=== PATIENT | female | born 1945 | race Caucasian/White ===

== ENCOUNTER → 2018-12-24 | Outpatient (CLI) | payer MEDICARE ==
--- NOTE | 2018-12-24 09:34 | Diagnostic Imaging Report ---
Indication: Abdominal pain and vomiting with bloating. Time of exam: 9:15 AM No free air is identified. The bowel gas pattern is nonobstructed. No pathologic calcifications are seen. Impression: No acute abnormality is detected. Dictated by: Dictated on workstation # [id number]
== END ==
LOC: RAD FS 09:09
PROVIDERS: ATTEND Family Medicine
DX: R10.13 Epigastric pain (principal); R11.10 Vomiting, unspecified; R14.0 Abdominal distension (gaseous)
CPT/HCPCS: 74019

== ENCOUNTER 2019-02-23 09:29 | Emergency (ER) | payer MEDICARE ==
[~2019-02-23] VITALS: Ht 149.8 cm; Wt 50.4 kg
[~2019-02-23 09:29] MED LIST changes: -AMLO10TA7; -HURRICAINE EXT TUBE (BENZOCAINE) XX PRN; -LACTATED RINGERS 1,000 ML IV ONE; -LACTATED RINGERS 1,000 ML IV STA; -MIDAZOLAM 2 MG/2 ML (VERSED) VIAL ONE; -PROPOFOL INJECTION 0 ML IV ONE; -meTOprolol 5 MG/5 ML (LOPRESSOR) VIAL ONE
[2019-02-23 10:04] LABS: BASOPHILS # (AUTO) 0.1 10^3/uL (0.0-0.1); BASOPHILS % (AUTO) 1 % (0-10); EOSINOPHILS # (AUTO) 0.3 10^3/uL (0.0-0.3); EOSINOPHILS % (AUTO) 3 % (0-10); HEMATOCRIT 34 % (35-52); HEMOGLOBIN 11.6 G/DL (11.5-16.0); LYMPHOCYTES # (AUTO) 1.1 X 10^3 (1.0-4.0); LYMPHOCYTES % (AUTO) 12 % (12-44); MEAN CORPUSCULAR HEMOGLOBIN 29 PG (25-34); MEAN CORPUSCULAR HGB CONC 34 G/DL (32-36); MEAN CORPUSCULAR VOLUME 84 FL (80-99); MEAN PLATELET VOLUME 10.7 FL (7.4-10.4); MONOCYTES # (AUTO) 0.7 X 10^3 (0.0-1.0); MONOCYTES % (AUTO) 7 % (0-12); NEUTROPHILS # (AUTO) 7.4 X 10^3 (1.8-7.8); NEUTROPHILS % (AUTO) 78 % (42-75); PLATELET COUNT 297 10^3/uL (130-400); RED CELL DISTRIBUTION WIDTH 13.3 % (10.0-14.5); WHITE BLOOD COUNT 9.6 10^3/uL (4.3-11.0)
[2019-02-23] MEDS ORDERED: LORazepam INJ 2 MG/ML (ATIVAN) VIAL IVP ONE (10:15)
[2019-02-23] MEDS ORDERED: fentaNYL INJECTION 100 MCG/2 ML AMP IVP ONE (10:15)
[2019-02-23 10:24] LABS: ALBUMIN 3.5 GM/DL (3.2-4.5); BILIRUBIN,TOTAL 0.6 MG/DL (0.1-1.0); CALCIUM 9.6 MG/DL (8.5-10.1); CREATININE SERUM 3.45 MG/DL (0.60-1.30); POTASSIUM 3.3 MMOL/L (3.6-5.0); TOTAL PROTEIN 6.9 GM/DL (6.4-8.2)
[2019-02-23] MEDS ORDERED: NS IV 1000 ML 1,000 ML IV ONE (10:37)
[2019-02-23 10:46] LABS: TSH (THYROID ANALYZER) 2.86 UIU/ML (0.35-4.94)
[2019-02-23 10:47] LABS: MAGNESIUM 1.7 MG/DL (1.6-2.4)
--- NOTE | 2019-02-23 10:49 | ED General ---
General Chief Complaint: Cardiac/General Problems Stated Complaint: HIGH BP Nursing Triage Note: PT TO RM 7 BY WHEELCHAIR FROM ENDO. PER ENDO, PTS BP WAS IN THE 200s/100s ON ARRIVAL. WAS GIVEN IV LOPRESSOR, PT BP CAME DOWN SOME. STATES DR CHRISTIANSEN WANTED PT EVALUATED IN THE ER. PER PT, SHE HAS NOT TAKEN HER METOPROLOL SINCE SATURDAY. STATES SHE WAS CONFUSED BY THE PREP INSTRUCTIONS. Nursing Sepsis Screen: No Definite Risk Source of Information: Patient Exam Limitations: No Limitations History of Present Illness Date Seen by Provider: Feb 23, 2019 Time Seen by Provider: 09:50 Initial Comments This 73-year-old woman is sent to the emergency room from the endoscopy suite because of hypertension. She is scheduled to have a colonoscopy with Dr. Christiansen today. Blood pressures were found to be greater than 200/100. Blood pressure on presentation was 230/129. Patient has not taken her metoprolol for the past 3 days in preparation for colonoscopy. She also notes she previously took lisinopril but that was stopped about 3 months ago due to cough. She is also anxious and experiencing chronic back pain. She has not treated either of these conditions this morning. She was given Lopressor 5 mg by anesthesia without significant improvement in her blood pressure. Colonoscopy today was being performed due to chronic problems with bowel disturbances including alternating constipation and diarrhea and vomiting. Allergies and Home Medications Allergies Coded Allergies: Penicillins (Verified Allergy, Severe, ANAPHYLAXIS, 02/16/19) levofloxacin (Verified Allergy, Severe, DIARRHIA, SWELLING, WEAKNESS, 02/16/19) sulfamethoxazole (Verified Allergy, Severe, WHEEZING/SWELLING, 02/16/19) trimethoprim (Verified Allergy, Severe, WHEEZING/SWELLING, 02/16/19) Tetracyclines (Verified Allergy, Mild, GI UPSET, 02/16/19) Sulfa (Sulfonamide Antibiotics) (Verified Allergy, Unknown, 02/16/19) pseudoephedrine (Verified Allergy, Unknown, 02/16/19) Home Medications Diphenhydramine HCl 25 Mg Capsule, 25 MG PO BID, (Reported) Metoprolol Tartrate 25 Mg Tablet, 25 MG PO BID, (Reported) Patient Home Medication List Home Medication List Reviewed: Yes Review of Systems Review of Systems Constitutional: no symptoms reported EENTM: no symptoms reported Respiratory: no symptoms reported Cardiovascular: see HPI Gastrointestinal: see HPI Genitourinary: no symptoms reported Musculoskeletal: no symptoms reported Skin: no symptoms reported Psychiatric/Neurological: No Symptoms Reported Hematologic/Lymphatic: No Symptoms Reported Immunological/Allergic: no symptoms reported Past Pnygsel-Aawjmz-Xzdnxa Hx Past Med/Social Hx: Reviewed and Corrections made Patient Social History Alcohol Use: Denies Use Recreational Drug Use: No Smoking Status: Current Everyday Smoker Type Used: Cigarettes 2nd Hand Smoke Exposure: Yes Recent Foreign Travel: No Contact w/Someone Who Travel: No Recent Infectious Disease Expo: No Recent Hopitalizations: No Physical Abuse: No Sexual Abuse: No Mistreated: No Fear: No Immunizations Up To Date Date of Pneumonia Vaccine: Mar 05, 2016 Date of Influenza Vaccine: Mar 03, 2018 Seasonal Allergies Seasonal Allergies: Yes Past Medical History Surgeries: Yes Tubal Ligation Respiratory: No Cardiac: Yes Hypertension Neurological: No Sexually Transmitted Disease: No HIV/AIDS: No Genitourinary: Yes (STAGE 3) Renal Failure Gastrointestinal: Yes (N/V, ABD PAIN) Chronic Constipation, Chronic Diarrhea Musculoskeletal: Yes Arthritis, Chronic Back Pain Endocrine: No HEENT: Yes (READING GLASSES, DENTURES) Cancer: No Psychosocial: Yes (SITUATIONAL-RELATED TO MOTHERS ) Depression Integumentary: No Blood Disorders: No Adverse Reaction/Blood Tranf: No (N/A) Physical Exam Vital Signs Vital Signs - First Documented 02/23/19 09:35 Temp 36.5 Pulse 88 Resp 14 B/P (MAP) 239/129 (165) Pulse Ox 95 O2 Delivery Room Air Capillary Refill : Less Than 3 Seconds Height, Weight, BMI Height: '" Weight: lbs. oz. kg; 22.00 BMI Method: General Appearance: No Apparent Distress, WD/WN HEENT: PERRL/EOMI, Normal ENT Inspection, Other (mucous membranes moist) Neck: Normal Inspection, Non Tender Respiratory: Lungs Clear, Normal Breath Sounds, No Accessory Muscle Use, No Respiratory Distress Cardiovascular: Regular Rate, Rhythm, No Edema, No Murmur Gastrointestinal: Normal Bowel Sounds, Non Tender, Soft Extremity: Normal Inspection, No Pedal Edema Neurologic/Psychiatric: Alert, Oriented x3, No Motor/Sensory Deficits, Normal Mood/Affect, forest ranger II-XII Norm as Tested Skin: Normal Color, Warm/Dry Progress/Results/Core Measures Suspected Sepsis Recent Fever Within 48 Hours: No Infection Criteria Present: None New/Unexplained Altered Menta: No Sepsis Screen: No Definite Risk SIRS Temperature: Pulse: 88 Respiratory Rate: 14 Laboratory Tests 02/23/19 09:53: White Blood Count 9.6 Blood Pressure 239 /129 Mean: 165 Laboratory Tests 02/23/19 09:53: Creatinine 3.45H, Platelet Count 297, Total Bilirubin 0.6 Results/Orders Lab Results Laboratory Tests Test 02/23/19 09:53 Range/Units White Blood Count 9.6 4.3-11.0 10^3/uL Red Blood Count 4.06 L 4.35-5.85 10^6/uL Hemoglobin 11.6 11.5-16.0 G/DL Hematocrit 34 L 35-52 % Mean Corpuscular Volume 84 80-99 FL Mean Corpuscular Hemoglobin 29 25-34 PG Mean Corpuscular Hemoglobin Concent 34 32-36 G/DL Red Cell Distribution Width 13.3 10.0-14.5 % Platelet Count 297 130-400 10^3/uL Mean Platelet Volume 10.7 H 7.4-10.4 FL Neutrophils (%) (Auto) 78 H 42-75 % Lymphocytes (%) (Auto) 12 12-44 % Monocytes (%) (Auto) 7 0-12 % Eosinophils (%) (Auto) 3 0-10 % Basophils (%) (Auto) 1 0-10 % Neutrophils # (Auto) 7.4 1.8-7.8 X 10^3 Lymphocytes # (Auto) 1.1 1.0-4.0 X 10^3 Monocytes # (Auto) 0.7 0.0-1.0 X 10^3 Eosinophils # (Auto) 0.3 0.0-0.3 10^3/uL Basophils # (Auto) 0.1 0.0-0.1 10^3/uL Sodium Level 129 L 135-145 MMOL/L Potassium Level 3.3 L 3.6-5.0 MMOL/L Chloride Level 94 L 98-107 MMOL/L Carbon Dioxide Level 25 21-32 MMOL/L Anion Gap 10 5-14 MMOL/L Blood Urea Nitrogen 23 H 7-18 MG/DL Creatinine 3.45 H 0.60-1.30 MG/DL Estimat Glomerular Filtration Rate 13 BUN/Creatinine Ratio 7 Glucose Level 111 H 70-105 MG/DL Calcium Level 9.6 8.5-10.1 MG/DL Corrected Calcium 10.0 8.5-10.1 MG/DL Magnesium Level 1.7 1.6-2.4 MG/DL Total Bilirubin 0.6 0.1-1.0 MG/DL Aspartate Amino Transf (AST/SGOT) 17 5-34 U/L Alanine Aminotransferase (ALT/SGPT) 11 0-55 U/L Alkaline Phosphatase 58 40-136 U/L Troponin I 0.063 H <0.028 NG/ML Total Protein 6.9 6.4-8.2 GM/DL Albumin 3.5 3.2-4.5 GM/DL TSH [place] Testing 2.86 0.35-4.94 UIU/ML My Orders Orders - EMELY GONZALEZ MD Cbc With Automated Diff (02/23/19 09:50) Comprehensive Metabolic Panel (02/23/19 09:50) Ed Iv/Invasive Line Start (02/23/19 09:50) Magnesium (02/23/19 10:05) Thyroid Analyzer (02/23/19 10:05) Fentanyl Injection (Sublimaze Injection (02/23/19 10:15) Lorazepam Injection (Ativan Injection) (02/23/19 10:15) Ns Iv 1000 Ml (Sodium Chloride 0.9%) (02/23/19 10:37) Hydralazine Injection (Apresoline Inject (02/23/19 11:30) Ekg Tracing (02/23/19 11:50) Ns (Ivpb) (Sodium C... W/Nicardipine Iv (02/23/19 12:00) Troponin I (02/23/19 12:51) Aspirin Chewable Tablet (Baby Aspirin Ch (02/23/19 13:45) Medications Given in ED Current Medications Medications Dose Ordered Sig/Adali Route Start Time Stop Time Status Last Admin Dose Admin Aspirin 324 mg ONCE ONCE PO 02/23/19 13:45 02/23/19 13:46 DC 02/23/19 13:43 324 MG Fentanyl Citrate 25 mcg ONCE ONCE IVP 02/23/19 10:15 02/23/19 10:16 DC 02/23/19 10:12 25 MCG Hydralazine HCl 10 mg ONCE ONCE IV 02/23/19 11:30 02/23/19 11:31 DC 02/23/19 11:39 10 MG Lorazepam 0.25 mg ONCE ONCE IVP 02/23/19 10:15 02/23/19 10:16 DC 02/23/19 10:12 0.25 MG Sodium Chloride 1,000 ml @ 0 mls/hr Q0M ONCE IV 02/23/19 10:37 02/23/19 10:38 DC 02/23/19 10:48 1,000 MLS/HR Vital Signs/I&O 02/23/19 09:35 Temp 36.5 Pulse 88 Resp 14 B/P (MAP) 239/129 (165) Pulse Ox 95 O2 Delivery Room Air Capillary Refill : Less Than 3 Seconds Blood Pressure Mean: 165 Progress Note #1: Time: 10:46 Progress Note Patient received fentanyl 25 g for her pain and Ativan 0.25 mg for her anxiety. Blood pressure is now 183/103. Creatinine returned at 3.45. Patient states her chronic creatinine is somewhere around 3. I will check her present creatinine against her last creatinine performed in the clinic. I have requested records. In the meantime, she is receiving a liter of IV normal saline. She was noted to be hyponatremic and hypokalemic. I'm hesitant to replace her potassium given the renal failure at this time. Dr. Christiansen notes her baseline blood pressure to be 140/83. He would like it to be as near to that as possible if he is to proceed with endoscopy. Progress Note #2: Time: 11:42 Progress Note Blood pressure briefly improved to about 180 systolic with fentanyl and Ativan. However, it fairly quickly rebounded. Systolic blood pressure is currently 218. I discussed the case with Dr. Maloney, her primary care provider. I also obtained a baseline creatinine from the office which was 2.[address] Maloney and I are rather concerned about her hypertension and worsening renal function. He notes that her worst blood pressure in the office was 160/106. He has not known her to have severe hypertension even off the lisinopril that was stopped [address] Christiansen has been updated. Colonoscopy will be canceled and we are pursuing transfer. I discussed the case with Dr. Velázquez, occasional caregiver at [facility]. He would like to patient started on a Cardene drip. Patient had been given hydralazine while the phone conversation was taking place. We will see how she responds to hydralazine before ordering the Cardene drip. A liter of IV normal saline is being administered for the renal failure. Progress Note #3: Time: 12:46 Progress Note We are still awaiting bed assignment from [facility]. Patient was accepted by Dr. Velázquez who's assistance is greatly appreciated. Systolic blood pressure on Cardizem drip at 5 mg per hour is in the 160s. I've asked nursing staff to decrease the rate to 2.5 mg per hour. Progress Note #4: Time: 13:51 Progress Note Blood pressure did not significant change with hydralazine. Cardene drip was initiated. She had labile blood pressures on Cardene and Cardene was stopped due to a significant drop in systolic blood pressure. She was not receiving the Cardene drip at the time of transfer. Systolic blood pressures were in the 160s and 170s. Dr. Velázquez was updated and recommended restarting Cardene drip only if systolic blood pressure exceeded 180. EMS was given instructions. For sake of completeness an EKG was obtained. There was some ST depression noted. Troponin was ordered as a follow-up study. It was minimally elevated but did not exceed the critical cut off per lab standards. Patient denied any chest pain. Update was provided to the receiving facility and patient was given aspirin prior to departure. ECG Initial ECG Impression Date: Feb 23, 2019 Initial ECG Impression Time: 12:27 Initial ECG Rate: 109 Initial ECG Rhythm: S.Tach Comment Sinus tachycardia with borderline ST depression. No ST elevation. LVH with secondary repolarization. Departure Impression Primary Impression: Severe hypertension Additional Impressions: Acute on chronic renal failure Qualified Codes: N17.9 - Acute kidney failure, unspecified; N18.9 - Chronic kidney disease, unspecified Hyponatremia ST segment depression Disposition: XFER [facility] Condition: Improved Transfer Time Spoke to Accepting Phy: 11:30 Transfer Progress Notes Transfer accepted by Dr. Joey Velázquez. Transfer Time: 13:45 [facility] of Transfer: EMS Departure-Patient Inst. Referrals: SONDRA MALONEY MD (PCP/Family) Primary Care Physician Copy Copies To 1: SONDRA MALONEY MD, JOSHUA T MD Feb 23, 2019 10:49
[2019-02-23] MEDS ORDERED: hydrALAZINE (APESOLINE) 20 MG/ML VIAL IV ONE (11:30)
[2019-02-23] MEDS ORDERED: niCARdipine IV 50 MG in NS (IVPB) 230 ML IV SCH (12:00)
[2019-02-23 13:45] VITALS: BP 156/98
[2019-02-23] MEDS ORDERED: ASPIRIN 81 MG CHEW (CHILDREN'S ASA) PO ONE (13:45)
--- NOTE | 2019-02-23 13:45 | NUR ---
CALLED TO UPDATE MADDY MILTON @ [facility] OF PTS ELEVATED TROPONIN AND ASA ADMNISTRATION.
== END 2019-02-23 13:45 | disposition short-term general hospital (02) ==
LOC: EDUNIT# 09:29 → ER 09:29
DX: I10 Essential (primary) hypertension (principal); I12.9 Hypertensive chronic kidney disease with stage 1 through stage 4 chronic kidney disease, or unspecified chronic kidney disease; N17.9 Acute kidney failure, unspecified; N18.3 Chronic kidney disease, stage 3 (moderate); E87.1 Hypo-osmolality and hyponatremia; R94.31 Abnormal electrocardiogram [ECG] [EKG]; F32.9 Major depressive disorder, single episode, unspecified; F17.210 Nicotine dependence, cigarettes, uncomplicated; Z98.51 Tubal ligation status; Z88.0 Allergy status to penicillin; Z88.1 Allergy status to other antibiotic agents; Z88.2 Allergy status to sulfonamides; Z88.8 Allergy status to other drugs, medicaments and biological substances
CPT/HCPCS: 36415; 80053; 83735; 84443; 84484; 85025; 93005; 96361; 96365; 96375

== ENCOUNTER → 2019-02-23 | Day surgery (SDC) | payer MEDICARE ==
[~2019-02-23] MED LIST: AMLO10TA7; DIPH25CA79 PO; HURRICAINE EXT TUBE (BENZOCAINE) XX PRN; LACTATED RINGERS 1,000 ML IV ONE; LACTATED RINGERS 1,000 ML IV STA; METO-333 PO; MIDAZOLAM 2 MG/2 ML (VERSED) VIAL ONE; PROPOFOL INJECTION 0 ML IV ONE; meTOprolol 5 MG/5 ML (LOPRESSOR) VIAL ONE
[2019-02-23 08:02] VITALS: BP 226/137
== END | disposition home or self-care (01) ==
LOC: ENDO 06:53
PROVIDERS: ATTEND Surgery
DX: R19.7 Diarrhea, unspecified (principal); R11.2 Nausea with vomiting, unspecified; R10.13 Epigastric pain; I10 Essential (primary) hypertension; N28.9 Disorder of kidney and ureter, unspecified; F32.9 Major depressive disorder, single episode, unspecified; F17.210 Nicotine dependence, cigarettes, uncomplicated; Z88.0 Allergy status to penicillin; Z88.2 Allergy status to sulfonamides; Z88.1 Allergy status to other antibiotic agents; Z79.899 Other long term (current) drug therapy; Z53.9 Procedure and treatment not carried out, unspecified reason

== ENCOUNTER 2019-02-27 16:22 | Emergency (ER) | payer MEDICARE ==
[~2019-02-27] VITALS: Ht 149 cm; Wt 60.5 kg
[2019-02-27] MEDS ORDERED: AMLO10TA7 (16:40)
--- NOTE | 2019-02-27 17:16 | ED Lower Extremity ---
General Chief Complaint: Lower Extremity Stated Complaint: SWOLLEN FT, PAIN IN FT Nursing Triage Note: pt come in today for bilateral feet pain and redness. States she has been seen for this before after she had her toenails trimmed and was told she had an infection. Has recently been in the hospital for hypertension and came home yesterday. This morning her feet started swelling and her toes are red. There is an ulcer on left toe. Nursing Sepsis Screen: No Definite Risk Source: patient (YOLANDE RAMIREZ DO) History of Present Illness Date Seen by Provider: Feb 27, 2019 Time Seen by Provider: 16:30 Initial Comments 73-year-old female comes in with bilateral foot pain, swelling and redness. Patient reports that this started this morning. patient reports that she was discharged from [facility] last night where she was there for 4 days for hypertension. That she came home last night. She does reports that she started amlodipine for the first time this morning. There is a small ulcer on the left toe. Patient denies any chest pain, nausea, vomiting, fevers or chills. Patient reports that she has seen her primary care doctor for something similar in the past and that she had a "foot infection. The erythema and swelling improve if she puts her feet up. Patient is given a mixed history of present illness as well as where this is new or a recurrent process. Based on her conversation with me and the nurse it appears to be more recurrent then an acute process (YOLANDE RAMIREZ DO) Allergies and Home Medications Allergies Coded Allergies: Penicillins (Verified Allergy, Severe, ANAPHYLAXIS, 02/16/19) levofloxacin (Verified Allergy, Severe, DIARRHIA, SWELLING, WEAKNESS, 02/16/19) sulfamethoxazole (Verified Allergy, Severe, WHEEZING/SWELLING, 02/16/19) trimethoprim (Verified Allergy, Severe, WHEEZING/SWELLING, 02/16/19) Tetracyclines (Verified Allergy, Mild, GI UPSET, 02/16/19) Sulfa (Sulfonamide Antibiotics) (Verified Allergy, Unknown, 02/16/19) pseudoephedrine (Verified Allergy, Unknown, 02/16/19) Home Medications Diphenhydramine HCl 25 Mg Capsule, 25 MG PO BID, (Reported) Metoprolol Tartrate 25 Mg Tablet, 25 MG PO BID, (Reported) Patient Home Medication List Home Medication List Reviewed: Yes (YOLANDE RAMIREZ DO) Home Medication List Reviewed: Yes (AMADO JOLLEY MD) Review of Systems Constitutional: No chills, No fever EENTM: no symptoms reported Respiratory: no symptoms reported Cardiovascular: no symptoms reported Skin: see HPI, change in color (YOLANDE RAMIREZ DO) Past Ipwblsd-Rmtdmt-Aawelc Hx Past Med/Social Hx: Reviewed Nursing Past Med/Soc Hx (YOLANDE RAMIREZ DO) Patient Social History Alcohol Use: Rarely Uses Recreational Drug Use: No Type Used: Cigarettes 2nd Hand Smoke Exposure: Yes Recent Foreign Travel: No Contact w/Someone Who Travel: No Recent Infectious Disease Expo: No Recent Hopitalizations: No Physical Abuse: No Sexual Abuse: No Mistreated: No Fear: No (YOLANDE RAMIREZ DO) Immunizations Up To Date Date of Pneumonia Vaccine: Mar 05, 2016 Date of Influenza Vaccine: Mar 03, 2018 (YOLANDE RAMIREZ DO) Seasonal Allergies Seasonal Allergies: Yes (YOLANDE RAMIREZ DO) Past Medical History Surgeries: Yes Tubal Ligation Respiratory: No Cardiac: Yes Hypertension Neurological: No Sexually Transmitted Disease: No HIV/AIDS: No Genitourinary: Yes (STAGE 3) Renal Failure Gastrointestinal: Yes (N/V, ABD PAIN) Chronic Constipation, Chronic Diarrhea Musculoskeletal: Yes Arthritis, Chronic Back Pain Endocrine: No HEENT: Yes (READING GLASSES, DENTURES) Cancer: No Psychosocial: Yes (SITUATIONAL-RELATED TO MOTHERS ) Depression Integumentary: No Blood Disorders: No Adverse Reaction/Blood Tranf: No (N/A) (YOLANDE RAMIREZ DO) Physical Exam Vital Signs Vital Signs - First Documented 02/27/19 16:30 Temp 37.2 Pulse 73 Resp 18 B/P (MAP) 136/106 (116) Pulse Ox 97 (AMADO JOLLEY MD) Vital Signs Capillary Refill : Less Than 3 Seconds (YOLANDE RAMIREZ DO) Height, Weight, BMI Height: '" Weight: lbs. oz. kg; 27.00 BMI Method: General Appearance: WD/WN, no apparent distress Cardiovascular: normal peripheral pulses, regular rate, rhythm, other (pulses are 1+ and palpable in her bilateral feet with brisk cap refill) Respiratory: lungs clear, normal breath sounds Feet: bilateral foot swelling, bilateral foot other (bilateral erythema at the distal aspect of both feet with a very small what appears to be old ulceration on the left great toe) Skin: rash (YOLANDE RAMIREZ DO) Progress/Results/Core Measures Results/Orders Lab Results Laboratory Tests Test 02/27/19 17:13 Range/Units White Blood Count 9.8 4.3-11.0 10^3/uL Red Blood Count 3.57 L 4.35-5.85 10^6/uL Hemoglobin 10.5 L 11.5-16.0 G/DL Hematocrit 31 L 35-52 % Mean Corpuscular Volume 87 80-99 FL Mean Corpuscular Hemoglobin 29 25-34 PG Mean Corpuscular Hemoglobin Concent 34 32-36 G/DL Red Cell Distribution Width 13.9 10.0-14.5 % Platelet Count 316 130-400 10^3/uL Mean Platelet Volume 10.9 H 7.4-10.4 FL Neutrophils (%) (Auto) 66 42-75 % Lymphocytes (%) (Auto) 16 12-44 % Monocytes (%) (Auto) 10 0-12 % Eosinophils (%) (Auto) 6 0-10 % Basophils (%) (Auto) 1 0-10 % Neutrophils # (Auto) 6.5 1.8-7.8 X 10^3 Lymphocytes # (Auto) 1.6 1.0-4.0 X 10^3 Monocytes # (Auto) 1.0 0.0-1.0 X 10^3 Eosinophils # (Auto) 0.6 H 0.0-0.3 10^3/uL Basophils # (Auto) 0.1 0.0-0.1 10^3/uL Erythrocyte Sedimentation Rate 27 0-30 MM/HR Prothrombin Time 14.1 12.2-14.7 SEC INR Comment 1.1 0.8-1.4 Activated Partial Thromboplast Time 31 24-35 SEC Sodium Level 126 L 135-145 MMOL/L Potassium Level 3.3 L 3.6-5.0 MMOL/L Chloride Level 90 L 98-107 MMOL/L Carbon Dioxide Level 25 21-32 MMOL/L Anion Gap 11 5-14 MMOL/L Blood Urea Nitrogen 17 7-18 MG/DL Creatinine 3.06 H 0.60-1.30 MG/DL Estimat Glomerular Filtration Rate 15 BUN/Creatinine Ratio 6 Glucose Level 125 H 70-105 MG/DL Calcium Level 9.8 8.5-10.1 MG/DL Corrected Calcium 10.0 8.5-10.1 MG/DL Total Bilirubin 0.6 0.1-1.0 MG/DL Aspartate Amino Transf (AST/SGOT) 17 5-34 U/L Alanine Aminotransferase (ALT/SGPT) 9 0-55 U/L Alkaline Phosphatase 60 40-136 U/L Total Protein 6.9 6.4-8.2 GM/DL Albumin 3.8 3.2-4.5 GM/DL (AMADO JOLLEY MD) Vital Signs/I&O 02/27/19 16:30 Temp 37.2 Pulse 73 Resp 18 B/P (MAP) 136/106 (116) Pulse Ox 97 (AMADO JOLLEY MD) Blood Pressure Mean: 116 Progress Progress Note #1: Progress Note I assumed care from Dr. Ramirez at 1800 and saw the patient with him. She stated that she had been discharged from [facility] yesterday so instead of waiting for a call back from [facility] I called [facility] and checked with them about her labs. The concern was that if her sodium has significantly dropped then she may need to be readmitted for pain and chain her hyponatremia. If it is otherwise stable then she could continue on her medicines and keep the follow-up appointment with Dr. Maloney at the beginning of next week. Continue to elevate her feet as this redness and swelling was more of a recurrent condition. The amlodipine cane cause some swelling to her legs as well also counseled patient on that. Her blood pressure is controlled better on the medication so will have her continue to take that. Progress Note #2: Time: 18:26 Progress Note I spoke with Kath MILTON at the transfer center for [facility] and was reaching out as a consult to the hospitalist to check on her disposition when she was discharged from [facility] yesterday. She was able to check with the nursing building cleaning supervisor and found that her Sodium at discharge was 130 so she has not had a significant change in her level. Will have her limit her water intake and check with Dr. Maloney Saturday as scheduled. Continue on the new medicine for blood pressure control. (AMADO JOLLEY MD) Departure Impression Primary Impression: Hyponatremia Additional Impressions: Bilateral swelling of feet Hypertension Qualified Codes: I10 - Essential (primary) hypertension Chronic renal failure, stage 4 (severe) Disposition: 01 HOME, SELF-CARE Condition: Stable Departure-Patient Inst. Decision time for Depature: 18:41 (AMADO JOLLEY MD) Referrals: SONDRA MALONEY MD (PCP/Family) Primary Care Physician Patient Instructions: Chronic Kidney Disease (DC), Hyponatremia (DC), Renovascular Hypertension (DC) Add. Discharge Instructions: Follow up with Dr. Maloney on Saturday as scheduled or call him Saturday if more concerns Try to elevate your legs to help with swelling. Try not to drink more than 2 liters of water in a day All discharge instructions reviewed with patient and/or family. Voiced understanding. YOLANDE RAMIREZ DO Feb 27, 2019 17:16 AMADO JOLLEY MD Feb 27, 2019 18:41
[2019-02-27 17:22] LABS: BASOPHILS # (AUTO) 0.1 10^3/uL (0.0-0.1); BASOPHILS % (AUTO) 1 % (0-10); EOSINOPHILS # (AUTO) 0.6 10^3/uL (0.0-0.3); EOSINOPHILS % (AUTO) 6 % (0-10); HEMATOCRIT 31 % (35-52); HEMOGLOBIN 10.5 G/DL (11.5-16.0); LYMPHOCYTES # (AUTO) 1.6 X 10^3 (1.0-4.0); LYMPHOCYTES % (AUTO) 16 % (12-44); MEAN CORPUSCULAR HEMOGLOBIN 29 PG (25-34); MEAN CORPUSCULAR HGB CONC 34 G/DL (32-36); MEAN CORPUSCULAR VOLUME 87 FL (80-99); MEAN PLATELET VOLUME 10.9 FL (7.4-10.4); MONOCYTES % (AUTO) 10 % (0-12); NEUTROPHILS # (AUTO) 6.5 X 10^3 (1.8-7.8); NEUTROPHILS % (AUTO) 66 % (42-75); PLATELET COUNT 316 10^3/uL (130-400); RED CELL DISTRIBUTION WIDTH 13.9 % (10.0-14.5); WHITE BLOOD COUNT 9.8 10^3/uL (4.3-11.0)
[2019-02-27 17:44] LABS: BILIRUBIN,TOTAL 0.6 MG/DL (0.1-1.0); CALCIUM 9.8 MG/DL (8.5-10.1); CREATININE SERUM 3.06 MG/DL (0.60-1.30); POTASSIUM 3.3 MMOL/L (3.6-5.0)
[2019-02-27 17:45] LABS: ALBUMIN 3.8 GM/DL (3.2-4.5); INR 1.1 (0.8-1.4); PROTHROMBIN TIME PATIENT 14.1 SEC (12.2-14.7); TOTAL PROTEIN 6.9 GM/DL (6.4-8.2)
--- NOTE | 2019-02-27 18:00 | NUR ---
bp 168/73, R 16, O2 sats 93, P 76
[2019-02-27 18:06] LABS: ERYTHROCYTE SEDIMENTATION RATE 27 MM/HR (0-30)
--- NOTE | 2019-02-27 18:18 | NUR ---
Patient resting comfortably with feet elevated.
[2019-02-27 18:57] VITALS: BP 134/64
== END 2019-02-27 19:00 | disposition home or self-care (01) ==
LOC: EDUNIT# 16:22 → ER FS 16:22
DX: E87.1 Hypo-osmolality and hyponatremia (principal); I12.9 Hypertensive chronic kidney disease with stage 1 through stage 4 chronic kidney disease, or unspecified chronic kidney disease; N18.4 Chronic kidney disease, stage 4 (severe); F32.9 Major depressive disorder, single episode, unspecified; Z88.0 Allergy status to penicillin; Z88.1 Allergy status to other antibiotic agents; Z88.2 Allergy status to sulfonamides; Z88.8 Allergy status to other drugs, medicaments and biological substances; Z77.22 Contact with and (suspected) exposure to environmental tobacco smoke (acute) (chronic); Z98.51 Tubal ligation status
CPT/HCPCS: 36415; 80053; 85025; 85610; 85652; 85730; 86141

== ENCOUNTER → 2019-04-01 | Outpatient (CLI) | payer MEDICARE ==
[~2019-04-01] MED LIST changes: +AMLO10TA7
--- NOTE | 2019-04-01 16:23 | Diagnostic Imaging Report ---
INDICATION: Discoloration in the toes of both lower extremities. TECHNIQUE: Bilateral lower extremity arterial Doppler study performed in the routine fashion with color flow Doppler and waveform analysis. FINDINGS: On the right side, scattered areas of plaquing were visualized. Flow is biphasic throughout with the exception of monophasic flow noted in the profunda femoris artery. There is moderate velocity elevation in the profunda femoris artery. There is no focal high-velocity jet or occluded segment. On the left side, flow was biphasic throughout except for monophasic in the profunda femoris artery as well as in the dorsalis pedis. There is no occluded segment. There is moderate velocity elevation in the left common femoral artery. IMPRESSION: Peripheral vascular disease, as described above. There is moderate velocity elevation of the left common femoral artery and right profunda femoris artery. There is monophasic flow in the profunda on both sides. There is monophasic flow in the dorsalis pedis on the left side, compatible with small vessel disease. Consider correlation with CT angiography, if clinically warranted. Dictated by: Dictated on workstation # [id number]
== END ==
LOC: RAD 10:30
PROVIDERS: ATTEND Surgery
DX: I74.3 Embolism and thrombosis of arteries of the lower extremities (principal); E11.621 Type 2 diabetes mellitus with foot ulcer; L97.522 Non-pressure chronic ulcer of other part of left foot with fat layer exposed; L97.512 Non-pressure chronic ulcer of other part of right foot with fat layer exposed; E11.22 Type 2 diabetes mellitus with diabetic chronic kidney disease; T65.222A Toxic effect of tobacco cigarettes, intentional self-harm, initial encounter; F17.218 Nicotine dependence, cigarettes, with other nicotine-induced disorders; I12.0 Hypertensive chronic kidney disease with stage 5 chronic kidney disease or end stage renal disease; N18.5 Chronic kidney disease, stage 5
CPT/HCPCS: 36415; 83036; 84134; 93925

== ENCOUNTER → 2019-04-01 | Outpatient (CLI) | payer MEDICARE ==
[~2019-04-01] MED LIST changes: -AMLO10TA7; +AMLO10TA7 PO; +ASPI-983 PO; +ATOR80TA76 PO; +CLOP75TA28 PO; +ISOS30TA3 PO; +METO-387 PO; +NITR1OIN TOP; +RIVA2.5T5 PO; +TRAM50TA2 PO
== END ==
LOC: WOUNDCARE 08:06
PROVIDERS: ATTEND Surgery
DX: E11.621 Type 2 diabetes mellitus with foot ulcer (principal); L97.522 Non-pressure chronic ulcer of other part of left foot with fat layer exposed; I70.245 Atherosclerosis of native arteries of left leg with ulceration of other part of foot; L97.512 Non-pressure chronic ulcer of other part of right foot with fat layer exposed; I70.235 Atherosclerosis of native arteries of right leg with ulceration of other part of foot; E11.52 Type 2 diabetes mellitus with diabetic peripheral angiopathy with gangrene; E11.22 Type 2 diabetes mellitus with diabetic chronic kidney disease; N18.5 Chronic kidney disease, stage 5; F17.219 Nicotine dependence, cigarettes, with unspecified nicotine-induced disorders; T65.222A Toxic effect of tobacco cigarettes, intentional self-harm, initial encounter; I10 Essential (primary) hypertension; I70.0 Atherosclerosis of aorta
CPT/HCPCS: 99214

== ENCOUNTER → 2019-04-02 | Outpatient (CLI) | payer MEDICARE ==
[~2019-04-02] MED LIST changes: +AMLO10TA7; -AMLO10TA7 PO; -ASPI-983 PO; -ATOR80TA76 PO; -CLOP75TA28 PO; -ISOS30TA3 PO; -METO-387 PO; -NITR1OIN TOP; -RIVA2.5T5 PO; -TRAM50TA2 PO
[2019-04-02 11:08] LABS: ALBUMIN 3.9 GM/DL (3.2-4.5); BILIRUBIN,TOTAL 0.6 MG/DL (0.1-1.0); CALCIUM 9.9 MG/DL (8.5-10.1); CREATININE SERUM 3.17 MG/DL (0.60-1.30); POTASSIUM 3.8 MMOL/L (3.6-5.0)
== END ==
LOC: CARD 10:25
PROVIDERS: ATTEND Internal Medicine Cardiovascular Disease
DX: I08.3 Combined rheumatic disorders of mitral, aortic and tricuspid valves (principal); I73.9 Peripheral vascular disease, unspecified; I12.9 Hypertensive chronic kidney disease with stage 1 through stage 4 chronic kidney disease, or unspecified chronic kidney disease; N18.5 Chronic kidney disease, stage 5; I74.3 Embolism and thrombosis of arteries of the lower extremities; L97.522 Non-pressure chronic ulcer of other part of left foot with fat layer exposed; L97.512 Non-pressure chronic ulcer of other part of right foot with fat layer exposed; E11.621 Type 2 diabetes mellitus with foot ulcer; T65.222A Toxic effect of tobacco cigarettes, intentional self-harm, initial encounter; E11.22 Type 2 diabetes mellitus with diabetic chronic kidney disease; F17.218 Nicotine dependence, cigarettes, with other nicotine-induced disorders; Z72.0 Tobacco use
CPT/HCPCS: 36415; 80053; 80061; 93306

== ENCOUNTER → 2019-04-08 | Outpatient (CLI) | payer MEDICARE ==
[~2019-04-08] MED LIST changes: -AMLO10TA7; +AMLO10TA7 PO; +ASPI-983 PO; +ATOR80TA76 PO; +CLOP75TA28 PO; +ISOS30TA3 PO; +METO-387 PO; +RIVA2.5T5 PO; +TRAM50TA2 PO
== END ==
LOC: WOUNDCARE 09:59
PROVIDERS: ATTEND Surgery
DX: L97.522 Non-pressure chronic ulcer of other part of left foot with fat layer exposed (principal); I70.245 Atherosclerosis of native arteries of left leg with ulceration of other part of foot; L97.512 Non-pressure chronic ulcer of other part of right foot with fat layer exposed; I70.235 Atherosclerosis of native arteries of right leg with ulceration of other part of foot; E11.621 Type 2 diabetes mellitus with foot ulcer; E11.52 Type 2 diabetes mellitus with diabetic peripheral angiopathy with gangrene; E11.22 Type 2 diabetes mellitus with diabetic chronic kidney disease; N18.5 Chronic kidney disease, stage 5; F17.219 Nicotine dependence, cigarettes, with unspecified nicotine-induced disorders; T65.222A Toxic effect of tobacco cigarettes, intentional self-harm, initial encounter; I10 Essential (primary) hypertension; I70.0 Atherosclerosis of aorta
CPT/HCPCS: 99213

== ENCOUNTER 2019-04-09 13:27 | Inpatient (IN) | payer MEDICARE ==
[~2019-04-09] VITALS: Ht 149.9 cm; Wt 48.9 kg
[~2019-04-09 13:27] MED LIST changes: -ASPI-983 PO; -ATOR80TA76 PO; -CLOP75TA28 PO; -ISOS30TA3 PO; -METO-387 PO; -RIVA2.5T5 PO; -TRAM50TA2 PO
[2019-04-09] MEDS ORDERED: REGADENOSON 0.4 MG/5 ML SYR (LEXISCAN) IV ONE (13:45)
--- NOTE | 2019-04-09 13:50 | NUR ---
RIC VILLEGAS admitted to room 423-1, with an admitting diagnosis of isechemic foot , on 04/09/19 from direct admission via w/c, accompanied by mikaela's staff. RIC VILLEGAS introduced to surroundings, call light, bed controls, phone, TV, temperature control, lights, meal times, smoking policy, visitor policy, side rail policy, bathrooms and showers. Patient Rights given to patient in the handbook. RIC VILLEGAS verbalizes understanding that [facility] is not responsible for the loss or damage to any personal effects or valuables that are kept in the patients posession during their hospitalization. RIC VILLEGAS verbalizes understanding of Interdisciplinary Patient Education. Patient and/or family were informed about the Rapid Response Team and its purpose.
[2019-04-09 13:56] VITALS: BP 142/73
[2019-04-09] MEDS ORDERED: ENOXAPARIN 40 MG/0.4 ML (LOVENOX) SYR SQ SCH (14:00)
[2019-04-09] MEDS ORDERED: CATHETER FLUSH 10 ML SYR IV PRN (14:15)
[2019-04-09 14:42] VITALS: BP 142/73
[2019-04-09] MEDS: NS IV 1000 ML 1,000 ML IV SCH ×2 (14:47→20:57)
--- NOTE | 2019-04-09 14:47 | Diagnostic Imaging Report ---
INDICATION: Shortness of breath. PA and lateral chest. FINDINGS: Heart size and pulmonary vascularity are normal. Lungs are clear. There are no effusions or pneumothoraces. IMPRESSION: Negative chest. Dictated by: Dictated on workstation # [id number]
[2019-04-09 15:06] LABS: MEAN PLATELET VOLUME 9.2 FL (7.4-10.4); RED CELL DISTRIBUTION WIDTH 14.9 % (10.0-14.5); WHITE BLOOD COUNT 9.3 10^3/uL (4.3-11.0)
[2019-04-09 15:26] LABS: INR 1.1 (0.8-1.4); PROTHROMBIN TIME PATIENT 14.9 SEC (12.2-14.7)
[2019-04-09 15:32] LABS: ALBUMIN 3.9 GM/DL (3.2-4.5); BILIRUBIN,TOTAL 0.9 MG/DL (0.1-1.0); CALCIUM 10.1 MG/DL (8.5-10.1); CREATININE SERUM 3.16 MG/DL (0.60-1.30); MAGNESIUM 1.8 MG/DL (1.6-2.4); POTASSIUM 3.6 MMOL/L (3.6-5.0); TOTAL PROTEIN 6.9 GM/DL (6.4-8.2)
[2019-04-09] MEDS ORDERED: TRAM50TA2 PO ×2 (16:27)
[2019-04-09] MEDS ORDERED: ISOS30TA3 PO ×2 (16:27)
[2019-04-09] MEDS ORDERED: ATOR80TA76 PO ×2 (16:27)
[2019-04-09 16:30] VITALS: BP 135/66
[2019-04-09] MEDS: inSUlin ASPART (NovoLOG) 1 UNIT/0.01 ML (CHARGE PER UNIT) SC SCH ×2 (16:33→21:00)
[2019-04-09] MEDS ORDERED: ASPI-983 PO ×2 (16:37)
[2019-04-09] MEDS ORDERED: METO-387 PO ×2 (16:37)
--- NOTE | 2019-04-09 16:38 | NUR ---
SPOKE WITH THE PATIENT ABOUT HER MEDICATIONS. WE WENT OVER THE EXT MED HX AND SHE VERIFIED HOW SHE TAKES THEM. SHE FILLED METOPROLOL ER 25MG 2 DAILY #60 03-03-19 - SHE WOULD BE PAST DUE FOR REFILL, SHE ALSO FILLED A 90 DAY SUPPLY OF THE METOPROLOL TARTRATE IN JAN. SHE KNOWS THIS HAS BEEN CHANGED TO THE SUCCINATE. I NOTED THE PAST DUE FILL DATE ON THE MED REC. HER TRAMADOL WAS PRESCRIBED 2 TID PRN HOWEVER SHE STATES SHE ONLY TAKES 2 BID PRN. SHE TAKES ASPIRIN 81MG DAILY OTC.
[2019-04-09 20:25] VITALS: BP 137/67
[2019-04-09] MEDS: oxyCODONE/APAP 5/325MG (PERCOCET 5) TABLET PO PRN (23:07)
[2019-04-10] VITALS (8 sets, daily range): BP systolic 111–159; BP diastolic 68–84
[2019-04-10] MEDS: NS IV 1000 ML 1,000 ML IV SCH ×4 (03:58→20:26)
[2019-04-10] MEDS: PANTOPRAZOLE 40 MG (PROTONIX) TAB PO SCH (04:47)
[2019-04-10 05:53] LABS: CALCIUM 9.4 MG/DL (8.5-10.1); CREATININE SERUM 2.66 MG/DL (0.60-1.30); MAGNESIUM 1.7 MG/DL (1.6-2.4); POTASSIUM 3.5 MMOL/L (3.6-5.0)
[2019-04-10] MEDS: inSUlin ASPART (NovoLOG) 1 UNIT/0.01 ML (CHARGE PER UNIT) SC SCH ×4 (06:27→21:43)
[2019-04-10] MEDS ORDERED: REGADENOSON 0.4 MG/5 ML SYR (LEXISCAN) IV ONE (08:00)
[2019-04-10] MEDS: ASPIRIN E.C. 81 MG (ECOTRIN) TAB PO SCH (10:53)
[2019-04-10] MEDS: CLOPIDOGREL 75 MG (PLAVIX) TABLET PO SCH (10:53)
--- NOTE | 2019-04-10 10:53 | Cardiology History & Physical ---
HPI-Cardiology Cardiology Consultation Date of Consultation 04/10/19 Date of Admission Time Seen by Provider: 10:51 Indication: CLI HPI Mrs. Beltran is a 73 years old lady with history of hypertension, was hospitalized last month for elevated blood pressure. Started for the past months to have erythema then gangrene on her toes. Denied any chest pain, no palpitation, she was seen by Dr. Andrews, discussed possibility of amputation. She was seen by Dr. Isidro and referred for further evaluation and had ultrasound to the lower extremities suggestive of small vessel disease mainly by the profunda. Had biphasic waves up to her knee, denied any chest pain, had underlying renal failure. Referred for evaluation for possible cardiac source of embolization. Still having chest discomfort, kidney functions are worse. patient was admitted and started to have IV fluid, proceed with stress test today, I will continue with aggressive hydration with anticoagulation, planning for angiogram to her legs if her renal function improved, continue with aggressive treatment at this time PMH-Cardiology Immunizations Up To Date Date of Pneumonia Vaccine: Mar 05, 2016 Date of Influenza Vaccine: Feb 12, 2018 Seasonal Allergies Seasonal Allergies: Yes Surgeries Yes Respiratory No Cardiovascular Yes Neurological No Reproductive System Sexually Transmitted Disease: No HIV/AIDS: No Female Reproductive Disorders: Denies Genitourinary Yes (STAGE 3) Renal Failure Gastrointestinal Yes (N/V, ABD PAIN) Chronic Constipation, Chronic Diarrhea, Irritable Bowel Musculoskeletal Yes Arthritis, Chronic Back Pain Endocrine No HEENT Yes (READING GLASSES, DENTURES, blurred vision) Loss of Vision: Bilateral Hearing Impairment: Denies Cancer No (egd, tubaligation) Did You Recieve Any Treatments: No Psychosocial Yes (SITUATIONAL-RELATED TO MOTHERS ) Depression Integumentary No Blood Transfusions No Adverse Rxn to Transfusion: No (N/A) Social History Patient Social History Marrital Status: Employed/Student: retired Alcohol Use: Occasionally Uses Recreational Drug Use: No Smoking: Current every day smoker Recent Foreign Travel: No Contact w/other who traveled: No Recent Infectious Disease Expo: No Family Hx Other family history of atherosclerosis ROS-Cardiology Review of Systems General: No Chills, No Night Sweats; Fatigue; No Malaise, No Appetite HEENT: No Head Aches, No Visual Changes, No Eye Pain, No Ear Pain, No Dysphasia, No Sinus Congestion, No Post Nasal Drip, No Sore Throat Pulmonary: Dyspnea; No Cough, No Pleuritic Chest Pain Cardiovascular: Chest Pain; No: Palpitations, Orthopnea, Paroxysmal Noc. Dyspnea, Edema, Lt Headedness Gastrointestinal: Nausea; No: Vomiting, Abdominal Pain, Diarrhea, Constipation, Melena, Hematochezia Genitourinary: No Dysuria, No Frequency, No Incontinence, No Hematuria, No Retention, No Other Musculoskeletal: shoulder pain, back pain; No: neck pain, arm pain, hand pain, leg pain, foot pain Neurological: Numbness; No: Weakness, Incoordination, Change in speech, Confusion, Seizures Home Medications & Allergies Allergies: Coded Allergies: Penicillins (Verified Allergy, Severe, ANAPHYLAXIS, 02/16/19) levofloxacin (Verified Allergy, Severe, DIARRHIA, SWELLING, WEAKNESS, 02/16/19) sulfamethoxazole (Verified Allergy, Severe, WHEEZING/SWELLING, 02/16/19) trimethoprim (Verified Allergy, Severe, WHEEZING/SWELLING, 02/16/19) Tetracyclines (Verified Allergy, Mild, GI UPSET, 02/16/19) Sulfa (Sulfonamide Antibiotics) (Verified Allergy, Unknown, 02/16/19) pseudoephedrine (Verified Allergy, Unknown, 02/16/19) Home Medication List Reviewed: Yes Exam-Cardiology Vital Signs Vital Signs Date Time Temp Pulse Resp B/P (MAP) Pulse Ox O2 Delivery O2 Flow Rate FiO2 04/10/19 08:16 94 Room Air 04/10/19 08:08 125 111/84 (93) 04/10/19 08:00 35.8 18 Exam General Appearance: Alert, Oriented X3, Cooperative, No Acute Distress HEENT: Atraumatic, PERRLA Respiratory: Clear to Auscultation, Normal Air Movement Cardiovascular: Regular Rate, Normal S1, Normal S2, Other (SM) Abdominal: Normal Bowel Sounds, Soft, No Tenderness, No Hepatosplenomegaly, No Masses Extremities: Other (Multiple gangrene on toes, diminishe pulse) Skin: No Rashes, No Breakdown, No Significant Lesion Neuro: Normal Gait, Normal Speech, Strength at 5/5 X4 Ext, Normal Tone, Sensati on Intact Psych/Mental Status: Mental Status NL, Mood NL Results Labs Labs Laboratory Tests 04/09/19 14:50: White Blood Count 9.3, Red Blood Count 3.08L, Hemoglobin 9.0L, Hematocrit 27L, Mean Corpuscular Volume 87, Mean Corpuscular Hemoglobin 29, Mean Corpuscular Hemoglobin Concent 34, Red Cell Distribution Width 14.9H, Platelet Count 368, Mean Platelet Volume 9.2, Prothrombin Time 14.9H, INR Comment 1.1, Activated Partial Thromboplast Time 47H, Sodium Level 127L, Potassium Level 3.6, Chloride Level 91L, Carbon Dioxide Level 23, Anion Gap 13, Blood Urea Nitrogen 17, Creatinine 3.16H, Estimat Glomerular Filtration Rate 14, BUN/Creatinine Ratio 5, Glucose Level 91, Calcium Level 10.1, Corrected Calcium 10.2H, Magnesium Level 1.8, Total Bilirubin 0.9, Aspartate Amino Transf (AST/SGOT) 31, Alanine Aminotransferase (ALT/SGPT) 14, Alkaline Phosphatase 66, Troponin I 0.083H, Total Protein 6.9, Albumin 3.9 04/09/19 16:30: Glucometer 109 04/09/19 20:59: Glucometer 87 04/10/19 05:04: Sodium Level 130L, Potassium Level 3.5L, Chloride Level 96L, Carbon Dioxide Level 20L, Anion Gap 14, Blood Urea Nitrogen 15, Creatinine 2.66#H, Estimat Glomerular Filtration Rate 18, BUN/Creatinine Ratio 6, Glucose Level 78, Calcium Level 9.4, Magnesium Level 1.7 A/P-Cardiology Admission Diagnosis Critical limb ischemia Peripheral arterial disease Acute renal failure Hypertension Admission Status: Inpatient Order (span 2 midnights) Reason for Inpatient Admission: Acute renal failure Critical limb ischemia Non-ST IA Assessment/Plan Subacute ischemic toes bilaterally, gangrene on multiple toes as described above, has seen by Dr. Andrews and discussed possibility of amputation. Has stopped smoking last week, still having significant renal failure, patient will need angiogram, I we will admit her to the hospital and proceed with aggressive hydration and then consider angiogram to her legs Coronary artery disease, non-ST elevation of cardiac infarction, mild elevation in troponin level, started on IV fluid, continue to monitor and planning for possible cardiac catheterization. Chronic kidney disease with GFR 15, high risk of progressing to renal failure if she gets exposed to contrast. I will admit her and proceed with aggressive hydration and consider angiogram with limited contrast use Hypertension, controlled on current medication, I am adding isosorbide Questionable hyperlipidemia, I will start high-dose statin at this time and evaluate lipid profile in addition to fish oil Tobaccoism, has been smoking until yesterday, encouraged to continue with smoking cessation Questionable underlying vasculitis with Buerger disease, has seen and followed with Dr. Andrews. Echocardiogram done in March 2019 showing normal LV size with ejection fraction 65-70 percent, grade 2 diastolic dysfunction, left atrial dilatation, calcified mitral annulus, aortic valve sclerosis, moderate tricuspid regurgit ation, PA pressure 45 mmHg I will consider CHOLO Clinical Quality Measures DVT/VTE Risk/Contraindication: Risk Factor Score Per Nursin RFS Level Per Nursing on Admit: 4+=Very High RAUL BONNER MD Apr 10, 2019 10:53 POS
[2019-04-10] MEDS: POTASSIUM CL 10MEQ/50ML IVPB 50 ML IV SCH ×2 (11:38→12:40)
[2019-04-10] MEDS: DILTIAZEM 30 MG (CARDIZEM) TAB PO SCH ×2 (11:45→17:29)
--- NOTE | 2019-04-10 13:29 | NUR ---
RD ASSESSMENT PMHx: HTN; hyponatremia; ischemic foot PT INTERACTION: Pt was awake and pleasant during consult for MST score. Pt states current appetite is poor and has been for the past several weeks. Note pt PO intake is 50% x1meal, per chart review. Pt states following a regular diet at home, with emphasis in fruits and low-fat choices. Pt states no issues chewing/swallowing food at this time, and pt currently wears dentures. Pt states recent episodes of nausea, and pt had an episode of emesis during consult. Pt states some recent issues with constipation, stating last BM was "days ago." Note no BM has been recorded, and pt not currently on bowel regimen, per chart review. Pt states recent 25# wt loss x2mon. Note 25# wt loss x6w, per chart review. This is significant wt loss at 19.2%. Upon visual exam, pt appears adequately nourished with no visible signs of muscle/fat wasting in the temporal/suborbital regions, with a BMI of 21.8. Given pt's poor PO intake and significant wt loss, pt meets criteria for chronic severe malnutrition per ASPEN guidelines. ABNORMAL NUTRITION-RELATED LAB VALUES: Na 130 (L); K 3.5 (L); Cl 96 (L); cr 3.66 (H) Est. kcal needs: 9735-7572 kcal (25-30 kcal/kg) Est. Pro needs: 59-68 g Pro (1.2-1.4 g Pro/kg) PES STATEMENT: Inadequate oral intake (NI-2.1) related to nausea | vomiting | loss of appetite as evidenced by 25# wt loss x6w | episode of vomiting | pt interview INTERVENTION: Continue with current diet order of Heart Healthy diet. Pt would likely benefit from nutrition supplementation. However, pt stated that supplement drinks like Ensure cause nausea and emesis. Do not recommend supplementation at this time. Will continue to follow and reassess as pt needs and status change. MONITOR/EVALUATE: PO Intake; Plan of Care; Hydration Status; Weight Status; Lab Values Juanita Jose, MS, RD, LD
[2019-04-10] MEDS: oxyCODONE/APAP 5/325MG (PERCOCET 5) TABLET PO PRN ×2 (14:29→20:25)
--- NOTE | 2019-04-10 14:34 | STRESS TEST ---
DATE OF SERVICE: 04/10/2019 LEXISCAN MYOVIEW STRESS TEST REPORT REFERRING PHYSICIAN: Narinder Wasserman MD Baseline heart rate is 98. Baseline blood pressure 131/93. Baseline EKG sinus rhythm with no ischemic changes. In summary, the patient was injected with 10.39 mCi of technetium-99 Myoview and the resting images were obtained. Then, the patient received 0.4 mg of Lexiscan followed by 31.4 mCi of technetium-99 Myoview. During the test, the patient had more pronounced [address] depression in II, III, aVF, V4, V5 and V6 persisted in recovery associated with nausea and vomiting. Her resting and stress images were reviewed and compared in the short axis, horizontal long axis, and vertical long axis views. Review of the images showed breast attenuation with typical female pattern. Mild decreased uptake at the mid anterior wall and anterolateral wall. SSS is 4, SDS 3, TID value 0.98. On the gated images, the left ventricle appeared to be normal size with normal contractility. Calculated ejection fraction 60%. CONCLUSION: 1. The patient tolerated Lexiscan well. 2. Baseline EKG abnormality with nondiagnostic EKG changes with Lexiscan injection associated with nausea and vomiting. 3. Breast attenuation with mild decreased uptake at the mid anterior wall and anterolateral wall with mild reversibility. 4. Normal left ventricular size with normal contractility. Calculated ejection fraction 60%. Job ID: [id number] DocumentID: [id number] Dictated Date: 04/10/2019 14:21:33 Coal Bagger Date: 04/10/2019 14:33:28 Dictated By: RAUL BONNER MD
[2019-04-10] MEDS: ENOXAPARIN 30 MG/0.3 ML (LOVENOX) SYR SC SCH (15:19)
[2019-04-10] MEDS: aCETylcysteine 20% (MUCOMYST) 30ML SOLN VIAL PO SCH ×2 (21:00→21:40)
[2019-04-11 00:13] VITALS: BP 146/72
[2019-04-11] MEDS: DILTIAZEM 30 MG (CARDIZEM) TAB PO SCH ×4 (00:24→17:52)
[2019-04-11] MEDS: oxyCODONE/APAP 5/325MG (PERCOCET 5) TABLET PO PRN ×2 (00:29→19:46)
[2019-04-11 04:32] VITALS: BP 150/73
[2019-04-11] MEDS: inSUlin ASPART (NovoLOG) 1 UNIT/0.01 ML (CHARGE PER UNIT) SC SCH ×4 (05:21→21:29)
[2019-04-11] MEDS: NS IV 1000 ML 1,000 ML IV SCH ×3 (05:22→16:37)
--- NOTE | 2019-04-11 05:22 | Cardiology Progress Note ---
Subjective Date Seen by Provider: Apr 11, 2019 Time Seen by Provider: 05:21 Subjective/Events-last exam Patient is laying down in bed, comfortable, denied any chest pain. No palp itation. Review of Systems General: No Chills, No Night Sweats, No Fatigue, No Malaise, No Appetite, No Other HEENT: No Head Aches, No Visual Changes, No Eye Pain, No Ear Pain, No Dysphasia, No Sinus Congestion, No Post Nasal Drip, No Sore Throat, No Other Pulmonary: No Dyspnea, No Cough, No Pleuritic Chest Pain, No Other Cardiovascular: No: Chest Pain, Palpitations, Orthopnea, Paroxysmal Noc. Dyspnea, Edema, Lt Headedness, Other Objective-Cardiology Exam Last Set of Vital Signs Vital Signs 04/11/19 04:32 Temp 37.4 Pulse 150 Resp 20 B/P (MAP) 150/73 (98) Pulse Ox 92 O2 Delivery Nasal Cannula O2 Flow Rate 2.00 Capillary Refill : Less Than 3 Seconds I&O Intake and Output 04/11/19 00:00 Intake Total 1600 ml Output Total 700 ml Balance 900 ml Intake Oral 600 ml IV Total 1000 ml Output Urine Total 700 ml # Voids 3 General: Alert, Oriented X3, Cooperative, No Acute Distress HEENT: Atraumatic, PERRLA Lungs: Clear to Auscultation, Normal Air Movement Heart: Regular Rate, Normal S1, Normal S2, Other (SM) Abdomen: Normal Bowel Sounds, Soft, No Tenderness, No Hepatosplenomegaly, No Masses Extremities: Other (Multiple gangrene on toes, diminishe pulse) Skin: No Rashes, No Breakdown, No Significant Lesion Neuro: Normal Gait, Normal Speech, Strength at 5/5 X4 Ext, Normal Tone, Sensation Intact Psych/Mental Status: Mental Status NL, Mood NL Results Lab Laboratory Tests Test 04/10/19 11:26 04/10/19 15:55 04/10/19 21:00 Range/Units Glucometer 88 111 H 92 70-110 MG/DL A/P-Cardiology Admission Diagnosis Critical limb ischemia Peripheral arterial disease Acute renal failure Hypertension Assessment/Plan Subacute ischemic toes bilaterally, gangrene on multiple toes as described above, has seen by Dr. Andrews and discussed possibility of amputation. Has stopped smoking last week, still having significant renal failure, patient will need angiogram, I we will admit her to the hospital and proceed with aggressive hydration and then consider angiogram to her legs Coronary artery disease, non-ST elevation of cardiac infarction, mild elevation in troponin level, stress test is abnormal with mild ischemia at the anterior wall, planning to proceed with cardiac catheterization, continue with aggressive hydration and monitor renal function Acute on chronic renal failure, chronic kidney disease stage IV, improving slowly, continue with aggressive hydration and monitor Hypertension, controlled on current medication, continue to monitor Continue to monitor lipids, started on statin and continue on fish oil Tobaccoism, has been smoking until yesterday, encouraged to continue with smoking cessation Questionable underlying vasculitis with Buerger disease, has seen and followed with Dr. Andrews. Echocardiogram done in March 2019 showing normal LV size with ejection fraction 65-70 percent, grade 2 diastolic dysfunction, left atrial dilatation, calcified mitral annulus, aortic valve sclerosis, moderate tricuspid regurgitation, PA pressure 45 mmHg I will consider CHOLO Clinical Quality Measures DVT/VTE Risk/Contraindication: Risk Factor Score Per Nursin RFS Level Per Nursing on Admit: 4+=Very High RAUL BONNER MD Apr 11, 2019 05:22 POS
[2019-04-11 06:32] LABS: CREATININE SERUM 2.29 MG/DL (0.60-1.30); MAGNESIUM 1.7 MG/DL (1.6-2.4); POTASSIUM 3.8 MMOL/L (3.6-5.0)
[2019-04-11 08:00] VITALS: BP 138/69
[2019-04-11] MEDS: ASPIRIN E.C. 81 MG (ECOTRIN) TAB PO SCH (08:06)
[2019-04-11] MEDS: CLOPIDOGREL 75 MG (PLAVIX) TABLET PO SCH (08:06)
[2019-04-11] MEDS: PANTOPRAZOLE 40 MG (PROTONIX) TAB PO SCH (08:06)
--- NOTE | 2019-04-11 11:39 | NUR ---
PRIOR TO CARDIZEM B/P WAS 162/80 PULSE WAS 105.
[2019-04-11 12:00] VITALS: BP 162/80
[2019-04-11 16:00] VITALS: BP 129/82
[2019-04-11] MEDS: ENOXAPARIN 30 MG/0.3 ML (LOVENOX) SYR SC SCH (16:26)
[2019-04-11 20:30] VITALS: BP 143/70
[2019-04-11] MEDS: aCETylcysteine 20% (MUCOMYST) 30ML SOLN VIAL PO SCH (21:00)
[2019-04-11] MEDS ORDERED: ALPRAZolam 0.25 MG (XANAX) TAB PO ONE (21:30)
[2019-04-12] VITALS (10 sets, daily range): BP systolic 131–167; BP diastolic 60–88
[2019-04-12] MEDS: DILTIAZEM 30 MG (CARDIZEM) TAB PO SCH ×2 (00:40→05:52)
[2019-04-12 05:26] LABS: HEMOGLOBIN 8.3 G/DL (11.5-16.0); MEAN PLATELET VOLUME 9.4 FL (7.4-10.4); RED CELL DISTRIBUTION WIDTH 15.2 % (10.0-14.5); WHITE BLOOD COUNT 11.4 10^3/uL (4.3-11.0)
[2019-04-12 05:50] LABS: CALCIUM 9.1 MG/DL (8.5-10.1); CREATININE SERUM 2.19 MG/DL (0.60-1.30); POTASSIUM 3.6 MMOL/L (3.6-5.0)
[2019-04-12] MEDS: NS IV 1000 ML 1,000 ML IV SCH ×2 (05:52→13:57)
[2019-04-12] MEDS: inSUlin ASPART (NovoLOG) 1 UNIT/0.01 ML (CHARGE PER UNIT) SC SCH ×4 (05:53→21:00)
--- NOTE | 2019-04-12 07:31 | Cardiology Progress Note ---
Subjective Date Seen by Provider: Apr 12, 2019 Time Seen by Provider: 07:29 Subjective/Events-last exam Patient is laying down in bed, getting anxious. Having more shortness of breath. Review of Systems General: No Chills, No Night Sweats; Fatigue; No Malaise, No Appetite, No Other HEENT: No Head Aches, No Visual Changes, No Eye Pain, No Ear Pain, No Dysphasia, No Sinus Congestion, No Post Nasal Drip, No Sore Throat, No Other Pulmonary: Dyspnea; No Cough, No Pleuritic Chest Pain, No Other Cardiovascular: Edema; No: Chest Pain, Palpitations, Orthopnea, Paroxysmal Noc. Dyspnea, Lt Headedness, Other Objective-Cardiology Exam Last Set of Vital Signs Vital Signs 04/12/19 04:01 Temp 37.0 Pulse 131 Resp 25 B/P (MAP) 139/86 (103) Pulse Ox 95 O2 Delivery Nasal Cannula O2 Flow Rate 3.00 Capillary Refill : Less Than 3 Seconds I&O Intake and Output 04/12/19 00:00 Intake Total 840 ml Output Total 1200 ml Balance -360 ml Intake Oral 740 ml IV Total 100 ml Output Urine Total 1200 ml General: Alert, Oriented X3, Cooperative, No Acute Distress HEENT: Atraumatic, PERRLA Neck: Supple Lungs: Normal Air Movement, Other (Bilateral rhonchi) Heart: Regular Rate, Normal S1, Normal S2, Other (SM) Abdomen: Normal Bowel Sounds, Soft, No Tenderness, No Hepatosplenomegaly, No Masses Extremities: Other (Multiple gangrene on toes, diminishe pulse) Skin: No Rashes, No Breakdown, No Significant Lesion Neuro: Normal Gait, Normal Speech, Strength at 5/5 X4 Ext, Normal Tone, Sensation Intact Psych/Mental Status: Mental Status NL, Mood NL Results Lab Laboratory Tests 04/12/19 05:10 A/P-Cardiology Admission Diagnosis Critical limb ischemia Peripheral arterial disease Acute renal failure Hypertension Assessment/Plan Subacute ischemic toes bilaterally, gangrene on multiple toes as described above, has seen by Dr. Andrews and discussed possibility of amputation. Has stopped smoking last week, renal function are better. Planning to proceed with cardiac catheterization Fluid overload, secondary to aggressive hydration, I am planning to start Lasix after the cardiac catheterization with limited the amount of contrast used Coronary artery disease, non-ST elevation of cardiac infarction, mild elevation in troponin level, stress test is abnormal with mild ischemia at the anterior wall, planning to proceed with cardiac catheterization, continue with aggressive hydration and monitor renal function Acute on chronic renal failure, chronic kidney disease stage IV, improving slowly, currently fluid overloaded with aggressive hydration, planning to start Lasix after the angiogram Hypertension, controlled on current medication, continue to monitor Continue to monitor lipids, started on statin and continue on fish oil Tobaccoism, has been smoking until yesterday, encouraged to continue with smoking cessation Questionable underlying vasculitis with Buerger disease, has seen and followed with Dr. Andrews. Echocardiogram done in March 2019 showing normal LV size with ejection fraction 65-70 percent, grade 2 diastolic dysfunction, left atrial dilatation, calcified mitral annulus, aortic valve sclerosis, moderate tricuspid regurgitation, PA pressure 45 mmHg Clinical Quality Measures DVT/VTE Risk/Contraindication: Risk Factor Score Per Nursin RFS Level Per Nursing on Admit: 4+=Very High RAUL BONNER MD Apr 12, 2019 07:31 POS
--- NOTE | 2019-04-12 07:32 | Cardiac Procedure Note-CS/ASA ---
Pre-Procedure Note Pre-Op Procedure Note H&P Reviewed The H&P was reviewed, patient examined and no changes noted. Date H&P Reviewed: Apr 12, 2019 Time H&P Reviewed: 07:31 Conscious Sedation Pre-Proced Time 07:31 ASA Score 3 For ASA 3 and 4: Consider anesthesia and medical clearance. Also, for patients with a history of failed moderate sedation consider anesthesia. Airway Lungs Heart ASA score ASA 1: a normal healthy patient ASA 2: a patient with a mild systemic disease (mid diabetes, controlled hypertension, obesity x ASA 3: a patient with a severe systemic disease that limits activity (angina, COPD, prior Myocardial infarction) ASA 4: a patient with an incapacitating disease that is a constant threat to life (CHF, renal failure) ASA 5: a moribund patient not expected to survive 24 hrs. (ruptured aneurysm) ASA 6: a declared brain- patient whose organs are being harvested. For emergent operations, add the letter E after the classification Mallampati Classification Grade 3 Sedation Plan Analgesia, Amnesia, Plan communicated to team members, Discussed options with patient/fam, Discussed risks with patient/fam The patient is an appropriate candidate to undergo the planned procedure, sedation, and anesthesia. The patient immediately re-assessed prior to indication. RAUL BONNER MD Apr 12, 2019 07:32 POS
[2019-04-12] MEDS ORDERED: LIDOCAINE 1% INJ 20 ML 20 ML VIAL ONE (07:39)
[2019-04-12] MEDS ORDERED: HEParin (CATH LAB) 2,000 ML IV ONE (07:39)
[2019-04-12] MEDS ORDERED: fentaNYL INJECTION 100 MCG/2 ML AMP ONE (07:45)
[2019-04-12] MEDS ORDERED: MIDAZOLAM 5 MG/5 ML (VERSED) VIAL ONE (07:45)
[2019-04-12] MEDS ORDERED: methylPREDNISolone 125 MG (Solu-MEDROL) VIAL ONE (08:03)
[2019-04-12] MEDS ORDERED: diphenhydrAMINE 50 MG/ML INJ (BENADRYL) ONE (08:04)
[2019-04-12] MEDS ORDERED: NS IV 1000 ML 1,000 ML IV SCH (08:43)
[2019-04-12] MEDS ORDERED: PATIENT MAY USE OWN MEDS, ALL PO SCH (08:45)
[2019-04-12] MEDS ORDERED: FUROSEMIDE 40 MG/4 ML INJ (LASIX) IVP ONE ×2 (08:45→14:00)
--- NOTE | 2019-04-12 08:51 | Cardiac Cath Report ---
Cardiac Cath Report Physician (s)/Media Marketing Director (s) Physician RAUL BONNER MD Pre-Procedure Diagnosis Pre-Procedure Diagnosis: Coronary artery disease, peripheral arterial disease Post-Procedure Note Procedure Start Date: Apr 12, 2019 Name of Procedure: Left heart catheterization Bilateral runoff Second order Findings/Procedure Note PROCEDURE NOTE: 73-year-old lady with multiple gangrene on her toes, has been having renal failure, admitted and noted to have elevated troponin level, stress test is abnormal with anterior wall ischemia, was aggressively hydrated then decided to proceed with coronary angiogram and runoff to the lower extremities. After explaining the procedure to the patient, all pros and cons were explained, all questions were answered. The patient signed the consent and then she was placed on the cardiac catheterization laboratory. Groin was prepped SL fashion local anesthesia was used. Sheath placed in the right femoral artery. Laz right and left catheter were used to access the coronary system. Pigtail was used to access the left ventricular cavity. Left ventriculogram was not done, pressure was measured. I was very cautious about the amount of contrast used during the coronary angiogram, decided to do runoff to the legs using 5 mL of contrast of the right leg and angiogram showed good arteries slow flow distally. I tried to cross over to the left side without success subsequently I did 3 mL contrast to the abdominal aorta and ev aluated the aorta then I was able to cross over and did runoff using 5 mL of contrast with runoff to the left leg with the catheter at the left common femoral artery. At the end of the procedure the sheath was removed. Closure device was used FINDINGS: Hemodynamics LV 119/20 end-diastolic pressure of 20 Aorta 122/65 mean of 84 ANATOMY: Left Main and is free of obstructive disease Left Anterior Descending is tortuous artery with 40-50 percent stenosis at the midportion, diagonal artery has aneurysmal dilatation and tortuous with no obstructive disease Left Circumflex has multi-moderate disease nonobstructive disease Right Coronory Artery is dominant artery with [id number] disease nonobstructive disease LV Gram not done, pressure was measured Aorta evaluation done with 3 mL of contrast evaluated the bifurcation it appear that she has infrarenal abdominal aortic aneurysm that require further investigation Right leg runoff showed good runoff down to the trifurcation below the trifurcation there are 2 vessel visualized down to the foot Left leg runoff done with the catheter at the left common femoral artery showing good runoff down to the trifurcation and two-vessel visualized down to the foot CONCLUSION: 1. [id number] coronary artery disease nonobstructive disease 2. Elevated left ventricular end-diastolic pressure 3. Mild peripheral arterial disease, no significant obstructive disease was noted 4. Visualization of aneurysmal dilatation of the abdominal aorta was noted, the whole abdominal aorta was not studied to limit the amount of contrast exposure DISCUSSION AND RECOMMENDATION: Patient will receive a dose of Lasix and continue with aggressive fluid hydration and monitor renal function, I will evaluate abdominal aortic ultra sound and we will discuss with the vascular surgeon Anesthesia Type: Conscious Sedation Estimated blood loss (mL): 15 ml Contrast Amount: 35 ml Total Radiation Dose: 222 mGy Post-Procedure Diagnosis Post-operative diagnosis: Coronary artery disease Peripheral arterial disease Hyperlipidemia Abdominal aortic aneurysm RAUL BONNER MD Apr 12, 2019 08:51 POS
[2019-04-12] MEDS: CLOPIDOGREL 75 MG (PLAVIX) TABLET PO SCH (13:57)
[2019-04-12] MEDS: ENOXAPARIN 30 MG/0.3 ML (LOVENOX) SYR SC SCH (13:57)
[2019-04-12] MEDS: ASPIRIN E.C. 81 MG (ECOTRIN) TAB PO SCH (13:58)
--- NOTE | 2019-04-12 14:00 | NUR ---
PATIENT BACK TO FLOOR AT THIS TIME, VIA BED ACCOMPANIED BY ICU STAFF. RIGHT GROIN DRESSING C/D/I/. THIS RN WILL CONT TO MONITOR THIS PATIENT THROUGHOUT THE REMAINDER OF THIS SHIFT.
[2019-04-12] MEDS: DILTIAZEM 120 MG (CARDIZEM CD) CAP PO SCH (14:02)
[2019-04-12] MEDS: PANTOPRAZOLE 40 MG (PROTONIX) TAB PO SCH (14:02)
--- NOTE | 2019-04-12 14:09 | NUR ---
PRIOR TO CARDIZEM PULSE WAS 113, B/P WAS 139/72.
[2019-04-12] MEDS: oxyCODONE/APAP 5/325MG (PERCOCET 5) TABLET PO PRN (19:59)
[2019-04-12] MEDS: aCETylcysteine 20% (MUCOMYST) 30ML SOLN VIAL PO SCH (21:00)
[2019-04-13 00:20] VITALS: BP 152/71
[2019-04-13 04:00] VITALS: BP 158/76
[2019-04-13] MEDS: PANTOPRAZOLE 40 MG (PROTONIX) TAB PO SCH (05:09)
[2019-04-13] MEDS: inSUlin ASPART (NovoLOG) 1 UNIT/0.01 ML (CHARGE PER UNIT) SC SCH (06:00)
[2019-04-13 08:00] VITALS: BP 150/70
[2019-04-13 08:12] LABS: HEMOGLOBIN 7.9 G/DL (11.5-16.0); MEAN PLATELET VOLUME 10.1 FL (7.4-10.4); RED CELL DISTRIBUTION WIDTH 15.6 % (10.0-14.5); WHITE BLOOD COUNT 10.8 10^3/uL (4.3-11.0)
[2019-04-13] MEDS: ASPIRIN E.C. 81 MG (ECOTRIN) TAB PO SCH (08:28)
[2019-04-13] MEDS: CLOPIDOGREL 75 MG (PLAVIX) TABLET PO SCH (08:28)
[2019-04-13] MEDS: DILTIAZEM 120 MG (CARDIZEM CD) CAP PO SCH (08:28)
[2019-04-13 08:29] LABS: CALCIUM 9.4 MG/DL (8.5-10.1); CREATININE SERUM 2.2 MG/DL (0.60-1.30); POTASSIUM 3.5 MMOL/L (3.6-5.0)
--- NOTE | 2019-04-13 08:31 | Diagnostic Imaging Report ---
INDICATION: Abdominal aortic aneurysm. There is a fusiform infrarenal abdominal aortic aneurysm involving its mid segment measuring about 9.6 cm in length with axial dimensions of 4.2 x 3.9 cm with small amounts of predominantly calcified plaque along its baumann. The iliac origins are obscured by bowel gas. Prior to its bifurcation the distal 3rd of the infrarenal aorta was 1.5 x 1.4 cm, normal in caliber. IMPRESSION: Fusiform infrarenal abdominal aortic aneurysm 4.2 x 3.9 cm in axial plane. Small amounts of calcified plaque associated with the aneurysmal dilatation. Obscuration of the iliac origins owing to pelvic bowel gas. Dictated by: Dictated on workstation # [id number]
--- NOTE | 2019-04-13 09:03 | Cardiology Progress Note ---
Subjective Date Seen by Provider: Apr 13, 2019 Time Seen by Provider: 08:59 Subjective/Events-last exam Patient is sitting up in bed, asking to go home. Denies any chest pain or dyspnea. Objective-Cardiology Exam Last Set of Vital Signs Vital Signs 04/13/19 08:00 Temp 36.4 Pulse 99 Resp 20 B/P (MAP) 150/70 (96) Pulse Ox 97 O2 Delivery Nasal Cannula O2 Flow Rate 2.00 Capillary Refill : Less Than 3 SecondsGreater Than 3 Seconds I&O Intake and Output 04/13/19 00:00 Intake Total 2770 ml Output Total 2900 ml Balance -130 ml Intake Oral 770 ml IV Total 2000 ml Output Urine Total 2900 ml # Voids 3 General: Alert, Oriented X3, Cooperative, No Acute Distress HEENT: Atraumatic, PERRLA Neck: Supple Lungs: Clear to Auscultation, Normal Air Movement Heart: Regular Rate, Normal S1, Normal S2, Other (SM) Abdomen: Normal Bowel Sounds, Soft, No Tenderness, No Hepatosplenomegaly, No Masses Extremities: Other (Multiple gangrene on toes, diminishe pulse) Skin: No Rashes, No Breakdown, No Significant Lesion Neuro: Normal Gait, Normal Speech, Strength at 5/5 X4 Ext, Normal Tone, Sensation Intact Psych/Mental Status: Mental Status NL, Mood NL Results Lab Laboratory Tests 04/13/19 07:52 A/P-Cardiology Admission Diagnosis Critical limb ischemia Peripheral arterial disease Acute renal failure Hypertension Assessment/Plan Subacute ischemic toes bilaterally, gangrene on multiple toes, has seen by Dr. Andrews and discussed possibility of amputation. Has stopped smoking last week, renal function are better. angiogram done yesterday revealed mild PAD with no significant obstruction. Fluid overload, secondary to aggressive hydration, responded well to Lasix. Continue to monitor. Coronary artery disease, non-ST elevation myocardial infarction, mild elevation in troponin level, stress test was abnormal with mild ischemia at the anterior wall, cardiac catheterization carried out yesterday revealed mild to moderate nonobstructive disease. AAA noted during cardiac catheterization. Abdominal aortic US done this morning revealed 4.2 x3.9 infrarenal AAA. Acute on chronic renal failure, chronic kidney disease stage IV, kidney function slowly improving. Continue to monitor. Hypertension, controlled on current medication, continue to monitor Continue to monitor lipids, started on statin and continue on fish oil Tobaccoism, has been smoking until yesterday, encouraged to continue with smoking cessation Questionable underlying vasculitis with Buerger disease, has seen and followed with Dr. Andrews. Echocardiogram done in March 2019 showing normal LV size with ejection fraction 65-70 percent, grade 2 diastolic dysfunction, left atrial dilatation, calcified mitral annulus, aortic valve sclerosis, moderate tricuspid regurgita tion, PA pressure 45 mmHg Clinical Quality Measures DVT/VTE Risk/Contraindication: Risk Factor Score Per Nursin RFS Level Per Nursing on Admit: 4+=Very High YOLANDA LEVINE Apr 13, 2019 09:03 POS
[2019-04-13] MEDS ORDERED: FUROSEMIDE 40 MG/4 ML INJ (LASIX) IVP NR (09:30)
[2019-04-13] MEDS ORDERED: CLOP75TA28 PO ×2 (09:39)
--- NOTE | 2019-04-13 09:40 | Discharge Inst-Post CATH ---
Discharge Inst-CATH/EP Problems Reviewed?: Yes Post Cardiac Cath/EP D/C Inst Follow Up/Plan Appointment with Dr Stratton's office in 1-[address] Andrews office <b>CARDIAC CATH/EP PROCEDURE DISCHARGE INSTRUCTIONS</b> ACTIVITY * Go Home directly and rest. * Limit activity of the leg (or wrist if it was used) for 7 days including aerobics, swimming, jogging, bicycling, etc. * Restrict stair-climbing for 7 days if possible, if not, climb up with your non-cath leg, then bring together on the same step. * Avoid lifting, pushing, pulling or excessive movement of the affected extremity for 7 days. * Customary sexual activity may be resumed after 2 days-use caution not to use a position that strains or causes pain to the affected extremity. * No driving for 24 hours. * NO SMOKING. * Avoid straining for bowel movements for 7 days. * Gentle walking on level ground is allowed. * Returning to work will depend on the type of procedure and the results. Your doctor will discuss this with you. CALL YOUR DOCTOR FOR ANY OF THE FOLLOWING: *If bleeding from the puncture site occurs- Apply gentle pressure to site with clean cloth and call your doctor or EMS. * If a knot or lump forms under the skin, increases in size, or causes pain. * If bruising appears to be worsening or moving further down your leg instead of disappearing. * Temperature above 101 F. CARE OF YOUR GROIN INCISION; * Bruising or purple discoloration of the skin near the puncture site is common. * You may shower only, no bathtub bathing for 5 days. Be careful to avoid slipping as your leg may feel stiff. * If a closure device was used on your femoral artery, please see the attached guide regarding care of the device and your leg. * Leave dressing on FOR 24 hours. CARE OF YOUR WRIST INCISION; * Bruising or purple discoloration of the skin near the puncture site is common. * You may shower. * DO NOT submerge wrist. * Leave dressing on FOR 24 hours. RAUL STRATTON MD Apr 13, 2019 09:40 POS
[2019-04-13] MEDS ORDERED: KCL 20 MEQ TAB (K-DUR) PO NR (09:45)
--- NOTE | 2019-04-13 09:45 | Cardiology Discharge Summary ---
Discharge Summary Hospital Course Problems Reviewed?: Yes Hospital Course Date of Admission: Apr 11, 2019 at 10:26 Admission Diagnosis : Family Physician/Provider: Narinder Wasserman MD Date of Discharge: 04/13/19 Discharge Diagnosis: [ ] Hospital Course: [ Subacute ischemic toes bilaterally, gangrene on multiple toes, has seen by Dr. Andrews and discussed possibility of amputation. Has stopped smoking last week, renal function are better. angiogram done yesterday revealed mild PAD with no si gnificant obstruction, her ischemic toes are probably due to embolization from the abdominal aortic aneurysm, I would refer her back to the vascular surgeon for evaluation of the aneurysm, meanwhile I will discharge her on aspirin and Xarelto 2.5 mg twice a day and monitor tolerance and response Fluid overload, secondary to aggressive hydration, responded well to Lasix, planning to discharge home today Coronary artery disease, non-ST elevation myocardial infarction, mild elevation in troponin level, stress test was abnormal with mild ischemia at the anterior wall, cardiac catheterization carried out yesterday revealed mild to moderate nonobstructive disease. AAA noted during cardiac catheterization. Abdominal aortic US done this morning revealed 4.2 x3.9 infrarenal AAA. Acute on chronic renal failure, chronic kidney disease stage IV, kidney function slowly improving. Continue to monitor. Hypertension, controlled on current medication, continue to monitor Continue to monitor lipids, started on statin and continue on fish oil Tobaccoism, has been smoking until yesterday, encouraged to continue with sm oking cessation Questionable underlying vasculitis with Buerger disease, has seen and followed with Dr. Andrews. Echocardiogram done in March 2019 showing normal LV size with ejection fraction 65-70 percent, grade 2 diastolic dysfunction, left atrial dilatation, calcified mitral annulus, aortic valve sclerosis, moderate tricuspid regurgitation, PA pressure 45 mmHg] Labs and Pending Lab Test: Laboratory Tests 04/12/19 11:05: Glucometer 82 04/12/19 16:33: Glucometer 183H 04/12/19 20:29: Glucometer 178H 04/13/19 07:52: White Blood Count 10.8, Red Blood Count 2.70L, Hemoglobin 7.9L, Hematocrit 24L, Mean Corpuscular Volume 87, Mean Corpuscular Hemoglobin 29, Mean Corpuscular Hemoglobin Concent 34, Red Cell Distribution Width 15.6H, Platelet Count 323, Mean Platelet Volume 10.1, Sodium Level 131L, Potassium Level 3.5L, Chloride Level 102, Carbon Dioxide Level 18L, Anion Gap 11, Blood Urea Nitrogen 21H, Creatinine 2.20H, Estimat Glomerular Filtration Rate 22, BUN/Creatinine Ratio 10, Glucose Level 169H, Calcium Level 9.4 Microbiology 04/09/19 Blood Culture - Preliminary, Resulted No growth Home Meds Active Reported Metoprolol Succinate 25 Mg Tab.er.24h 50 Mg PO DAILY LAST FILLED #60 03-03-19 TAKES 2 (25MG) TABLETS Aspirin EC (Aspirin) 81 Mg Tablet.dr 81 Mg PO DAILY Tramadol HCl 50 Mg Tablet 100 Mg PO BID PRN TAKES 2 (50MG) TABLETS Atorvastatin Calcium 80 Mg Tablet 80 Mg PO HS Isosorbide Mononitrate ER (Isosorbide Mononitrate) 30 Mg Tab.er.24h 30 Mg PO DAILY Amlodipine Besylate 10 Mg Tablet 10 Mg PO DAILY Assessment/Pt DC Instructions Appointment with Dr. Stratton's office in the next one to [address] Wesley Andrews's office Discharge Physical Examination Allergies: Coded Allergies: Penicillins (Verified Allergy, Severe, ANAPHYLAXIS, 02/16/19) levofloxacin (Verified Allergy, Severe, DIARRHIA, SWELLING, WEAKNESS, 02/16/19) sulfamethoxazole (Verified Allergy, Severe, WHEEZING/SWELLING, 02/16/19) trimethoprim (Verified Allergy, Severe, WHEEZING/SWELLING, 02/16/19) Tetracyclines (Verified Allergy, Mild, GI UPSET, 02/16/19) Sulfa (Sulfonamide Antibiotics) (Verified Allergy, Unknown, 02/16/19) pseudoephedrine (Verified Allergy, Unknown, 02/16/19) General Appearance: No Apparent Distress, WD/WN HEENT: PERRL/EOMI, Normal ENT Inspection, Pharynx Normal Respiratory: Chest Non Tender, Lungs Clear, Normal Breath Sounds, No Accessory Muscle Use Cardiovascular: Regular Rate, Rhythm, No Edema, No Gallop, No JVD Gastrointestinal: Normal Bowel Sounds Extremity: No Pedal Edema, Other (ischemic toes) Skin: Normal Color, Cool Neurologic/Psychiatric: Alert, Oriented x3, No Motor/Sensory Deficits, Normal Mood/Affect Clinical Quality Measures Admission Status Admission Status: Inpatient Order (span 2 midnights) Reason for Inpatient Admission: Type II myocardial infarction Critical limb ischemia Acute renal failure, chronic kidney disease stage IV DVT/VTE Risk/Contraindication: Risk Factor Score Per Nursin RFS Level Per Nursing on Admit: 4+=Very High RAUL STRATTON MD Apr 13, 2019 09:45 POS
[2019-04-13] MEDS ORDERED: RIVA2.5T5 PO ×2 (09:51)
[2019-04-13 10:30] VITALS: BP 150/70
== END 2019-04-13 10:30 | disposition home or self-care (01) | DRG 281 ==
LOC: 4TH 13:38 → UNDOADMOB 13:38 → 4TH 13:50 → OBSVTOIN 04-11 10:26 → INTOOBSV 04-11 10:26 → OBSVTOIN 04-11 11:35 → UNDODISIN 04-13 10:30
PROVIDERS: ADMIT Internal Medicine Cardiovascular Disease; ATTEND Internal Medicine Cardiovascular Disease
PROC: 4A023N7 Measurement of Cardiac Sampling and Pressure, Left Heart, Percutaneous Approach (ICD-10-PCS; principal; 2019-04-12)
PROC: B2111ZZ Fluoroscopy of Multiple Coronary Arteries using Low Osmolar Contrast (ICD-10-PCS; 2019-04-12)
PROC: B41D1ZZ Fluoroscopy of Aorta and Bilateral Lower Extremity Arteries using Low Osmolar Contrast (ICD-10-PCS; 2019-04-12)
DX: I70.263 Atherosclerosis of native arteries of extremities with gangrene, bilateral legs (principal); I12.9 Hypertensive chronic kidney disease with stage 1 through stage 4 chronic kidney disease, or unspecified chronic kidney disease; N18.4 Chronic kidney disease, stage 4 (severe); N17.9 Acute kidney failure, unspecified; I21.4 Non-ST elevation (NSTEMI) myocardial infarction; I71.4 Abdominal aortic aneurysm, without rupture; I73.1 Thromboangiitis obliterans [Buerger's disease]; I25.10 Atherosclerotic heart disease of native coronary artery without angina pectoris; E87.70 Fluid overload, unspecified; I08.3 Combined rheumatic disorders of mitral, aortic and tricuspid valves; E78.5 Hyperlipidemia, unspecified; K59.09 Other constipation; F43.21 Adjustment disorder with depressed mood; F17.200 Nicotine dependence, unspecified, uncomplicated
CPT/HCPCS: 36246; 36415; 71046; 75716; 76775; 78452; 80048; 80053; 80061; 82962; 83735; 84484; 85027; 85610; 85730; 87040; 93005; 93017; 93458; G0378

== ENCOUNTER → 2019-04-15 | Outpatient (CLI) | payer MEDICARE ==
[~2019-04-15] MED LIST changes: +ASPI-983 PO; +ATOR80TA76 PO; +CLOP75TA28 PO; +ISOS30TA3 PO; +METO-387 PO; +RIVA2.5T5 PO; +TRAM50TA2 PO
== END ==
LOC: WOUNDCARE 12:11
PROVIDERS: ATTEND Surgery
DX: E11.621 Type 2 diabetes mellitus with foot ulcer (principal); E11.52 Type 2 diabetes mellitus with diabetic peripheral angiopathy with gangrene; E11.22 Type 2 diabetes mellitus with diabetic chronic kidney disease; I12.0 Hypertensive chronic kidney disease with stage 5 chronic kidney disease or end stage renal disease; I70.263 Atherosclerosis of native arteries of extremities with gangrene, bilateral legs; L97.522 Non-pressure chronic ulcer of other part of left foot with fat layer exposed; L97.512 Non-pressure chronic ulcer of other part of right foot with fat layer exposed; T65.222A Toxic effect of tobacco cigarettes, intentional self-harm, initial encounter; I71.4 Abdominal aortic aneurysm, without rupture; N18.5 Chronic kidney disease, stage 5; F17.218 Nicotine dependence, cigarettes, with other nicotine-induced disorders
CPT/HCPCS: 99213

== ENCOUNTER 2019-04-22 10:31 | Inpatient (IN) | payer MEDICARE ==
[~2019-04-22] VITALS: Ht 152.4 cm; Wt 54.9 kg
[2019-04-22] VITALS (16 sets, daily range): BP systolic 134–151; BP diastolic 60–89
[~2019-04-22 10:31] MED LIST changes: -CLON1PAT33 TD; -NITR1OIN TOP; -PANT40TA3 PO
[2019-04-22] MEDS ORDERED: LACTATED RINGERS 1,000 ML IV ONE ×3 (10:32→10:40)
[2019-04-22 10:49] LABS: BASOPHILS # (AUTO) 0.1 10^3/uL (0.0-0.1); BASOPHILS % (AUTO) 1 % (0-10); EOSINOPHILS # (AUTO) 0.5 10^3/uL (0.0-0.3); EOSINOPHILS % (AUTO) 5 % (0-10); HEMATOCRIT 21 % (35-52); LYMPHOCYTES # (AUTO) 1.9 X 10^3 (1.0-4.0); LYMPHOCYTES % (AUTO) 20 % (12-44); MEAN CORPUSCULAR HEMOGLOBIN 29 PG (25-34); MEAN CORPUSCULAR HGB CONC 33 G/DL (32-36); MEAN CORPUSCULAR VOLUME 89 FL (80-99); MONOCYTES # (AUTO) 0.9 X 10^3 (0.0-1.0); MONOCYTES % (AUTO) 10 % (0-12); NEUTROPHILS % (AUTO) 64 % (42-75); PLATELET COUNT 440 10^3/uL (130-400); WHITE BLOOD COUNT 9.4 10^3/uL (4.3-11.0)
[2019-04-22] MEDS ORDERED: ONDANSETRON 4 MG/2 ML (SDV) Z0FRAN ONE (10:51)
[2019-04-22 10:52] LABS: HEMOGLOBIN 6.9 G/DL (11.5-16.0)
[2019-04-22] MEDS ORDERED: ONDANSETRON 4 MG/2 ML (SDV) Z0FRAN IVP ONE (11:00)
[2019-04-22 11:04] LABS: INR 1.4 (0.8-1.4)
[2019-04-22 11:12] LABS: ALBUMIN 3.2 GM/DL (3.2-4.5); BILIRUBIN,TOTAL 0.6 MG/DL (0.1-1.0); CALCIUM 8.9 MG/DL (8.5-10.1); CREATININE SERUM 2.55 MG/DL (0.60-1.30); POTASSIUM 3.8 MMOL/L (3.6-5.0); TOTAL PROTEIN 5.8 GM/DL (6.4-8.2)
--- NOTE | 2019-04-22 12:08 | Diagnostic Imaging Report ---
INDICATION: Tachycardia. COMPARISON: 04/09/2019. FINDINGS: Single frontal radiographic view of the chest was obtained and demonstrates interval development of borderline cardiomegaly and mild prominence of the pulmonary vascularity. There is also mild diffuse prominence of the pulmonary interstitium. There is blunting of the left lateral costophrenic angle. No large effusion is seen on the right. No pneumothorax is identified on either side. Osseous structures show no gross acute abnormalities. IMPRESSION: 1. Interval development of mild cardiomegaly and sequela of underlying CHF including likely interstitial pulmonary edema. 2. Possible small left basilar effusion. Dictated by: Dictated on workstation # [id number]
[2019-04-22 12:20] LABS: BILIRUBIN,URINE NEGATIVE (NEGATIVE); CLARITY,URINE SL CLOUDY; COLOR,URINE YELLOW; GLUCOSE, URINE (UA) NEGATIVE (NEGATIVE); KETONES,URINE NEGATIVE (NEGATIVE); LEUKOCYTE ESTERASE ,URINE 2+ (NEGATIVE); NITRITE,URINE NEGATIVE (NEGATIVE); PH,URINE 6.5 (5-9); PROTEIN,URINE 1+ (NEGATIVE)
--- NOTE | 2019-04-22 12:23 | ED General ---
General Chief Complaint: Chest Pain Stated Complaint: HIGH HR Nursing Triage Note: Pt to ED from wound care for high heart rate. Pt appears to be confused. senior windows engineer reports pt felt fine upon arrival to hospital. Nursing Sepsis Screen: No Definite Risk Source of Information: Patient Exam Limitations: Physical Impairments History of Present Illness Date Seen by Provider: Apr 22, 2019 Time Seen by Provider: 10:28 Initial Comments Here from the wound care clinic with report of the emily howard with high heart rate and thready pulse. 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 Blackburn. Arrives tachycardic and the rate of 140s a nd confused with pressure 70 systolic. She is complaining of back and chest pain and weakness. No reported vomiting or diarrhea. She is unsure about fevers. She is having difficult time with answering questions due to not feeling well. Timing/Duration: 1-3 Hours Severity: Moderate, Severe Modifying Factors: improves with Rest Associated Systoms: Chest Pain; No Cough, No Fever/Chills, No Nausea/Vomiting; Shortness of Air, Weakness Allergies and Home Medications Allergies Coded Allergies: Penicillins (Verified Allergy, Severe, ANAPHYLAXIS, 02/16/19) levofloxacin (Verified Allergy, Severe, DIARRHIA, SWELLING, WEAKNESS, 02/16/19) sulfamethoxazole (Verified Allergy, Severe, WHEEZING/SWELLING, 02/16/19) trimethoprim (Verified Allergy, Severe, WHEEZING/SWELLING, 02/16/19) Tetracyclines (Verified Allergy, Mild, GI UPSET, 02/16/19) Sulfa (Sulfonamide Antibiotics) (Verified Allergy, Unknown, 02/16/19) pseudoephedrine (Verified Allergy, Unknown, 02/16/19) Home Medications Amlodipine Besylate 10 Mg Tablet, 10 MG PO DAILY, (Reported) Aspirin 81 Mg Tablet.dr, 81 MG PO DAILY, (Reported) Atorvastatin Calcium 80 Mg Tablet, 80 MG PO HS, (Reported) Isosorbide Mononitrate 30 Mg Tab.er.24h, 30 MG PO DAILY, (Reported) Metoprolol Succinate 25 Mg Tab.er.24h, 50 MG PO DAILY, (Reported) LAST FILLED #60 03-03-19 TAKES 2 (25MG) TABLETS Rivaroxaban 2.5 Mg Tablet, 2.5 MG PO BID Prescribed by: RAUL BONNER on 04/13/19 0910 Tramadol HCl 50 Mg Tablet, 100 MG PO BID PRN for PAIN-MODERATE (5-7), (Reported) TAKES 2 (50MG) TABLETS Patient Home Medication List Home Medication List Reviewed: Yes Review of Systems Review of Systems Constitutional: see HPI; No chills, No fever EENTM: no symptoms reported Respiratory: see HPI Cardiovascular: chest pain, edema Gastrointestinal: No abdominal pain, No nausea, No vomiting Genitourinary: no symptoms reported Musculoskeletal: No muscle pain; muscle weakness Skin: no symptoms reported Psychiatric/Neurological: No Symptoms Reported All Other Systems Reviewed Negative Unless Noted: Yes Past Pmvvhbq-Leznsr-Bdnhph Hx Past Med/Social Hx: Reviewed Nursing Past Med/Soc Hx Patient Social History Alcohol Use: Denies Use Number of Drinks Today: AA Alcohol Beverage of Choice: Beer Recreational Drug Use: No Smoking Status: Former Smoker Type Used: Cigarettes 2nd Hand Smoke Exposure: Yes Recent Foreign Travel: No Contact w/Someone Who Travel: No Recent Infectious Disease Expo: No Recent Hopitalizations: No Immunizations Up To Date PED Vaccines UTD: No Date of Pneumonia Vaccine: Mar 05, 2016 Date of Influenza Vaccine: Feb 12, 2018 Seasonal Allergies Seasonal Allergies: Yes Past Medical History Surgeries: Yes Tubal Ligation Respiratory: No Currently Using CPAP: No Currently Using BIPAP: No Cardiac: Yes Hypertension Neurological: No Female Reproductive Disorders: Denies Sexually Transmitted Disease: No HIV/AIDS: No Genitourinary: Yes (STAGE 3) Renal Failure Gastrointestinal: Yes (N/V, ABD PAIN) Chronic Constipation, Chronic Diarrhea, Irritable Bowel Musculoskeletal: Yes Arthritis, Chronic Back Pain Endocrine: No HEENT: Yes (READING GLASSES, DENTURES, blurred vision) Loss of Vision: Bilateral Hearing Impairment: Denies Cancer: No (egd, tubaligation) Did You Recieve Any Treatments: No Psychosocial: Yes (SITUATIONAL-RELATED TO MOTHERS ) Depression Integumentary: Yes (foot wounds) Blood Disorders: No Adverse Reaction/Blood Tranf: No (N/A) Family Medical History Reviewed Nursing Family Hx No Pertinent Family Hx Physical Exam-Suspected Sepsis Physical Exam Vital Signs Vital Signs - First Documented Capillary Refill : Less Than 3 Seconds Blood Pressure Mean: 57 POS Height, Weight, BMI Height: '" Weight: lbs. oz. kg; 19.00 BMI Method: General Appearance: Moderate Distress, Thin HEENT: PERRL/EOMI, Pharynx Normal Neck: Non Tender, Supple Respiratory: Lungs Clear, Normal Breath Sounds Cardiovascular: No Murmur, Tachycardia Gastrointestinal: Non Tender, Soft Back: Normal Inspection, No CVA Tenderness, No Vertebral Tenderness Extremity: Normal Range of Motion, Non Tender Neurologic/Psychiatric: Alert, Oriented x3 Skin: warm/dry, pallor; No rash; other (has lesions to the tips of the great toes and second toes bilateral. These are long-standing and patient reports unchanged. There is not significant surrounding erythema or indication of significant current infection. As reported by patient after mentating better.) Focused Exam Lactate Level 04/22/19 10:35: Lactic Acid Level 4.22*H 04/22/19 12:30: Lactic Acid Level 2.62*H Lactic Acid Level Laboratory Tests Test 04/22/19 10:35 04/22/19 12:30 Lactic Acid Level 4.22 MMOL/L (0.50-2.00) *H 2.62 MMOL/L (0.50-2.00) *H Progress/Results/Core Measures Suspected Sepsis Recent Fever Within 48 Hours: No Infection Criteria Present: None New/Unexplained Altered Menta: No Sepsis Screen: No Definite Risk SIRS Temperature: Pulse: 144 Respiratory Rate: 32 Laboratory Tests 04/22/19 10:35: White Blood Count 9.4 Blood Pressure 77 /47 Mean: 57 04/22/19 10:35: Lactic Acid Level 4.22*H 04/22/19 12:30: Lactic Acid Level 2.62*H Laboratory Tests 04/22/19 10:35: Creatinine 2.55H, INR Comment 1.4, Platelet Count 440H, Total Bilirubin 0.6 Results/Orders Lab Results Laboratory Tests Test 04/22/19 10:35 04/22/19 12:10 04/22/19 12:30 Range/Units White Blood Count 9.4 4.3-11.0 10^3/uL Red Blood Count 2.35 L 4.35-5.85 10^6/uL Hemoglobin 6.9 *L 11.5-16.0 G/DL Hematocrit 21 L 35-52 % Mean Corpuscular Volume 89 80-99 FL Mean Corpuscular Hemoglobin 29 25-34 PG Mean Corpuscular Hemoglobin Concent 33 32-36 G/DL Red Cell Distribution Width 16.0 H 10.0-14.5 % Platelet Count 440 H 130-400 10^3/uL Mean Platelet Volume 10.0 7.4-10.4 FL Neutrophils (%) (Auto) 64 42-75 % Lymphocytes (%) (Auto) 20 12-44 % Monocytes (%) (Auto) 10 0-12 % Eosinophils (%) (Auto) 5 0-10 % Basophils (%) (Auto) 1 0-10 % Neutrophils # (Auto) 6.0 1.8-7.8 X 10^3 Lymphocytes # (Auto) 1.9 1.0-4.0 X 10^3 Monocytes # (Auto) 0.9 0.0-1.0 X 10^3 Eosinophils # (Auto) 0.5 H 0.0-0.3 10^3/uL Basophils # (Auto) 0.1 0.0-0.1 10^3/uL Prothrombin Time 18.0 H 12.2-14.7 SEC INR Comment 1.4 0.8-1.4 Activated Partial Thromboplast Time 31 24-35 SEC Sodium Level 133 L 135-145 MMOL/L Potassium Level 3.8 3.6-5.0 MMOL/L Chloride Level 100 98-107 MMOL/L Carbon Dioxide Level 18 L 21-32 MMOL/L Anion Gap 15 H 5-14 MMOL/L Blood Urea Nitrogen 21 H 7-18 MG/DL Creatinine 2.55 H 0.60-1.30 MG/DL Estimat Glomerular Filtration Rate 19 BUN/Creatinine Ratio 8 Glucose Level 165 H 70-105 MG/DL Lactic Acid Level 4.22 *H 2.62 *H 0.50-2.00 MMOL/L Calcium Level 8.9 8.5-10.1 MG/DL Corrected Calcium 9.5 8.5-10.1 MG/DL Total Bilirubin 0.6 0.1-1.0 MG/DL Aspartate Amino Transf (AST/SGOT) 24 5-34 U/L Alanine Aminotransferase (ALT/SGPT) 14 0-55 U/L Alkaline Phosphatase 63 40-136 U/L Troponin I 0.048 H <0.028 NG/ML Total Protein 5.8 L 6.4-8.2 GM/DL Albumin 3.2 3.2-4.5 GM/DL Urine Color YELLOW Urine Clarity SL CLOUDY Urine pH 6.5 5-9 Urine Specific [place] 1.015 L 1.016-1.022 Urine Protein 1+ H NEGATIVE Urine Glucose (UA) NEGATIVE NEGATIVE Urine Ketones NEGATIVE NEGATIVE Urine Nitrite NEGATIVE NEGATIVE Urine Bilirubin NEGATIVE NEGATIVE Urine Urobilinogen 0.2 < = 1.0 MG/DL Urine Leukocyte Esterase 2+ H NEGATIVE Urine RBC (Auto) TRACE-I NEGATIVE Urine RBC 2-5 H /HPF Urine WBC 50-100 H /HPF Urine Squamous Epithelial Cells 0-2 /HPF Urine Crystals NONE /LPF Urine Bacteria MODERATE H /HPF Urine Casts NONE /LPF Urine Mucus NEGATIVE /LPF Urine Culture Indicated CULTURE PENDING My Orders Orders - BRAD SANZ MD Cbc With Automated Diff (04/22/19 10:35) Comprehensive Metabolic Panel (04/22/19 10:35) Blood Culture (04/22/19 10:35) Sputum Culture (04/22/19 10:35) Urinalysis (04/22/19 10:35) Urine Culture (04/22/19 10:35) Protime With Inr (04/22/19 10:35) Partial Thromboplastin Time (04/22/19 10:35) Chest 1 View, Ap/Pa Only (04/22/19 10:35) Ed Iv/Invasive Line Start (04/22/19 10:35) Ed Iv/Invasive Line Start (04/22/19 10:35) Ekg Tracing (04/22/19 10:35) Troponin I (04/22/19 10:35) Vital Signs Adult Sepsis Patie Q15M (04/22/19 10:35) O2 (04/22/19 10:35) Remove Rings In Anticipation O (04/22/19 10:35) Lactic Acid Analyzer (04/22/19 10:35) Lactated Ringers (Lr 1000 Ml Iv Solution (04/22/19 10:35) Ed Iv/Invasive Line Start (04/22/19 10:40) Lactated Ringers (Lr 1000 Ml Iv Solution (04/22/19 10:40) Ondansetron Injection (Zofran Injectio (04/22/19 11:00) Ondansetron Injection (Zofran Injectio (04/22/19 10:51) Catheter(Urinary) Insert & Ass 03,15 (04/22/19 11:37) Red Cells Leukocytes Reduced (04/22/19 11:37) Type And Screen (04/22/19 11:37) Cefepime Injection (Maxipime Injection) (04/22/19 13:02) Medications Given in ED Current Medications Medications Dose Ordered Sig/Adali Route Start Time Stop Time Status Last Admin Dose Admin Lactated Ringer's 1,000 ml @ 0 mls/hr Q0M ONCE IV 04/22/19 10:35 04/22/19 10:38 DC 04/22/19 10:35 1,000 MLS/HR Lactated Ringer's 1,000 ml @ 0 mls/hr Q0M ONCE IV 04/22/19 10:40 04/22/19 10:41 DC 04/22/19 10:42 1,000 MLS/HR Ondansetron HCl 4 mg ONCE ONCE IVP 04/22/19 11:00 04/22/19 11:01 DC 04/22/19 10:53 4 MG Vital Signs/I&O 04/22/19 04/22/19 10:31 10:31 Temp 36.4 Pulse 144 Resp 32 B/P (MAP) 77/47 (57) Pulse Ox 100 O2 Delivery Nasal Cannula Nasal Cannula O2 Flow Rate 2.00 2.0 Capillary Refill : Less Than 3 Seconds Blood Pressure Mean: 57 POS Progress Note : Progress Note Seen and evaluated. IV 2, labs, EKG and chest x-ray ordered. Blood cultures and lactic acid ordered. LR 1 L bolus. We did order an additional liter of LR 1 L bolus due to hypotension. Monitor patient. 1145: Patient's heart rate now in the 90s and regular. O2 sat 100% on 2 L. Pending UA studies. Patient does have elevated lactic acid. I do not have a source of infection currently. She does have findings of fairly profound anemia with hemoglobin of 6.9. Type and cross for 2 units to give have been ordered. Tello catheter has been ordered. I did talk with Dr. Harrell and he agrees with giving blood. Patient will be admitted to the ICU due to profound hypotension although it is improved currently. 1220: Tello catheter in place and UA has been sent. Monitor patient. 1255: Patient overall doing better and repeat lactic acid has been drawn and is pending. Patient has blood pressure in the 130s systolic with heart rate 80s and 90s. She is satting 97 - 100% on 2 L. I have discussed the case with Dr. Diaz and she accepts patient for admission, inpatient status for the urinary tract infection and is requesting cefepime and vancomycin. Cefepime has been ordered. Patient has multiple allergies which complicates antibiotic selection although I think this will be fine. Patient is mentating better now and has admitted that she has had black stools. She was supposed to get colonoscopy with Dr. Whitehead previously and this has not happened due to blood pressure problems. She apparently did not take her blood pressure medicine the day of evaluation and her blood pressure was too high for the procedure. I have consulted Dr. Whitehead 1257 he will see the patient. We will Hemoccult stools. I did discuss the case with Dr. Perrin at 1305 and he accepts patient in consult. Likely elevated troponin is demand ischemia secondary to hypotension and tachycardia. Both these have resolved. I attest a focused exam at this time. Lactic acid has declined. Findings concerns were discussed with the patient and family who agree with the plan. ECG Initial ECG Impression Date: Apr 22, 2019 Initial ECG Impression Time: 10:30 Initial ECG Rate: 144 Comment Junctional tachycardia with normal axis. No evidence of ST elevation FL. Change from previous of . Interpreted by me. Diagnostic Imaging Diagonstic Imaging: Xray Plain Films/CT/US/NM/MRI: chest Comments NAME: RIC VILLEGAS [facility] REC#: [id number] PT STATUS: REG ER : 1945 PHYSICIAN: BRAD SANZ MD ADMIT DATE: 04/22/19/ER Draft POSDate of Exam:04/22/19 CHEST 1 VIEW, AP/PA ONLY INDICATION: Tachycardia. COMPARISON: 04/09/2019. FINDINGS: Single frontal radiographic view of the chest was obtained and demonstrates interval development of borderline cardiomegaly and mild prominence of the pulmonary vascularity. There is also mild diffuse prominence of the pulmonary interstitium. There is blunting of the left lateral costophrenic angle. No large effusion is seen on the right. No pneumothorax is identified on either side. Osseous structures show no gross acute abnormalities. IMPRESSION: 1. Interval development of mild cardiomegaly and sequela of underlying CHF including likely interstitial pulmonary edema. 2. Possible small left basilar effusion. Dictated on workstation # [id number] Dict: 04/22/19 1202 Trans: 04/22/19 1207 [id number] Interpreted by: CAROL MONAE MD Electronically signed by: Reviewed: Reviewed by Me Departure Communication (Admissions) Time/Spoke to Admitting Phy: 12:55 Time/Spoke to Consulting Phy: 11:40 Impression Primary Impression: Severe sepsis Additional Impressions: UTI (urinary tract infection) Qualified Codes: N30.00 - Acute cystitis without hematuria Elevated troponin Chronic renal failure Qualified Codes: N18.9 - Chronic kidney disease, unspecified Acute anemia Disposition: 09 ADMITTED INPATIENT Condition: Stable Admissions Decision to Admit Reason: Admit from ER (General) Decision to Admit/Date: Apr 22, 2019 Time/Decision to Admit Time: 11:40 Departure-Patient Inst. Referrals: SONDRA MALONEY MD (PCP/Family) Primary Care Physician BRAD SANZ MD Apr 22, 2019 12:23 POS
[2019-04-22 12:27] LABS: BACTERIA,URINE MODERATE /HPF; SQUAMOUS EPITHELIAL CELL,UR 0-2 /HPF; WBC,URINE 50-100 /HPF
[2019-04-22] MEDS ORDERED: CEFEPIME INJECTION 2,000 MG in WATER (STERILE) FOR INJECTION 20 ML IV STA (13:02)
--- NOTE | 2019-04-22 14:00 | NUR ---
RIC VILLEGAS admitted to room CU6-1, with an admitting diagnosis of anemia, on 04/22/19 from [place] via cart, accompanied by staff.RIC VILLEGAS introduced to surroundings, call light, bed controls, phone, TV, temperature control, lights, meal times, smoking policy, visitor policy, side rail policy, bathrooms and showers. Patient Rights given to patient in the handbook. RIC VILLEGAS verbalizes understanding that [facility] is not responsible for the loss or damage to any personal effects or valuables that are kept in the patients posession during their hospitalization. The following Patient Care Plans were discussed with the pt: Discharge Planning. RIC VILLEGAS verbalizes understanding of Interdisciplinary Patient Education. Patient and/or family were informed about the Rapid Response Team and its purpose.
--- NOTE | 2019-04-22 14:03 | Consultation - Surgery ---
History of Present Illness History of Present Illness Patient Consulted On(sandra/time) 04/22/19 13:58 Time Seen by Provider: 13:34 History of Present Illness Surgery asked to consult regarding anemia, melena. HPI per ED: Here from the wound care clinic with report of the emily howard with high heart rate and thready pulse. 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 Blackburn. Arrives tachycardic and the rate of 140s and confused with pressure 70 systolic. She is complaining of back and chest pain and weakness. No reported vomiting or diarrhea. She is unsure about fevers. She is having difficult time with answering questions due to not feeling well. Timing/Duration: 1-3 Hours Severity: Moderate, Severe Modifying Factors: improves with Rest Associated Systoms: Chest Pain; No Cough, No Fever/Chills, No Nausea/Vomiting; Shortness of Air, Weakness Pt is actually known to me, was previously scheduled for colonoscopy but her BP got too high and she cancelled procedure. Today pt states she was going to wound care and started getting SOB, once she got there she could barely breathe and was sent to ER. Pt states she has seen "black" BM's since about January. When I saw her at that time she had already lost about 20lbs over 3 months; she has never had a colonoscopy before. Allergies and Home Medications Allergies Coded Allergies: Penicillins (Verified Allergy, Severe, ANAPHYLAXIS, 02/16/19) levofloxacin (Verified Allergy, Severe, DIARRHIA, SWELLING, WEAKNESS, 02/16/19) sulfamethoxazole (Verified Allergy, Severe, WHEEZING/SWELLING, 02/16/19) trimethoprim (Verified Allergy, Severe, WHEEZING/SWELLING, 02/16/19) Tetracyclines (Verified Allergy, Mild, GI UPSET, 02/16/19) Sulfa (Sulfonamide Antibiotics) (Verified Allergy, Unknown, 02/16/19) pseudoephedrine (Verified Allergy, Unknown, 02/16/19) Home Medications Amlodipine Besylate 10 Mg Tablet, 10 MG PO DAILY, (Reported) Aspirin 81 Mg Tablet.dr, 81 MG PO DAILY, (Reported) Atorvastatin Calcium 80 Mg Tablet, 80 MG PO HS, (Reported) Isosorbide Mononitrate 30 Mg Tab.er.24h, 30 MG PO DAILY, (Reported) Metoprolol Succinate 25 Mg Tab.er.24h, 50 MG PO DAILY, (Reported) LAST FILLED #60 03-03-19 TAKES 2 (25MG) TABLETS Rivaroxaban 2.5 Mg Tablet, 2.5 MG PO BID Prescribed by: RAUL BONNER on 04/13/19 0951 Tramadol HCl 50 Mg Tablet, 100 MG PO BID PRN for PAIN-MODERATE (5-7), (Reported) TAKES 2 (50MG) TABLETS Patient Home Medication List Home Medication List Reviewed: Yes Past Canjklu-Wxiffu-Diwtcx Hx Patient Social History Alcohol Use: Denies Use Number of Drinks Today: AA Recreational Drug Use: No Smoking Status: Former Smoker Type Used: Cigarettes 2nd Hand Smoke Exposure: Yes Recent Foreign Travel: No Contact w/Someone Who Travel: No Recent Infectious Disease Expo: No Recent Hopitalizations: No Immunizations Up To Date PED Vaccines UTD: No Date of Pneumonia Vaccine: Mar 05, 2016 Date of Influenza Vaccine: Feb 12, 2018 Seasonal Allergies Seasonal Allergies: Yes Surgeries History of Surgeries: Yes Surgeries: Tubal Ligation Respiratory History of Respiratory Disorde: No Cardiovascular History of Cardiac Disorders: Yes Cardiac Disorders: Hypertension Neurological History of Neurological Disord: No Reproductive System Sexually Transmitted Disease: No HIV/AIDS: No Female Reproductive Disorders: Denies Genitourinary History of Genitourinary Disor: Yes (STAGE 3) Genitourinary Disorders: Renal Failure Gastrointestinal History of Gastrointestinal Di: Yes (N/V, ABD PAIN) Gastrointestinal Disorders: Chronic Constipation, Chronic Diarrhea, Irritable Bowel Musculoskeletal History of Musculoskeletal Dis: Yes Musculoskeletal Disorders: Arthritis, Chronic Back Pain Endocrine History of Endocrine Disorders: No HEENT History of HEENT Disorders: Yes (READING GLASSES, DENTURES, blurred vision) Loss of Vision: Bilateral Hearing Impairment: Denies Cancer History of Cancer: No (egd, tubaligation) Psychosocial History of Psychiatric Problem: Yes (SITUATIONAL-RELATED TO MOTHERS ) Behavioral Health Disorders: Depression Integumentary History of Skin or Integumenta: Yes (foot wounds) Blood Transfusions History of Blood Disorders: No Adverse Reaction to a Blood Tr: No (N/A) Family Medical History Significant Family History: CAD Over 55 Years Old (father), Diabetes (mother), Hypertension (mother) Review of Systems-General Constitutional: dizziness, malaise, weakness EENTM: blurred vision; No double vision, No mouth pain, No mouth swelling, No epistaxis, No throat swelling Respiratory: dyspnea on exertion; No hemoptysis; short of breath Cardiovascular: No chest pain, No edema, No palpitations Gastrointestinal: No abdominal pain, No jaundice; melena; No nausea, No vomiting Genitourinary: No dysuria, No frequency, No hematuria Musculoskeletal: joint pain, joint swelling, muscle stiffness Skin: No change in color, No change in hair/nails Psychiatric/Neurological: Denies Anxiety; Depressed; Denies Seizure, Denies Tremors Other pt denies any hx of abnormal bleeding or bruising Physical Exam-General Problems Physical Exam Vital Signs Vital Signs - First Documented Capillary Refill : Less Than 3 Seconds General Appearance: WD/WN, mild distress Eyes: Bilateral Eye PERRL, Bilateral Eye EOMI HEENT: pharynx normal; No scleral icterus (R), No scleral icterus (L); pale conjunctivae (R), pale conjunctivae (L) Neck: non-tender, full range of motion Respiratory: chest non-tender, no respiratory distress, accessory muscle use, crackles, other (distant BS) Cardiovascular: no murmur, tachycardia Gastrointestinal: normal bowel sounds, non tender, soft, no organomegaly, no pulsatile mass Back: no CVA tenderness, no vertebral tenderness Extremities: no pedal edema, no calf tenderness, normal capillary refill Neurologic/Psychiatric: 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-XII nml as tested, alert, normal mood/affect, oriented x 3 Skin: normal color, warm/dry Lymphatic: no adenopathy (neck, axilla or groin) Data Review Labs Laboratory Tests 04/22/19 10:35: White Blood Count 9.4, Red Blood Count 2.35L, Hemoglobin 6.9*L, Hematocrit 21L, Mean Corpuscular Volume 89, Mean Corpuscular Hemoglobin 29, Mean Corpuscular Hem oglobin Concent 33, Red Cell Distribution Width 16.0H, Platelet Count 440H, Mean Platelet Volume 10.0, Neutrophils (%) (Auto) 64, Lymphocytes (%) (Auto) 20, Monocytes (%) (Auto) 10, Eosinophils (%) (Auto) 5, Basophils (%) (Auto) 1, Neutrophils # (Auto) 6.0, Lymphocytes # (Auto) 1.9, Monocytes # (Auto) 0.9, Eosinophils # (Auto) 0.5H, Basophils # (Auto) 0.1, Prothrombin Time 18.0H, INR Comment 1.4, Activated Partial Thromboplast Time 31, Sodium Level 133L, Potassium Level 3.8, Chloride Level 100, Carbon Dioxide Level 18L, Anion Gap 15H , Blood Urea Nitrogen 21H, Creatinine 2.55H, Estimat Glomerular Filtration Rate 19, BUN/Creatinine Ratio 8, Glucose Level 165H, Lactic Acid Level 4.22*H, Calcium Level 8.9, Corrected Calcium 9.5, Total Bilirubin 0.6, Aspartate Amino Transf (AST/SGOT) 24, Alanine Aminotransferase (ALT/SGPT) 14, Alkaline Phosphatase 63, Troponin I 0.048H, Total Protein 5.8L, Albumin 3.2 04/22/19 12:10: Urine Color YELLOW, Urine Clarity SL CLOUDY, Urine pH 6.5, Urine Specific [place] 1.015L, Urine Protein 1+H, Urine Glucose (UA) NEGATIVE, Urine Ketones NEGATIVE, Urine Nitrite NEGATIVE, Urine Bilirubin NEGATIVE, Urine Urobilinogen 0.2, Urine Leukocyte Esterase 2+H, Urine RBC (Auto) TRACE-I, Urine RBC 2-5H, Urine WBC 50-100H, Urine Squamous Epithelial Cells 0-2, Urine Crystals NONE, Urine Bacteria MODERATEH, Urine Casts NONE, Urine Mucus NEGATIVE, Urine Culture Indicated CULTURE PENDING 04/22/19 12:30: Lactic Acid Level 2.62*H Assessment/Plan Assessment/Plan Assessment/Plan Anemia Melena Hyponatremia Epigastric Pain with hx of N/V Pt is being admitted with suspected sepsis; which I believe is more of anemia related problems. She is getting transfused with PRBC's. She will need an EGD and colonoscopy (both of which were planned); timing is up to pt and current medical care. She may have a small component of heart failure as well which could delay procedure. I think this could easily be done as an outpt and should not be a reason to keep pt in the hospital once all her other medical problems are taken care of. I explained this plan to the pt and she understood; she stated "whatever needs to be done, I was just scared about the procedure before with my high blood pressure". I will be off until Saturday, but would be happy to set this up as outpt. Otherwise, surgeon inclusion specialist could do procedures. DYLAN CHRISTIANSEN DO Apr 22, 2019 14:03 POS
[2019-04-22] MEDS ORDERED: NS (IVPB) 250 ML ONE (14:11)
--- NOTE | 2019-04-22 14:18 | NUR ---
CR 2.55; CR CL ~16; WT 45.4 KG; VANCO 1 GM IV BOLUS THEN 750 MG IV Q24H X 3 DAYS
--- NOTE | 2019-04-22 14:21 | History & Physical-Hospitalist ---
History of Present Illness HPI/Chief Complaint Chief complaint: Tachycardia History present illness: This is a 73-year-old white female clinic patient of Dr. Wasserman, Dr. Stratton, Dr. Isidro who is recently diagnosed with Buerger's disease about one month ago when she began having ulcerations and necrotic tissue of bilateral toes. She then stops smoking. She presented to Dr. Isidro for wound care of which she sees once a week was found to have tachycardia of 160 sent to the ER blood pressure of systolic of 60 diagnosed with shock given aggressive IV fluids which resulted in resolution of the tachycardia heart rate now 88 and blood pressure 132. She has been assessed to have severe sepsis elevated lactic acid of 4.2 so she was placed on empiric treatment of cefepime and vancomycin will be placed in the ICU with consultations with Dr. Harrell economic development director and Dr. Perrin on-call for Dr. Stratton in addition Dr. Whitehead for severe anemia of 6.9 prior to fluid resuscitation with history of black stools that started in January and could not complete the bowel prep when she was seen by him 2 months ago. We will stabilize her and monitor closely in the meantime. Source: patient, RN/MD, old records Exam Limitations: no limitations Date Seen 04/22/19 Time Seen by a Provider: 14:30 Attending Physician Jo Kennedy Pankaj K MD Referring Physician Date of Admission Apr 22, 2019 at 13:26 Home Medications & Allergies Home Medications Reviewed patient Home Medication Reconciliation performed by pharmacy medication reconciliations management technician and/or nursing. Patients Allergies have been reviewed. Allergies Allergies Coded Allergies Penicillins (Verified Allergy, Severe, ANAPHYLAXIS, 02/16/19) levofloxacin (Verified Allergy, Severe, DIARRHIA, SWELLING, WEAKNESS, 02/16/19) sulfamethoxazole (Verified Allergy, Severe, WHEEZING/SWELLING, 02/16/19) trimethoprim (Verified Allergy, Severe, WHEEZING/SWELLING, 02/16/19) Tetracyclines (Verified Allergy, Mild, GI UPSET, 02/16/19) Sulfa (Sulfonamide Antibiotics) (Verified Allergy, Unknown, 02/16/19) pseudoephedrine (Verified Allergy, Unknown, 02/16/19) Past Dpthzte-Wnupcp-Alwvpe Hx Past Med/Social Hx: Reviewed Nursing Past Med/Soc Hx, Reviewed and Corrections made Patient Social History Marrital Status: 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) Alcohol Use: Denies Use Number of Drinks Today: AA Alcohol Beverage of Choice: Beer Recreational Drug Use: No Smoking Status: Former Smoker (quit 1 month ago) Type Used: Cigarettes 2nd Hand Smoke Exposure: Yes Recent Foreign Travel: No Contact w/other who traveled: No Recent Hopitalizations: No Recent Infectious Disease Expo: No Immunizations Up To Date Pediatric: No Date of Pneumonia Vaccine: Mar 05, 2016 Date of Influenza Vaccine: Feb 12, 2018 Seasonal Allergies Seasonal Allergies: Yes Past Medical History Surgeries: Tubal Ligation Currently Using CPAP: No Currently Using BIPAP: No Cardiac: Hypertension Buerger's disease Sexually Transmitted Disease: No HIV/AIDS: No Female Reproductive Disorders: Denies Genitourinary: Renal Failure Gastrointestinal: Chronic Constipation, Chronic Diarrhea, Irritable Bowel Musculoskeletal: Arthritis, Chronic Back Pain Loss of Vision: Bilateral Hearing Impairment: Denies Did You Recieve Any Treatments: No Psychosocial: Depression History of Blood Disorders: No Adverse Reaction to Blood Uw: No (N/A) Family History Reviewed Nursing Family Hx No Pertinent Family Hx Review of Systems Constitutional: see HPI, malaise, weakness Gastrointestinal: loss of appetite, nausea Musculoskeletal: back pain, joint pain Skin: see HPI Psychiatric/Neurological: Depressed Physical Exam Physical Exam Vital Signs Vital Signs - First Documented Capillary Refill : Less Than 3 Seconds Height, Weight, BMI Height: '" Weight: lbs. oz. kg; 19.00 BMI Method: General Appearance: WD/WN, Anxious, Chronically ill, Mild Distress, Thin Eyes: Right Eye Normal Inspection, Right Eye PERRL HEENT: PERRL/EOMI, Normal ENT Inspection, Pharynx Normal, Moist Mucous Membranes, Scleral Icterus (L), Scleral Icterus (R) Neck: Full Range of Motion, Normal Inspection, Non Tender Respiratory: Chest Non Tender, Lungs Clear, No Accessory Muscle Use, No Respiratory Distress, Decreased Breath Sounds Cardiovascular: No Edema, No Gallop, No JVD, No Murmur, Normal Peripheral Pul ses, Tachycardia Gastrointestinal: Normal Bowel Sounds, No Organomegaly, No Pulsatile Mass, Non Tender, Soft Back: Normal Inspection, No CVA Tenderness, No Vertebral Tenderness Extremity: Normal Capillary Refill, Normal Inspection, Normal Range of Motion, Non Tender, No Calf Tenderness, No Pedal Edema Neurologic/Psychiatric: Alert, Oriented x3, No Motor/Sensory Deficits, Normal Mood/Affect, automobile body customizer II-XII Norm as Tested Skin: Normal Color, Warm/Dry, Other (bilateral toe necrosis with ulcerations with mild edema) Lymphatic: No Adenopathy Results Results/Procedures Labs Laboratory Tests 04/22/19 10:35 Patient resulted labs reviewed. Assessment/Plan Admission Diagnosis Assessment: Severe sepsis Bilateral toe necrosis Buerger's disease Former smoker quit 1 month ago Hypertension Valvular heart disease Elevated lactic acid Severe anemia prior to fluid resuscitation 6.9 Black tarry stools consulting general surgery Plan: ICU Severe sepsis protocol Aggressive IV fluids IV antibiotics of cefepime and vancomycin per allergy profile Review home meds Pain control Admission Status: Inpatient Order (span 2 midnights) Reason for Inpatient Admission: Septic shock Diagnosis/Problems Diagnosis/Problems (1) Severe sepsis (2) Melena (3) Elevated lactic acid level (4) Acute anemia Status: Acute (5) Elevated troponin Status: Acute (6) Chronic renal failure Status: Acute Qualifiers: Chronic kidney disease stage: unspecified stage Qualified Codes: N18.9 - Chronic kidney disease, unspecified (7) Bilateral swelling of feet Status: Acute (8) Chronic renal failure, stage 4 (severe) Status: Acute (9) UTI (urinary tract infection) Status: Acute Qualifiers: Urinary tract infection type: acute cystitis Hematuria presence: without hematuria Qualified Codes: N30.00 - Acute cystitis without hematuria (10) Hyponatremia Status: Acute JO KENNEDY DO Apr 22, 2019 14:21 POS
[2019-04-22] MEDS ORDERED: VANCOMYCIN 1 GM/NS 250 ML IVPB IV NR ×2 (14:30)
[2019-04-22] MEDS ORDERED: EPINEPHRINE IV SCH (15:00)
[2019-04-22] MEDS ORDERED: NS IV SCH (15:00)
[2019-04-22] MEDS: NOREPINEPHRINE 4 MG in NS (IVPB) 250 ML IV SCH (15:00)
[2019-04-22] MEDS: VASOPRESSIN INJECTION 20 UNIT in NS (IVPB) 100 ML IV SCH ×2 (15:00→23:34)
[2019-04-22] MEDS: metroNIDAZOLE 500MG/100ML IVPB 100 ML IV SCH (15:11)
[2019-04-22] MEDS: LACTATED RINGERS 1,000 ML IV SCH (15:12)
[2019-04-22] MEDS ORDERED: CATHETER FLUSH 10 ML SYR IV PRN (15:15)
--- NOTE | 2019-04-22 16:06 | Consultation-Cardiology ---
HPI-Cardiology Cardiology Consultation: Date of Consultation 04/22/19 Time Seen by a Provider: 15:50 Date of Admission 04-22-19 Attending Physician Jo Diaz DO Admitting Physician Narinder Wasserman MD Consulting Physician Oh Perrin MD Primary Powder Blender And Pourer: Dr. Stratton HPI: Chief Complaint: Dyspnea Anemia Ms. Villegas is a 73 year old female admitted to ICU 6 from the ED with GI bleed. She reports she has wounds to her toes for which she has been following with Dr. Isidro, Dr. Stratton and Dr. Andrews of CV services at [facility] in [place], [place]. She reports over the last few days she has had increasing dyspnea, abdominal discomfort, chills, nausea, and frequent black stools. She denies any c/o CP. She reports feeling generally unwell. She reports chronic bilat LE swelling. She reports chronic cramping in her feet/toes. No c/o syncope or near syncope. Review of Systems-Cardiology Review of Systems Constitutional: chills, malaise Eyes: No vision change Ears/Nose/Throat: No epistaxis, No recent hearing loss Respiratory: As described under HPI Cardiovascular: As described under HPI Gastrointestinal: diarrhea, nausea, stool coloration changes (black, tarry) Genitourinary: No dysuria, No hematuria Musculoskeletal: As describe under HPI, other Skin: As described under HPI Psychiatric/Neurological: anxiety, depression; No seizure, No focal weakness, No syncope Hematologic: No bleeding abnormalities All Other Systems Reviewed Negative Unless Noted: Yes RRD-Nramhq-Iyxfel Hx Patient Social History Marrital Status: 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 Family Medical History Family Medical History: She reports her mother had valve replacement surgery in her late 70's. She reports she had a brother with CAD who passed in late 40's. Allergies and Home Medications Allergies Coded Allergies: Penicillins (Verified Allergy, Severe, ANAPHYLAXIS, 02/16/19) levofloxacin (Verified Allergy, Severe, DIARRHIA, SWELLING, WEAKNESS, 02/16/19) sulfamethoxazole (Verified Allergy, Severe, WHEEZING/SWELLING, 02/16/19) trimethoprim (Verified Allergy, Severe, WHEEZING/SWELLING, 02/16/19) Tetracyclines (Verified Allergy, Mild, GI UPSET, 02/16/19) Sulfa (Sulfonamide Antibiotics) (Verified Allergy, Unknown, 02/16/19) pseudoephedrine (Verified Allergy, Unknown, 02/16/19) Home Medications Amlodipine Besylate 10 Mg Tablet, 10 MG PO DAILY, (Reported) Aspirin 81 Mg Tablet.dr, 81 MG PO DAILY, (Reported) Atorvastatin Calcium 80 Mg Tablet, 80 MG PO HS, (Reported) Isosorbide Mononitrate 30 Mg Tab.er.24h, 30 MG PO DAILY, (Reported) Metoprolol Succinate 25 Mg Tab.er.24h, 50 MG PO DAILY, (Reported) LAST FILLED #60 03-03-19 TAKES 2 (25MG) TABLETS Rivaroxaban 2.5 Mg Tablet, 2.5 MG PO BID, (Reported) Tramadol HCl 50 Mg Tablet, 100 MG PO BID PRN for PAIN-MODERATE (5-7), (Reported) TAKES 2 (50MG) TABLETS Physical Exam-Cardiology Physical Exam Vital Signs/I&O 04/27/19 04/28/19 04/28/19 23:34 03:59 07:25 Temp 37.4 37.4 36.8 Pulse 65 69 71 Resp 16 18 18 B/P (MAP) 145/65 (91) 179/83 (115) 181/86 (117) Pulse Ox 96 97 99 O2 Delivery Room Air Room Air Room Air 04/28/19 00:00 Intake Total 500 ml Balance 500 ml Capillary Refill : Less Than 3 Seconds Constitutional: AAO x 3, well-developed, well-nourished HEENT: PERRL, oral hygience is good Neck: No carotid bruit; carotid pulses are 2 + bilaterally Respiratory: No accessory muscle use, No respiratory distress; chest expansion is symmetric, chest is bilaterally symmetric, other (diminished lower lobes) Cardiovascular: regular rate-rhythm; No JVD; S1 and S2 Gastrointestinal: tender, soft, audible bowel sounds Rectal: deferred Extremities: other (mod pedal edema) Neurologic/Psychiatric: grossly intact Skin: warm/dry; No rash; other (right and left great toes with dark, dry tissue to the tip of the toes and second toe of the right foot with dark discoloration; fourth toe of the left foot with non-draining wound; foul odor noted) Data Review Labs Microbiology 04/22/19 Blood Culture - Preliminary, Resulted No growth 04/22/19 Urine Culture - Final, Complete Escherichia coli Radiology NAME: RIC VILLEGAS [facility] REC#: [id number] PT STATUS: REG ER : 1945 PHYSICIAN: BRAD SANZ MD ADMIT DATE: 04/22/19/ER Draft Date of Exam:04/22/19 CHEST 1 VIEW, AP/PA ONLY INDICATION: Tachycardia. COMPARISON: 04/09/2019. FINDINGS: Single frontal radiographic view of the chest was obtained and demonstrates interval development of borderline cardiomegaly and mild prominence of the pulmonary vascularity. There is also mild diffuse prominence of the pulmonary interstitium. There is blunting of the left lateral costophrenic angle. No large effusion is seen on the right. No pneumothorax is identified on either side. Osseous structures show no gross acute abnormalities. IMPRESSION: 1. Interval development of mild cardiomegaly and sequela of underlying CHF including likely interstitial pulmonary edema. 2. Possible small left basilar effusion. Dictated on workstation # [id number] Dict: 04/22/19 1202 Trans: 04/22/19 1207 [id number] Interpreted by: CAROL MONAE MD Electronically signed by: A/P-Cardiology Assessment/Admission Diagnosis GI bleed requiring transfusion - management per medical/surgical services (Dr. 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 Andrews and discussed possibility of amputation. Peripheral angiogram done Apr 12, [address] Stratton showed mild PAD with no significant obstruction Ischemic toes felt to be due to embolization from the abdominal aortic aneurysm seen at time of peripheral angio of 04-12-19. Has been referred back to the vascular surgeon for evaluation of the aneurysm. Maintained on Xarelto 2.5 and ASA. Coronary artery disease - cardiac catheterization carried out Apr 12, 2019 showed mild to moderate nonobstructive disease. AAA noted during cardiac catheterization of Apr 12, 2019. Abdominal aortic US done this morning revealed 4.2 x3.9 infrarenal AAA. 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 Andrews. Echocardiogram done in March 2019 showing normal LV size with ejection fraction 65-70%, grade 2 diastolic dysfunction, left atrial dilatation, calcified mitral annulus, aortic valve sclerosis, moderate tricuspid regurgitation, PA pressure 45 mmHg] Discussion and Recomendations Complex management issue Management of GI bleed as per medical/surgical services - transfusion in progress Hold Xarelto d/t GI bleed Continue IVF Management of toe ulcerations per medical/surgical services Monitor lab closely Further recs will be based on her hospital course We would like to thank medical services for this consult Clinical Quality Measures DVT/VTE Risk/Contraindication: Risk Factor Score Per Nursin RFS Level Per Nursing on Admit: 4+=Very High ANALIA AGUDELO Apr 22, 2019 16:06 POS
[2019-04-22] MEDS ORDERED: NITR1OIN TOP (16:17)
[2019-04-22] MEDS ORDERED: CLOP75TA28 PO (16:17)
[2019-04-22] MEDS ORDERED: RIVA2.5T5 PO (16:17)
--- NOTE | 2019-04-22 16:30 | NUR ---
SPOKE WITH THE PATIENT ABOUT HER MEDICATIONS. SHE LISTED WHAT SHE IS TAKING. SHE STATES SHE HAS BEEN TAKING THE ELIQUIS BID. ANA ALSO FILLED PLAVIX 75MG DAILY #30 04-13-19 - THIS IS NOT ON THE DISCHARGE ORDERS FROM HER DISMISSAL FROM THE HOSPITAL AND SHE DOES NOT THINK SHE IS TAKING IT HOWEVER ANA STATES HE WAS E-SCRIBED AND PICKED UP THAT DAY. I CALLED DR. BONNER'S OFFICE AND THERE IS NO NURSE AND AVAILABLE BUT THE PERSON WHO ANSWERED THE PHONE LOOKED IN THE CHART AND STATES PLAVIX IS NO ON HER MED LIST. I DID NOT INCLUDE IT ON THE MED REC AT THIS TIME SINCE IT WAS NOT ON THE DISCHARGE, IT WAS NOT ON THE LIST AT DR. BONNER'S OFFICE, AND THE PATIENT THINKS TOLD HER SHE DID NOT NEED TO TAKE IT. I EXPLAINED SHE PROBABLY DOES HAVE THE BOTTLE AND HOME AND NEEDS TO FIND IT SO SHE DOESN'T TAKE IT BY [place] IF SHE IS NOT SUPPOSED TO BE TAKING IT. I PASSED THIS INFORMATION ON THE ANALIA AGUDELO WHO IS IN THE UNIT AT THIS TIME. ANA ALSO FILLED NITROBID TOPICAL 04-09-19 - SHE STATES SHE WAS SUPPOSED TO PUT THIS ON HER FEET EVERY 6 HOURS EXCEPT AFTER SEVERAL APPLICATIONS HER FEET BURNED ALL THE WAY UP TO HER KNEES SO SHE DISCONTINUED THIS TREATMENT.
--- NOTE | 2019-04-22 20:56 | Consultation-Cardiology ---
HPI-Cardiology Cardiology Consultation: Date of Consultation 04/22/19 Time Seen by a Provider: 20:30 Date of Admission Attending Physician Jo Diaz DO Admitting Physician Narinder Wasserman MD Consulting Physician CHARISSA BUTTS MD, FACP, FACC HPI: Chief Complaint: Reason for consultation: Shortness of breath and Anemia HPI Ms. Beltran is a 73 year old female admitted to ICU 6 from the ED with GI bleed. She reports she has wounds to her toes for which she has been following with Dr. Isidro, Dr. Stratton and Dr. Andrews of CV services at [facility] in [place], [place]. She reports over the last few days she has had increasing dyspnea, abdominal discomfort, chills, nausea, and frequent black stools. She denies any c/o CP. She reports feeling generally unwell. She reports chronic bilat LE swelling. She reports chronic cramping in her feet/toes. No c/o syncope or near syncope. Review of Systems-Cardiology Review of Systems Constitutional: chills, malaise Eyes: No vision change Ears/Nose/Throat: No epistaxis, No recent hearing loss Respiratory: As described under HPI Cardiovascular: As described under HPI Gastrointestinal: diarrhea, nausea, stool coloration changes (black, tarry) Genitourinary: No dysuria, No hematuria Musculoskeletal: As describe under HPI, other Skin: As described under HPI Psychiatric/Neurological: anxiety, depression; No seizure, No focal weakness, No syncope Hematologic: No bleeding abnormalities All Other Systems Reviewed Negative Unless Noted: Yes RWH-Tvbsnv-Ldcena Hx Patient Social History Marrital Status: 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 Family Medical History Family Medical History: She reports her mother had valve replacement surgery in her late 70's. She reports she had a brother with CAD who passed in late 40's. Allergies and Home Medications Allergies Coded Allergies: Penicillins (Verified Allergy, Severe, ANAPHYLAXIS, 02/16/19) levofloxacin (Verified Allergy, Severe, DIARRHIA, SWELLING, WEAKNESS, 02/16/19) sulfamethoxazole (Verified Allergy, Severe, WHEEZING/SWELLING, 02/16/19) trimethoprim (Verified Allergy, Severe, WHEEZING/SWELLING, 02/16/19) Tetracyclines (Verified Allergy, Mild, GI UPSET, 02/16/19) Sulfa (Sulfonamide Antibiotics) (Verified Allergy, Unknown, 02/16/19) pseudoephedrine (Verified Allergy, Unknown, 02/16/19) Home Medications Amlodipine Besylate 10 Mg Tablet, 10 MG PO DAILY, (Reported) Aspirin 81 Mg Tablet.dr, 81 MG PO DAILY, (Reported) Atorvastatin Calcium 80 Mg Tablet, 80 MG PO HS, (Reported) Isosorbide Mononitrate 30 Mg Tab.er.24h, 30 MG PO DAILY, (Reported) Metoprolol Succinate 25 Mg Tab.er.24h, 50 MG PO DAILY, (Reported) LAST FILLED #60 03-03-19 TAKES 2 (25MG) TABLETS Rivaroxaban 2.5 Mg Tablet, 2.5 MG PO BID, (Reported) Tramadol HCl 50 Mg Tablet, 100 MG PO BID PRN for PAIN-MODERATE (5-7), (Reported) TAKES 2 (50MG) TABLETS Patient Home Medication List Home Medication List Reviewed: Yes Physical Exam-Cardiology Physical Exam Vital Signs/I&O 04/22/19 04/22/19 04/22/19 04/22/19 10:31 10:31 13:00 13:54 Temp 36.4 36.4 Pulse 144 88 87 Resp 32 17 B/P (MAP) 77/47 (57) 136/65 (57) Pulse Ox 100 100 O2 Delivery Nasal Cannula Nasal Cannula Nasal Cannula O2 Flow Rate 2.00 2.0 2.00 04/22/19 04/22/19 04/22/19 04/22/19 14:15 14:27 14:45 15:00 Temp 36.8 36.8 Pulse 88 86 84 87 Resp 36 16 18 10 B/P (MAP) 145/69 (94) 142/72 148/60 135/72 (93) Pulse Ox 96 97 98 100 O2 Delivery Nasal Cannula Nasal Cannula Nasal Cannula Nasal Cannula O2 Flow Rate 2.00 2.00 2.00 2.00 04/22/19 04/22/19 04/22/19 04/22/19 16:00 16:00 16:45 17:00 Temp 36.6 36.9 Pulse 85 87 87 Resp 10 20 9 B/P (MAP) 139/64 (89) 135/74 145/71 (95) Pulse Ox 100 97 99 O2 Delivery Nasal Cannula Nasal Cannula Nasal Cannula O2 Flow Rate 2.00 2.00 2.00 04/22/19 04/22/19 04/22/19 04/22/19 17:12 17:30 18:00 19:00 Temp 36.7 36.9 Pulse 84 74 87 85 Resp 18 18 20 B/P (MAP) 145/71 134/72 144/70 (94) Pulse Ox 99 97 100 O2 Delivery Nasal Cannula Nasal Cannula Nasal Cannula O2 Flow Rate 2.00 2.00 2.00 04/22/19 19:59 Temp 37.5 Capillary Refill : Less Than 3 Seconds Constitutional: AAO x 3, well-developed, well-nourished HEENT: PERRL, oral hygience is good Neck: No carotid bruit; carotid pulses are 2 + bilaterally Respiratory: No accessory muscle use, No respiratory distress; chest expansion is symmetric, chest is bilaterally symmetric, other (diminished lower lobes) Cardiovascular: regular rate-rhythm; No JVD; S1 and S2 Gastrointestinal: tender, soft, audible bowel sounds Rectal: deferred Extremities: other (mod pedal edema, bluish discoloration and superficial dry gangrenous changes of several toes) Neurologic/Psychiatric: grossly intact Skin: warm/dry; No rash; other (right and left great toes with dark, dry tissue to the tip of the toes and second toe of the right foot with dark discoloration; fourth toe of the left foot with non-draining wound; foul odor noted) Data Review Labs Laboratory Tests 04/22/19 10:35: White Blood Count 9.4, Red Blood Count 2.35L, Hemoglobin 6.9*L, Hematocrit 21L, Mean Corpuscular Volume 89, Mean Corpuscular Hemoglobin 29, Mean Corpuscular Hemoglobin Concent 33, Red Cell Distribution Width 16.0H, Platelet Count 440H, Mean Platelet Volume 10.0, Neutrophils (%) (Auto) 64, Lymphocytes (%) (Auto) 20, Monocytes (%) (Auto) 10, Eosinophils (%) (Auto) 5, Basophils (%) (Auto) 1, Neutrophils # (Auto) 6.0, Lymphocytes # (Auto) 1.9, Monocytes # (Auto) 0.9, E osinophils # (Auto) 0.5H, Basophils # (Auto) 0.1, Prothrombin Time 18.0H, INR Comment 1.4, Activated Partial Thromboplast Time 31, Sodium Level 133L, Potassium Level 3.8, Chloride Level 100, Carbon Dioxide Level 18L, Anion Gap 15H , Blood Urea Nitrogen 21H, Creatinine 2.55H, Estimat Glomerular Filtration Rate 19, BUN/Creatinine Ratio 8, Glucose Level 165H, Lactic Acid Level 4.22*H, Calcium Level 8.9, Corrected Calcium 9.5, Total Bilirubin 0.6, Aspartate Amino Transf (AST/SGOT) 24, Alanine Aminotransferase (ALT/SGPT) 14, Alkaline Phosphatase 63, Troponin I 0.048H, Total Protein 5.8L, Albumin 3.2 04/22/19 12:10: Urine Color YELLOW, Urine Clarity SL CLOUDY, Urine pH 6.5, Urine Specific [place] 1.015L, Urine Protein 1+H, Urine Glucose (UA) NEGATIVE, Urine Ketones NEGATIVE, Urine Nitrite NEGATIVE, Urine Bilirubin NEGATIVE, Urine Urobilinogen 0.2, Urine Leukocyte Esterase 2+H, Urine RBC (Auto) TRACE-I, Urine RBC 2-5H, Urine WBC 50-100H, Urine Squamous Epithelial Cells 0-2, Urine Crystals NONE, Urine Bacteria MODERATEH, Urine Casts NONE, Urine Mucus NEGATIVE, Urine Culture Indicated CULTURE PENDING 04/22/19 12:30: Lactic Acid Level 2.62*H 04/22/19 15:00: Troponin I 0.072H A/P-Cardiology Assessment/Admission Diagnosis GI bleed requiring transfusion - management per medical/surgical services (Dr. Whitehead) Mildly elevated troponin, likely Type 2 [place] secondary to acute on chronic renal insufficiency and anemia Subacute ischemic toes bilaterally, gangrene on multiple toes, has seen by Dr. Andrews and discussed possibility of amputation. Peripheral angiogram done Apr 12, [address] Stratton showed mild PAD with no significant obstruction Ischemic toes felt to be due to embolization from the abdominal aortic aneurysm seen at time of peripheral angio of 04-12-19. Has been referred back to the vascular surgeon for evaluation of the aneurysm. Maintained on Xarelto 2.5 and ASA. Coronary artery disease - cardiac catheterization carried out Apr 12, 2019 showed mild to moderate nonobstructive disease. AAA noted during cardiac catheterization of Apr 12, 2019. Abdominal aortic US done this morning revealed 4.2 x3.9 infrarenal AAA. 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 Andrews. Echocardiogram done in March 2019 showing normal LV size with ejection fraction 65-70%, grade 2 diastolic dysfunction, left atrial dilatation, calcified mitral annulus, aortic valve sclerosis, moderate tricuspid regurgitation, PA pressure 45 mmHg] Discussion and Recomendations Complex management issue Management of GI bleed as per medical/surgical services - transfusion as needed Hold Xarelto d/t GI bleed Continue IVF Management of toe ulcerations/gangrenous changes per medical/surgical services Monitor lab closely Further recs will be based on her hospital course We would like to thank medical services for this consult Clinical Quality Measures DVT/VTE Risk/Contraindication: Risk Factor Score Per Nursin RFS Level Per Nursing on Admit: 4+=Very High CHARISSA BUTTS MD FACP FACC CCDS Apr 22, 2019 20:56 POS
[2019-04-22] MEDS: ONDANSETRON 4 MG/2 ML (SDV) Z0FRAN IVP PRN (21:03)
[2019-04-22] MEDS ORDERED: fentaNYL INJECTION 100 MCG/2 ML AMP IV ONE (21:30)
[2019-04-23] VITALS (17 sets, daily range): BP systolic 118–163; BP diastolic 50–91
[2019-04-23] MEDS: fentaNYL INJECTION 100 MCG/2 ML AMP ONE (02:33)
--- NOTE | 2019-04-23 03:24 | Pulmonary Consultation ---
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 Allergies and Home Medications Allergies Coded Allergies: Penicillins (Verified Allergy, Severe, ANAPHYLAXIS, 02/16/19) levofloxacin (Verified Allergy, Severe, DIARRHIA, SWELLING, WEAKNESS, 02/16/19) sulfamethoxazole (Verified Allergy, Severe, WHEEZING/SWELLING, 02/16/19) trimethoprim (Verified Allergy, Severe, WHEEZING/SWELLING, 02/16/19) Tetracyclines (Verified Allergy, Mild, GI UPSET, 02/16/19) Sulfa (Sulfonamide Antibiotics) (Verified Allergy, Unknown, 02/16/19) pseudoephedrine (Verified Allergy, Unknown, 02/16/19) Home Medications Amlodipine Besylate 10 Mg Tablet, 10 MG PO DAILY, (Reported) Aspirin 81 Mg Tablet.dr, 81 MG PO DAILY, (Reported) Atorvastatin Calcium 80 Mg Tablet, 80 MG PO HS, (Reported) Isosorbide Mononitrate 30 Mg Tab.er.24h, 30 MG PO DAILY, (Reported) Metoprolol Succinate 25 Mg Tab.er.24h, 50 MG PO DAILY, (Reported) LAST FILLED #60 03-03-19 TAKES 2 (25MG) TABLETS Rivaroxaban 2.5 Mg Tablet, 2.5 MG PO BID, (Reported) Tramadol HCl 50 Mg Tablet, 100 MG PO BID PRN for PAIN-MODERATE (5-7), (Reported) TAKES 2 (50MG) TABLETS Past Ubejhyr-Awkkvf-Fvqhsc Hx Past Med/Social Hx: Reviewed Nursing Past Med/Soc Hx, Reviewed and Corrections made Patient Social History Alcohol Use: Denies Use Number of Drinks Today: AA Alcohol Beverage of Choice: Beer Recreational Drug Use: No Smoking Status: Former Smoker (quit 1 month ago) Type Used: Cigarettes 2nd Hand Smoke Exposure: Yes Recent Foreign Travel: No Contact w/Someone Who Travel: No Recent Infectious Disease Expo: No Recent Hopitalizations: No Immunizations Up To Date PED Vaccines UTD: No Date of Pneumonia Vaccine: Mar 05, 2016 Date of Influenza Vaccine: Mar 14, 2019 Seasonal Allergies Seasonal Allergies: Yes Past Medical History Surgeries: Yes Tubal Ligation Respiratory: No Currently Using CPAP: No Currently Using BIPAP: No Cardiac: Yes Hypertension Neurological: No Female Reproductive Disorders: Denies Sexually Transmitted Disease: No HIV/AIDS: No Genitourinary: Yes (STAGE 3) Renal Failure Gastrointestinal: Yes (N/V, ABD PAIN) Chronic Constipation, Chronic Diarrhea, Irritable Bowel Musculoskeletal: Yes Arthritis, Chronic Back Pain Endocrine: No HEENT: Yes (READING GLASSES, DENTURES, blurred vision) Loss of Vision: Bilateral Hearing Impairment: Denies Cancer: No (egd, tubaligation) Did You Recieve Any Treatments: No Psychosocial: Yes (SITUATIONAL-RELATED TO MOTHERS ) Depression Integumentary: Yes (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 oz. kg; 19.00 BMI Method: Exam Exam Vital Signs Date Time Temp Pulse Resp B/P (MAP) Pulse Ox O2 Delivery O2 Flow Rate FiO2 04/23/19 01:00 89 04/23/19 00:00 97 Nasal Cannula 2.00 04/22/19 23:00 83 12 151/89 (109) 98 Nasal Cannula 2.00 04/22/19 22:00 84 15 143/74 (97) 94 Nasal Cannula 2.00 04/22/19 21:00 85 19 140/75 (96) 99 Nasal Cannula 2.00 04/22/19 20:00 87 16 147/69 (95) 99 Nasal Cannula 2.00 04/22/19 20:00 98 Nasal Cannula 2.00 04/22/19 19:59 37.5 04/22/19 19:30 37.2 87 19 134/78 98 Room Air 2.00 04/22/19 19:00 82 16 151/64 (93) 99 Nasal Cannula 2.00 04/22/19 19:00 85 04/22/19 18:00 87 20 144/70 (94) 100 Nasal Cannula 2.00 04/22/19 17:30 36.9 74 18 134/72 97 Nasal Cannula 2.00 04/22/19 17:12 36.7 84 18 145/71 99 Nasal Cannula 2.00 04/22/19 17:00 87 9 145/71 (95) 99 Nasal Cannula 2.00 04/22/19 16:45 36.9 87 20 135/74 97 Nasal Cannula 2.00 04/22/19 16:00 36.6 04/22/19 16:00 85 10 139/64 (89) 100 Nasal Cannula 2.00 04/22/19 15:00 87 10 135/72 (93) 100 Nasal Cannula 2.00 04/22/19 14:45 36.8 84 18 148/60 98 Nasal Cannula 2.00 04/22/19 14:27 36.8 86 16 142/72 97 Nasal Cannula 2.00 04/22/19 14:15 88 36 145/69 (94) 96 Nasal Cannula 2.00 04/22/19 13:54 36.4 87 17 136/65 (57) 100 Nasal Cannula 2.00 04/22/19 13:00 88 04/22/19 10:31 Nasal Cannula 2.0 04/22/19 10:31 36.4 144 32 77/47 (57) 100 Nasal Cannula 2.00 I & O 04/23/19 07:00 Intake Total 2295 ml Output Total 525 ml Balance 1770 ml Height & Weight Height: '" Weight: lbs. oz. kg; 19.00 BMI Method: General Appearance: WD/WN, Anxious, Chronically ill, Mild Distress, Thin HEENT: PERRL/EOMI, Normal ENT Inspection, Pharynx Normal, Moist Mucous Membranes, Scleral Icterus (L), Scleral Icterus (R) Neck: Full Range of Motion, Normal Inspection, Non Tender Respiratory: Chest Non Tender, Lungs Clear, No Accessory Muscle Use, No Respiratory Distress, Decreased Breath Sounds Cardiovascular: No Edema, No Gallop, No JVD, No Murmur, Normal Peripheral Puls es, Tachycardia Capillary Refill: Less Than 3 Seconds Gastrointestinal: normal bowel sounds, non tender, soft, no organomegaly, no pulsatile mass Extremity: Normal Capillary Refill, Normal Inspection, Normal Range of Motion, Non Tender, No Calf Tenderness, No Pedal Edema Neurologic/Psychiatric: Alert, Oriented x3, No Motor/Sensory Deficits, Normal Mood/Affect, 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
[2019-04-23] MEDS ORDERED: ACETAMINOPHEN 325 MG TABLET PO PRN (03:30)
[2019-04-23 03:49] LABS: MEAN PLATELET VOLUME 9.6 FL (7.4-10.4); RED CELL DISTRIBUTION WIDTH 16.3 % (10.0-14.5); WHITE BLOOD COUNT 13.6 10^3/uL (4.3-11.0)
[2019-04-23] MEDS: metroNIDAZOLE 500MG/100ML IVPB 100 ML IV SCH ×2 (04:07→14:17)
[2019-04-23 04:09] LABS: ALBUMIN 3.1 GM/DL (3.2-4.5); CALCIUM 8.5 MG/DL (8.5-10.1); CREATININE SERUM 2.32 MG/DL (0.60-1.30); TOTAL PROTEIN 5.1 GM/DL (6.4-8.2)
[2019-04-23] MEDS: ONDANSETRON 4 MG/2 ML (SDV) Z0FRAN IVP PRN (04:21)
[2019-04-23] MEDS: LACTATED RINGERS 1,000 ML IV SCH ×2 (04:25→18:31)
[2019-04-23 04:51] LABS: MAGNESIUM 1.6 MG/DL (1.6-2.4); PHOSPHORUS 3.2 MG/DL (2.3-4.7)
[2019-04-23] MEDS: NOREPINEPHRINE 4 MG in NS (IVPB) 250 ML IV SCH (05:30)
[2019-04-23] MEDS ORDERED: MAGNESIUM 1 GM/100 ML IVPB 200 ML IV ONE (05:31)
[2019-04-23] MEDS: MAGNESIUM 1 GM/100 ML IVPB 100 ML IV SCH ×2 (05:36→06:43)
[2019-04-23] MEDS ORDERED: MAGNESIUM 1 GM/100 ML IVPB 100 ML IV SCH (06:00)
[2019-04-23] MEDS ORDERED: KCL 20 MEQ TAB (K-DUR) PO SCH (06:00)
[2019-04-23] MEDS ORDERED: POTASSIUM CL 10MEQ/50ML IVPB 50 ML IV SCH (06:00)
[2019-04-23] MEDS: VASOPRESSIN INJECTION 20 UNIT in NS (IVPB) 100 ML IV SCH (07:51)
[2019-04-23] MEDS ORDERED: PANTOPRAZOLE 40 MG (PROTONIX) VIAL IV SCH (09:00)
--- NOTE | 2019-04-23 10:38 | Progress Note - Hospitalist ---
Subjective HPI/CC On Admission Date Seen by Provider: Apr 23, 2019 Time Seen by Provider: 10:00 Chief complaint: Tachycardia History present illness: This is a 73-year-old white female clinic patient of Dr. Wasserman, Dr. Stratton, Dr. Isidro who is recently diagnosed with Buerger's disease about one month ago when she began having ulcerations and necrotic tissue of bilateral toes. She then stops smoking. She presented to Dr. Isidro for wound care of which she sees once a week was found to have tachycardia of 160 sent to the ER blood pressure of systolic of 60 diagnosed with shock given aggressive IV fluids which resulted in resolution of the tachycardia heart rate now 88 and blood pressure 132. She has been assessed to have severe sepsis elevated lactic acid of 4.2 so she was placed on empiric treatment of cefepime and vancomycin will be placed in the ICU with consultations with Dr. Harrell cable lacer and Dr. Perrin on-call for Dr. Stratton in addition Dr. Whitehead for severe anemia of 6.9 prior to fluid resuscitation with history of black stools that started in January and could not complete the bowel prep when she was seen by him 2 months ago. We will stabilize her and monitor closely in the meantime. Subjective/Events-last exam Patient doing very well Received 2 units of blood through the ICU hospital course Hemoglobin 9.0 Patient denies any pain PT/OT will be ordered Inpatient rehab will be consulted but Medicare advantage plan likely would not cover Transferring to fourth floor at the bedside Review of Systems General: Fatigue Musculoskeletal: leg pain Focused Exam Lactate Level 04/22/19 10:35: Lactic Acid Level 4.22*H 04/22/19 12:30: Lactic Acid Level 2.62*H Objective Exam Vital Signs Vital Signs Date Time Temp Pulse Resp B/P (MAP) Pulse Ox O2 Delivery O2 Flow Rate FiO2 04/23/19 19:00 71 04/23/19 16:15 36.6 20 118/63 (81) 92 Room Air 92.00 Capillary Refill : Less Than 3 Seconds General Appearance: No Apparent Distress, WD/WN Respiratory: Chest Non Tender, Lungs Clear, No Accessory Muscle Use, No Respiratory Distress, Decreased Breath Sounds Cardiovascular: Regular Rate, Rhythm Neurologic/Psychiatric: Alert, Oriented x3, No Motor/Sensory Deficits, Normal Mood/Affect Skin: Other (improved erythema of toes with ulcerations) Results/Procedures Lab Laboratory Tests 04/22/19 22:55 04/23/19 03:40 Patient resulted labs reviewed. Assessment/Plan Assessment and Plan Assess & Plan/Chief Complaint Assessment: Severe sepsis Bilateral toe necrosis Buerger's disease Former smoker quit 1 month ago Hypertension Valvular heart disease Elevated lactic acid Severe anemia prior to fluid resuscitation 6.9 s/p 2 units of blood now hgb 9.0 Black tarry stools consulting general surgery needs scope as outpatient Plan: ICU transferring to 4th floor s/p Severe sepsis protocol Aggressive IV fluids IV antibiotics of cefepime and vancomycin per allergy profile Review home meds Pain control Diagnosis/Problems Diagnosis/Problems (1) Severe sepsis (2) Melena (3) Elevated lactic acid level (4) Acute anemia Status: Acute (5) Elevated troponin Status: Acute (6) Chronic renal failure Status: Acute Qualifiers: Chronic kidney disease stage: unspecified stage Qualified Codes: N18.9 - Chronic kidney disease, unspecified (7) Bilateral swelling of feet Status: Acute (8) Chronic renal failure, stage 4 (severe) Status: Acute (9) UTI (urinary tract infection) Status: Acute Qualifiers: Urinary tract infection type: acute cystitis Hematuria presence: without hematuria Qualified Codes: N30.00 - Acute cystitis without hematuria (10) Hyponatremia Status: Acute (11) Transfusion of blood during current hospitalisation (12) Buergers disease (13) Former smoker Clinical Quality Measures DVT/VTE Risk/Contraindication: Risk Factor Score Per Nursin RFS Level Per Nursing on Admit: 4+=Very High YASEMIN KENNEDY DO Apr 23, 2019 10:38 POS
[2019-04-23] MEDS: ISOSORBIDE MONONITRATE 30 MG (IMDUR) TAB PO SCH (10:45)
--- NOTE | 2019-04-23 11:15 | Physical Therapy Evaluation ---
PT Evaluation-General Medical Diagnosis Admission Date Apr 22, 2019 at 13:26 Medical Diagnosis: severe sepsis/anemia/UTI Onset Date: Apr 22, 2019 Therapy Diagnosis Therapy Diagnosis: generalized weakness/debility Precautions Precautions/Isolations: Standard Precautions Referral Physician: Emily Reason for Referral: Evaluation/Treatment Medical History Pertinent Medical History: HTN, Renal Insufficiency Additional Medical History Buerger's disease Current History Ed from wound care secondary to tachycardia Reviewed History: Yes Social History Home: Single Level Current Living Status: Spouse Entry Into Home: Stairs With Railing PT Steps Into Home: 1 Prior Prior Level of Function SCALE: Activities may be completed with or without assistive devices. 7-Bqhnovdtrz-hmtmscz completes the activity by him/herself with no assistance from a helper. 5-Set-up or Clean-up Assistance-helper sets up or cleans up; patient completes activity. [place] assists only prior to or following the activity. 4-Supervision or Touching Assistance-helper provides verbal cues and/or touchin g/steadying and/or contact guard assistance as patient completes activity. Assistance may be provided throughout the activity or intermittently. 3-Partial/Moderate Assistance-helper does LESS THAN HALF the effort. [place] lifts, holds or supports trunk or limbs, but provides less than half the effort. 2-Substantial/Maximal Assistance-helper does MORE THAN HALF the effort. [place] lifts or holds trunk or limbs and provides more than half the effort. 6-Tcdskacun-uflvwt does ALL the effort. Patient does none of the effort to complete the activity. Or, the assistance of 2 or more helpers is required for the patient to complete the activity. If activity was not attempted, code reason: 7-Patient Refused. 9-Not Applicable-not attempted and the patient did not perform the activity before the current illness, exacerbation or injury. 10-Not Attempted due to Environmental Limitations-(lack of equipment, weather restraints, etc.). 88-Not Attempted due to Medical Conditions or Safety Concerns. Bed Mobility: 6 Transfers (B,C,W/C): 6 Gait: 6 Stairs: 6 Indoor Mobility (Ambulation): Independent Stairs: Independent Prior Devices Use: Other-see list below [facility] PT Evaluation-Current Subjective Patient is very agreeable to participate with PT. She reports she has not been OOB. Pain Numeric Pain Scale: 5-Moderate Pain Location: Right, Left Location Body Site: Toe Pain Description: Chronic Objective Patient Orientation: Normal For Age Attachments: Oxygen, Tello Catheter, IV ROM/Strength ROM Lower Extremities bilateral LE WFL Strength Lower Extremities 4-/5 grossly bilateral LE Integumentary/Posture Integumentary refer to nursing notes Bowel Incontinence: No Bladder Incontinence: Tello Cath Posture WFL Neuromuscular (Tone, Coordination, Reflexes) grossly intact Sensory Vision: Functional Hearing: Functional Sensation Right Lower Extremit: Intact Sensation Left Lower Extremity: Intact Transfers Roll Left to Right (QC): 4 Sit to Lying (QC): 4 Lying to Sitting/Side of Bed(Q: 4 Sit to Stand (QC): 4 Chair/Hff-mv-Hknkh Xfer(QC): 4 Car Transfer (QC): 10 Gait Does the Patient Walk?: Yes Mode of Locomotion: Walk Anticipated Mode of Locomotion: Walk Walk 10 feet (QC): 4 Walk 50 ft with 2 Turns(QC): 88 Walk 150 ft (QC): 88 Walking 10ft/uneven surface-QC: 10 Distance: 10' Gait Assistive Device: FWW Comments/Gait Description functional gait sequence Wheelchair Training Does the Pt Use a Wheelchair?: No Wheel 50 ft with 2 turns (QC): 9 Wheel 150 ft (QC): 9 Type of Wheelchair: Manual Stairs 1 Step (curb) (QC): 88 4 Steps (QC): 88 12 Steps (QC): 9 Balance Sitting Static: Normal Sitting Dynamic: Normal Standing Static: Fair Standing Dynamic: Fair Picking up an Object (QC): 5 Assessment/Needs 73 y.o. female, will benefit from short term skilled PT to address functional strength and mobility to improve current LOF to safely return to home at maximum LOF. Rehab Potential: Fair PT Snf Goals Rehabilitation Liaison Goals PT Rehabilitation Liaison Goals Time Frame: May 02, 2019 Roll Left & Right (QC): 6 Sit to Lying (QC): 6 Lying-Sitting on Side/Bed(QC): 6 Sit to Stand (QC): 6 Chair/Kri-nq-Onuzm Xfer(QC): 6 Toilet Transfer (QC): 6 Car Transfer (QC): 6 Does the Patient Walk: Yes Walk 10 feet (QC): 6 Walk 50ft with 2 Turns (QC): 6 Walk 150 ft (QC): 6 Walking 10ft on Uneven Surface: 6 1 Step (curb) (QC): 6 4 Steps (QC): 9 12 Steps (QC): 9 Picking up an Object (QC): 6 Does the Pt use WC or Scooter?: No Type: N/A Type: N/A PT Plan Problem List Problem List: Activity Tolerance Treatment/Plan Treatment Plan: Continue Plan of Care Treatment Plan: Bed Mobility, Education, Functional Activity Alison, Functional Strength, Gait, Safety, Therapeutic Exercise, Transfers Treatment Duration: May 02, 2019 Frequency: 6 times per week Estimated Hrs Per Day: .25 hour per day Patient and/or Family Agrees t: Yes Time/GCodes Time In: 1047 Time Out: 101 Total Billed Treatment Time: 14 Total Billed Treatment 1 visit EVLowC 14 min MICHELLE PERSAUD PT Apr 23, 2019 11:15 POS
--- NOTE | 2019-04-23 11:30 | Occupational Therapy Eval ---
OT Evaluation-General/PLF Medical Diagnosis Admission Date Apr 22, 2019 at 13:26 Medical Diagnosis: severe sepsis/anemia/UTI Onset Date: Apr 22, 2019 Therapy Diagnosis Therapy Diagnosis: decr self care, decr funct mobility, weakness Precautions Precautions/Isolations: Standard Precautions Safety Interventions: None Referral Physician: Emily Referral Reason: Evaluation/Treatment Medical History Pertinent Medical History: Arthritis, HTN, Renal Insufficiency, Smoking Additional Medical History Chronic constipation, chronic diarrhea, irritable bowel. Chronic back pain. Depression. Bilat toe necrosis. Current History Admitted from wound care with chest pain, increased heart rate, confusion Reviewed History: Yes Social History Home: Single Level Current Living Status: Spouse Entry Into Home: Stairs With Railing Steps Into Home: 1 ADL-Prior Level of Function SCALE: Activities may be completed with or without assistive devices. 1-Xfnjsxtegy-nqzaszr completes the activity by him/herself with no assistance from a helper. 5-Set-up or Clean-up Assistance-helper sets up or cleans up; patient completes activity. [place] assists only prior to or following the activity. 4-Supervision or Touching Assistance-helper provides verbal cues and/or touching/steadying and/or contact guard assistance as patient completes ac tivity. Assistance may be provided throughout the activity or intermittently. 3-Partial/Moderate Assistance-helper does LESS THAN HALF the effort. [place] lifts, holds or supports trunk or limbs, but provides less than half the effort. 2-Substantial/Maximal Assistance-helper does MORE THAN HALF the effort. [place] lifts or holds trunk or limbs and provides more than half the effort. 7-[place]olkihawl-uqekcp does ALL the effort. Patient does none of the effort to complete the activity. Or, the assistance of 2 or more helpers is required for the patient to complete the activity. If activity was not attempted, code reason: 7-Patient Refused. 9-Not Applicable-not attempted and the patient did not perform the activity before the current illness, exacerbation or injury. 10-Not Attempted due to Environmental Limitations-(lack of equipment, weather restraints, etc.). 88-Not Attempted due to Medical Conditions or Safety Concerns. ADL PLOF Comments Pt reported that she has been able to manage her basic self care needs. 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 Self Care: Independent Functional Cognition: Unknown OT Current Status Subjective Pt seen in room, up in recliner, agreeable to OT. No pain reported except some discomfort from weight bearing on her feet. Appearance Alert, cooperative Mental Status/Objective Patient Orientation: Person, Place, Time, Situation Attachments: Central Line, IV, Telemetry Current Glasses/Contacts: Yes Dentures/Partials: Yes Upper Extremity ROM Grossly WFL bilat Upper Extremity Strength Grossly 4/5 bilat ADL-Treatment ADL-Current Pt needed to toilet. Pt educ hand placement for transfer. CGA, FWW, SPT to BS. Help with managing clothing and tubing. Pt left on BSC, call light present, all needs met. Eating (QC): 7 Oral Hygiene (QC): 7 Shower/Bathe Self (QC): 7 Upper Body Dressing (QC): 7 Lower Body Dressing (QC): 7 On/Off Footwear (QC): 7 Toileting Hygiene (QC): 7 Toilet Transfer (QC): 4 (CGA, BSC) Education OT Patient Education: Purpose of tx/functional activities, Rehab process, Transfer techniques Teaching Recipient: Patient Teaching Methods: Demonstration, Discussion Response to Teaching: Verbalize Understanding, Return Demonstration, Reinforcement Needed OT Fci Goals Fci Goals Time Frame: May 02, 2019 Eating (QC): 6 Oral Hygiene (QC): 5 Toileting Hygiene (QC): 5 Shower/Bathe Self (QC): 5 Upper Body Dressing (QC): 5 Lower Body Dressing (QC): 5 On/Off Footwear (QC): 5 Additional Goals: 1-Demonstrate ADL Tasks, 2-Verbalize Understanding, 3- ImproveStrength/Alison 1=Demonstrate adherence to instructed precautions during ADL tasks. 2=Patient will verbalize/demonstrate understanding of assistive devices/modifications for ADL. 3=Patient will improve strength/tolerance for activity to enable patient to perform ADL's. OT Education/Plan Problem List/Assessment Assessment: Decreased Activ Tolerance, Dependent Transfers, Impaired Self-Care Skills Pt would benefit from skilled OT to increase her independence in basic self care and increase her activity tolerance, to allow her to safely return home Discharge Recommendations Plan/Recommendations: Continue POC Treatment Plan/Plan of Care Treatment,Training & Education: Yes Patient would benefit from OT for education, treatment and training to promote independence in ADL's, mobility, safety and/or upper extremity function for ADL's. Plan of Care: ADL Retraining, Functional Mobility, UE Funct Exercise/Act Treatment Duration: May 02, 2019 Frequency: 5 times per week Estimated Hrs Per Day: .25 hour per day Agreement: Yes Rehab Potential: Fair Time/GCodes Start Time: 11:10 Stop Time: 11:20 Total Time Billed (hr/min): 10 Billed Treatment Time visit, 10 minutes evaluation low intensity SUJATHA KEARNS OT Apr 23, 2019 11:30 POS
[2019-04-23] MEDS ORDERED: CEFEPIME 2,000 MG/SWFI 20 ML IV PUSH IV SCH ×2 (13:00)
--- NOTE | 2019-04-23 14:14 | Progress Note - Cardiology ---
Cardiology SOAP Progress Note Subjective: She feels weak, tired, and down No cp or palp or syncope or shortness of breath at rest Objective: I&O/Vital Signs 04/23/19 04/23/19 04/23/19 04/23/19 03:00 04:00 04:00 05:00 Pulse 79 80 80 Resp 12 25 26 B/P (MAP) 150/81 (104) 119/50 (73) 123/56 (78) Pulse Ox 98 94 97 94 O2 Delivery Nasal Cannula Nasal Cannula Nasal Cannula Nasal Cannula O2 Flow Rate 2.00 2.00 2.00 2.00 04/23/19 04/23/19 04/23/19 04/23/19 06:00 06:50 07:00 07:00 Temp 38.6 Pulse 84 82 83 Resp 14 16 B/P (MAP) 143/75 (97) 157/79 (105) Pulse Ox 99 99 O2 Delivery Nasal Cannula Nasal Cannula O2 Flow Rate 2.00 2.00 04/23/19 04/23/19 04/23/19 04/23/19 08:00 08:00 09:00 10:00 Pulse 77 80 64 Resp 52 21 26 B/P (MAP) 143/73 (96) 163/87 (112) 137/81 (99) Pulse Ox 97 97 97 98 O2 Delivery Nasal Cannula Nasal Cannula Nasal Cannula Nasal Cannula O2 Flow Rate 2.00 2.00 2.00 2.00 04/23/19 04/23/19 04/23/19 04/23/19 11:00 12:00 12:00 12:47 Pulse 77 78 80 Resp 17 39 B/P (MAP) 146/71 (96) 153/76 (101) Pulse Ox 99 94 95 O2 Delivery Nasal Cannula Nasal Cannula Room Air O2 Flow Rate 2.00 2.00 04/23/19 13:00 Temp 37.6 Pulse 80 Resp 24 B/P (MAP) 158/81 (106) Pulse Ox 94 O2 Delivery Room Air 04/23/19 00:00 Intake Total 295 ml Output Total 525 ml Balance -230 ml Constitutional: AAO x 3, well-developed, well-nourished Respiratory: No accessory muscle use, No respiratory distress; chest expansion is symmetric, chest is bilaterally symmetric, other (diminished lower lobes) Cardiovascular: regular rate-rhythm; No JVD; S1 and S2 Gastrointestional: tender, soft, audible bowel sounds Extremities: other (mod pedal edema, bluish discoloration and superficial dry gangrenous changes of several toes) Neurologic/Psychiatric: grossly intact Skin: warm/dry; No rash; other (right and left great toes with dark, dry tissue to the tip of the toes and second toe of the right foot with dark discoloration; fourth toe of the left foot with non-draining wound; foul odor noted) Results/Procedures: Labs Laboratory Tests 04/22/19 15:00: Troponin I 0.072H 04/22/19 22:55: Hemoglobin 10.0#L, Hematocrit 30L 04/23/19 01:27: Stool Occult Blood Immunoassay POSITIVEH 04/23/19 03:40: Hemoglobin 9.0L, Hematocrit 27L, White Blood Count 13.6H, Red Blood Count 3.12L, Mean Corpuscular Volume 87, Mean Corpuscular Hemoglobin 29, Mean Corpuscular Hemoglobin Concent 33, Red Cell Distribution Width 16.3H, Platelet Count 348, Mean Platelet Volume 9.6, Sodium Level 135, Potassium Level 4.0, Chloride Level 104, Carbon Dioxide Level 22, Anion Gap 9, Blood Urea Nitrogen 20H, Creatinine 2.32H, Estimat Glomerular Filtration Rate 21, BUN/Creatinine Ratio 9, Glucose Level 100, Calcium Level 8.5, Corrected Calcium 9.2, Phosphorus Level 3.2, Magnesium Level 1.6, Total Bilirubin 1.0, Aspartate Amino Transf (AST/SGOT) 35H, Alanine Aminotransferase (ALT/SGPT) 25, Alkaline Phosphatase 67, Total Protein 5.1L, Albumin 3.1L Microbiology 04/22/19 Urine Culture - Preliminary, Resulted Gram Negative Bacillus 1 Laboratory Tests 04/22/19 10:35 04/22/19 22:55 04/23/19 03:40 A/P: Assessment: GI bleed requiring transfusion - management per Medical and Surgical services Mildly elevated troponin, likely Type 2 [place] secondary to acute on chronic renal insufficiency and anemia Subacute ischemic toes bilaterally, gangrene on multiple toes, has seen by Dr. Andrews and discussed possibility of amputation. Peripheral angiogram done Apr 12, [address] Stratton showed mild PAD with no significant obstruction. Ischemic toes felt to be due to embolization from the abdominal aortic aneurysm seen at time of that peripheral angio. Has been on low-dose Xarelto, currently held for GI bleed Coronary artery disease - cardiac catheterization carried out Apr 12, 2019 showed mild to moderate nonobstructive disease. AAA noted during cardiac catheterization of Apr 12, 2019. Subsequent abd ao u/s showed 4.2 x3.9 infrarenal AAA. Acute on chronic renal failure, chronic kidney disease stage IV Hypertension HLD Tobaccoism - quit in Mar 2019 Echocardiogram done in March 2019 showing normal LV size with ejection fraction 65-70%, grade 2 diastolic dysfunction, left atrial dilatation, calcified mitral annulus, aortic valve sclerosis, moderate tricuspid regurgitation, PA pressure 45 mmHg] Plan: * Management is complex due to multiple comorbidities * She had been on low dose Xarelto for PAD. This is being held because of GI bleed * Continue current regimen * Transfusions as needed * Treatment of ischemic/gangrenous toes is with the Med and Surg services * Monitor labs closely * I discussed her CV issues with her today and answered questions CHARISSA BUTTS MD FACP FAC CCDS Apr 23, 2019 14:14 POS
[2019-04-23] MEDS: VANCOMYCIN 750 MG/NS 250 ML IVPB IV SCH ×2 (14:16)
--- NOTE | 2019-04-23 15:00 | NUR ---
pt to room 406 placed in the bed and introduced to room and call system. bedside report given to Sheng MILTON
--- NOTE | 2019-04-23 15:00 | NUR ---
Pt transferred to room 406. Received report from YOAN Martinez.
[2019-04-23] MEDS: PANTOPRAZOLE 40 MG (PROTONIX) TAB PO SCH (19:30)
[2019-04-24 00:30] VITALS: BP 131/70
[2019-04-24] MEDS: metroNIDAZOLE 500MG/100ML IVPB 100 ML IV SCH ×2 (02:31→15:10)
[2019-04-24] MEDS: LACTATED RINGERS 1,000 ML IV SCH (02:31)
[2019-04-24 04:00] VITALS: BP 126/84
[2019-04-24 05:30] LABS: BASOPHILS # (AUTO) 0.1 10^3/uL (0.0-0.1); BASOPHILS % (AUTO) 1 % (0-10); EOSINOPHILS # (AUTO) 0.7 10^3/uL (0.0-0.3); EOSINOPHILS % (AUTO) 6 % (0-10); HEMATOCRIT 28 % (35-52); LYMPHOCYTES # (AUTO) 1.3 X 10^3 (1.0-4.0); LYMPHOCYTES % (AUTO) 12 % (12-44); MEAN CORPUSCULAR HEMOGLOBIN 29 PG (25-34); MEAN CORPUSCULAR HGB CONC 33 G/DL (32-36); MEAN CORPUSCULAR VOLUME 90 FL (80-99); MEAN PLATELET VOLUME 10.7 FL (7.4-10.4); MONOCYTES % (AUTO) 9 % (0-12); NEUTROPHILS # (AUTO) 8.3 X 10^3 (1.8-7.8); NEUTROPHILS % (AUTO) 73 % (42-75); PLATELET COUNT 335 10^3/uL (130-400); RED CELL DISTRIBUTION WIDTH 16.3 % (10.0-14.5); WHITE BLOOD COUNT 11.4 10^3/uL (4.3-11.0)
[2019-04-24 05:46] LABS: ALBUMIN 2.9 GM/DL (3.2-4.5); BILIRUBIN,TOTAL 0.6 MG/DL (0.1-1.0); CALCIUM 8.5 MG/DL (8.5-10.1); CREATININE SERUM 2.26 MG/DL (0.60-1.30); TOTAL PROTEIN 5.2 GM/DL (6.4-8.2)
--- NOTE | 2019-04-24 06:21 | Pulmonary Progress Note ---
Subjective Time Seen by a Provider: 06:18 Subjective/Events-last exam Pt appears to be doing better. Sepsis Event Evaluation Height, Weight, BMI Height: '" Weight: lbs. oz. kg; 19.00 BMI Method: Focused Exam Lactate Level 04/22/19 10:35: Lactic Acid Level 4.22*H 04/22/19 12:30: Lactic Acid Level 2.62*H Exam Exam Vital Signs Date Time Temp Pulse Resp B/P (MAP) Pulse Ox O2 Delivery O2 Flow Rate FiO2 04/24/19 04:00 37.0 76 20 126/84 (98) 97 Nasal Cannula 1.00 04/24/19 01:00 71 04/24/19 00:30 36.8 71 18 131/70 (90) 96 Nasal Cannula 1.00 04/23/19 22:33 Nasal Cannula 2.00 04/23/19 20:00 Room Air 04/23/19 19:30 36.3 79 20 156/67 (96) 93 Room Air 04/23/19 19:00 71 04/23/19 16:15 36.6 76 20 118/63 (81) 92 Room Air 92.00 04/23/19 14:00 82 16 144/81 (102) 95 Room Air 94.00 04/23/19 13:00 37.6 80 24 158/81 (106) 94 Room Air 04/23/19 12:47 80 04/23/19 12:00 95 Room Air 04/23/19 12:00 78 39 153/76 (101) 94 Nasal Cannula 2.00 04/23/19 11:00 77 17 146/71 (96) 99 Nasal Cannula 2.00 04/23/19 10:00 64 26 137/81 (99) 98 Nasal Cannula 2.00 04/23/19 09:00 80 21 163/87 (112) 97 Nasal Cannula 2.00 04/23/19 08:00 77 52 143/73 (96) 97 Nasal Cannula 2.00 04/23/19 08:00 97 Nasal Cannula 2.00 04/23/19 07:00 38.6 04/23/19 07:00 83 16 157/79 (105) 99 Nasal Cannula 2.00 04/23/19 06:50 82 I & O 04/24/19 07:00 Intake Total 270 ml Output Total 925 ml Balance -655 ml Height & Weight Height: '" Weight: lbs. oz. kg; 19.00 BMI Method: General Appearance: No Apparent Distress, WD/WN HEENT: PERRL/EOMI, Normal ENT Inspection, Pharynx Normal, Moist Mucous Membranes, Scleral Icterus (L), Scleral Icterus (R) Neck: Full Range of Motion, Normal Inspection, Non Tender Respiratory: Chest Non Tender, Lungs Clear, No Accessory Muscle Use, No Respiratory Distress, Decreased Breath Sounds Cardiovascular: Regular Rate, Rhythm Capillary Refill: Less Than 3 Seconds Gastrointestinal: normal bowel sounds, non tender, soft, no organomegaly, no pulsatile mass Extremity: Normal Capillary Refill, Normal Inspection, Normal Range of Motion, Non Tender, No Calf Tenderness, No Pedal Edema Neurologic/Psychiatric: Alert, Oriented x3, No Motor/Sensory Deficits, Normal Mood/Affect Skin: Other (improved erythema of toes with ulcerations) Lymphatic: No Adenopathy Results Lab Laboratory Tests 04/22/19 10:35 04/22/19 22:55 04/23/19 03:40 04/24/19 04:35 Assessment/Plan Assessment/Plan Sepsis - improving -Clark cultures -Flagyl, Cefepime, and vanco -Check BNP GIB -Occult stool positive -s/p 2 units PRBC -Surgery consulted -Monitor -Protonix Valvular heart disease Hypotension - resolved Bilateral toe necrosis Buerger's disease Tobacco use - quit 1 month ago JULIAN PEREZ DO Apr 24, 2019 06:21 POS
[2019-04-24 08:00] VITALS: BP 166/71
[2019-04-24] MEDS: ONDANSETRON 4 MG/2 ML (SDV) Z0FRAN IVP PRN (08:05)
--- NOTE | 2019-04-24 08:12 | NUR ---
PT VOICED C/O SLIGHT LIGHT HEADINESS AND MID CHEST DISCOMFORT -- NOT CHEST PAIN -- CHECKED WITH ICU AND TELEMETRY SR -- VSS ASKED PT ABOUT INDIGESTION OR NAUSEA -- SHE VOICED SHE DID NOT THINK SO -- THEM PT VOICED I GOING TO VOMIT -- SHE HAD EATEN A FEW BITES OF PANCAKE AND DRANK S FEW SIPS OF MILK -- AT 0805 GAVE PT PRN IV ZOFRAN --
--- NOTE | 2019-04-24 10:04 | Occupational Ther Daily Note ---
OT Current Status-Daily Note Subjective Pt seen in bed, pt does not c/o pain but states nausea on this date. Pt agreeable to OT tx session. Mental Status/Objective Patient Orientation: Normal For Age Attachments: IV ADL-Treatment Therapy Code Descriptions/Definitions Functional [place] Measure: 0=Not Assessed/NA 4=Minimal Assistance 1=Total Assistance 5=Supervision or Setup 2=Maximal Assistance 6=Modified [place] 3=Moderate Assistance 7=Complete IndependenceSCALE: Activities may be completed with or without assistive devices. 8-Tpcwoijovm-hqloeto completes the activity by him/herself with no assistance from a helper. 5-Set-up or Clean-up Assistance-helper sets up or cleans up; patient completes activity. [place] assists only prior to or following the activity. 4-Supervision or Touching Assistance-helper provides verbal cues and/or touching/steadying and/or contact guard assistance as patient completes activity. Assistance may be provided throughout the activity or intermittently. 3-Partial/Moderate Assistance-helper does LESS THAN HALF the effort. [place] lifts, holds or supports trunk or limbs, but provides less than half the effort. 2-Substantial/Maximal Assistance-helper does MORE THAN HALF the effort. [place] lifts or holds trunk or limbs and provides more than half the effort. 5-Wrxcflbor-pbdngi does ALL the effort. Patient does none of the effort to complete the activity. Or, the assistance of 2 or more helpers is required for the patient to complete the activity. If activity was not attempted, code reason: 7-Patient Refused. 9-Not Applicable-not attempted and the patient did not perform the activity before the current illness, exacerbation or injury. 10-Not Attempted due to Environmental Limitations-(lack of equipment, weather restraints, etc.). 88-Not Attempted due to Medical Conditions or Safety Concerns. Eating (QC): 6 Oral Hygiene (QC): 7 Other Treatment Pt denies any ADLs, states she completed toileting prior to OT entry. Pt agreeable to UE theraband exercises with HEP hand out. Pt requires moderate cues for placement and tension, completes 5 reps of 5/5 exercises bilaterally, pt states fatigue and agrees to complete again later on this date. Pt educated on energy conservation and completing activities when increased strength/ energy occurs. Pt left with , pt in bed, all needs met, call light in reach. Education OT Patient Education: Correct positioning, Energy conservation, Exercise program, Home exercise program, Purpose of tx/functional activities Teaching Recipient: Patient Teaching Methods: Demonstration, Discussion Response to Teaching: Verbalize Understanding, Return Demonstration OT Radio Adjuster Goals Radio Adjuster Goals Time Frame: May 02, 2019 Eating (QC): 6 Oral Hygiene (QC): 5 Toileting Hygiene (QC): 5 Shower/Bathe Self (QC): 5 Upper Body Dressing (QC): 5 Lower Body Dressing (QC): 5 On/Off Footwear (QC): 5 Additional Goals: 1-Demonstrate ADL Tasks, 2-Verbalize Understanding, 3-ImproveStrength/Alison 1=Demonstrate adherence to instructed precautions during ADL tasks. 2=Patient will verbalize/demonstrate understanding of assistive devices/modifications for ADL. 3=Patient will improve strength/tolerance for activity to enable patient to perform ADL's. OT Education/Plan Problem List/Assessment Assessment: Decreased Activ Tolerance, Decreased UE Strength, Impaired I ADL's, Impaired Self-Care Skills Pt would benefit from skilled OT to increase her independence in basic self care and increase her activity tolerance, to allow her to safely return home Discharge Recommendations Plan/Recommendations: Continue POC Treatment Plan/Plan of Care Treatment,Training & Education: Yes Patient would benefit from OT for education, treatment and training to promote independence in ADL's, mobility, safety and/or upper extremity function for ADL's. Plan of Care: ADL Retraining, Functional Mobility, UE Funct Exercise/Act Treatment Duration: May 02, 2019 Frequency: 5 times per week Estimated Hrs Per Day: .25 hour per day Agreement: Yes Rehab Potential: Fair Time/GCodes Start Time: 09:30 Stop Time: 09:45 Total Time Billed (hr/min): 15 Billed Treatment Time 1, EX (15) EVELIO ROY OTR Apr 24, 2019 10:04 POS
[2019-04-24] MEDS: ASPIRIN E.C. 81 MG (ECOTRIN) TAB PO SCH (10:15)
[2019-04-24] MEDS: PANTOPRAZOLE 40 MG (PROTONIX) TAB PO SCH ×2 (10:15→21:01)
[2019-04-24] MEDS: ISOSORBIDE MONONITRATE 30 MG (IMDUR) TAB PO SCH (10:15)
--- NOTE | 2019-04-24 11:10 | NUR ---
VOICED DECREASE NAUSEA -- WILL MONITOR
--- NOTE | 2019-04-24 11:28 | Physical Therapy Daily Note ---
PT Daily Note-Current Subjective Pt is in bed and agreeable to therapy. Pt noted she had an issue with nausea and vomiting this morning, but she is feeling better now. Mental Status Patient Orientation: Person, Place, Time, Situation Attachments: Tello Catheter, IV Transfers SCALE: Activities may be completed with or without assistive devices. 3-Bxbpoonwuj-vckgiru completes the activity by him/herself with no assistance from a helper. 5-Set-up or Clean-up Assistance-helper sets up or cleans up; patient completes activity. [place] assists only prior to or following the activity. 4-Supervision or Touching Assistance-helper provides verbal cues and/or touching/steadying and/or contact guard assistance as patient completes activity. Assistance may be provided throughout the activity or intermittently. 3-Partial/Moderate Assistance-helper does LESS THAN HALF the effort. [place] lif ts, holds or supports trunk or limbs, but provides less than half the effort. 2-Substantial/Maximal Assistance-helper does MORE THAN HALF the effort. [place] lifts or holds trunk or limbs and provides more than half the effort. 6-Tdyqthlam-qwzesk does ALL the effort. Patient does none of the effort to complete the activity. Or, the assistance of 2 or more helpers is required for the patient to complete the activity. If activity was not attempted, code reason: 7-Patient Refused. 9-Not Applicable-not attempted and the patient did not perform the activity before the current illness, exacerbation or injury. 10-Not Attempted due to Environmental Limitations-(lack of equipment, weather restraints, etc.). 88-Not Attempted due to Medical Conditions or Safety Concerns. Roll Left & Right (QC): 5 Sit to Lying (QC): 5 Lying to Sitting/Side of Bed(Q: 5 Sit to Stand (QC): 5 Gait Training Does the Patient Walk?: Yes Distance: 120ft Walk 10 feet (QC): 5 Walk 50 ft with 2 Turns(QC): 5 Gait Persons Needed: 1 Gait Assistive Device: FWW Exercises Supine Ex: LE Protocol Supine Reps: 20 Assessment Current Status: Excellent Progress Pt was able to ambulate safely with the FWW. She denied any dizziness or fatigue. PT Environmental Services Assistant Goals Environmental Services Assistant Goals PT Environmental Services Assistant Goals Time Frame: May 02, 2019 Roll Left & Right (QC): 6 Sit to Lying (QC): 6 Lying-Sitting on Side/Bed(QC): 6 Sit to Stand (QC): 6 Chair/Wbh-ck-Zvyjw Xfer(QC): 6 Toilet Transfer (QC): 6 Car Transfer (QC): 6 Does the Patient Walk: Yes Walk 10 feet (QC): 6 Walk 50ft with 2 Turns (QC): 6 Walk 150 ft (QC): 6 Walking 10ft on Uneven Surface: 6 1 Step (curb) (QC): 6 4 Steps (QC): 9 12 Steps (QC): 9 Picking up an Object (QC): 6 Does the Pt use WC or Scooter?: No Type: N/A Type: N/A PT Plan Treatment/Plan Treatment Plan: Continue Plan of Care Treatment Plan: Bed Mobility, Education, Functional Activity Alison, Functional Strength, Gait, Safety, Therapeutic Exercise, Transfers Treatment Duration: May 02, 2019 Frequency: 6 times per week Estimated Hrs Per Day: .25 hour per day Patient and/or Family Agrees t: Yes Time/GCodes Time In: 1025 Time Out: 1050 Total Billed Treatment Time: 25 Total Billed Treatment 1, gt 10, ex 15 JAMES MENON PT Apr 24, 2019 11:28 POS
--- NOTE | 2019-04-24 11:32 | Progress Note - Hospitalist ---
Subjective HPI/CC On Admission Date Seen by Provider: Apr 24, 2019 Time Seen by Provider: 10:30 Chief complaint: Tachycardia History present illness: This is a 73-year-old white female clinic patient of Dr. Wasserman, Dr. Stratton, Dr. Isidro who is recently diagnosed with Buerger's disease about one month ago when she began having ulcerations and necrotic tissue of bilateral toes. She then stops smoking. She presented to Dr. Isidro for wound care of which she sees once a week was found to have tachycardia of 160 sent to the ER blood pressure of systolic of 60 diagnosed with shock given aggressive IV fluids which resulted in resolution of the tachycardia heart rate now 88 and blood pressure 132. She has been assessed to have severe sepsis elevated lactic acid of 4.2 so she was placed on empiric treatment of cefepime and vancomycin will be placed in the ICU with consultations with Dr. Harrell front desk specialist and Dr. Perrin on-call for Dr. Stratton in addition Dr. Whitehead for severe anemia of 6.9 prior to fluid resuscitation with history of black stools that started in January and could not complete the bowel prep when she was seen by him 2 months ago. We will stabilize her and monitor closely in the meantime. Subjective/Events-last exam Patient doing a little better Had nausea and one episode of emesis this morning after breakfast Discontinue Tello catheter Initiate PT and OT Bowel movement treatment will be initiated Overall feels much better and feet look better Review of Systems General: Fatigue Gastrointestinal: Nausea, Vomiting Musculoskeletal: leg pain, foot pain Focused Exam Lactate Level 04/22/19 10:35: Lactic Acid Level 4.22*H 04/22/19 12:30: Lactic Acid Level 2.62*H Objective Exam Vital Signs Vital Signs Date Time Temp Pulse Resp B/P (MAP) Pulse Ox O2 Delivery O2 Flow Rate FiO2 04/24/19 08:00 Room Air 04/24/19 08:00 36.6 72 18 166/71 (102) 95 1.00 Capillary Refill : Less Than 3 Seconds General Appearance: No Apparent Distress, WD/WN, Chronically ill Respiratory: Chest Non Tender, Lungs Clear, Normal Breath Sounds, No Accessory Muscle Use, No Respiratory Distress Cardiovascular: Regular Rate, Rhythm, No Edema, No Gallop, No JVD, No Murmur, Normal Peripheral Pulses Extremity: Pedal Edema, Other (improved ulcerations with no erythema or drainage) Neurologic/Psychiatric: Alert, Oriented x3, No Motor/Sensory Deficits, Normal Mood/Affect Results/Procedures Lab Laboratory Tests 04/24/19 04:35 Patient resulted labs reviewed. Assessment/Plan Assessment and Plan Assess & Plan/Chief Complaint Assessment: Severe sepsis Bilateral toe necrosis Buerger's disease Former smoker quit 1 month ago Hypertension Valvular heart disease Elevated lactic acid Severe anemia prior to fluid resuscitation 6.9 s/p 2 units of blood now hgb 9.0 Black tarry stools consulting general surgery needs scope as outpatient Plan: ICU transferring to 4th floor s/p Severe sepsis protocol Aggressive IV fluids hep-locked IV antibiotics of cefepime and vancomycin per allergy profile Review home meds Pain control Diagnosis/Problems Diagnosis/Problems (1) Severe sepsis (2) Melena (3) Elevated lactic acid level (4) Acute anemia Status: Acute (5) Elevated troponin Status: Acute (6) Chronic renal failure Status: Acute Qualifiers: Chronic kidney disease stage: unspecified stage Qualified Codes: N18.9 - Chronic kidney disease, unspecified (7) Bilateral swelling of feet Status: Acute (8) Chronic renal failure, stage 4 (severe) Status: Acute (9) UTI (urinary tract infection) Status: Acute Qualifiers: Urinary tract infection type: acute cystitis Hematuria presence: without hematuria Qualified Codes: N30.00 - Acute cystitis without hematuria (10) Hyponatremia Status: Acute (11) Transfusion of blood during current hospitalisation (12) Buergers disease (13) Former smoker Clinical Quality Measures DVT/VTE Risk/Contraindication: Risk Factor Score Per Nursin RFS Level Per Nursing on Admit: 4+=Very High YASEMIN KENNEDY DO Apr 24, 2019 11:32 POS
[2019-04-24 12:00] VITALS: BP 159/74
[2019-04-24] MEDS: CEFEPIME 2,000 MG/SWFI 20 ML IV PUSH IV SCH ×2 (13:47)
[2019-04-24] MEDS: VANCOMYCIN 750 MG/NS 250 ML IVPB IV SCH ×2 (15:01)
[2019-04-24 16:21] VITALS: BP 149/75
--- NOTE | 2019-04-24 17:33 | Progress Note - Cardiology ---
Cardiology SOAP Progress Note Subjective: Feels her memory has not been good since she has been in the hosp Feels weak and tired No cp or palp or syncope or shortness of breath at rest Objective: I&O/Vital Signs 04/24/19 04/24/19 04/24/19 04/24/19 07:00 08:00 08:00 12:00 Temp 36.6 36.9 Pulse 68 72 68 Resp 18 20 B/P (MAP) 166/71 (102) 159/74 (102) Pulse Ox 95 92 O2 Delivery Nasal Cannula Room Air Nasal Cannula O2 Flow Rate 1.00 1.00 04/24/19 04/24/19 12:21 16:21 Temp 36.8 Pulse 61 68 Resp 18 B/P (MAP) 149/75 (99) Pulse Ox 92 O2 Delivery Room Air 04/24/19 00:00 Intake Total 220 ml Output Total 425 ml Balance -205 ml Constitutional: AAO x 3, well-developed, well-nourished Respiratory: No accessory muscle use, No respiratory distress; chest expansion is symmetric, chest is bilaterally symmetric, other (diminished lower lobes) Cardiovascular: regular rate-rhythm; No JVD; S1 and S2 Gastrointestional: tender, soft, audible bowel sounds Extremities: other (mod pedal edema, bluish discoloration and superficial dry gangrenous changes of several toes) Neurologic/Psychiatric: grossly intact Skin: warm/dry; No rash; other (right and left great toes with dark, dry tissue to the tip of the toes and second toe of the right foot with dark discoloration; fourth toe of the left foot with non-draining wound; foul odor noted) Results/Procedures: Labs Laboratory Tests 04/24/19 04:35: White Blood Count 11.4H, Red Blood Count 3.07L, Hemoglobin 9.0L, Hematocrit 28L, Mean Corpuscular Volume 90, Mean Corpuscular Hemoglobin 29, Mean Corpuscular Hemoglobin Concent 33, Red Cell Distribution Width 16.3H, Platelet Count 335, Mean Platelet Volume 10.7H, Neutrophils (%) (Auto) 73, Lymphocytes (%) (Auto) 12, Monocytes (%) (Auto) 9, Eosinophils (%) (Auto) 6, Basophils (%) (Auto) 1, Neutrophils # (Auto) 8.3H, Lymphocytes # (Auto) 1.3, Monocytes # (Auto) 1.0, Eosinophils # (Auto) 0.7H, Basophils # (Auto) 0.1, Sodium Level 133L, Potassium Level 4.0, Chloride Level 103, Carbon Dioxide Level 21, Anion Gap 9, Blood Urea Nitrogen 18, Creatinine 2.26H, Estimat Glomerular Filtration Rate 21, BUN/Creatinine Ratio 8, Glucose Level 97, Calcium Level 8.5, Corrected Calcium 9.4, Total Bilirubin 0.6, Aspartate Amino Transf (AST/SGOT) 20, Alanine Aminotransferase (ALT/SGPT) 18, Alkaline Phosphatase 62, B-Type Natriuretic Peptide 1607.4H, Total Protein 5.2L, Albumin 2.9L Microbiology 04/22/19 Blood Culture - Preliminary, Resulted No growth 04/22/19 Urine Culture - Final, Complete Escherichia coli Laboratory Tests 04/22/19 22:55 04/23/19 03:40 04/24/19 04:35 A/P: Assessment: GI bleed requiring transfusion - management per Medical and Surgical services Mildly elevated troponin, likely Type 2 IA secondary to acute on chronic renal insufficiency and anemia Subacute ischemic toes bilaterally, gangrene on multiple toes, has seen by Dr. Andrews and discussed possibility of amputation. Peripheral angiogram done Apr 12, [address] Stratton showed mild PAD with no significant obstruction. Ischemic toes felt to be due to embolization from the abdominal aortic aneurysm seen at time of that peripheral angio. Has been on low-dose Xarelto, currently held for GI bleed Coronary artery disease - cardiac catheterization carried out Apr 12, 2019 showed mild to moderate nonobstructive disease. AAA noted during cardiac catheterization of Apr 12, 2019. Subsequent abd ao u/s showed 4.2 x3.9 infrarenal AAA. Acute on chronic renal failure, chronic kidney disease stage IV Hypertension HLD Tobaccoism - quit in Mar 2019 Echocardiogram done in March 2019: normal LV size with ejection fraction 65- 70%, grade 2 diastolic dysfunction, left atrial dilatation, calcified mitral annulus, aortic valve sclerosis, moderate tricuspid regurgitation, PA pressure 45 mmHg] Plan: * I reviewed and discussed with her her CV issues and answered questions * She had been on low dose Xarelto for PAD. This is being held because of GI bleed * Continue current regimen * Transfusions as needed * Treatment of ischemic/gangrenous toes is with the Med and Surg services * Monitor labs closely CHARISSA BUTTS MD FACP FAC CCDS Apr 24, 2019 17:33 POS
[2019-04-24 19:22] VITALS: BP 152/78
[2019-04-25] VITALS (7 sets, daily range): BP systolic 135–155; BP diastolic 63–80
[2019-04-25] MEDS: metroNIDAZOLE 500MG/100ML IVPB 100 ML IV SCH ×2 (03:08→14:45)
[2019-04-25 04:41] LABS: BASOPHILS # (AUTO) 0.1 10^3/uL (0.0-0.1); BASOPHILS % (AUTO) 1 % (0-10); EOSINOPHILS # (AUTO) 0.6 10^3/uL (0.0-0.3); EOSINOPHILS % (AUTO) 5 % (0-10); HEMATOCRIT 28 % (35-52); HEMOGLOBIN 9.1 G/DL (11.5-16.0); LYMPHOCYTES # (AUTO) 1.2 X 10^3 (1.0-4.0); LYMPHOCYTES % (AUTO) 11 % (12-44); MEAN CORPUSCULAR HEMOGLOBIN 29 PG (25-34); MEAN CORPUSCULAR HGB CONC 32 G/DL (32-36); MEAN CORPUSCULAR VOLUME 90 FL (80-99); MEAN PLATELET VOLUME 9.9 FL (7.4-10.4); MONOCYTES # (AUTO) 0.9 X 10^3 (0.0-1.0); MONOCYTES % (AUTO) 9 % (0-12); NEUTROPHILS # (AUTO) 7.6 X 10^3 (1.8-7.8); NEUTROPHILS % (AUTO) 73 % (42-75); PLATELET COUNT 347 10^3/uL (130-400); RED CELL DISTRIBUTION WIDTH 16.5 % (10.0-14.5); WHITE BLOOD COUNT 10.3 10^3/uL (4.3-11.0)
[2019-04-25 05:10] LABS: ALBUMIN 3.2 GM/DL (3.2-4.5); BILIRUBIN,TOTAL 0.6 MG/DL (0.1-1.0); CALCIUM 9.1 MG/DL (8.5-10.1); CREATININE SERUM 2.39 MG/DL (0.60-1.30); POTASSIUM 3.9 MMOL/L (3.6-5.0); TOTAL PROTEIN 5.8 GM/DL (6.4-8.2)
--- NOTE | 2019-04-25 06:57 | Pulmonary Progress Note ---
Subjective Time Seen by a Provider: 06:57 Subjective/Events-last exam Pt appears to be doing better/. Sepsis Event Evaluation Height, Weight, BMI Height: '" Weight: lbs. oz. kg; 19.00 BMI Method: Focused Exam Lactate Level 04/22/19 10:35: Lactic Acid Level 4.22*H 04/22/19 12:30: Lactic Acid Level 2.62*H Exam Exam Vital Signs Date Time Temp Pulse Resp B/P (MAP) Pulse Ox O2 Delivery O2 Flow Rate FiO2 04/25/19 00:32 61 04/25/19 00:00 37.3 64 16 135/63 (87) 92 Room Air 04/24/19 20:00 Room Air 04/24/19 19:22 37.0 76 20 152/78 (102) 92 Room Air 04/24/19 18:45 63 04/24/19 16:21 36.8 68 18 149/75 (99) 92 Room Air 04/24/19 12:21 61 04/24/19 12:00 36.9 68 20 159/74 (102) 92 Nasal Cannula 1.00 04/24/19 08:00 Room Air 04/24/19 08:00 36.6 72 18 166/71 (102) 95 Nasal Cannula 1.00 04/24/19 07:00 68 I & O 04/25/19 07:00 Intake Total 2280 ml Output Total 700 ml Balance 1580 ml Height & Weight Height: '" Weight: lbs. oz. kg; 19.00 BMI Method: General Appearance: No Apparent Distress, WD/WN, Chronically ill HEENT: PERRL/EOMI, Normal ENT Inspection, Pharynx Normal, Moist Mucous Membranes, Scleral Icterus (L), Scleral Icterus (R) Neck: Full Range of Motion, Normal Inspection, Non Tender Respiratory: Chest Non Tender, Lungs Clear, Normal Breath Sounds, No Accessory Muscle Use, No Respiratory Distress Cardiovascular: Regular Rate, Rhythm, No Edema, No Gallop, No JVD, No Murmur, Normal Peripheral Pulses Capillary Refill: Less Than 3 Seconds Gastrointestinal: normal bowel sounds, non tender, soft, no organomegaly, no pulsatile mass Extremity: Pedal Edema, Other (improved ulcerations with no erythema or drainage) Neurologic/Psychiatric: Alert, Oriented x3, No Motor/Sensory Deficits, Normal Mood/Affect Skin: Other (improved erythema of toes with ulcerations) Lymphatic: No Adenopathy Results Lab Laboratory Tests 04/24/19 04:35 04/25/19 04:20 Assessment/Plan Assessment/Plan Sepsis - improving -Clark cultures -Flagyl, Cefepime. ABx started on 04/22 -Ok to switch to PO Abx from my standpoint. Probable COPD/former smoker -Repeat CXR -Pt may need home 02 will order ambulatory desat test. GIB -Occult stool positive -s/p 2 units PRBC -Surgery consulted -Monitor -Protonix Valvular heart disease Hypotension - resolved Bilateral toe necrosis Buerger's disease Tobacco use - quit 1 month ago JULIAN PEREZ DO Apr 25, 2019 06:57 POS
[2019-04-25] MEDS: ASPIRIN E.C. 81 MG (ECOTRIN) TAB PO SCH (07:57)
[2019-04-25] MEDS: ISOSORBIDE MONONITRATE 30 MG (IMDUR) TAB PO SCH (07:57)
[2019-04-25] MEDS: PANTOPRAZOLE 40 MG (PROTONIX) TAB PO SCH ×2 (07:57→20:15)
--- NOTE | 2019-04-25 08:35 | Diagnostic Imaging Report ---
EXAMINATION: Chest 1 view INDICATION: Shortness of breath. COMPARISON: 04/22/2019 FINDINGS: Lung volumes are normal. There has been interval development of a small to moderate right-sided pleural effusion with right basilar opacities. Stable small left pleural effusion with increased left basilar opacities. The cardiac silhouette is enlarged with increased central pulmonary vascular congestion and prominent interstitial markings radiating from the bilateral hilar regions. There is calcified aortic atherosclerotic plaque. No acute osseous abnormalities. IMPRESSION: 1. Cardiomegaly with increased central pulmonary vascular congestion and interstitial edema. 2. Development of bilateral pleural effusions with bibasilar opacities which may represent atelectasis and/or edema. Dictated by: Dictated on workstation # [id number]
--- NOTE | 2019-04-25 09:46 | NUR ---
HOME O2 QUALIFICATION Addendum: 04/25/19 at 0946 by KING BROWN RT Amended: Links added.
--- NOTE | 2019-04-25 10:50 | Physical Therapy Daily Note ---
PT Daily Note-Current Subjective Pt is more alert and well oriented today. Eager to get up and walk. Mental Status Patient Orientation: Person, Time, Situation Pt was confused about her location. She believes we are in [place]. Transfers SCALE: Activities may be completed with or without assistive devices. 3-Afpdltujrx-dokwqlm completes the activity by him/herself with no assistance from a helper. 5-Set-up or Clean-up Assistance-helper sets up or cleans up; patient completes activity. Waldo assists only prior to or following the activity. 4-Supervision or Touching Assistance-helper provides verbal cues and/or touching/steadying and/or contact guard assistance as patient completes activity. Assistance may be provided throughout the activity or intermittently. 3-Partial/Moderate Assistance-helper does LESS THAN HALF the effort. Waldo lifts, holds or supports trunk or limbs, but provides less than half the effort. 2-Substantial/Maximal Assistance-helper does MORE THAN HALF the effort. Waldo lifts or holds trunk or limbs and provides more than half the effort. 4-Puzmtyxpd-ueytor does ALL the effort. Patient does none of the effort to complete the activity. Or, the assistance of 2 or more helpers is required for the patient to complete the activity. If activity was not attempted, code reason: 7-Patient Refused. 9-Not Applicable-not attempted and the patient did not perform the activity before the current illness, exacerbation or injury. 10-Not Attempted due to Environmental Limitations-(lack of equipment, weather restraints, etc.). 88-Not Attempted due to Medical Conditions or Safety Concerns. Roll Left & Right (QC): 6 Sit to Lying (QC): 6 Lying to Sitting/Side of Bed(Q: 6 Sit to Stand (QC): 6 Chair/Sms-jt-Rxnua Xfer(QC): 6 Gait Training Does the Patient Walk?: Yes Distance: 150ft Walk 10 feet (QC): 5 Walk 50 ft with 2 Turns(QC): 5 Walk 150 ft (QC): 5 Gait Persons Needed: 1 Gait Assistive Device: FWW Wheelchair Training Does the Pt Use a Wheelchair?: No Exercises Supine Ex: LE Protocol Supine Reps: 20 Assessment Better tolerance to gait and (I) with supine exercises. PT Insurance Broker Goals Insurance Broker Goals PT Jail Goals Time Frame: May 02, 2019 Roll Left & Right (QC): 6 Sit to Lying (QC): 6 Lying-Sitting on Side/Bed(QC): 6 Sit to Stand (QC): 6 Chair/Rqv-il-Gwqsj Xfer(QC): 6 Toilet Transfer (QC): 6 Car Transfer (QC): 6 Does the Patient Walk: Yes Walk 10 feet (QC): 6 Walk 50ft with 2 Turns (QC): 6 Walk 150 ft (QC): 6 Walking 10ft on Uneven Surface: 6 1 Step (curb) (QC): 6 4 Steps (QC): 9 12 Steps (QC): 9 Picking up an Object (QC): 6 Does the Pt use WC or Scooter?: No Type: N/A Type: N/A PT Plan Treatment/Plan Treatment Plan: Continue Plan of Care Treatment Plan: Bed Mobility, Education, Functional Activity Alison, Functional Strength, Gait, Safety, Therapeutic Exercise, Transfers Treatment Duration: May 02, 2019 Frequency: 6 times per week Estimated Hrs Per Day: .25 hour per day Patient and/or Family Agrees t: Yes Time/GCodes Time In: 0810 Time Out: 0825 Total Billed Treatment Time: 15 Total Billed Treatment 1, gt 15 JAMES MENON PT Apr 25, 2019 10:50 POS
--- NOTE | 2019-04-25 12:23 | Progress Note - Hospitalist ---
Subjective HPI/CC On Admission Date Seen by Provider: Apr 25, 2019 Time Seen by Provider: 11:30 Chief complaint: Tachycardia History present illness: This is a 73-year-old white female clinic patient of Dr. Wasserman, Dr. Stratton, Dr. Isidro who is recently diagnosed with Buerger's disease about one month ago when she began having ulcerations and necrotic tissue of bilateral toes. She then stops smoking. She presented to Dr. Isidro for wound care of which she sees once a week was found to have tachycardia of 160 sent to the ER blood pressure of systolic of 60 diagnosed with shock given aggressive IV fluids which resulted in resolution of the tachycardia heart rate now 88 and blood pressure 132. She has been assessed to have severe sepsis elevated lactic acid of 4.2 so she was placed on empiric treatment of cefepime and vancomycin will be placed in the ICU with consultations with Dr. Harrell softball umpire and Dr. Perrin on-call for Dr. Stratton in addition Dr. Whitehead for severe anemia of 6.9 prior to fluid resuscitation with history of black stools that started in January and could not complete the bowel prep when she was seen by him 2 months ago. We will stabilize her and monitor closely in the meantime. Subjective/Events-last exam Patient feels better everyday Needs SW to set up HH and caregiving because she needs more help than she has currently Fall risk remains BM+ Eating better HLIVF yesterday PT/OT consulted IV abx maintained Review of Systems General: Fatigue Focused Exam Lactate Level Objective Exam Vital Signs Vital Signs Date Time Temp Pulse Resp B/P (MAP) Pulse Ox O2 Delivery O2 Flow Rate FiO2 04/25/19 13:00 64 04/25/19 11:18 36.8 18 147/80 (102) 97 Room Air 04/25/19 09:40 2.00 Capillary Refill : Less Than 3 Seconds General Appearance: No Apparent Distress, WD/WN, Chronically ill Respiratory: Chest Non Tender, Lungs Clear, Normal Breath Sounds, No Accessory Muscle Use, No Respiratory Distress Cardiovascular: Regular Rate, Rhythm, No Edema, No Gallop, No JVD, No Murmur, Normal Peripheral Pulses Neurologic/Psychiatric: Alert, Oriented x3, No Motor/Sensory Deficits, Normal Mood/Affect Skin: Normal Color, Warm/Dry, Other (no erythema around the ulcerations of the tip of toes) Results/Procedures Lab Laboratory Tests 11/30/19 04:20 Patient resulted labs reviewed. Assessment/Plan Assessment and Plan Assess & Plan/Chief Complaint Assessment: Severe sepsis Bilateral toe necrosis Buerger's disease Former smoker quit 1 month ago Hypertension Valvular heart disease Elevated lactic acid Severe anemia prior to fluid resuscitation 6.9 s/p 2 units of blood now hgb 9.0 Black tarry stools consulting general surgery needs scope as outpatient Plan: Keep until HH set up and may need scope prior to DC on Saturday s/p Severe sepsis protocol Aggressive IV fluids hep-locked IV antibiotics of cefepime and vancomycin per allergy profile Review home meds Pain control Diagnosis/Problems Diagnosis/Problems (1) Severe sepsis (2) Melena (3) Elevated lactic acid level (4) Acute anemia Status: Acute (5) Elevated troponin Status: Acute (6) Chronic renal failure Status: Acute Qualifiers: Chronic kidney disease stage: unspecified stage Qualified Codes: N18.9 - Chronic kidney disease, unspecified (7) Bilateral swelling of feet Status: Acute (8) Chronic renal failure, stage 4 (severe) Status: Acute (9) UTI (urinary tract infection) Status: Acute Qualifiers: Urinary tract infection type: acute cystitis Hematuria presence: without hematuria Qualified Codes: N30.00 - Acute cystitis without hematuria (10) Hyponatremia Status: Acute (11) Transfusion of blood during current hospitalisation (12) Buergers disease (13) Former smoker Clinical Quality Measures DVT/VTE Risk/Contraindication: Risk Factor Score Per Nursin RFS Level Per Nursing on Admit: 4+=Very High YASEMIN KENNEDY DO Apr 25, 2019 12:23 POS
[2019-04-25] MEDS: CEFEPIME 2,000 MG/SWFI 20 ML IV PUSH IV SCH ×2 (13:06)
--- NOTE | 2019-04-25 13:33 | Progress Note - Cardiology ---
Cardiology SOAP Progress Note Subjective: Her is by her bedside today and she feels much better. Does not report any depression or anxiety today Denies cp or palp or syncope or shortness of breath Poor appetite Gen malaise Objective: I&O/Vital Signs 04/25/19 04/25/19 04/25/19 04/25/19 04:00 07:00 07:44 08:00 Temp 36.9 37.0 Pulse 65 67 63 Resp 16 18 B/P (MAP) 141/65 (90) 149/71 (97) Pulse Ox 92 91 91 O2 Delivery Room Air Room Air Room Air O2 Flow Rate 1.00 04/25/19 04/25/19 09:40 11:18 Temp 36.8 Pulse 61 Resp 18 B/P (MAP) 147/80 (102) Pulse Ox 96 97 O2 Delivery Room Air O2 Flow Rate 2.00 04/25/19 00:00 Intake Total 2030 ml Output Total 700 ml Balance 1330 ml Constitutional: AAO x 3, well-developed, well-nourished Respiratory: No accessory muscle use, No respiratory distress; chest expansion is symmetric, chest is bilaterally symmetric, other (diminished lower lobes) Cardiovascular: regular rate-rhythm; No JVD; S1 and S2 Gastrointestional: tender, soft, audible bowel sounds Extremities: other (mod pedal edema, bluish discoloration and superficial dry gangrenous changes of several toes) Neurologic/Psychiatric: grossly intact Skin: warm/dry; No rash; other (right and left great toes with dark, dry tissue to the tip of the toes and second toe of the right foot with dark discoloration; fourth toe of the left foot with non-draining wound; foul odor noted) Results/Procedures: Labs Laboratory Tests 04/25/19 04:20: White Blood Count 10.3, Red Blood Count 3.12L, Hemoglobin 9.1L, Hematocrit 28L, Mean Corpuscular Volume 90, Mean Corpuscular Hemoglobin 29, Mean Corpuscular Hemoglobin Concent 32, Red Cell Distribution Width 16.5H, Platelet Count 347, Mean Platelet Volume 9.9, Neutrophils (%) (Auto) 73, Lymphocytes (%) (Auto) 11L, Monocytes (%) (Auto) 9, Eosinophils (%) (Auto) 5, Basophils (%) (Auto) 1, Neutrophils # (Auto) 7.6, Lymphocytes # (Auto) 1.2, Monocytes # (Auto) 0.9, Eosinophils # (Auto) 0.6H, Basophils # (Auto) 0.1, Sodium Level 133L, Potassium Level 3.9, Chloride Level 104, Carbon Dioxide Level 20L, Anion Gap 9, Blood Urea Nitrogen 17, Creatinine 2.39H, Estimat Glomerular Filtration Rate 20, BUN/Creatinine Ratio 7, Glucose Level 90, Calcium Level 9.1, Corrected Calcium 9.7, Total Bilirubin 0.6, Aspartate Amino Transf (AST/SGOT) 18, Alanine Aminotransferase (ALT/SGPT) 18, Alkaline Phosphatase 65, Total Protein 5.8L, Albumin 3.2 Microbiology 04/22/19 Blood Culture - Preliminary, Resulted No growth 04/22/19 Urine Culture - Final, Complete Escherichia coli Laboratory Tests 04/24/19 04:35 04/25/19 04:20 A/P: Assessment: GI bleed with blood-loss anemia - management per Medical and Surgical services Subacute ischemic toes bilaterally, gangrene on multiple toes, has seen by Dr. Andrews and discussed possibility of amputation. Peripheral angiogram done Apr 12, [address] Stratton showed mild PAD with no significant obstruction. Ischemic toes felt to be due to embolization from the abdominal aortic aneurysm seen at time of that peripheral angio. Has been on low-dose Xarelto, currently held for GI bleed Coronary artery disease - cardiac catheterization carried out Apr 12, 2019 showed mild to moderate nonobstructive disease. AAA noted during cardiac catheterization of Apr 12, 2019. Subsequent abd ao u/s showed 4.2 x3.9 infrarenal AAA. Acute on chronic renal failure, chronic kidney disease stage IV Hypertension HLD Tobaccoism - quit in Mar 2019 Echocardiogram done in March 2019: normal LV size with ejection fraction 65- 70%, grade 2 diastolic dysfunction, left atrial dilatation, calcified mitral annulus, aortic valve sclerosis, moderate tricuspid regurgitation, PA pressure 45 mmHg] Plan: * I spoke with her and her and answered CV-related questions * She had been on low dose Xarelto for PAD. This is being held because of GI bleed * Treatment of ischemic/gangrenous toes is with the Med and Surg services * Monitor labs closely CHARISSA BUTTS MD FACP FAC CCDS Apr 25, 2019 13:33 POS
--- NOTE | 2019-04-25 23:00 | NUR ---
Assumed care of patient from previous nurse. agree with assessment. patient is watching tv, no complaints at this time.
[2019-04-26] VITALS (8 sets, daily range): BP systolic 144–185; BP diastolic 70–84
[2019-04-26] MEDS: metroNIDAZOLE 500MG/100ML IVPB 100 ML IV SCH ×2 (03:19→15:51)
[2019-04-26] MEDS: ONDANSETRON 4 MG/2 ML (SDV) Z0FRAN IVP PRN ×2 (04:07→20:20)
[2019-04-26 06:15] LABS: BASOPHILS # (AUTO) 0.1 10^3/uL (0.0-0.1); BASOPHILS % (AUTO) 1 % (0-10); EOSINOPHILS # (AUTO) 0.5 10^3/uL (0.0-0.3); EOSINOPHILS % (AUTO) 5 % (0-10); HEMATOCRIT 28 % (35-52); HEMOGLOBIN 9.3 G/DL (11.5-16.0); LYMPHOCYTES # (AUTO) 0.9 X 10^3 (1.0-4.0); LYMPHOCYTES % (AUTO) 8 % (12-44); MEAN CORPUSCULAR HEMOGLOBIN 30 PG (25-34); MEAN CORPUSCULAR HGB CONC 33 G/DL (32-36); MEAN CORPUSCULAR VOLUME 90 FL (80-99); MEAN PLATELET VOLUME 10.5 FL (7.4-10.4); MONOCYTES # (AUTO) 0.9 X 10^3 (0.0-1.0); MONOCYTES % (AUTO) 9 % (0-12); NEUTROPHILS # (AUTO) 8.1 X 10^3 (1.8-7.8); NEUTROPHILS % (AUTO) 77 % (42-75); PLATELET COUNT 328 10^3/uL (130-400); RED CELL DISTRIBUTION WIDTH 15.8 % (10.0-14.5); WHITE BLOOD COUNT 10.5 10^3/uL (4.3-11.0)
[2019-04-26 06:36] LABS: BILIRUBIN,TOTAL 0.6 MG/DL (0.1-1.0); CREATININE SERUM 2.41 MG/DL (0.60-1.30); POTASSIUM 3.8 MMOL/L (3.6-5.0); TOTAL PROTEIN 5.5 GM/DL (6.4-8.2)
[2019-04-26] MEDS: ISOSORBIDE MONONITRATE 30 MG (IMDUR) TAB PO SCH (08:07)
[2019-04-26] MEDS: PANTOPRAZOLE 40 MG (PROTONIX) TAB PO SCH ×2 (08:07→20:15)
[2019-04-26] MEDS: ASPIRIN E.C. 81 MG (ECOTRIN) TAB PO SCH (08:08)
--- NOTE | 2019-04-26 12:16 | Progress Note - Hospitalist ---
Subjective HPI/CC On Admission Date Seen by Provider: Apr 26, 2019 Time Seen by Provider: 11:30 Chief complaint: Tachycardia History present illness: This is a 73-year-old white female clinic patient of Dr. Wasserman, Dr. Stratton, Dr. Isidro who is recently diagnosed with Buerger's disease about one month ago when she began having ulcerations and necrotic tissue of bilateral toes. She then stops smoking. She presented to Dr. Isidro for wound care of which she sees once a week was found to have tachycardia of 160 sent to the ER blood pressure of systolic of 60 diagnosed with shock given aggressive IV fluids which resulted in resolution of the tachycardia heart rate now 88 and blood pressure 132. She has been assessed to have severe sepsis elevated lactic acid of 4.2 so she was placed on empiric treatment of cefepime and vancomycin will be placed in the ICU with consultations with Dr. Harrell center punch operator and Dr. Perrin on-call for Dr. Stratton in addition Dr. Whitehead for severe anemia of 6.9 prior to fluid resuscitation with history of black stools that started in January and could not complete the bowel prep when she was seen by him 2 months ago. We will stabilize her and monitor closely in the meantime. Subjective/Events-last exam Patient doing very well today Set for colonoscopy tomorrow by Dr. Whitehead She has historically been unable to tolerate the prep so we will do so slowly today Denies any pain Cellulitis and severe sepsis resolved maintain on antibiotics Reviewed labs Hemoglobin stable since transfusions Review of Systems General: Fatigue Neurological: Weakness Objective Exam Vital Signs Vital Signs Date Time Temp Pulse Resp B/P (MAP) Pulse Ox O2 Delivery O2 Flow Rate FiO2 04/26/19 12:04 58 04/26/19 11:23 36.9 16 185/79 (114) 97 Nasal Cannula 2.00 Capillary Refill : Less Than 3 Seconds General Appearance: No Apparent Distress, WD/WN, Chronically ill Respiratory: Chest Non Tender, Lungs Clear, Normal Breath Sounds, No Accessory Muscle Use, No Respiratory Distress Cardiovascular: Regular Rate, Rhythm, No Edema, No Gallop, No JVD, No Murmur, Normal Peripheral Pulses Neurologic/Psychiatric: Alert, Oriented x3, No Motor/Sensory Deficits, Normal Mood/Affect Skin: Normal Color, Warm/Dry Results/Procedures Lab Laboratory Tests 04/26/19 05:25 Patient resulted labs reviewed. Assessment/Plan Assessment and Plan Assess & Plan/Chief Complaint Assessment: Severe sepsis Bilateral toe necrosis Buerger's disease Former smoker quit 1 month ago Hypertension Valvular heart disease Elevated lactic acid Severe anemia prior to fluid resuscitation 6.9 s/p 2 units of blood now hgb 9.0 Black tarry stools consulting general surgery needs scope tomorrow prior to DC due to the severity of her critical illness that started with severe anemia from GI loss Plan: Keep until HH set up and will need scope prior to DC on Saturday s/p Severe sepsis protocol Aggressive IV fluids hep-locked IV antibiotics of cefepime and vancomycin per allergy profile Review home meds Pain control Diagnosis/Problems Diagnosis/Problems (1) Severe sepsis (2) Melena (3) Elevated lactic acid level (4) Acute anemia Status: Acute (5) Elevated troponin Status: Acute (6) Chronic renal failure Status: Acute Qualifiers: Chronic kidney disease stage: unspecified stage Qualified Codes: N18.9 - Chronic kidney disease, unspecified (7) Bilateral swelling of feet Status: Acute (8) Chronic renal failure, stage 4 (severe) Status: Acute (9) UTI (urinary tract infection) Status: Acute Qualifiers: Urinary tract infection type: acute cystitis Hematuria presence: without hematuria Qualified Codes: N30.00 - Acute cystitis without hematuria (10) Hyponatremia Status: Acute (11) Transfusion of blood during current hospitalisation (12) Buergers disease (13) Former smoker Clinical Quality Measures DVT/VTE Risk/Contraindication: Risk Factor Score Per Nursin RFS Level Per Nursing on Admit: 4+=Very High YASEMIN KENNEDY DO Apr 26, 2019 12:15 POS
[2019-04-26] MEDS: CEFEPIME 2,000 MG/SWFI 20 ML IV PUSH IV SCH ×2 (14:17)
[2019-04-26] MEDS ORDERED: BISACODYL 5 MG (DULCOLAX) TABLET PO NR (15:15)
[2019-04-26] MEDS ORDERED: POLYETHYLENE GLYCOL 17 GM (MIRALAX) PACK PO NR (18:00)
[2019-04-27] VITALS (13 sets, daily range): BP systolic 121–175; BP diastolic 59–83
[2019-04-27] MEDS: metroNIDAZOLE 500MG/100ML IVPB 100 ML IV SCH (03:58)
[2019-04-27] MEDS: fentaNYL INJECTION 100 MCG/2 ML AMP IV PRN ×2 (05:14→23:01)
[2019-04-27 05:23] LABS: BASOPHILS # (AUTO) 0.1 10^3/uL (0.0-0.1); BASOPHILS % (AUTO) 1 % (0-10); EOSINOPHILS # (AUTO) 0.4 10^3/uL (0.0-0.3); EOSINOPHILS % (AUTO) 4 % (0-10); HEMATOCRIT 31 % (35-52); HEMOGLOBIN 10.3 G/DL (11.5-16.0); LYMPHOCYTES # (AUTO) 0.9 X 10^3 (1.0-4.0); LYMPHOCYTES % (AUTO) 8 % (12-44); MEAN CORPUSCULAR HEMOGLOBIN 30 PG (25-34); MEAN CORPUSCULAR HGB CONC 33 G/DL (32-36); MEAN CORPUSCULAR VOLUME 89 FL (80-99); MEAN PLATELET VOLUME 10.5 FL (7.4-10.4); MONOCYTES % (AUTO) 9 % (0-12); NEUTROPHILS % (AUTO) 79 % (42-75); PLATELET COUNT 375 10^3/uL (130-400); RED CELL DISTRIBUTION WIDTH 16.1 % (10.0-14.5); WHITE BLOOD COUNT 11.4 10^3/uL (4.3-11.0)
[2019-04-27 05:41] LABS: BILIRUBIN,TOTAL 0.6 MG/DL (0.1-1.0); CREATININE SERUM 2.39 MG/DL (0.60-1.30); POTASSIUM 3.7 MMOL/L (3.6-5.0); TOTAL PROTEIN 5.5 GM/DL (6.4-8.2)
--- NOTE | 2019-04-27 07:24 | NUR ---
pt drinking bowel prep -2344-pt refusing to finish bowel prep-pt has drank all but 800 mls of the prep -529-pt states that she doesn't think that she will be doing her procedure today, when pt was asked why she doesn't want to have the procedure pt states, "I don't want to talk about it right now." this rn attempted to discuss this issue further with this pt, she stated she wants to talk to the doctor (Ventura) about it. -703-this rn contacted dr. ward about this pt not being cleaned out enough for the procedure r/t pt not finishing bowel prep, the pt wanting to talk with him -dr. ward will be in to see this pt after his first surgical case.
--- NOTE | 2019-04-27 08:39 | Progress Note - Hospitalist ---
MOLLY BRENNER,MED STUDENT 04/27/19 0839: Subjective HPI/CC On Admission Date Seen by Provider: Apr 27, 2019 Time Seen by Provider: 07:55 Chief complaint: Tachycardia History present illness: This is a 73-year-old white female clinic patient of Dr. Wasserman, Dr. Stratton, Dr. Isidro who is recently diagnosed with Buerger's disease about one month ago when she began having ulcerations and necrotic tissue of bilateral toes. She then stops smoking. She presented to Dr. Isidro for wound care of which she sees once a week was found to have tachycardia of 160 sent to the ER blood pressure of systolic of 60 diagnosed with shock given aggressive IV fluids which resulted in resolution of the tachycardia heart rate now 88 and blood pressure 132. She has been assessed to have severe sepsis elevated lactic acid of 4.2 so she was placed on empiric treatment of cefepime and vancomycin will be placed in the ICU with consultations with Dr. Harrell screen room operator and Dr. Perrin on-call for Dr. Stratton in addition Dr. Whitehead for severe anemia of 6.9 prior to fluid resuscitation with history of black stools that started in January and could not complete the bowel prep when she was seen by him 2 months ago. We will stabilize her and monitor closely in the meantime. Subjective/Events-last exam Patient reports feeling anxious and short of breath today. Tolerated bowel prep okay yesterday but was unable to finish it. She reports clear bowel movements. She requests to talk to Dr. Whitehead prior to colonoscopy. Admits to burning pain in bilateral toes, unchanged from baseline. Cellulitis and severe sepsis resolved maintain on antibiotics. Reviewed labs. Hemoglobin stable since transfusions. Objective Exam Vital Signs Vital Signs Date Time Temp Pulse Resp B/P (MAP) Pulse Ox O2 Delivery O2 Flow Rate FiO2 04/27/19 08:00 99 Nasal Cannula 2.00 04/27/19 07:00 66 04/27/19 03:37 36.8 20 170/70 (103) Capillary Refill : Less Than 3 Seconds General Appearance: No Apparent Distress, WD/WN, Anxious HEENT: PERRL/EOMI, Pharynx Normal Neck: Non Tender, Supple Respiratory: Chest Non Tender, Lungs Clear, Normal Breath Sounds, No Accessory Muscle Use, No Respiratory Distress Cardiovascular: Regular Rate, Rhythm, No Edema, No Murmur Gastrointestinal: Non Tender, Soft; No Distended Extremity: Non Tender, No Pedal Edema, Other (necrosis of bilateral great toes distally) Neurologic/Psychiatric: Alert, Normal Mood/Affect Skin: Normal Color, Warm/Dry Results/Procedures Lab Laboratory Tests 04/27/19 04:30 Patient resulted labs reviewed. Assessment/Plan Assessment and Plan Assess & Plan/Chief Complaint Assessment: Severe sepsis Bilateral toe necrosis Buerger's disease Former smoker quit 1 month ago Hypertension Valvular heart disease Elevated lactic acid Severe anemia prior to fluid resuscitation 6.9 s/p 2 units of blood now hgb 9.0 Black tarry stools consulting general surgery needs scope tomorrow prior to DC due to the severity of her critical illness that started with severe anemia from GI loss Plan: Colonoscopy planned today with Dr. Whitehead Consulted social work to set up home health s/p Severe sepsis protocol Aggressive IV fluids hep-locked Continue antibiotics Hemoglobin stable Clinical Quality Measures DVT/VTE Risk/Contraindication: Risk Factor Score Per Nursin RFS Level Per Nursing on Admit: 4+=Very High JO DIAZ DO 04/27/19 2132: Subjective Subjective/Events-last exam Room 433 Colonoscopy scheduled for today Talks about trying to update her of which she calls on a frequent basis Will discontinue telemetry Social work consult for additional support at home No pain is reported Doing very well otherwise Review of Systems General: Fatigue Pulmonary: Dyspnea Objective Exam General Appearance: No Apparent Distress, WD/WN, Chronically ill Respiratory: Lungs Clear Cardiovascular: Regular Rate, Rhythm Assessment/Plan Assessment and Plan Assess & Plan/Chief Complaint C scope today for tarry stools since severe anemia is what caused the decompensation prompting ER visit Supervisory-Addendum Brief Verification & Attestation Participated in pt care: history, MDM, physical Personally performed: exam, history, MDM, supervision of care Care discussed with: Medical Student Procedures: n/a Results interpretation: Verified all documentation Verification and Attestation of Medical Student E/M Service A medical student performed and documented this service in my presence. I reviewed and verified all information documented by the medical student and made modifications to such information, when appropriate. I personally performed the physical exam and medical decision making. Jo Diaz, Apr 27, 2019,21:32 MOLLY BRENNER,MED STUDENT Apr 27, 2019 08:39 JO RAMIREZ DO Apr 27, 2019 21:32 POS
[2019-04-27] MEDS: ASPIRIN E.C. 81 MG (ECOTRIN) TAB PO SCH (09:00)
--- NOTE | 2019-04-27 10:06 | Physical Therapy Daily Note ---
PT Daily Note-Current Subjective Patient agrees to PT at this time. States she is doing okay today, having no pain. Would like to toilet prior to ambulation. Pain Numeric Pain Scale: 0-No Pain Location: No Pain Reported Mental Status Patient Orientation: Normal For Age Attachments: Oxygen (2L) Transfers SCALE: Activities may be completed with or without assistive devices. 6-Reduefhjrh-tsojttf completes the activity by him/herself with no assistance from a helper. 5-Set-up or Clean-up Assistance-helper sets up or cleans up; patient completes activity. [place] assists only prior to or following the activity. 4-Supervision or Touching Assistance-helper provides verbal cues and/or touching/steadying and/or contact guard assistance as patient completes activity. Assistance may be provided throughout the activity or intermittently. 3-Partial/Moderate Assistance-helper does LESS THAN HALF the effort. [place] lifts, holds or supports trunk or limbs, but provides less than half the effort. 2-Substantial/Maximal Assistance-helper does MORE THAN HALF the effort. [place] lifts or holds trunk or limbs and provides more than half the effort. 2-Hxadcuapp-fmtvct does ALL the effort. Patient does none of the effort to complete the activity. Or, the assistance of 2 or more helpers is required for the patient to complete the activity. If activity was not attempted, code reason: 7-Patient Refused. 9-Not Applicable-not attempted and the patient did not perform the activity before the current illness, exacerbation or injury. 10-Not Attempted due to Environmental Limitations-(lack of equipment, weather restraints, etc.). 88-Not Attempted due to Medical Conditions or Safety Concerns. Roll Left & Right (QC): 6 Lying to Sitting/Side of Bed(Q: 6 Sit to Stand (QC): 6 Toilet Transfer (QC): 6 Gait Training Does the Patient Walk?: Yes Distance: 400' Walk 10 feet (QC): 6 Walk 50 ft with 2 Turns(QC): 6 Walk 150 ft (QC): 6 Gait Assistive Device: FWW Assessment Patient able to complete all bed mobility independently. Patient completed toileting independently. Patient ambulated 400' at slow pace with FWW, stating some SOB upon return to room on 2L of O2. Patient seated in recliner at conclusion of treatment with legs elevated. PT Sluice Tender Goals Sluice Tender Goals PT Sluice Tender Goals Time Frame: May 02, 2019 Roll Left & Right (QC): 6 Sit to Lying (QC): 6 Lying-Sitting on Side/Bed(QC): 6 Sit to Stand (QC): 6 Chair/Mpo-kh-Naiuh Xfer(QC): 6 Toilet Transfer (QC): 6 Car Transfer (QC): 6 Does the Patient Walk: Yes Walk 10 feet (QC): 6 Walk 50ft with 2 Turns (QC): 6 Walk 150 ft (QC): 6 Walking 10ft on Uneven Surface: 6 1 Step (curb) (QC): 6 4 Steps (QC): 9 12 Steps (QC): 9 Picking up an Object (QC): 6 Does the Pt use WC or Scooter?: No Type: N/A Type: N/A PT Plan Treatment/Plan Treatment Plan: Continue Plan of Care Treatment Plan: Bed Mobility, Education, Functional Activity Alison, Functional Strength, Gait, Safety, Therapeutic Exercise, Transfers Treatment Duration: May 02, 2019 Frequency: 6 times per week Estimated Hrs Per Day: .25 hour per day Patient and/or Family Agrees t: Yes Time/GCodes Time In: 930 Time Out: 947 Total Billed Treatment Time: 17 Total Billed Treatment 1 visit FA 17min MICHELLE PERSAUD PT Apr 27, 2019 10:06 POS
--- NOTE | 2019-04-27 10:17 | Cardiology Progress Note ---
Subjective Date Seen by Provider: Apr 27, 2019 Time Seen by Provider: 10:12 Subjective/Events-last exam Patient is laying down in a chair, comfortable. No new complaint, all her questions were answered Review of Systems General: No Chills, No Night Sweats, No Fatigue, No Malaise, No Appetite, No Other HEENT: No Head Aches, No Visual Changes, No Eye Pain, No Ear Pain, No Dysphasia, No Sinus Congestion, No Post Nasal Drip, No Sore Throat, No Other Pulmonary: No Dyspnea, No Cough, No Pleuritic Chest Pain, No Other Cardiovascular: No: Chest Pain, Palpitations, Orthopnea, Paroxysmal Noc. Dyspnea, Edema, Lt Headedness, Other Objective-Cardiology Exam Last Set of Vital Signs Vital Signs 04/27/19 04/27/19 04/27/19 03:37 07:00 08:00 Temp 36.8 Pulse 66 Resp 20 B/P (MAP) 170/70 (103) Pulse Ox 99 O2 Delivery Nasal Cannula O2 Flow Rate 2.00 Capillary Refill : Less Than 3 Seconds I&O Intake and Output 04/27/19 00:00 Intake Total 2620 ml Output Total 150 ml Balance 2470 ml Intake Oral 2520 ml IV Total 100 ml Output Urine Total 150 ml # Voids 6 # Bowel Movements 3 # Emeses 2 General: Alert, Oriented X3, Cooperative HEENT: Atraumatic, PERRLA Neck: Supple, No JVD, No Thyromegaly Lungs: Clear to Auscultation, Normal Air Movement Heart: Regular Rate, Normal S1, Normal S2, Other (Systolic murmur) Abdomen: Normal Bowel Sounds, Soft, No Tenderness, No Hepatosplenomegaly, No Masses Extremities: Other (Gangrene on the toes with diminished pulse) Skin: No Rashes, No Breakdown, No Significant Lesion Neuro: Normal Gait, Normal Speech, Strength at 5/5 X4 Ext, Other (Gangrene on the toes) Psych/Mental Status: Mental Status NL, Mood NL Results Lab Laboratory Tests 04/27/19 04:30 A/P-Cardiology Admission Diagnosis Anemia GI bleed Ischemic toes Hypertension Abdominal aortic aneurysm Assessment/Plan GI bleed, H&H are better, scheduled for colonoscopy today. Gangrenous toes, subacute ischemic eye laterally, probably embolization from AAA, discussed with Dr. Andrews, followed by heart and vascular care Peripheral arterial disease, angiogram done on April 12, 2019 showing ixju-es-faarkodd disease, abdominal aortic aneurysm, ultrasound measured 4.2 x 3.9, refer to heart and vascular care, was treated with aspirin and Xarelto, unable to tolerate them due to active bleed Coronary artery disease - cardiac catheterization carried out Apr 12, 2019 showed mild to moderate nonobstructive disease. Acute on chronic renal failure, chronic kidney disease stage IV, monitor renal function Hypertension, poor control, add clonidine patch and monitor blood pressure Hyperlipidemia, monitor lipids Tobaccoism MR reported that she has stopped in March 2019, encouraged to continue with smoking cessation Echocardiogram done in March 2019: normal LV size with ejection fraction 65- 70%, grade 2 diastolic dysfunction, left atrial dilatation, calcified mitral annulus, aortic valve sclerosis, moderate tricuspid regurgitation, PA pressure 45 mmHg Clinical Quality Measures DVT/VTE Risk/Contraindication: Risk Factor Score Per Nursin RFS Level Per Nursing on Admit: 4+=Very High RAUL BONNER MD Apr 27, 2019 10:17 POS
[2019-04-27] MEDS ORDERED: cloNIDine 0.1 MG PATCH (CATAPRES TTS) TDSY TD SCH (10:30)
[2019-04-27] MEDS: PANTOPRAZOLE 40 MG (PROTONIX) TAB PO SCH ×2 (10:58→19:36)
[2019-04-27] MEDS: ISOSORBIDE MONONITRATE 30 MG (IMDUR) TAB PO SCH (10:58)
--- NOTE | 2019-04-27 12:33 | Progress Note - Surgery ---
Subjective Time Seen by a Provider: 12:16 Subjective/Events-last exam Pt seen and examined, states she has had some "black BM's and brown ones". Denies abdominal pain. Review of Systems General: No Chills, No Night Sweats Pulmonary: No Dyspnea, No Cough Cardiovascular: No: Chest Pain, Palpitations Gastrointestinal: No: Nausea, Vomiting Objective Exam Vital Signs Date Time Temp Pulse Resp B/P (MAP) Pulse Ox O2 Delivery O2 Flow Rate FiO2 04/27/19 10:00 36.8 64 18 175/76 (109) 99 Nasal Cannula 1.00 04/27/19 08:00 99 Nasal Cannula 2.00 04/27/19 07:00 66 04/27/19 03:37 36.8 63 20 170/70 (103) 99 Room Air 04/27/19 01:01 66 04/26/19 23:28 37.1 62 18 148/71 (96) 93 Room Air 04/26/19 20:26 36.8 69 18 164/76 (105) 95 Room Air 04/26/19 20:20 Nasal Cannula 2.00 04/26/19 19:00 72 04/26/19 16:55 37.0 71 18 152/76 (101) 93 Room Air 04/26/19 16:20 148/76 (100) 04/26/19 16:10 37.0 71 16 170/84 (112) 94 Room Air I & O 04/27/19 07:00 Intake Total 2520 ml Balance 2520 ml Capillary Refill : Less Than 3 Seconds General Appearance: No Apparent Distress, WD/WN, Anxious HEENT: PERRL/EOMI, Pharynx Normal Respiratory: Chest Non Tender, Lungs Clear, Normal Breath Sounds, No Accessory Muscle Use, No Respiratory Distress Cardiovascular: Regular Rate, Rhythm, No Edema, No Murmur Gastrointestinal: normal bowel sounds, non tender, soft, no organomegaly, no pulsatile mass Extremity: Non Tender, No Pedal Edema, Other (necrosis of bilateral great toes distally) Neurologic/Psychiatric: Alert Results Lab Laboratory Tests 04/27/19 04:30: White Blood Count 11.4H, Red Blood Count 3.48L, Hemoglobin 10.3L, Hematocrit 31L , Mean Corpuscular Volume 89, Mean Corpuscular Hemoglobin 30, Mean Corpuscular Hemoglobin Concent 33, Red Cell Distribution Width 16.1H, Platelet Count 375, Mean Platelet Volume 10.5H, Neutrophils (%) (Auto) 79H, Lymphocytes (%) (Auto) 8L, Monocytes (%) (Auto) 9, Eosinophils (%) (Auto) 4, Basophils (%) (Auto) 1, Neutrophils # (Auto) 9.0H, Lymphocytes # (Auto) 0.9L, Monocytes # (Auto) 1.0, Eosinophils # (Auto) 0.4H, Basophils # (Auto) 0.1, Sodium Level 133L, Potassium Level 3.7, Chloride Level 102, Carbon Dioxide Level 22, Anion Gap 9, Blood Urea Nitrogen 12, Creatinine 2.39H, Estimat Glomerular Filtration Rate 20, BUN/Creatinine Ratio 5, Glucose Level 100, Calcium Level 9.0, Corrected Calcium 9.8, Total Bilirubin 0.6, Aspartate Amino Transf (AST/SGOT) 17, Alanine Aminotransferase (ALT/SGPT) 13, Alkaline Phosphatase 60, Total Protein 5.5L, Albumin 3.0L Microbiology 04/22/19 Blood Culture - Preliminary, Resulted No growth 04/22/19 Urine Culture - Final, Complete Escherichia coli Assessment/Plan Assessment/Plan Assessment/Plan Anemia Melena Epigastric Pain with hx of N/V Pt will have EGD and colonoscopy today; she understands if she is not completely clean we may need to do Colonoscopy again. She is NPO and consent signed. We discussed risks and complications not limited to pain, bleeding, infection, esophageal perforation or intestinal perforation. All questions answered to her satisfaction. Clinical Quality Measures DVT/VTE Risk/Contraindication: Risk Factor Score Per Nursin RFS Level Per Nursing on Admit: 4+=Very High DYLAN CHRISTIANSEN DO Apr 27, 2019 12:33 POS
[2019-04-27] MEDS ORDERED: LACTATED RINGERS 1,000 ML IV ONE (12:34)
[2019-04-27] MEDS ORDERED: PROPOFOL INJECTION 50 ML IV ONE (12:51)
--- NOTE | 2019-04-27 12:56 | NUR ---
"RD ASSESSMENT PMHx: HTN; Buerger's disease; chronic diarrhea; chronic constipation PT INTERACTION: Pt was awake and pleasant during nutrition assessment. Pt states current appetite is poor and has been for more than a week. Note pt avg PO intake of 41% x2d, per chart review. Pt states following a regular diet at home, and currently has no issues chewing/swallowing food. Pt states recent episodes of nausea and vomiting. Note pt had 2 episodes of emesis recorded on 04/26 per chart review. Pt states having episodes of constipation recently. Note pt had 6 BM on 04/27 per chart review, as pt has colonoscopy scheduled this day. Note pt currenly on bowel regimen of miralax and bisacodyl, per chart review. Pt states some recent wt loss, but unsure of amount and timeframe. Note unable to determine recent wt hx, per chart review. Note pt has wounds on feet and currenly seeing Dr. Isidro, per chart review. ABNORMAL NUTRITION-RELATED LAB VALUES LOW: Na 133; Pro 5.5; alb 3.0 HIGH: cr 2.39 Est. kcal needs: 4362-0888 kcal | 25-30 kcal/kg Est. Pro needs: 67-79 g Pro | 1.2-1.4 g Pro/kg PES STATEMENT: Inadequate oral intake (NI-2.1) related to loss of appetite | nausea | vomiting | constipation as evidenced by pt interview | avg PO intake of 41% x2d Inadequate protein intake (NI-5.6.1) related to increased protein needs as evidenced by wounds (feet) INTERVENTION: Continue with current diet order of Clear Liquid diet. Advance to regular diet, when medically able and as tolerated. Add Ensure Clear (vary) to meals TID. Provides 240 kcal and 8 g Pro per serving for perceived benefit to wound healing. Will continue to follow and reassess as pt needs and status change. MONITOR/EVALUATE: PO Intake; Plan of Care; Hydration Status; Weight Status; Lab Values Juanita Jose, MS, RD, LD"
--- NOTE | 2019-04-27 13:24 | Occ Therapy Progress Note ---
Therapy Progress Note Unable to see pt at this time due to pt having procedure completed. Will check on pt tomorrow. SAMM LEBLANC Apr 27, 2019 13:24 POS
--- NOTE | 2019-04-27 13:46 | Progress Note-Post Operative ---
Post-Operative Progess Note Surgeon (s)/Networking Administrator (s) Surgeon DYLAN CHRISTIANSEN DO Networking Administrator: MIKY Dozier Pre-Operative Diagnosis Anemia, Melena Post-Operative Diagnosis Gastritis Hiatal Hernia ??Duodenal Diverticula Colon polyps Diverticula Internal Hemorrhoids Procedure & Operative Findings Date of Procedure 04/27/19 Procedure Performed/Findings EGD with bx Colon with snare Anesthesia Type IV sedation by CONTINUOUS IMPROVEMENT COORDINATOR Estimated Blood Loss Estimated blood loss (mL): scant Specimens/Packing Specimens Removed antral bx Body of stomach bx GE jxn bx Asc colon polyp Transverse colon polyp Desc colon polyp DYLAN CHRISTIANSEN DO Apr 27, 2019 13:46 POS
--- NOTE | 2019-04-27 13:50 | Anesthesia-General Post-Op ---
MAC Patient Condition Mental Status/LOC: Same as Preop Cardiovascular: Satisfactory Nausea/Vomiting: Absent Respiratory: Satisfactory Pain: Controlled Complications: Absent Post Op Complications Complications None Follow Up Care/Instructions Patient Instructions None needed. Anesthesiology Discharge Order Discharge Order Patient is doing well, no complaints, stable vital signs, no apparent adverse anesthesia problems. No complications reported per nursing. TAVO BUSTAMANTE CRNA Apr 27, 2019 13:50 POS
[2019-04-27] MEDS: ONDANSETRON 4 MG/2 ML (SDV) Z0FRAN IVP PRN (23:00)
--- NOTE | 2019-04-27 23:10 | OPERATIVE REPORT ---
DATE OF SERVICE: 04/27/2019 PREOPERATIVE DIAGNOSES: Anemia and melena. POSTOPERATIVE DIAGNOSES: 1. Gastritis. 2. Hiatal hernia. 3. Questionable duodenal diverticulum. 4. Colon polyps. 5. Diverticula. 6. Internal hemorrhoids. PROCEDURES: 1. EGD with biopsy. 2. Colonoscopy with snare polypectomy. SURGEON: Sabino Whitehead D.O. NUTRITIONIST PUBLIC HEALTH: Cristiano Craig MS-3. ANESTHESIA: IV sedation by PROJECT ENGINEERING DIRECTOR. SPECIMEN: Biopsy from the antrum, biopsy from body of stomach and biopsy from GE junction as well as one polyp from the ascending colon, one from the transverse colon, one from the descending colon. BLOOD LOSS: Scant. FLUIDS: Per anesthesia. POSTOPERATIVE CONDITION: Stable. INDICATION FOR PROCEDURE: The patient is a 73-year-old female who has some melena and anemia and needed a workup. FINDINGS: The patient had some gastritis and looked like she had some bleeding in the stomach, but did not see any obvious ulcers. She had a hiatal hernia and looked like may have had a duodenal diverticula. In the colon she had a lot of diverticula throughout the colon and she had an ascending colon polyp, a transverse colon polyp and a descending colon polyp. She also had some internal hemorrhoids. PROCEDURE NOTE: After informed consent was obtained, the patient was brought to the endoscopy suite, placed in the bed left lateral decubitus position. She was administered IV sedation by the PROJECT ENGINEERING DIRECTOR, who then monitored her vitals the entire time, heart rate, blood pressure and pulse ox and the scope was inserted. First starting with the EGD, placing the scope down the mouth through the esophagus and into the stomach and then towards the antrum pushing into the duodenum, looked normal. No obvious inflammation, although it looked like there was may be a diverticulum, took a picture of this, pulled back the scope. There was a lot of gastritis, took a picture of this and then did a biopsy of the antrum. Retroflexed the scope, not so much inflammation in the body of stomach. We did a biopsy here and with retroflexion noted a hiatal hernia, took a picture and then pulled the scope into the GE junction, did a biopsy of the GE junction, placed the scope back in the stomach, suctioned out all the air and then pulled the scope up the esophagus and out the mouth. Switched camera, switched gloves, went down below, started the colonoscopy. Pushed all the way about 140 cm, on the way noted a lot of diverticula and we saw a polyp in the transverse colon, did hot snare polypectomy and continued all the way to the cecum, took a picture of appendiceal orifice and able to get into the terminal ileum, took a picture of this and then slowly withdrew the scope, insufflating the circumferential baumann looking at the cecum, up the ascending colon. In the ascending colon, saw another flat polyp, did another hot snare polypectomy and then continued up to the hepatic flexure, down the transverse colon, the splenic flexure, into the descending colon. In the descending colon, saw another flat polyp, took a picture and then did a snare polypectomy and then continued down through the sigmoid into the rectum, retroflexed the rectal vault, saw some minimal internal hemorrhoids, took a picture of this and then removed the scope. The patient tolerated the procedure, recovered in the endoscopy suite. Job ID: [id number] DocumentID: [id number] Dictated Date: 04/27/2019 13:51:28 Yarding And Folding Machine Operator Date: 04/27/2019 23:08:37 Dictated By: SABINO WHITEHEAD DO
[2019-04-27] MEDS ORDERED: LORazepam 0.5 MG (ATIVAN) TABLET PO PRN (23:45)
[2019-04-28 03:59] VITALS: BP 179/83
[2019-04-28 07:25] VITALS: BP 181/86
--- NOTE | 2019-04-28 07:38 | Cardiology Progress Note ---
Subjective Date Seen by Provider: Apr 28, 2019 Time Seen by Provider: 07:35 Subjective/Events-last exam patient is laying down in bed, feeling better, her toes are feeling better Review of Systems General: No Chills, No Night Sweats, No Fatigue, No Malaise, No Appetite, No O ther HEENT: No Head Aches, No Visual Changes, No Eye Pain, No Ear Pain, No Dysphasia, No Sinus Congestion, No Post Nasal Drip, No Sore Throat, No Other Pulmonary: No Dyspnea, No Cough, No Pleuritic Chest Pain, No Other Cardiovascular: No: Chest Pain, Palpitations, Orthopnea, Paroxysmal Noc. Dyspnea, Edema, Lt Headedness, Other Objective-Cardiology Exam Last Set of Vital Signs Vital Signs 04/27/19 04/28/19 20:00 03:59 Temp 37.4 Pulse 69 Resp 18 B/P (MAP) 179/83 (115) Pulse Ox 97 O2 Delivery Room Air O2 Flow Rate 4.00 Capillary Refill : Less Than 3 SecondsLess Than 3 Seconds I&O Intake and Output 04/28/19 00:00 Intake Total 700 ml Balance 700 ml Intake Oral 600 ml IV Total 100 ml # Voids 8 # Bowel Movements 6 General: Alert, Oriented X3, Cooperative HEENT: Atraumatic, PERRLA Neck: Supple, No JVD, No Thyromegaly Lungs: Clear to Auscultation, Normal Air Movement Heart: Regular Rate, Normal S1, Normal S2, Other (Systolic murmur) Abdomen: Normal Bowel Sounds, Soft, No Tenderness, No Hepatosplenomegaly, No Masses Extremities: Other (Gangrene on the toes with diminished pulse) Skin: No Rashes, No Breakdown, No Significant Lesion Neuro: Normal Gait, Normal Speech, Strength at 5/5 X4 Ext, Other (Gangrene on the toes) Psych/Mental Status: Mental Status NL, Mood NL A/P-Cardiology Admission Diagnosis Anemia GI bleed Ischemic toes Hypertension Abdominal aortic aneurysm Assessment/Plan GI bleed, H&H are better, had upper and lower scope, hemorrhoids, questionable duodenal diverticulum, no active bleeding was reported. Gangrenous toes, subacute ischemic bilaterally, probably embolization from AAA, discussed with Dr. Andrews, followed by heart and vascular care, maintained on aspirin Peripheral arterial disease, angiogram done on April 12, 2019 showing beif-[id number] disease, abdominal aortic aneurysm, ultrasound measured 4.2 x 3.9, refer to heart and vascular care, was treated with aspirin and Xarelto, unable to tolerate Xarelto due to active bleed Coronary artery disease - cardiac catheterization carried out Apr 12, 2019 showed mild to moderate nonobstructive disease. Acute on chronic renal failure, chronic kidney disease stage IV, monitor renal function Hypertension, I added clonidine patch, continue on current medication and monitor Hyperlipidemia, monitor lipids Tobaccoism MR reported that she has stopped in March 2019, encouraged to continue with smoking cessation Echocardiogram done in March 2019: normal LV size with ejection fraction 65- 70%, grade 2 diastolic dysfunction, left atrial dilatation, calcified mitral annulus, aortic valve sclerosis, moderate tricuspid regurgitation, PA pressure 45 mmHg Clinical Quality Measures DVT/VTE Risk/Contraindication: Risk Factor Score Per Nursin RFS Level Per Nursing on Admit: 4+=Very High RAUL BONNER MD Apr 28, 2019 07:38 POS
--- NOTE | 2019-04-28 08:48 | Progress Note - Surgery ---
PATRICIA HERMAN,MED STUDENT 04/28/19 0848: Subjective Date Seen by a Provider: Apr 28, 2019 Time Seen by a Provider: 08:30 Subjective/Events-last exam Patient was seen and examined yesterday after stating she has had some "black BM's and brown ones". Denies abdominal pain. Today patient is reports that she is feeling well and that she is well enough to go home. Review of Systems General: No Chills HEENT: No Visual Changes, No Ear Pain, No Sore Throat Pulmonary: No Dyspnea, No Cough Cardiovascular: No: Chest Pain, Edema Gastrointestinal: Other (She has not had a bowel movement since her egd/colonoscopy yesterday ); No: Nausea, Vomiting, Abdominal Pain, Diarrhea, Constipation Musculoskeletal: other (she denies any muscular pain or weakness ) Neurological: No: Weakness, Numbness Objective Exam Vital Signs Date Time Temp Pulse Resp B/P (MAP) Pulse Ox O2 Delivery O2 Flow Rate FiO2 04/28/19 07:25 36.8 71 18 181/86 (117) 99 Room Air 04/28/19 03:59 37.4 69 18 179/83 (115) 97 Room Air 04/27/19 23:34 37.4 65 16 145/65 (91) 96 Room Air 04/27/19 20:00 96 Room Air 4.00 04/27/19 19:41 37.3 69 20 163/83 (109) 96 Room Air 04/27/19 16:01 37.1 62 20 172/79 (110) 98 Room Air 04/27/19 14:15 36.2 66 18 149/74 (99) 96 Room Air 04/27/19 14:00 68 16 96 Room Air 04/27/19 13:55 65 20 94 OxyMask 4 04/27/19 13:50 65 16 98 OxyMask 4 04/27/19 13:45 61 16 99 OxyMask 8 04/27/19 13:40 57 16 99 OxyMask 8 04/27/19 13:35 55 12 100 OxyMask 8 04/27/19 13:34 54 12 98 OxyMask 8 04/27/19 10:00 36.8 64 18 175/76 (109) 99 Nasal Cannula 1.00 I & O 04/28/19 07:00 Intake Total 800 ml Balance 800 ml Capillary Refill : Less Than 3 SecondsLess Than 3 Seconds General Appearance: No Apparent Distress, WD/WN, Chronically ill Respiratory: Chest Non Tender, Lungs Clear, Normal Breath Sounds, No Accessory Muscle Use, No Respiratory Distress Cardiovascular: Regular Rate, Rhythm Gastrointestinal: normal bowel sounds, non tender, soft, no organomegaly, no pulsatile mass Extremity: Non Tender, No Pedal Edema, Other (necrosis of bilateral great toes distally) Neurologic/Psychiatric: Alert, Oriented x3, No Motor/Sensory Deficits, Normal Mood/Affect Skin: Normal Color, Warm/Dry Results Lab Microbiology 04/22/19 Blood Culture - Preliminary, Resulted No growth 04/22/19 Urine Culture - Final, Complete Escherichia coli Assessment/Plan Assessment/Plan Assessment/Plan Anemia Melena Epigastric Pain with hx of N/V Pt will have EGD and colonoscopy today; she understands if she is not completely clean we may need to do Colonoscopy again. She is NPO and consent signed. We discussed risks and complications not limited to pain, bleeding, infection, esophageal perforation or intestinal perforation. All questions answered to her satisfaction. Clinical Quality Measures DVT/VTE Risk/Contraindication: Risk Factor Score Per Nursin RFS Level Per Nursing on Admit: 4+=Very High DYLAN CHRISTIANSEN DO 04/28/19 1643: Assessment/Plan Assessment/Plan Assessment/Plan Pt had EGD and Colonoscopy yesterday, not today. She was told last night to follow up with me as an outpt and I will have my office call her. Supervisory-Addendum Brief Verification & Attestation Participated in pt care: other Personally performed: other Care discussed with: Medical Student Procedures: n/a Pt left before I could see her. PATRICIA HERMAN,MED STUDENT Apr 28, 2019 08:48 DYLAN ROLLINS DO Apr 28, 2019 16:43 POS
--- NOTE | 2019-04-28 09:21 | NUR ---
DISCHARGE PLANNING: This RN visited with patient regarding POC for discharge. She is anxious to go home. We discussed her needs at home and she reports that her does all the grocery shopping and the meal prep. We talked about other needs such as HHC for nursing PT and OT. She declines this at this time and reports that she will see Dr. Wasserman and if she would like her to have it he will order. She needs to continue her wound care with Dr. Isidro. A Will notify of discharge if doctor feels it is time.
--- NOTE | 2019-04-28 09:38 | Physical Therapy Daily Note ---
PT Daily Note-Current Subjective Patient agrees to PT at this time. Reports she is feeling okay today after yesterday's colonoscopy and having no pain. Pain Numeric Pain Scale: 0-No Pain Location: No Pain Reported Mental Status Patient Orientation: Normal For Age Transfers SCALE: Activities may be completed with or without assistive devices. 9-Rnvkhqmyhv-jhboaai completes the activity by him/herself with no assistance from a helper. 5-Set-up or Clean-up Assistance-helper sets up or cleans up; patient completes activity. [place] assists only prior to or following the activity. 4-Supervision or Touching Assistance-helper provides verbal cues and/or touching/steadying and/or contact guard assistance as patient completes activity. Assistance may be provided throughout the activity or intermittently. 3-Partial/Moderate Assistance-helper does LESS THAN HALF the effort. [place] lifts, holds or supports trunk or limbs, but provides less than half the effort. 2-Substantial/Maximal Assistance-helper does MORE THAN HALF the effort. [place] lifts or holds trunk or limbs and provides more than half the effort. 1-Qocqwiqfw-rhmose does ALL the effort. Patient does none of the effort to complete the activity. Or, the assistance of 2 or more helpers is required for the patient to complete the activity. If activity was not attempted, code reason: 7-Patient Refused. 9-Not Applicable-not attempted and the patient did not perform the activity before the current illness, exacerbation or injury. 10-Not Attempted due to Environmental Limitations-(lack of equipment, weather restraints, etc.). 88-Not Attempted due to Medical Conditions or Safety Concerns. Roll Left & Right (QC): 6 Lying to Sitting/Side of Bed(Q: 6 Sit to Stand (QC): 6 Gait Training Does the Patient Walk?: Yes Distance: 300' Walk 10 feet (QC): 6 Walk 50 ft with 2 Turns(QC): 6 Walk 150 ft (QC): 6 Gait Assistive Device: FWW Slow pace, normal pattern Assessment Patient completes bed mobility independently and requires no assistance to stand from EOB. Able to ambulate with FWW at slow pace 300' with occasional rest breaks. Patient seated in chair upon returned to room with legs elevated. PT Brake Repair Mechanic Goals Brake Repair Mechanic Goals PT [facility] Goals Time Frame: May 02, 2019 Roll Left & Right (QC): 6 Sit to Lying (QC): 6 Lying-Sitting on Side/Bed(QC): 6 Sit to Stand (QC): 6 Chair/Son-sy-Kurim Xfer(QC): 6 Toilet Transfer (QC): 6 Car Transfer (QC): 6 Does the Patient Walk: Yes Walk 10 feet (QC): 6 Walk 50ft with 2 Turns (QC): 6 Walk 150 ft (QC): 6 Walking 10ft on Uneven Surface: 6 1 Step (curb) (QC): 6 4 Steps (QC): 9 12 Steps (QC): 9 Picking up an Object (QC): 6 Does the Pt use WC or Scooter?: No Type: N/A Type: N/A PT Plan Treatment/Plan Treatment Plan: Continue Plan of Care Treatment Plan: Bed Mobility, Education, Functional Activity Alison, Functional Strength, Gait, Safety, Therapeutic Exercise, Transfers Treatment Duration: May 02, 2019 Frequency: 6 times per week Estimated Hrs Per Day: .25 hour per day Patient and/or Family Agrees t: Yes Time/GCodes Time In: 803 Time Out: 817 Total Billed Treatment Time: 14 Total Billed Treatment 1 visit FA 14min MICHELLE PERSAUD PT Apr 28, 2019 09:38 POS
[2019-04-28] MEDS: ASPIRIN E.C. 81 MG (ECOTRIN) TAB PO SCH (09:42)
[2019-04-28] MEDS: PANTOPRAZOLE 40 MG (PROTONIX) TAB PO SCH (09:42)
[2019-04-28] MEDS: ISOSORBIDE MONONITRATE 30 MG (IMDUR) TAB PO SCH (09:42)
--- NOTE | 2019-04-28 09:52 | NUR ---
prior to a.m. medications pulse was 71 bpm, b/p was 181/86., Dr. Diaz aware of this b/p. no new orders at this time. Addendum: 04/28/19 at 1008 by DON SANZ RN This RN has attempted x 3 to contact patients Rajeev, to inform him of discharge today. Will continue to contact.
[2019-04-28] MEDS ORDERED: PANT40TA3 PO (10:04)
[2019-04-28] MEDS ORDERED: CLON1PAT33 TD (10:04)
--- NOTE | 2019-04-28 10:39 | Discharge Summary ---
MOLLY BRENNER,MED STUDENT 04/28/19 1039: Diagnosis/Chief Complaint Date of Admission Apr 22, 2019 at 13:26 Date of Discharge 04/28/19 Discharge Date: Apr 28, 2019 Discharge Time: 10:35 Admission Diagnosis Assessment: Severe sepsis Bilateral toe necrosis Buerger's disease Former smoker quit 1 month ago Hypertension Valvular heart disease Elevated lactic acid Severe anemia prior to fluid resuscitation 6.9 Black tarry stools consulting general surgery Plan: ICU Severe sepsis protocol Aggressive IV fluids IV antibiotics of cefepime and vancomycin per allergy profile Review home meds Pain control Primary Care Narinder Wasserman MD Discharge Diagnosis Buerger's Disease Bilateral toe necrosis Anemia Hypertension Valvular heart disease Gastritis Hiatal hernia 3 colon polyps Diverticular disease (1) Severe sepsis (2) Melena (3) Elevated lactic acid level (4) Acute anemia Status: Acute (5) Elevated troponin Status: Acute (6) Chronic renal failure Status: Acute (7) Bilateral swelling of feet Status: Acute (8) Chronic renal failure, stage 4 (severe) Status: Acute (9) UTI (urinary tract infection) Status: Acute (10) Hyponatremia Status: Acute (11) Transfusion of blood during current hospitalisation (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 Perrin cardiology Dr. Whitehead surgery Dr. Harrell pulmonology/critical care Discharge Physical Exam Allergies: Coded Allergies: Penicillins (Verified Allergy, Severe, ANAPHYLAXIS, 02/16/19) levofloxacin (Verified Allergy, Severe, DIARRHIA, SWELLING, WEAKNESS, ) sulfamethoxazole (Verified Allergy, Severe, WHEEZING/SWELLING, 02/16/19) trimethoprim (Verified Allergy, Severe, WHEEZING/SWELLING, 02/16/19) Tetracyclines (Verified Allergy, Mild, GI UPSET, 02/16/19) Sulfa (Sulfonamide Antibiotics) (Verified Allergy, Unknown, 02/16/19) pseudoephedrine (Verified Allergy, Unknown, 02/16/19) Vitals & I&Os Vital Signs Date Time Temp Pulse Resp B/P (MAP) Pulse Ox O2 Delivery O2 Flow Rate FiO2 04/28/19 10:45 36.8 71 18 181/86 99 Room Air 04/28/19 08:00 4.00 General Appearance: No Apparent Distress, WD/WN HEENT: PERRL/EOMI, Pharynx Normal Respiratory: Chest Non Tender, Lungs Clear, Normal Breath Sounds, No Accessory Muscle Use, No Respiratory Distress Cardiovascular: Regular Rate, Rhythm, No Edema, No Murmur Gastrointestinal: Non Tender, Soft; No Distended Extremity: Non Tender, No Pedal Edema Skin: Normal Color, Warm/Dry Neurologic/Psychiatric: Alert, No Motor/Sensory Deficits, Normal Mood/Affect Hospital Course Was the Problem List Reviewed?: Yes Patient presented to the ED on 04/22/19 with tachycardia and systolic BP of 70 and was found to have severe sepsis, UTI, and anemia. She was admitted to ICU with consultations from Dr. Harrell pulmonology/critical care, Dr. Perrin cardiology, and Dr. Whitehead surgery. Antibiotics and IV fluids were initiated and sepsis resolved. Cardiology started clonodine patch for blood pressure management. Anemia improved following [address] Whitehead performed EGD and colonoscopy which did not show active GI bleed. Patient also participated in OT and PT and is now feeling much better and wanting to go home. Labs (last 24 hrs) Microbiology 04/22/19 Blood Culture - Preliminary, Resulted No growth 04/22/19 Urine Culture - Final, Complete Escherichia coli Patient resulted labs reviewed. Discharge Home Medications: Active Scripts Active Pantoprazole Sodium 40 Mg Tablet.dr 40 Mg PO BID Clonidine TTS 1 Patch (Clonidine) 1 Each Patch.tdwk 0.1 Mg TD Q7D@09 Reported Xarelto (Rivaroxaban) 2.5 Mg Tablet 2.5 Mg PO BID Metoprolol Succinate 25 Mg Tab.er.24h 50 Mg PO DAILY LAST FILLED #60 03-03-19 TAKES 2 (25MG) TABLETS Aspirin EC (Aspirin) 81 Mg Tablet.dr 81 Mg PO DAILY Tramadol HCl 50 Mg Tablet 100 Mg PO BID PRN TAKES 2 (50MG) TABLETS Atorvastatin Calcium 80 Mg Tablet 80 Mg PO HS Isosorbide Mononitrate ER (Isosorbide Mononitrate) 30 Mg Tab.er.24h 30 Mg PO DAILY Amlodipine Besylate 10 Mg Tablet 10 Mg PO DAILY Instructions to patient/family Please see electronic discharge instructions given to patient. Clinical Quality Measures DVT/VTE Risk/Contraindication: Risk Factor Score Per Nursin RFS Level Per Nursing on Admit: 4+=Very High JO DIAZ DO 04/28/19 4547: Diagnosis/Chief Complaint Discharge Diagnosis (1) Severe sepsis (2) Buergers disease (3) Elevated lactic acid level (4) Transfusion of blood during current hospitalisation (5) Former smoker (6) Hyponatremia Status: Acute (7) Melena (8) Acute on chronic renal failure Status: Acute (9) Severe hypertension Status: Acute Discharge Summary Discharge Physical Exam Allergies: Coded Allergies: Penicillins (Verified Allergy, Severe, ANAPHYLAXIS, 02/16/19) levofloxacin (Verified Allergy, Severe, DIARRHIA, SWELLING, WEAKNESS, 02/16/19) sulfamethoxazole (Verified Allergy, Severe, WHEEZING/SWELLING, 02/16/19) trimethoprim (Verified Allergy, Severe, WHEEZING/SWELLING, 02/16/19) Tetracyclines (Verified Allergy, Mild, GI UPSET, 02/16/19) Sulfa (Sulfonamide Antibiotics) (Verified Allergy, Unknown, 02/16/19) pseudoephedrine (Verified Allergy, Unknown, 02/16/19) General Appearance: No Apparent Distress, WD/WN Respiratory: Lungs Clear Cardiovascular: Regular Rate, Rhythm Neurologic/Psychiatric: Alert, Oriented x3, No Motor/Sensory Deficits, Normal Mood/Affect Hospital Course Was the Problem List Reviewed?: Yes Hospital course: Pt had a lengthy hospital course for seven days after she was admitted for severe sepsis due to ulcerations of the tips of her toes due to Buerger's disease, she had recently quit smoking one month ago after diagnosis. She was given aggressive IV fluids and IV antibiotics, cardiology and pulmonolo gy were both consulted. She did have tarry black stools with severe anemia requiring two units of transfusion so she did undergo EGD/Colonoscopy didn't show any profound bleeding or source of blood loss, so she was discharged in stable condition with close follow up with her PCP. Discussion & Recommendations Discharge Planning: <30 minutes discharge planning Supervisory-Addendum Brief Verification & Attestation Participated in pt care: history, MDM, physical Personally performed: exam, history, MDM, supervision of care Care discussed with: Medical Student Procedures: n/a Results interpretation: Verified all documentation Verification and Attestation of Medical Student E/M Service A medical student performed and documented this service in my presence. I reviewed and verified all information documented by the medical student and made modifications to such information, when appropriate. I personally performed the physical exam and medical decision making. Jo Diaz, Apr 28, 2019,21:49 Problem Qualifiers (1) Chronic renal failure: Chronic kidney disease stage: unspecified stage Qualified Codes: N18.9 - Chronic kidney disease, unspecified (2) UTI (urinary tract infection): Urinary tract infection type: acute cystitis Hematuria presence: without hematuria Qualified Codes: N30.00 - Acute cystitis without hematuria MOLLY BRENNER,MED STUDENT Apr 28, 2019 10:39 JO RAMIREZ DO Apr 28, 2019 21:49 POS
[2019-04-28 10:45] VITALS: BP 181/86
[2019-05-04] MEDS ORDERED: CLONIDINE PATCH REMOVAL TP SCH (08:59)
--- OUTSIDE RECORDS SUMMARY | 2019-05-18 10:37 | XMS REPORT | Continuity of Care Document ---
Author Organization Unknown Address Unknown Phone Unavailable Allergies Active Description Code Type Severity Reaction Onset Reported/Identified Relationship to Patient Clinical Status Yes Penicillins [id number] Drug Aller gy Mild RASH/SWELLING 02/16/2019 Yes levofloxacin [id number] Drug Allergy Severe DIARRHIA, SWELL 04/27/2019 Yes Penicillins [id number] Drug Aller gy Severe ANAPHYLAXIS 04/27/2019 Yes sulfamethoxazole [id number] Drug Allergy Severe WHEEZING/SWELLI 04/27/2019 Yes trimethoprim [id number] Drug Allergy Severe WHEEZING/SWELLI 04/27/2019 Yes Tetracyclines [id number] Johny g Allergy Mild GI UPSET 04/27/2019 Yes pseudoephedrine [id number] D rug Allergy Unknown N/A 04/27/2019 Yes Sulfa (Sulfonamide Antibiotics) [id number] Drug Allergy Unknown N/A 019 Medications There is no data. Problems Date Dx Coded Attending Type Code Diagnosis Diagnosed By 02/16/2019 SONDRA MALONEY MD Ot R10.13 EPIGASTRIC PAIN 02/16/2019 SONDRA MALONEY MD Ot R11.10 VOMITING, UNSPECIFIED 02/16/2019 SONDRA MALONEY MD Ot R14.0 ABDOMINAL DISTENSION (GASEOUS) 02/16/2019 DYLAN CHRISTIANSEN DO Ot Z01.8 18 ENCOUNTER FOR OTHER PREPROCEDURAL EXAMIN 02/22/2019 DYLAN CHRISTIANSEN DO Ot Z01.8 18 ENCOUNTER FOR OTHER PREPROCEDURAL EXAMIN 02/23/2019 SONDRA MALONEY MD Ot R10.13 EPIGASTRIC PAIN 02/23/2019 SONDRA MALONEY MD Ot R11.10 VOMITING, UNSPECIFIED 02/23/2019 SONDRA MALONEY MD Ot R14.0 ABDOMINAL DISTENSION (GASEOUS) 02/23/2019 EMELY GONZALEZ MD Ot E87.1 HYPO-OSMOLALITY AND HYPONATREMIA 02/23/2019 EMELY GONZALEZ MD Ot F17.210 NICOTINE DEPENDENCE, CIGARETTES, UNCOMPL 02/23/2019 EMELY GONZALEZ MD Ot F32.9 MAJOR DEPRESSIVE DISORDER, SINGLE EPISOD 02/23/2019 EMELY GONZALEZ MD, Ot I10 ESSENTIAL (PRIMARY) HYPERTENSION 02/23/2019 EMELY GONZALEZ MD Ot I12.9 HYPERTENSIVE CHRONIC KIDNEY DISEASE W ST 02/23/2019 EMELY GONZALEZ MD, Ot N17.9 ACUTE KIDNEY FAILURE, UNSPECIFIED 02/23/2019 EMELY GONZALEZ MD, Ot N18.3 CHRONIC KIDNEY DISEASE, STAGE 3 (MODERAT 02/23/2019 EMELY GONZALEZ MD Ot R03.0 ELEVATED BLOOD-PRESSURE READING, W/O OMAR 02/23/2019 EMELY GONZALEZ MD Ot R94.31 ABNORMAL ELECTROCARDIOGRAM [ECG] [EKG] 02/23/2019 EMELY GONZALEZ MD Ot Z88.0 ALLERGY STATUS TO PENICILLIN 02/23/2019 EMELY GONZALEZ MD Ot Z88.1 ALLERGY STATUS TO OTHER ANTIBIOTIC AGENT 02/23/2019 EMELY GONZALEZ MD Ot Z88.2 ALLERGY STATUS TO SULFONAMIDES STATUS 02/23/2019 EMELY GONZALEZ MD Ot Z88.8 ALLERGY STATUS TO OTH DRUG/MEDS/BIOL SUB 02/23/2019 EMELY GONZALEZ MD Ot Z98.51 TUBAL LIGATION STATUS 02/25/2019 EMELY GONZALEZ MD Ot E87.1 HYPO-OSMOLALITY AND HYPONATREMIA 02/25/2019 EEMLY GONZALEZ MD Ot F17.210 NICOTINE DEPENDENCE, CIGARETTES, UNCOMPL 02/25/2019 EMELY GONZALEZ MD Ot F32.9 MAJOR DEPRESSIVE DISORDER, SINGLE EPISOD 02/25/2019 EMELY GONZALEZ MD, Ot I10 ESSENTIAL (PRIMARY) HYPERTENSION 02/25/2019 EMELY GONZALEZ MD, Ot I12.9 HYPERTENSIVE CHRONIC KIDNEY DISEASE W ST 02/25/2019 EMELY GONZALEZ MD Ot N17.9 ACUTE KIDNEY FAILURE, UNSPECIFIED 02/25/2019 LISA BARROSO, EMELY Pack Ot N18.3 CHRONIC KIDNEY DISEASE, STAGE 3 (MODERAT 02/25/2019 EMELY GONZALEZ MD Ot R03.0 ELEVATED BLOOD-PRESSURE READING, W/O OMAR 02/25/2019 EMELY GONZALEZ MD Ot R94.31 ABNORMAL ELECTROCARDIOGRAM [ECG] [EKG] 02/25/2019 EMELY GONZALEZ MD, Ot Z88.0 ALLERGY STATUS TO PENICILLIN 02/25/2019 EMELY GONZALEZ MD Ot Z88.1 ALLERGY STATUS TO OTHER ANTIBIOTIC AGENT 02/25/2019 EMELY GONZALEZ MD, Ot Z88.2 ALLERGY STATUS TO SULFONAMIDES STATUS 02/25/2019 EMELY GONZALEZ MD, Ot Z88.8 ALLERGY STATUS TO OTH DRUG/MEDS/BIOL SUB 02/25/2019 EMELY GONZALEZ MD Ot Z98.51 TUBAL LIGATION STATUS 02/27/2019 AMADO JOLLEY MD, Ot E87.1 HYPO-OSMOLALITY AND HYPONATREMIA 02/27/2019 AMADO JOLLEY MD, Ot F32.9 MAJOR DEPRESSIVE DISORDER, SINGLE EPISOD 02/27/2019 AMADO JOLLEY MD, Ot I12.9 HYPERTENSIVE CHRONIC KIDNEY DISEASE W ST 02/27/2019 AMADO JOLLEY MD, Ot M79.8 9 OTHER SPECIFIED SOFT TISSUE DISORDERS 02/27/2019 AMADO JOLLEY MD, Ot N18.4 CHRONIC KIDNEY DISEASE, STAGE 4 (SEVERE) 02/27/2019 AMADO JOLLEY MD, Ot Z77.2 2 CNTCT W AND EXPSR TO ENVIRON TOBACCO SMO 02/27/2019 AMADO JOLLEY MD, Ot Z88.0 ALLERGY STATUS TO PENICILLIN 02/27/2019 AMADO JOLLEY MD, Ot Z88.1 ALLERGY STATUS TO OTHER ANTIBIOTIC AGENT 02/27/2019 AMADO JOLLEY MD, Ot Z88.2 ALLERGY STATUS TO SULFONAMIDES STATUS 02/27/2019 AMADO JOLLEY MD, Ot Z88.8 ALLERGY STATUS TO OTH DRUG/MEDS/BIOL SUB 02/27/2019 AMADO JOLLEY MD, Ot Z98.5 1 TUBAL LIGATION STATUS 03/04/2019 AMADO JOLLEY MD, Ot E87.1 HYPO-OSMOLALITY AND HYPONATREMIA 03/04/2019 AMADO JOLLEY MD, Ot F32.9 MAJOR DEPRESSIVE DISORDER, SINGLE EPISOD 03/04/2019 AMADO JOLLEY MD, Ot I12.9 HYPERTENSIVE CHRONIC KIDNEY DISEASE W ST 03/04/2019 AMADO JOLLEY MD, Ot M79.8 9 OTHER SPECIFIED SOFT TISSUE DISORDERS 03/04/2019 AMADO JOLLEY MD, Ot N18.4 CHRONIC KIDNEY DISEASE, STAGE 4 (SEVERE) 03/04/2019 AMADO JOLLEY MD, Ot Z77.2 2 CNTCT W AND EXPSR TO ENVIRON TOBACCO SMO 03/04/2019 AMADO JOLLEY MD, Ot Z88.0 ALLERGY STATUS TO PENICILLIN 03/04/2019 AMADO JOLLEY MD, Ot Z88.1 ALLERGY STATUS TO OTHER ANTIBIOTIC AGENT 03/04/2019 AMADO JOLLEY MD, Ot Z88.2 ALLERGY STATUS TO SULFONAMIDES STATUS 03/04/2019 AMADO JOLLEY MD, Ot Z88.8 ALLERGY STATUS TO OTH DRUG/MEDS/BIOL SUB 03/04/2019 AMADO JOLLEY MD, Ot Z98.5 1 TUBAL LIGATION STATUS 03/06/2019 DYLAN CHRISTIANSEN DO Ot F17.2 10 NICOTINE DEPENDENCE, CIGARETTES, UNCOMPL 03/06/2019 DYLAN CHRISTIANSEN DO Ot F32.9 MAJOR DEPRESSIVE DISORDER, SINGLE EPISOD 03/06/2019 DYLAN CHRISTIANSEN DO B Ot I10 ESSENTIAL (PRIMARY) HYPERTENSION 03/06/2019 DYLAN CHRISTIANSEN DO B Ot N28.9 DISORDER OF KIDNEY AND URETER, UNSPECIFI 03/06/2019 DYLAN CHRISTIANSEN DO Ot R10.1 3 EPIGASTRIC PAIN 03/06/2019 DYLAN CHRISTIANSEN DO B Ot R11.2 NAUSEA WITH VOMITING, UNSPECIFIED 03/06/2019 DYLAN CHRISTIANSEN DO B Ot R19.7 DIARRHEA, UNSPECIFIED 03/06/2019 DYLAN CHRISTIANSEN DO Ot Z53.9 PROCEDURE AND TREATMENT NOT CARRIED OUT, 03/06/2019 DYLAN CHRISTIANSEN DO Ot Z79.8 99 OTHER [facility] (CURRENT) DRUG THERAPY 03/06/2019 DYLAN CHRISTIANSEN DO Ot Z88.0 ALLERGY STATUS TO PENICILLIN 03/06/2019 DYLAN CHRISTIANSEN DO Ot Z88.1 ALLERGY STATUS TO OTHER ANTIBIOTIC AGENT 03/06/2019 ЕЛЕНА DO DYLAN B Ot Z88.2 ALLERGY STATUS TO SULFONAMIDES STATUS 03/11/2019 ЕЛЕНА POLKRUPALIIC B Ot F17.2 10 NICOTINE DEPENDENCE, CIGARETTES, UNCOMPL 03/11/2019 ЕЛЕНА POLK DYLAN B Ot F32.9 MAJOR DEPRESSIVE DISORDER, SINGLE EPISOD 03/11/2019 ЕЛЕНА POLK DYLAN B Ot I10 ESSENTIAL (PRIMARY) HYPERTENSION 03/11/2019 ЕЛЕНА POLK DYLAN B Ot N28.9 DISORDER OF KIDNEY AND URETER, UNSPECIFI 03/11/2019 ЕЛЕНА POLK DYLAN B Ot R10.1 3 EPIGASTRIC PAIN 03/11/2019 ЕЛЕНА POLK DYLAN B Ot R11.2 NAUSEA WITH VOMITING, UNSPECIFIED 03/11/2019 KATHEFRANC DO DYLAN B Ot R19.7 DIARRHEA, UNSPECIFIED 03/11/2019 ЕЛЕНА POLK DYLAN B Ot Z53.9 PROCEDURE AND TREATMENT NOT CARRIED OUT, 03/11/2019 KATHEFRANC DYLAN POLK B Ot Z79.8 99 OTHER [facility] (CURRENT) DRUG THERAPY 03/11/2019 ЕЛЕНА POLK DYLAN B Ot Z88.0 ALLERGY STATUS TO PENICILLIN 03/11/2019 KATHEFRANC DO DYLAN B Ot Z88.1 ALLERGY STATUS TO OTHER ANTIBIOTIC AGENT 03/11/2019 KATHEFRANC RUPALI POLKIC B Ot Z88.2 ALLERGY STATUS TO SULFONAMIDES STATUS 04/01/2019 SONDRA MALONEY MD Ot R10.13 EPIGASTRIC PAIN 04/01/2019 SONDRA MALONEY MD Ot R11.10 VOMITING, UNSPECIFIED 04/01/2019 SONDRA MALONEY MD Ot R14.0 ABDOMINAL DISTENSION (GASEOUS) 04/01/2019 ЕЕЛНА RUPALI POLKIC B Ot F17.2 10 NICOTINE DEPENDENCE, CIGARETTES, UNCOMPL 04/01/2019 KATHEFRANC RUPALI POLKIC B Ot F32.9 MAJOR DEPRESSIVE DISORDER, SINGLE EPISOD 04/01/2019 KATHEFRANC DO DYLAN B Ot I10 ESSENTIAL (PRIMARY) HYPERTENSION 04/01/2019 ЕЛЕНА POLK, DYLAN B Ot N28.9 DISORDER OF KIDNEY AND URETER, UNSPECIFI 04/01/2019 RUPALI CHRISTIANSEN DOIC B Ot R10.1 3 EPIGASTRIC PAIN 04/01/2019 KATHEFRANC DO DYLAN B Ot R11.2 NAUSEA WITH VOMITING, UNSPECIFIED 04/01/2019 RUPALI CHRISTIANSEN DOIC B Ot R19.7 DIARRHEA, UNSPECIFIED 04/01/2019 RUPALI CHRISTIANSEN DOIC B Ot Z53.9 PROCEDURE AND TREATMENT NOT CARRIED OUT, 04/01/2019 RUPALI CHRISTIANSEN DOIC B Ot Z79.8 99 OTHER [facility] (CURRENT) DRUG THERAPY 04/01/2019 RUPALI CHRISTIANSEN DOIC B Ot Z88.0 ALLERGY STATUS TO PENICILLIN 04/01/2019 ЕЛЕНА POLKRUPALIIC B Ot Z88.1 ALLERGY STATUS TO OTHER ANTIBIOTIC AGENT 04/01/2019 ЕЛЕНА POLKDYLAN B Ot Z88.2 ALLERGY STATUS TO SULFONAMIDES STATUS 04/01/2019 ASIF SALEEM MD Ot I74 .3 EMBOLISM AND THROMBOSIS OF ARTERIES OF T 04/01/2019 ASIF SALEEM MD Ot I74 .3 EMBOLISM AND THROMBOSIS OF ARTERIES OF T 04/06/2019 ASIF SALEEM MD Ot 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 MANAGER 04/06/2019 ASIF SALEEM MD Ot E11.621 TYPE 2 DIABETES MELLITUS WITH FOOT ULCER 04/06/2019 ASIF SALEEM MD Ot 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, CIGARETTES, W OTH D 04/06/2019 ASIF SALEEM MD Ot I12 .0 HYP CHR KIDNEY DISEASE W STAGE 5 CHR KID 04/06/2019 ASIF SALEEM MD Ot I74 .3 EMBOLISM AND THROMBOSIS OF ARTERIES OF T 04/06/2019 ASIF SALEEM MD Ot L97.512 NON-PRS CHRONIC ULCER OTH PRT RIGHT FOOT 04/06/2019 ASIF SALEEM MD Ot L97.522 NON-PRS CHRONIC ULCER OTH PRT LEFT FOOT 04/06/2019 ASIF SALEEM MD Ot N18 .5 CHRONIC KIDNEY DISEASE, STAGE 5 04/06/2019 ASIF SALEEM MD Ot T65.222A TOXIC EFFECT OF TOBACCO CIGARETTES, SELF 04/08/2019 RAUL BONNER MD Ot E11. 22 TYPE 2 DIABETES MELLITUS W DIABETIC CONSTRUCTION SAFETY MANAGER 04/08/2019 RAUL BONNER MD Ot E11.621 TYPE 2 DIABETES MELLITUS WITH FOOT ULCER 04/08/2019 RAUL BONNER MD Ot 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, CIGARETTES, W OTH D 04/08/2019 RAUL BONNER MD Ot I08. 3 COMB RHEUMATIC DISORD OF MITRAL, AORTIC 04/08/2019 RAUL BONNER MD Ot I12. 9 HYPERTENSIVE CHRONIC KIDNEY DISEASE W ST 04/08/2019 RAUL BONNER MD Ot I73. 9 PERIPHERAL VASCULAR DISEASE, UNSPECIFIED 04/08/2019 RAUL BONNER MD Ot I74. 3 EMBOLISM AND THROMBOSIS OF ARTERIES OF T 04/08/2019 RAUL BONNER MD Ot L97.512 NON-PRS CHRONIC ULCER OTH PRT RIGHT FOOT 04/08/2019 RAUL BONNER MD Ot L97.522 NON-PRS CHRONIC ULCER OTH PRT LEFT FOOT 04/08/2019 RAUL BONNER MD Ot N18. 5 CHRONIC KIDNEY DISEASE, STAGE 5 04/08/2019 RAUL BONNER MD Ot T65.222A TOXIC EFFECT OF TOBACCO CIGARETTES, SELF 04/08/2019 RAUL BONNER MD Ot Z72. 0 TOBACCO USE 04/08/2019 ASIF SALEEM MD Ot I74 .3 EMBOLISM AND THROMBOSIS OF ARTERIES OF T 04/09/2019 ASIF SALEEM MD Ot I74 .3 EMBOLISM AND THROMBOSIS OF ARTERIES OF T 04/09/2019 SONDRA MALONEY MD Ot R10.13 EPIGASTRIC PAIN 04/09/2019 SONDRA MALONEY MD Ot R11.10 VOMITING, UNSPECIFIED 04/09/2019 SONDRA MALONEY MD Ot R14.0 ABDOMINAL DISTENSION (GASEOUS) 04/09/2019 DYLAN CHRISTIANSEN DO Ot F17.2 10 NICOTINE DEPENDENCE, CIGARETTES, UNCOMPL 04/09/2019 DYLAN CHRISTIANSEN DO Ot F32.9 MAJOR DEPRESSIVE DISORDER, SINGLE EPISOD 04/09/2019 DYLAN CHRISTIANSEN DO Ot I10 ESSENTIAL (PRIMARY) HYPERTENSION 04/09/2019 DYLAN CHRISTIANSEN DO Ot N28.9 DISORDER OF KIDNEY AND URETER, UNSPECIFI 04/09/2019 DYLAN CHRISTIANSEN DO Ot R10.1 3 EPIGASTRIC PAIN 04/09/2019 DYLAN CHRISTIANSEN DO Ot R11.2 NAUSEA WITH VOMITING, UNSPECIFIED 04/09/2019 DYLAN CHRISTIANSEN DO Ot R19.7 DIARRHEA, UNSPECIFIED 04/09/2019 DYLAN CHRISTIANSEN DO Ot Z53.9 PROCEDURE AND TREATMENT NOT CARRIED OUT, 04/09/2019 DYLAN CHRISTIANSEN DO Ot 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 04/09/2019 DYLAN CHRISTIANSEN DO Ot Z88.0 ALLERGY STATUS TO PENICILLIN 04/09/2019 DYLAN CHRISTIANSEN DO Ot Z88.1 ALLERGY STATUS TO OTHER ANTIBIOTIC AGENT 04/09/2019 DYLAN CHRISTIANSEN DO Ot Z88.2 ALLERGY STATUS TO SULFONAMIDES STATUS 04/09/2019 ASIF SALEEM MD Ot 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 MANAGER 04/09/2019 ASIF SALEEM MD, Ot E11.621 TYPE 2 DIABETES MELLITUS WITH FOOT ULCER 04/09/2019 ASIF SALEEM MD, Ot 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, CIGARETTES, W OTH D 04/09/2019 ASIF SALEEM MD Ot I12 .0 HYP CHR KIDNEY DISEASE W STAGE 5 CHR KID 04/09/2019 ASIF SALEEM MD, Ot I74 .3 EMBOLISM AND THROMBOSIS OF ARTERIES OF T 04/09/2019 ASIF SALEEM MD Ot L97.512 NON-PRS CHRONIC ULCER OTH PRT RIGHT FOOT 04/09/2019 ASIF SALEEM MD Ot L97.522 NON-PRS CHRONIC ULCER OTH PRT LEFT FOOT 04/09/2019 ASIF SALEEM MD Ot N18 .5 CHRONIC KIDNEY DISEASE, STAGE 5 04/09/2019 ASIF SALEEM MD Ot T65.222A TOXIC EFFECT OF TOBACCO CIGARETTES, SELF 04/09/2019 RAUL BONNER MD Ot E11. 22 TYPE 2 DIABETES MELLITUS W DIABETIC CONSTRUCTION SAFETY MANAGER 04/09/2019 RAUL BONNER MD, Ot E11.621 TYPE 2 DIABETES MELLITUS WITH FOOT ULCER 04/09/2019 RAUL BONNER MD Ot 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, CIGARETTES, W OTH D 04/09/2019 RAUL BONNER MD Ot I08. 3 COMB RHEUMATIC DISORD OF MITRAL, AORTIC 04/09/2019 RAUL BONNER MD Ot I12. 9 HYPERTENSIVE CHRONIC KIDNEY DISEASE W ST 04/09/2019 RAUL BONNER MD Ot I73. 9 PERIPHERAL VASCULAR DISEASE, UNSPECIFIED 04/09/2019 RAUL BONNER MD Ot I74. 3 EMBOLISM AND THROMBOSIS OF ARTERIES OF T 04/09/2019 RAUL BONNER MD Ot L97.512 NON-PRS CHRONIC ULCER OTH PRT RIGHT FOOT 04/09/2019 RAUL BONNER MD Ot L97.522 NON-PRS CHRONIC ULCER OTH PRT LEFT FOOT 04/09/2019 RAUL BONNER MD Ot N18. 5 CHRONIC KIDNEY DISEASE, STAGE 5 04/09/2019 RAUL BONNER MD Ot T65.222A TOXIC EFFECT OF TOBACCO CIGARETTES, SELF 04/09/2019 RAUL BONNER MD Ot Z72. 0 TOBACCO USE 04/09/2019 ASIF SALEEM MD Ot I70 .0 ATHEROSCLEROSIS OF AORTA 04/13/2019 RAUL BONNER MD Ot E78. 5 HYPERLIPIDEMIA, UNSPECIFIED 04/13/2019 RAUL BONNER MD Ot E87. 70 FLUID OVERLOAD, UNSPECIFIED 04/13/2019 RAUL BONNER MD Ot F17.200 NICOTINE DEPENDENCE, UNSPECIFIED, UNCOMP 04/13/2019 RAUL BONNER MD Ot F43. 21 ADJUSTMENT DISORDER WITH DEPRESSED MOOD 04/13/2019 RAUL BONNER MD Ot I08. 3 COMB RHEUMATIC DISORD OF MITRAL, AORTIC 04/13/2019 RAUL BONNER MD Ot I12. 9 HYPERTENSIVE CHRONIC KIDNEY DISEASE W ST 04/13/2019 RAUL BONNER MD Ot I21. 4 NON-ST ELEVATION (NSTEMI) MYOCARDIAL INF 04/13/2019 RAUL BONNER MD Ot I25. 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 4 ABDOMINAL AORTIC ANEURYSM, 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 04/13/2019 RAUL BONNER MD Ot I73. 1 THROMBOANGIITIS OBLITERANS [BUERGER'S DI 04/13/2019 RAUL BONNER MD Ot K59. 09 OTHER CONSTIPATION 04/13/2019 RAUL BONNER MD Ot N17. 9 ACUTE KIDNEY FAILURE, UNSPECIFIED 04/13/2019 RAUL BONNER MD Ot N18. 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 04/17/2019 ASIF SALEEM MD, Ot I71 .4 ABDOMINAL AORTIC ANEURYSM, 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 04/17/2019 ASIF SALEEM MD, Ot L97.512 NON-PRS CHRONIC ULCER OTH PRT RIGHT FOOT 04/17/2019 ASIF SALEEM MD, Ot L97.522 NON-PRS CHRONIC ULCER OTH PRT LEFT FOOT 04/17/2019 ASIF SALEEM MD, Ot N18 .5 CHRONIC KIDNEY DISEASE, STAGE 5 04/17/2019 ASIF SALEEM MD, Ot T65.222A TOXIC EFFECT OF TOBACCO CIGARETTES, SELF 04/17/2019 ASIF SALEEM MD Ot 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 MANAGER 04/17/2019 ASIF SALEEM MD, Ot E11.52 TYPE 2 DIABETES W DIABETIC PERIPHERAL AN 04/17/2019 ASIF SALEEM MD, Ot E11.621 TYPE 2 DIABETES MELLITUS WITH FOOT ULCER 04/17/2019 ASIF SALEEM MD, Ot 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, CIGARETTES, W OTH D 04/17/2019 ASIF SALEEM MD Ot I12 .0 HYP CHR KIDNEY DISEASE W STAGE 5 CHR KID 04/17/2019 ASIF SALEEM MD, Ot 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 04/17/2019 ASIF SALEEM MD, Ot I71 .4 ABDOMINAL AORTIC ANEURYSM, 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 04/17/2019 ASIF SALEEM MD, Ot L97.512 NON-PRS CHRONIC ULCER OTH PRT RIGHT FOOT 04/17/2019 ASIF SALEEM MD, Ot L97.522 NON-PRS CHRONIC ULCER OTH PRT LEFT FOOT 04/17/2019 ASIF SALEEM MD, Ot N18 .5 CHRONIC KIDNEY DISEASE, STAGE 5 04/17/2019 HARPER MD, ASIF G Ot T65.222A TOXIC EFFECT OF TOBACCO CIGARETTES, SELF 04/20/2019 ASIF SALEEM MD Ot 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 MANAGER 04/20/2019 ASIF SALEEM MD Ot E11.621 TYPE 2 DIABETES MELLITUS WITH FOOT ULCER 04/20/2019 ASIF SALEEM MD Ot 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, CIGARETTES, W OTH D 04/20/2019 ASIF SALEEM MD Ot I12 .0 HYP CHR KIDNEY DISEASE W STAGE 5 CHR KID 04/20/2019 ASIF SALEEM MD Ot I74 .3 EMBOLISM AND THROMBOSIS OF ARTERIES OF T 04/20/2019 ASIF SALEEM MD Ot L97.512 NON-PRS CHRONIC ULCER OTH PRT RIGHT FOOT 04/20/2019 ASIF SALEEM MD Ot L97.522 NON-PRS CHRONIC ULCER OTH PRT LEFT FOOT 04/20/2019 ASIF SALEEM MD Ot N18 .5 CHRONIC KIDNEY DISEASE, STAGE 5 04/20/2019 ASIF SALEEM MD, Ot T65.222A TOXIC EFFECT OF TOBACCO CIGARETTES, SELF 04/20/2019 RAUL BONNER MD Ot E11. 22 TYPE 2 DIABETES MELLITUS W DIABETIC CONSTRUCTION SAFETY MANAGER 04/20/2019 RAUL BONNER MD Ot E11.621 TYPE 2 DIABETES MELLITUS WITH FOOT ULCER 04/20/2019 RAUL BONNER MD Ot 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, CIGARETTES, W OTH D 04/20/2019 RAUL BONNER MD Ot I08. 3 COMB RHEUMATIC DISORD OF MITRAL, AORTIC 04/20/2019 RAUL BONNER MD Ot I12. 9 HYPERTENSIVE CHRONIC KIDNEY DISEASE W ST 04/20/2019 RAUL BONNER MD Ot I73. 9 PERIPHERAL VASCULAR DISEASE, UNSPECIFIED 04/20/2019 RAUL BONNER MD Ot I74. 3 EMBOLISM AND THROMBOSIS OF ARTERIES OF T 04/20/2019 RAUL BONNER MD Ot L97.512 NON-PRS CHRONIC ULCER OTH PRT RIGHT FOOT 04/20/2019 RAUL BONNER MD Ot L97.522 NON-PRS CHRONIC ULCER OTH PRT LEFT FOOT 04/20/2019 RAUL BONNER MD Ot N18. 5 CHRONIC KIDNEY DISEASE, STAGE 5 04/20/2019 RAUL BONNER MD Ot T65.222A TOXIC EFFECT OF TOBACCO CIGARETTES, SELF 04/20/2019 HA BARROSO, RAUL Obrien Ot Z72. 0 TOBACCO USE 04/21/2019 ASIF SALEEM MD Ot 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 MANAGER 04/21/2019 ASIF SALEEM MD, Ot E11.52 TYPE 2 DIABETES W DIABETIC PERIPHERAL AN 04/21/2019 ASIF SALEEM MD, Ot E11.621 TYPE 2 DIABETES MELLITUS WITH FOOT ULCER 04/21/2019 ASIF SALEEM MD, Ot F17.219 NICOTINE DEPENDENCE, CIGARETTES, W UNSP 04/21/2019 ASIF SALEEM MD, Ot I10 ESSENTIAL (PRIMARY) HYPERTENSION 04/21/2019 ASIF SALEEM MD, Ot I70 .0 ATHEROSCLEROSIS OF AORTA 04/21/2019 ASIF SALEEM MD, Ot I70.235 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 04/21/2019 ASIF SALEEM MD, Ot I70.245 ATHSCL [place] ARTERIES OF LEFT LEG W ULC 04/21/2019 ASIF SALEEM MD Ot L97.512 NON-PRS CHRONIC ULCER OTH PRT RIGHT FOOT 04/21/2019 ASIF SALEEM MD Ot L97.522 NON-PRS CHRONIC ULCER OTH PRT LEFT FOOT 04/21/2019 ASIF SALEEM MD, Ot N18 .5 CHRONIC KIDNEY DISEASE, STAGE 5 04/21/2019 ASIF SALEEM MD, Ot T65.222A TOXIC EFFECT OF TOBACCO CIGARETTES, SELF 04/27/2019 MARCIA DO, YASEMIN Ot A41.9 SEPSIS, UNSPECIFIED ORGANISM 04/27/2019 MARCIA POLK YASEMIN Ot D64.9 ANEMIA, UNSPECIFIED 04/27/2019 MARCIA DO YASEMIN Ot E78.5 HYPERLIPIDEMIA, UNSPECIFIED 04/27/2019 MARCIA DO YASEMIN Ot E87.1 HYPO-OSMOLALITY AND HYPONATREMIA 04/27/2019 MARCIA POLK YASEMIN Ot I07.1 RHEUMATIC TRICUSPID INSUFFICIENCY 04/27/2019 MARCIA POLK YASEMIN Ot I12.9 HYPERTENSIVE CHRONIC KIDNEY DISEASE W ST 04/27/2019 MARCIA POLK YASEMIN Ot I21.A1 MYOCARDIAL INFARCTION TYPE 2 04/27/2019 MARCIA POLK YASEMIN Ot I25.10 ATHSCL HEART DISEASE OF [place] CORONARY 04/27/2019 MARCIA POLK YASEMIN Ot I71.4 ABDOMINAL AORTIC ANEURYSM, 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 04/27/2019 YASEMIN KENNEDY DO Ot I73.1 THROMBOANGIITIS OBLITERANS [BUERGER'S DI 04/27/2019 JASON KENNEDY DOI Ot I73.9 PERIPHERAL VASCULAR DISEASE, UNSPECIFIED 04/27/2019 JASON KENNEDY DOI Ot I82.81 3 EMBOLISM AND THOMBOS OF SUPERFIC VEINS O 04/27/2019 MARCIA POLK YASEMIN Ot I96 GANGRENE, NOT ELSEWHERE CLASSIFIED 04/27/2019 MARCIA POLK YASEMIN Ot K58.0 IRRITABLE BOWEL SYNDROME WITH DIARRHEA 04/27/2019 MARCIA POLK YASEMIN Ot K58.1 IRRITABLE BOWEL SYNDROME WITH CONSTIPATI 04/27/2019 JASON KENNEDY DOI Ot K92.1 MELENA 04/27/2019 MARCIA POLK YASEMIN Ot L97.51 9 NON-PRS CHRONIC ULCER OTH PRT RIGHT FOOT 04/27/2019 JASON KENNEDY DOI Ot L97.52 9 NON-PRESSURE CHRONIC ULCER OTH PRT LEFT 04/27/2019 JASON KENNEDY DOI Ot M19.91 PRIMARY OSTEOARTHRITIS, UNSPECIFIED SITE 04/27/2019 MARCIA POLK YASEMIN Ot M54.9 DORSALGIA, UNSPECIFIED 04/27/2019 MARCIA POLK YASEMIN Ot N17.9 ACUTE KIDNEY FAILURE, UNSPECIFIED 04/27/2019 MARCIA POLK YASEMIN Ot N18.4 CHRONIC KIDNEY DISEASE, STAGE 4 (SEVERE) 04/27/2019 MARCIA POLK YASEMIN Ot N30.00 ACUTE CYSTITIS WITHOUT HEMATURIA 04/27/2019 JASON KENNEDY DOI Ot R65.21 SEVERE SEPSIS WITH SEPTIC SHOCK 04/27/2019 YASEMIN KENNEDY DO Ot 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 04/27/2019 MARCIA POLK YASEMIN Ot Z79.82 PUMPER GAUGER APPRENTICE (CURRENT) USE OF ASPIRIN 04/27/2019 JASON KENNEDY DOI Ot Z87.89 1 PERSONAL HISTORY OF NICOTINE DEPENDENCE 04/27/2019 YASEMIN KENNEDY DO Ot A41.9 SEPSIS, UNSPECIFIED ORGANISM 04/27/2019 MARICA POLK YASEMIN Ot D64.9 ANEMIA, UNSPECIFIED 04/27/2019 MARCIA POLK YASEMIN Ot E78.5 HYPERLIPIDEMIA, UNSPECIFIED 04/27/2019 MARCIA POLK YASEMIN Ot E87.1 HYPO-OSMOLALITY AND HYPONATREMIA 04/27/2019 YASEMIN KENNEDY DO Ot I07.1 RHEUMATIC TRICUSPID INSUFFICIENCY 04/27/2019 YASEMIN KENNEDY DO Ot I12.9 HYPERTENSIVE CHRONIC KIDNEY DISEASE W ST 04/27/2019 YASEMIN KENNEDY DO Ot I21.A1 MYOCARDIAL INFARCTION TYPE 2 04/27/2019 JASON KENNEDY DOI Ot I25.10 ATHSCL HEART DISEASE OF [place] CORONARY 04/27/2019 YASEMIN KENNEDY DO Ot I71.4 ABDOMINAL AORTIC ANEURYSM, 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 04/27/2019 YASEMIN KENNEDY DO Ot I73.1 THROMBOANGIITIS OBLITERANS [BUERGER'S DI 04/27/2019 JASON KENNEDY DOI Ot I73.9 PERIPHERAL VASCULAR DISEASE, UNSPECIFIED 04/27/2019 YASEMIN KENNEDY DO Ot I82.81 3 EMBOLISM AND THOMBOS OF SUPERFIC VEINS O 04/27/2019 JASON KENNEDY DOI Ot I96 GANGRENE, NOT ELSEWHERE CLASSIFIED 04/27/2019 YASEMIN KENNEDY DO Ot K58.0 IRRITABLE BOWEL SYNDROME WITH DIARRHEA 04/27/2019 YASEMIN KENNEDY DO Ot K58.1 IRRITABLE BOWEL SYNDROME WITH CONSTIPATI 04/27/2019 JASON KENNEDY DOI Ot K92.1 MELENA 04/27/2019 YASEMIN KENNEDY DO Ot L97.51 9 NON-PRS CHRONIC ULCER OTH PRT RIGHT FOOT 04/27/2019 JASON KENNEDY DOI Ot L97.52 9 NON-PRESSURE CHRONIC ULCER OTH PRT LEFT 04/27/2019 JASON KENNEDY DOI Ot M19.91 PRIMARY OSTEOARTHRITIS, UNSPECIFIED SITE 04/27/2019 YASEMIN KENNEDY DO Ot M54.9 DORSALGIA, UNSPECIFIED 04/27/2019 JASON KENNEDY DOI Ot N17.9 ACUTE KIDNEY FAILURE, UNSPECIFIED 04/27/2019 MARCIA POLK YASEMIN Ot N18.4 CHRONIC KIDNEY DISEASE, STAGE 4 (SEVERE) 04/27/2019 YASEMIN KENNEDY DO Ot N30.00 ACUTE CYSTITIS WITHOUT HEMATURIA 04/27/2019 YASEMIN KENNEDY DO Ot R65.21 SEVERE SEPSIS WITH SEPTIC SHOCK 04/27/2019 YASEMIN KENNEDY DO Ot Z79.01 [facility] (CURRENT) USE OF ANTICOAGULANT 04/27/2019 YASEMIN KENNEDY DO Ot Z79.82 PUMPER GAUGER APPRENTICE (CURRENT) USE OF ASPIRIN 04/27/2019 YASEMIN KENNEDY DO Ot Z87.89 1 PERSONAL HISTORY OF NICOTINE DEPENDENCE 04/27/2019 YASEMIN KENNEDY DO Ot A41.9 SEPSIS, UNSPECIFIED ORGANISM 04/27/2019 YASEMIN KENNEDY DO Ot D64.9 ANEMIA, UNSPECIFIED 04/27/2019 JASON KENNEDY DOI Ot E78.5 HYPERLIPIDEMIA, UNSPECIFIED 04/27/2019 JASON KENNEDY DOI Ot E87.1 HYPO-OSMOLALITY AND HYPONATREMIA 04/27/2019 JASON KENNEDY DOI Ot I07.1 RHEUMATIC TRICUSPID INSUFFICIENCY 04/27/2019 JASON KENNEDY DOI Ot I12.9 HYPERTENSIVE CHRONIC KIDNEY DISEASE W ST 04/27/2019 JASON KENNEDY DOI Ot I21.A1 MYOCARDIAL INFARCTION TYPE 2 04/27/2019 JASON KENNEDY DOI Ot I25.10 ATHSCL HEART DISEASE OF [place] CORONARY 04/27/2019 JASON KENNEDY DOI Ot I71.4 ABDOMINAL AORTIC ANEURYSM, 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 04/27/2019 YASEMIN KENNEDY DO Ot I73.1 THROMBOANGIITIS OBLITERANS [BUERGER'S DI 04/27/2019 JASON KENNEDY DOI Ot I73.9 PERIPHERAL VASCULAR DISEASE, UNSPECIFIED 04/27/2019 JASON KENNEDY DOI Ot I82.81 3 EMBOLISM AND THOMBOS OF SUPERFIC VEINS O 04/27/2019 JASON KENNEDY DOI Ot I96 GANGRENE, NOT ELSEWHERE CLASSIFIED 04/27/2019 YASEMIN KENNEDY DO Ot K58.0 IRRITABLE BOWEL SYNDROME WITH DIARRHEA 04/27/2019 YASEMIN KENNEDY DO Ot K58.1 IRRITABLE BOWEL SYNDROME WITH CONSTIPATI 04/27/2019 JASON KENNEDY DOI Ot K92.1 MELENA 04/27/2019 YASEMIN KENNEDY DO Ot L97.51 9 NON-PRS CHRONIC ULCER OTH PRT RIGHT FOOT 04/27/2019 YASEMIN KENNEDY DO Ot L97.52 9 NON-PRESSURE CHRONIC ULCER OTH PRT LEFT 04/27/2019 JASON KENNEDY DOI Ot M19.91 PRIMARY OSTEOARTHRITIS, UNSPECIFIED SITE 04/27/2019 JASON KENNEDY DOI Ot M54.9 DORSALGIA, UNSPECIFIED 04/27/2019 JASON KENNEDY DOI Ot N17.9 ACUTE KIDNEY FAILURE, UNSPECIFIED 04/27/2019 YASEMIN KENNEDY DO Ot N18.4 CHRONIC KIDNEY DISEASE, STAGE 4 (SEVERE) 04/27/2019 YASEMIN KENNEDY DO Ot N30.00 ACUTE CYSTITIS WITHOUT HEMATURIA 04/27/2019 YASEMIN KENNEDY DO Ot R65.21 SEVERE SEPSIS WITH SEPTIC SHOCK 04/27/2019 YASEMIN KENNEDY DO Ot Z79.01 [facility] (CURRENT) USE OF ANTICOAGULANT 04/27/2019 AYSEMIN KENNEDY DO Ot Z79.82 PUMPER GAUGER APPRENTICE (CURRENT) USE OF ASPIRIN 04/27/2019 YASEMIN KENNEDY DO Ot Z87.89 1 PERSONAL HISTORY OF NICOTINE DEPENDENCE 04/27/2019 YASEMIN KENNEDY DO Ot A41.9 SEPSIS, UNSPECIFIED ORGANISM 04/27/2019 YASEMIN KENNEDY DO Ot D64.9 ANEMIA, UNSPECIFIED 04/27/2019 JASON KENNEDY DOI Ot E78.5 HYPERLIPIDEMIA, UNSPECIFIED 04/27/2019 JASON KENNEDY DOI Ot E87.1 HYPO-OSMOLALITY AND HYPONATREMIA 04/27/2019 YASEMIN KENNEDY DO Ot I07.1 RHEUMATIC TRICUSPID INSUFFICIENCY 04/27/2019 JASON KENNEDY DOI Ot I12.9 HYPERTENSIVE CHRONIC KIDNEY DISEASE W ST 04/27/2019 JASON KENNEDY DOI Ot I21.A1 MYOCARDIAL INFARCTION TYPE 2 04/27/2019 YASEMIN KENNEDY DO Ot I25.10 ATHSCL HEART DISEASE OF [place] CORONARY 04/27/2019 JASON KENNEDY DOI Ot I71.4 ABDOMINAL AORTIC ANEURYSM, 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 04/27/2019 JASON KENNEDY DOI Ot I73.1 THROMBOANGIITIS OBLITERANS [BUERGER'S DI 04/27/2019 JASON KENNEDY DOI Ot I73.9 PERIPHERAL VASCULAR DISEASE, UNSPECIFIED 04/27/2019 JASON KENNEDY DOI Ot I82.81 3 EMBOLISM AND THOMBOS OF SUPERFIC VEINS O 04/27/2019 JASON KENNEDY DOI Ot I96 GANGRENE, NOT ELSEWHERE CLASSIFIED 04/27/2019 YASEMIN KENNEDY DO Ot K58.0 IRRITABLE BOWEL SYNDROME WITH DIARRHEA 04/27/2019 YASEMIN KENNEDY DO Ot K58.1 IRRITABLE BOWEL SYNDROME WITH CONSTIPATI 04/27/2019 YASEMIN KENNEDY DO Ot K92.1 MELENA 04/27/2019 JASON KENNEDY DOI Ot L97.51 9 NON-PRS CHRONIC ULCER OTH PRT RIGHT FOOT 04/27/2019 YASEMIN KENNEDY DO Ot L97.52 9 NON-PRESSURE CHRONIC ULCER OTH PRT LEFT 04/27/2019 YASEMIN KENNEDY DO Ot M19.91 PRIMARY OSTEOARTHRITIS, UNSPECIFIED SITE 04/27/2019 YASEMIN KENNEDY DO Ot M54.9 DORSALGIA, UNSPECIFIED 04/27/2019 YASEMIN KENNEDY DO Ot N17.9 ACUTE KIDNEY FAILURE, UNSPECIFIED 04/27/2019 YASEMIN KENNEDY DO Ot N18.4 CHRONIC KIDNEY DISEASE, STAGE 4 (SEVERE) 04/27/2019 JASON KENNEDY DOI Ot N30.00 ACUTE CYSTITIS WITHOUT HEMATURIA 04/27/2019 JASON KENNEDY DOI Ot R65.21 SEVERE SEPSIS WITH SEPTIC SHOCK 04/27/2019 YASEMIN KENNEDY DO Ot Z79.01 [facility] (CURRENT) USE OF ANTICOAGULANT 04/27/2019 JASON KENNEDY DOI Ot Z79.82 PUMPER GAUGER APPRENTICE (CURRENT) USE OF ASPIRIN 04/27/2019 JASON KENNEDY DOI Ot Z87.89 1 PERSONAL HISTORY OF NICOTINE DEPENDENCE 04/27/2019 JASON KENNEDY DOI Ot A41.9 SEPSIS, UNSPECIFIED ORGANISM 04/27/2019 JASON KENNEDY DOI Ot D64.9 ANEMIA, UNSPECIFIED 04/27/2019 JASON KENNEDY DOI Ot E78.5 HYPERLIPIDEMIA, UNSPECIFIED 04/27/2019 MARCIA POLK YASEMIN Ot E87.1 HYPO-OSMOLALITY AND HYPONATREMIA 04/27/2019 JASON KENNEDY DOI Ot I07.1 RHEUMATIC TRICUSPID INSUFFICIENCY 04/27/2019 JASON KENNEDY DOI Ot I12.9 HYPERTENSIVE CHRONIC KIDNEY DISEASE W ST 04/27/2019 MARCIA POLK YASEMIN Ot I21.A1 MYOCARDIAL INFARCTION TYPE 2 04/27/2019 MARCIA POLK YASEMIN Ot I25.10 ATHSCL HEART DISEASE OF [place] CORONARY 04/27/2019 JASON KENNEDY DOI Ot I71.4 ABDOMINAL AORTIC ANEURYSM, 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 04/27/2019 MARCIA POLK YASEMIN Ot I73.1 THROMBOANGIITIS OBLITERANS [BUERGER'S DI 04/27/2019 MARCIA POLK YASEMIN Ot I73.9 PERIPHERAL VASCULAR DISEASE, UNSPECIFIED 04/27/2019 JASON KENNEDY DOI Ot I82.81 3 EMBOLISM AND THOMBOS OF SUPERFIC VEINS O 04/27/2019 KENNEDY DO, YASEMIN Ot I96 GANGRENE, NOT ELSEWHERE CLASSIFIED 04/27/2019 KENNEDYJENNY POLK YASEMIN Ot K58.0 IRRITABLE BOWEL SYNDROME WITH DIARRHEA 04/27/2019 KENNEDY DO YASEMIN Ot K58.1 IRRITABLE BOWEL SYNDROME WITH CONSTIPATI 04/27/2019 KENNEDYJENNY POLK YASEMIN Ot K92.1 MELENA 04/27/2019 KENNEDYJENNY POLK YASEMIN Ot L97.51 9 NON-PRS CHRONIC ULCER OTH PRT RIGHT FOOT 04/27/2019 KENNEDY DO YASEMIN Ot L97.52 9 NON-PRESSURE CHRONIC ULCER OTH PRT LEFT 04/27/2019 KENNEDY DO YASEMIN Ot M19.91 PRIMARY OSTEOARTHRITIS, UNSPECIFIED SITE 04/27/2019 MARCIA POLK YASEMIN Ot M54.9 DORSALGIA, UNSPECIFIED 04/27/2019 MARCIA POLK YASEMIN Ot N17.9 ACUTE KIDNEY FAILURE, UNSPECIFIED 04/27/2019 MARCIA POLK YASEMIN Ot N18.4 CHRONIC KIDNEY DISEASE, STAGE 4 (SEVERE) 04/27/2019 MARCIA POLK YASEMIN Ot N30.00 ACUTE CYSTITIS WITHOUT HEMATURIA 04/27/2019 MARCIA POLK YASEMIN Ot R65.21 SEVERE SEPSIS WITH SEPTIC SHOCK 04/27/2019 MARCIA POLK YASEMIN Ot Z79.01 [facility] (CURRENT) USE OF ANTICOAGULANT 04/27/2019 MARCIA POLK YASEMIN Ot Z79.82 PUMPER GAUGER APPRENTICE (CURRENT) USE OF ASPIRIN 04/27/2019 MARCIA POLK YASEMIN Ot Z87.89 1 PERSONAL HISTORY OF NICOTINE DEPENDENCE 04/27/2019 ASIF SALEEM MD Ot 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 MANAGER 04/27/2019 ASIF SALEEM MD, Ot E11.621 TYPE 2 DIABETES MELLITUS WITH FOOT ULCER 04/27/2019 ASIF SALEEM MD Ot 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, CIGARETTES, W OTH D 04/27/2019 ASIF SALEEM MD Ot I12 .0 HYP CHR KIDNEY DISEASE W STAGE 5 CHR KID 04/27/2019 ASIF SALEEM MD, Ot I70.235 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 04/27/2019 ASIF SALEEM MD, Ot I70.245 ATHSCL [place] ARTERIES OF LEFT LEG W ULC 04/27/2019 HARPER BARROSO, ASIF Joyner Ot L97.512 NON-PRS CHRONIC ULCER OTH PRT RIGHT FOOT 04/27/2019 ASIF SALEEM MD Ot L97.522 NON-PRS CHRONIC ULCER OTH PRT LEFT FOOT 04/27/2019 HARPER BARROSO, ASIF Joyner Ot N18 .5 CHRONIC KIDNEY DISEASE, STAGE 5 04/27/2019 MARCIA POLK YASEMIN Ot A41.9 SEPSIS, UNSPECIFIED ORGANISM 04/27/2019 MARCIA POLK YASEMIN Ot D64.9 ANEMIA, UNSPECIFIED 04/27/2019 MARCIA POLK YASEMIN Ot E78.5 HYPERLIPIDEMIA, UNSPECIFIED 04/27/2019 MARCIA POLK YASEMIN Ot E87.1 HYPO-OSMOLALITY AND HYPONATREMIA 04/27/2019 MARCIA POLK YASEMIN Ot I07.1 RHEUMATIC TRICUSPID INSUFFICIENCY 04/27/2019 MARCIA POLK YASEMIN Ot I12.9 HYPERTENSIVE CHRONIC KIDNEY DISEASE W ST 04/27/2019 MARCIA POLK YASEMIN Ot I21.A1 MYOCARDIAL INFARCTION TYPE 2 04/27/2019 MARCIA POLK YASEMIN Ot I25.10 ATHSCL HEART DISEASE OF [place] CORONARY 04/27/2019 MARCIA POLK YASEMIN Ot I71.4 ABDOMINAL AORTIC ANEURYSM, 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 04/27/2019 MARCIA POLK YASEMIN Ot I73.1 THROMBOANGIITIS OBLITERANS [BUERGER'S DI 04/27/2019 MARCIA POLK YASEMIN Ot I73.9 PERIPHERAL VASCULAR DISEASE, UNSPECIFIED 04/27/2019 MARCIA POLK YASEMIN Ot I82.81 3 EMBOLISM AND THOMBOS OF SUPERFIC VEINS O 04/27/2019 MARCIA POLK YASEMIN Ot I96 GANGRENE, NOT ELSEWHERE CLASSIFIED 04/27/2019 MARCIA POLK YASEMIN Ot K58.0 IRRITABLE BOWEL SYNDROME WITH DIARRHEA 04/27/2019 MARCIA POLK YASEMIN Ot K58.1 IRRITABLE BOWEL SYNDROME WITH CONSTIPATI 04/27/2019 JASON KENNEDY DOI Ot K92.1 MELENA 04/27/2019 JASON KENNEDY DOI Ot L97.51 9 NON-PRS CHRONIC ULCER OTH PRT RIGHT FOOT 04/27/2019 MARCIA POLK YASEMIN Ot L97.52 9 NON-PRESSURE CHRONIC ULCER OTH PRT LEFT 04/27/2019 MARCIA POLK YASEMIN Ot M19.91 PRIMARY OSTEOARTHRITIS, UNSPECIFIED SITE 04/27/2019 YASEMIN KENNEDY DO Ot M54.9 DORSALGIA, UNSPECIFIED 04/27/2019 YASEMIN KENNEDY DO Ot N17.9 ACUTE KIDNEY FAILURE, UNSPECIFIED 04/27/2019 JASON KENNEDY DOI Ot N18.4 CHRONIC KIDNEY DISEASE, STAGE 4 (SEVERE) 04/27/2019 MARCIA POLK YASEMIN Ot N30.00 ACUTE CYSTITIS WITHOUT HEMATURIA 04/27/2019 JASON KNENEDY DOI Ot R65.21 SEVERE SEPSIS WITH SEPTIC SHOCK 04/27/2019 YASEMIN KENNEDY DO Ot 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 04/27/2019 YASEMIN KENNEDY DO Ot Z79.82 PUMPER GAUGER APPRENTICE (CURRENT) USE OF ASPIRIN 04/27/2019 YASEMIN KENNEDY DO Ot Z87.89 1 PERSONAL HISTORY OF NICOTINE DEPENDENCE 04/28/2019 YASEMIN KENNEDY DO Ot A41.9 SEPSIS, UNSPECIFIED ORGANISM 04/28/2019 YASEMIN KENNEDY DO Ot D64.9 ANEMIA, UNSPECIFIED 04/28/2019 JASON KENNEDY DOI Ot E78.5 HYPERLIPIDEMIA, UNSPECIFIED 04/28/2019 MARCIA POLK YASEMIN Ot E87.1 HYPO-OSMOLALITY AND HYPONATREMIA 04/28/2019 JASON KENNEDY DOI Ot I07.1 RHEUMATIC TRICUSPID INSUFFICIENCY 04/28/2019 JASON KENNEDY DOI Ot I12.9 HYPERTENSIVE CHRONIC KIDNEY DISEASE W ST 04/28/2019 JASON KENNEDY DOI Ot I21.A1 MYOCARDIAL INFARCTION TYPE 2 04/28/2019 JASON KENNEDY DOI Ot I25.10 ATHSCL HEART DISEASE OF [place] CORONARY 04/28/2019 JASON KENNEDY DOI Ot I71.4 ABDOMINAL AORTIC ANEURYSM, 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 04/28/2019 JASON KENNEDY DOI Ot I73.1 THROMBOANGIITIS OBLITERANS [BUERGER'S DI 04/28/2019 JASON KENNEDY DOI Ot I73.9 PERIPHERAL VASCULAR DISEASE, UNSPECIFIED 04/28/2019 JASON KENNEDY DOI Ot I82.81 3 EMBOLISM AND THOMBOS OF SUPERFIC VEINS O 04/28/2019 MARCIA POLK YASEMIN Ot I96 GANGRENE, NOT ELSEWHERE CLASSIFIED 04/28/2019 JASON KENNEDY DOI Ot K58.0 IRRITABLE BOWEL SYNDROME WITH DIARRHEA 04/28/2019 MARCIA POLK YASEMIN Ot K58.1 IRRITABLE BOWEL SYNDROME WITH CONSTIPATI 04/28/2019 MARCIA POLK YASEMIN Ot K92.1 MELENA 04/28/2019 MARCIA POLK YASEMIN Ot L97.51 9 NON-PRS CHRONIC ULCER OTH PRT RIGHT FOOT 04/28/2019 MARCIA POLK YASEMIN Ot L97.52 9 NON-PRESSURE CHRONIC ULCER OTH PRT LEFT 04/28/2019 MARCIA POLK YASEMIN Ot M19.91 PRIMARY OSTEOARTHRITIS, UNSPECIFIED SITE 04/28/2019 MARCIA POLK YASEMIN Ot M54.9 DORSALGIA, UNSPECIFIED 04/28/2019 MARCIA POLK YASEMIN Ot N17.9 ACUTE KIDNEY FAILURE, UNSPECIFIED 04/28/2019 MARCIA POLK YASEMIN Ot N18.4 CHRONIC KIDNEY DISEASE, STAGE 4 (SEVERE) 04/28/2019 MARCIA POLK YASEMIN Ot N30.00 ACUTE CYSTITIS WITHOUT HEMATURIA 04/28/2019 MARCIA POLK YASEMIN Ot R65.21 SEVERE SEPSIS WITH SEPTIC SHOCK 04/28/2019 MARCIA POLK YASEMIN Ot 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 04/28/2019 MARCIA POLK YASEMIN Ot Z79.82 PUMPER GAUGER APPRENTICE (CURRENT) USE OF ASPIRIN 04/28/2019 MARCIA POLK YASEMIN Ot Z87.89 1 PERSONAL HISTORY OF NICOTINE DEPENDENCE 04/28/2019 MARCIA POLK YASEMIN Ot A41.9 SEPSIS, UNSPECIFIED ORGANISM 04/28/2019 MARCIA POLK YASEMIN Ot D12.2 BENIGN NEOPLASM OF ASCENDING COLON 04/28/2019 MARCIA POLK YASEMIN Ot D12.3 BENIGN NEOPLASM OF TRANSVERSE COLON 04/28/2019 MARCIA POLK YASEMIN Ot D12.4 BENIGN NEOPLASM OF DESCENDING COLON 04/28/2019 MARCIA POLK YASEMIN Ot D64.9 ANEMIA, UNSPECIFIED 04/28/2019 MARCIA POLK YASMEIN Ot E78.5 HYPERLIPIDEMIA, UNSPECIFIED 04/28/2019 MARCIA POLK YASEMIN Ot E87.1 HYPO-OSMOLALITY AND HYPONATREMIA 04/28/2019 MARCIA POLK YASEMIN Ot I07.1 RHEUMATIC TRICUSPID INSUFFICIENCY 04/28/2019 MARCIA POLK YASEMIN Ot I12.9 HYPERTENSIVE CHRONIC KIDNEY DISEASE W ST 04/28/2019 MARCIA POLK YASEMIN Ot I21.A1 MYOCARDIAL INFARCTION TYPE 2 04/28/2019 JASON KENNEDY DOI Ot I25.10 ATHSCL HEART DISEASE OF [place] CORONARY 04/28/2019 MARCIA POLK YASEMIN Ot I71.4 ABDOMINAL AORTIC ANEURYSM, 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 04/28/2019 MARCIA POLK YASEMIN Ot I73.1 THROMBOANGIITIS OBLITERANS [BUERGER'S DI 04/28/2019 MARCIA POLK YASEMIN Ot I73.9 PERIPHERAL VASCULAR DISEASE, UNSPECIFIED 04/28/2019 MARCIA POLK YASEMIN Ot I82.81 3 EMBOLISM AND THOMBOS OF SUPERFIC VEINS O 04/28/2019 MARCIA POLK YASEMIN Ot I96 GANGRENE, NOT ELSEWHERE CLASSIFIED 04/28/2019 MARCIA POLK YASEMIN Ot K29.70 GASTRITIS, UNSPECIFIED, WITHOUT BLEEDING 04/28/2019 MARCIA POLK YASEMIN Ot K57.30 DVRTCLOS OF LG INT W/O PERFORATION 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 04/28/2019 MARCIA POLK YASEMIN Ot K58.0 IRRITABLE BOWEL SYNDROME WITH DIARRHEA 04/28/2019 MARCIA POLK YASEMIN Ot K58.1 IRRITABLE BOWEL SYNDROME WITH CONSTIPATI 04/28/2019 MARCIA POLK YASEMIN Ot K92.1 MELENA 04/28/2019 MARCIA POLK YASEMIN Ot L97.51 9 NON-PRS CHRONIC ULCER OTH PRT RIGHT FOOT 04/28/2019 MARICA POLK YASEMIN Ot L97.52 9 NON-PRESSURE CHRONIC ULCER OTH PRT LEFT 04/28/2019 MARCAI POLK YASEMIN Ot M19.91 PRIMARY OSTEOARTHRITIS, UNSPECIFIED SITE 04/28/2019 JASON KENNEDY DOI Ot M54.9 DORSALGIA, UNSPECIFIED 04/28/2019 MARCIA POLK YASEMIN Ot N17.9 ACUTE KIDNEY FAILURE, UNSPECIFIED 04/28/2019 MARCIA POLK YASEMIN Ot N18.4 CHRONIC KIDNEY DISEASE, STAGE 4 (SEVERE) 04/28/2019 MARCIA POLK YASEMIN Ot N30.00 ACUTE CYSTITIS WITHOUT HEMATURIA 04/28/2019 MARCIA POLK YASEMIN Ot R65.21 SEVERE SEPSIS WITH SEPTIC SHOCK 04/28/2019 JASON KENNEDY DOI Ot 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 04/28/2019 JASON KENNEDY DOI Ot Z79.82 PUMPER GAUGER APPRENTICE (CURRENT) USE OF ASPIRIN 04/28/2019 MARCIA POLK YASEMIN Ot Z87.89 1 PERSONAL HISTORY OF NICOTINE DEPENDENCE 05/01/2019 ASIF SALEEM MD Ot 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 MANAGER 05/01/2019 ASIF SALEEM MD, Ot E11.52 TYPE 2 DIABETES W DIABETIC PERIPHERAL AN 05/01/2019 ASIF SALEEM MD Ot E11.621 TYPE 2 DIABETES MELLITUS WITH FOOT ULCER 05/01/2019 ASIF SALEEM MD Ot 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, CIGARETTES, W OTH D 05/01/2019 ASIF SALEEM MD Ot I12 .0 HYP CHR KIDNEY DISEASE W STAGE 5 CHR KID 05/01/2019 ASIF SALEEM MD Ot I48.91 UNSPECIFIED ATRIAL FIBRILLATION 05/01/2019 ASIF SALEEM MD, Ot 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 05/01/2019 ASIF SALEEM MD, Ot I71 .4 ABDOMINAL AORTIC ANEURYSM, 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 05/01/2019 ASIF SALEEM MD Ot L97.512 NON-PRS CHRONIC ULCER OTH PRT RIGHT FOOT 05/01/2019 ASIF SALEEM MD Ot L97.522 NON-PRS CHRONIC ULCER OTH PRT LEFT FOOT 05/01/2019 ASIF SALEEM MD Ot N18 .5 CHRONIC KIDNEY DISEASE, STAGE 5 05/01/2019 ASIF SALEEM MD Ot T65.222A TOXIC EFFECT OF TOBACCO CIGARETTES, SELF 05/06/2019 MARCIA POLK YASEMIN Ot D62 ACUTE POSTHEMORRHAGIC ANEMIA 05/06/2019 MARCIA POLK YASEMIN Ot E78.5 HYPERLIPIDEMIA, UNSPECIFIED 05/06/2019 MARCIA POLK YASEMIN Ot E87.6 HYPOKALEMIA 05/06/2019 MARCIA POLK YASEMIN Ot F01.50 VASCULAR DEMENTIA WITHOUT BEHAVIORAL DIS 05/06/2019 MARCIA POLK YASEMIN Ot F43.21 ADJUSTMENT DISORDER WITH DEPRESSED MOOD 05/06/2019 MARCIA POLK YASEMIN Ot I08.1 RHEUMATIC DISORDERS OF BOTH MITRAL AND T 05/06/2019 MARCIA POLK YASEMIN Ot I13.0 HYP HRT CHR [place] DIS W HRT FAIL AND ST 05/06/2019 MARCIA POLK YASEMIN Ot I25.10 ATHSCL HEART DISEASE OF [place] CORONARY 05/06/2019 MARCIA POLK YASEMIN Ot I50.33 ACUTE ON CHRONIC DIASTOLIC (CONGESTIVE) 05/06/2019 MARCIA POLK YASEMIN Ot I71.4 ABDOMINAL AORTIC ANEURYSM, 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 05/06/2019 JASON KENNEDY DOI Ot I73.1 THROMBOANGIITIS OBLITERANS [BUERGER'S DI 05/06/2019 MARCIA POLK YASEMIN Ot I74.09 OTHER ARTERIAL EMBOLISM AND THROMBOSIS O 05/06/2019 MARCIA POLK YASEMIN Ot I95.9 HYPOTENSION, UNSPECIFIED 05/06/2019 JASON KENNEDY DOI Ot J44.9 CHRONIC OBSTRUCTIVE PULMONARY DISEASE, U 05/06/2019 MARCIA POLK YASEMIN Ot K25.9 GASTRIC ULCER, UNSP ACUTE OR CHRONIC, 05/06/2019 MARCIA POLK YASEMIN Ot K26.4 CHRONIC OR UNSPECIFIED DUODENAL ULCER [place] 05/06/2019 MARCIA POLK YASEMIN Ot K29.70 GASTRITIS, UNSPECIFIED, WITHOUT BLEEDING 05/06/2019 MARCIA POLK YASEMIN Ot 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 05/06/2019 MARCIA POLK YASEMIN Ot K58.0 IRRITABLE BOWEL SYNDROME WITH DIARRHEA 05/06/2019 MARCIA POLK YASEMIN Ot K58.1 IRRITABLE BOWEL SYNDROME WITH CONSTIPATI 05/06/2019 MARCIA POLK YASEMIN Ot M19.91 PRIMARY OSTEOARTHRITIS, UNSPECIFIED SITE 05/06/2019 MARCIA POLK YASEMIN Ot M54.9 DORSALGIA, UNSPECIFIED 05/06/2019 MARCIA POLK YASEMIN Ot N17.9 ACUTE KIDNEY FAILURE, UNSPECIFIED 05/06/2019 MARCIA POLK YASEMIN Ot N18.4 CHRONIC KIDNEY DISEASE, STAGE 4 (SEVERE) 05/06/2019 JASON KENNEDY DOI Ot Z79.01 [facility] (CURRENT) USE OF ANTICOAGULANT 05/06/2019 MARCIA POLK YASEMIN Ot Z79.02 PUMPER GAUGER APPRENTICE (CURRENT) USE OF ANTITHROMBOTI 05/06/2019 JASON KENENDY DOI Ot Z79.82 PUMPER GAUGER APPRENTICE (CURRENT) USE OF ASPIRIN 05/06/2019 JASON KENNEDY DOI Ot Z87.89 1 PERSONAL HISTORY OF NICOTINE DEPENDENCE 05/06/2019 HARPER BARROSO, ASIF Joyner Ot 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 MANAGER 05/06/2019 HARPER BARROSO, ASIF Joyner Ot E11.621 TYPE 2 DIABETES MELLITUS WITH FOOT ULCER 05/06/2019 ASIF SALEEM MD Ot 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, CIGARETTES, W OTH D 05/06/2019 ASIF SALEEM MD Ot I12 .0 HYP CHR KIDNEY DISEASE W STAGE 5 CHR KID 05/06/2019 ASIF SALEEM MD Ot I70.235 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 05/06/2019 ASIF SALEEM MD Ot I70.245 ATHSCL [place] ARTERIES OF LEFT LEG W ULC 05/06/2019 ASIF SALEEM MD Ot L97.512 NON-PRS CHRONIC ULCER OTH PRT RIGHT FOOT 05/06/2019 ASIF SALEEM MD Ot L97.522 NON-PRS CHRONIC ULCER OTH PRT LEFT FOOT 05/06/2019 ASIF SALEEM MD, Ot N18 .5 CHRONIC KIDNEY DISEASE, STAGE 5 05/07/2019 MARCIA POLK YASEMIN Ot D62 ACUTE POSTHEMORRHAGIC ANEMIA 05/07/2019 MARCIA POLK YASEMIN Ot E78.5 HYPERLIPIDEMIA, UNSPECIFIED 05/07/2019 MARCIA POLK YASEMIN Ot E87.6 HYPOKALEMIA 05/07/2019 MARCIA POLK YASEMIN Ot F01.50 VASCULAR DEMENTIA WITHOUT BEHAVIORAL DIS 05/07/2019 MARCIA POLK YASEMIN Ot F43.21 ADJUSTMENT DISORDER WITH DEPRESSED MOOD 05/07/2019 MARCIA POLK YASEMIN Ot I08.1 RHEUMATIC DISORDERS OF BOTH MITRAL AND T 05/07/2019 MARCIA POLK YASEMIN Ot I13.0 HYP HRT CHR [place] DIS W HRT FAIL AND ST 05/07/2019 MARCIA POLK YASEMIN Ot I25.10 ATHSCL HEART DISEASE OF [place] CORONARY 05/07/2019 MARCIA POLK YASEMIN Ot I50.33 ACUTE ON CHRONIC DIASTOLIC (CONGESTIVE) 05/07/2019 MARCIA POLK YASEMIN Ot I71.4 ABDOMINAL AORTIC ANEURYSM, 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 05/07/2019 MARCIA POLK YASEMIN Ot I73.1 THROMBOANGIITIS OBLITERANS [BUERGER'S DI 05/07/2019 MARCIA POKL YASEMIN Ot I74.09 OTHER ARTERIAL EMBOLISM AND THROMBOSIS O 05/07/2019 MARCIA POLK YASEMIN Ot I95.9 HYPOTENSION, UNSPECIFIED 05/07/2019 MARCIA POLK YASEMIN Ot J44.9 CHRONIC OBSTRUCTIVE PULMONARY DISEASE, U 05/07/2019 YASEMIN KENNEDY DO Ot K25.9 GASTRIC ULCER, UNSP ACUTE OR CHRONIC, 05/07/2019 YASEMIN KENNEDY DO Ot K26.4 CHRONIC OR UNSPECIFIED DUODENAL ULCER [place] 05/07/2019 YASEMIN KENNEDY DO Ot K29.70 GASTRITIS, UNSPECIFIED, WITHOUT BLEEDING 05/07/2019 YASEMIN KENNEDY DO Ot 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 05/07/2019 YASEMIN KENNEDY DO Ot K58.0 IRRITABLE BOWEL SYNDROME WITH DIARRHEA 05/07/2019 JASON KENNEDY DOI Ot K58.1 IRRITABLE BOWEL SYNDROME WITH CONSTIPATI 05/07/2019 YASEMIN KENNEDY DO Ot M19.91 PRIMARY OSTEOARTHRITIS, UNSPECIFIED SITE 05/07/2019 YASEMIN KENNEDY DO Ot M54.9 DORSALGIA, UNSPECIFIED 05/07/2019 JASON KENNEDY DOI Ot N17.9 ACUTE KIDNEY FAILURE, UNSPECIFIED 05/07/2019 JASON KENNEDY DOI Ot N18.4 CHRONIC KIDNEY DISEASE, STAGE 4 (SEVERE) 05/07/2019 YASEMIN KENNEDY DO Ot 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 05/07/2019 YASEMIN KENNEDY DO Ot Z79.02 [facility] (CURRENT) USE OF ANTITHROMBOTI 05/07/2019 YASEMIN KENNEDY DO Ot Z79.82 PUMPER GAUGER APPRENTICE (CURRENT) USE OF ASPIRIN 05/07/2019 YASEMIN KENNEDY DO Ot Z87.89 1 PERSONAL HISTORY OF NICOTINE DEPENDENCE 05/07/2019 YASEMIN KENNEDY DO Ot D62 ACUTE POSTHEMORRHAGIC ANEMIA 05/07/2019 YASEMIN KENNEDY DO Ot E78.5 HYPERLIPIDEMIA, UNSPECIFIED 05/07/2019 JASON KENNEDY DOI Ot E87.6 HYPOKALEMIA 05/07/2019 YASEMIN KENNEDY DO Ot F01.50 VASCULAR DEMENTIA WITHOUT BEHAVIORAL DIS 05/07/2019 YASEMIN KENNEDY DO Ot F43.21 ADJUSTMENT DISORDER WITH DEPRESSED MOOD 05/07/2019 YASEMIN KENNEDY DO Ot I08.1 RHEUMATIC DISORDERS OF BOTH MITRAL AND T 05/07/2019 YASEMIN KENNEDY DO Ot I13.0 HYP HRT CHR [place] DIS W HRT FAIL AND ST 05/07/2019 YASEMIN KENNEDY DO Ot I25.10 ATHSCL HEART DISEASE OF [place] CORONARY 05/07/2019 YASEMIN KENNEDY DO Ot I47.1 SUPRAVENTRICULAR TACHYCARDIA 05/07/2019 JASON KENNEDY DOI Ot I50.33 ACUTE ON CHRONIC DIASTOLIC (CONGESTIVE) 05/07/2019 JASON KENNEDY DOI Ot I71.4 ABDOMINAL AORTIC ANEURYSM, 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 05/07/2019 JASON KENNEDY DOI Ot I73.1 THROMBOANGIITIS OBLITERANS [BUERGER'S DI 05/07/2019 MARCIA POLK YASEMIN Ot I74.09 OTHER ARTERIAL EMBOLISM AND THROMBOSIS O 05/07/2019 JASON KENNEDY DOI Ot I95.9 HYPOTENSION, UNSPECIFIED 05/07/2019 MARCIA POLK YASEMIN Ot J44.9 CHRONIC OBSTRUCTIVE PULMONARY DISEASE, U 05/07/2019 JASON KENNEDY DOI Ot K25.9 GASTRIC ULCER, UNSP ACUTE OR CHRONIC, 05/07/2019 JASON KENNEDY DOI Ot K26.4 CHRONIC OR UNSPECIFIED DUODENAL ULCER WI 05/07/2019 JASON KENNEDY DOI Ot K29.70 GASTRITIS, UNSPECIFIED, WITHOUT BLEEDING 05/07/2019 YASEMIN KENNEDY DO Ot 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 05/07/2019 MARCIA POLK YASEMIN Ot K58.0 IRRITABLE BOWEL SYNDROME WITH DIARRHEA 05/07/2019 MARCIA POLK YASEMIN Ot K58.1 IRRITABLE BOWEL SYNDROME WITH CONSTIPATI 05/07/2019 MARCIA POLK YASEMIN Ot L97.51 9 NON-PRS CHRONIC ULCER OTH PRT RIGHT FOOT 05/07/2019 JASON KENNEDY DOI Ot L97.52 9 NON-PRESSURE CHRONIC ULCER OTH PRT LEFT 05/07/2019 JASON KENNEDY DOI Ot M19.91 PRIMARY OSTEOARTHRITIS, UNSPECIFIED SITE 05/07/2019 JASON KENNEDY DOI Ot M54.9 DORSALGIA, UNSPECIFIED 05/07/2019 JASON KENNEDY DOI Ot N17.9 ACUTE KIDNEY FAILURE, UNSPECIFIED 05/07/2019 JASON KENNEDY DOI Ot N18.4 CHRONIC KIDNEY DISEASE, STAGE 4 (SEVERE) 05/07/2019 YASEMIN KENNEDY DO Ot 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 05/07/2019 YASEMIN KENNEDY DO Ot Z79.02 PUMPER GAUGER APPRENTICE (CURRENT) USE OF ANTITHROMBOTI 05/07/2019 YASEMIN KENNEDY DO Ot Z87.89 1 PERSONAL HISTORY OF NICOTINE DEPENDENCE 05/18/2019 ASIF SALEEM MD, Ot 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 MANAGER 05/18/2019 ASIF SALEEM MD, Ot E11.52 TYPE 2 DIABETES W DIABETIC PERIPHERAL AN 05/18/2019 ASIF SALEEM MD, Ot E11.621 TYPE 2 DIABETES MELLITUS WITH FOOT ULCER 05/18/2019 ASIF SALEEM MD, Ot 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, CIGARETTES, W OTH D 05/18/2019 ASIF SALEEM MD, Ot I12 .0 HYP CHR KIDNEY DISEASE W STAGE 5 CHR KID 05/18/2019 ASIF SALEEM MD, Ot I48.91 UNSPECIFIED ATRIAL FIBRILLATION 05/18/2019 ASIF SALEEM MD, Ot 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 05/18/2019 ASIF SALEEM MD, Ot I71 .4 ABDOMINAL AORTIC ANEURYSM, 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 05/18/2019 ASIF SALEEM MD, Ot L97.512 NON-PRS CHRONIC ULCER OTH PRT RIGHT FOOT 05/18/2019 ASIF SALEEM MD, Ot L97.522 NON-PRS CHRONIC ULCER OTH PRT LEFT FOOT 05/18/2019 ASIF SALEEM MD, Ot N18 .5 CHRONIC KIDNEY DISEASE, STAGE 5 05/18/2019 ASIF SALEEM MD, Ot T65.222A TOXIC EFFECT OF TOBACCO CIGARETTES, SELF Procedures Code Description Performed By Per [facility] On [id number] ME ASURE OF CARDIAC SAMPL PRESSURE, L H 04/12/2019 [id number] FL UOROSCOPY OF MULT COR ART USING L OSM 04/12/2019 [id number] FL UOROSCOPY OF AORTA, BI LE ART USING L 04/12/2019 [id number] EX CISION OF ESOPHAGOGASTRIC JUNCTION, EN 04/27/2019 [id number] EX CISION OF STOMACH, ENDO, DIAGN 04/27/2019 [id number] EX CISION OF STOMACH, PYLORUS, ENDO, DIAG 04/27/2019 [id number] EX CISION OF ASCENDING COLON, ENDO, DIAGN 04/27/2019 [id number] EX CISION OF TRANSVERSE COLON, ENDO, DIAG 04/27/2019 [id number] EX CISION OF DESCENDING COLON, ENDO, DIAG 04/27/2019 [id number] IN SPECTION OF UPPER INTESTINAL TRACT, EN 05/02/2019 Results Test Result Range CBC - 11/05/18 09:17 WHITE BLOOD CELL COUNT 10.5 Thousand/uL 3.8-10.8 RED BLOOD CELL COUNT 5.18 Million/uL 3.8 0-5.10 HEMOGLOBIN 15.3 g/dL 11.7-15.5 HEMATOCRIT 45.6 % 35.0-45.0 MCV 88.0 fL 80.0-100.0 MCH 29.5 pg 27.0-33.0 MCHC 33.6 g/dL 32.0-36.0 RDW 13.4 % 11.0-15.0 PLATELET COUNT 271 Thousand/uL 140-400 MPV 10.6 fL 7.5-12.5 ABSOLUTE NEUTROPHILS 7781 cells/uL 1500- 7800 ABSOLUTE LYMPHOCYTES 1491 cells/uL 850-3 900 ABSOLUTE MONOCYTES 735 cells/uL 200-950 ABSOLUTE EOSINOPHILS 431 cells/uL 15-500 ABSOLUTE BASOPHILS 63 cells/uL 0-200 NEUTROPHILS 74.1 % NRG LYMPHOCYTES 14.2 % NRG MONOCYTES 7.0 % NRG EOSINOPHILS 4.1 % NRG BASOPHILS 0.6 % NRG CULTURE, STOOL - 11/10/18 08:49 SALMONELLA AND SHIGELLA, CULTURE SEE NOTE NRG STOOL (C-DIFF) - 11/10/18 08:49 CLOSTRIDIUM DIFFICILE TOXIN/GDH W/REFL TO PCR SEE NOTE NRG LIPID PANEL - 12/11/18 08:33 CHOLESTEROL, TOTAL 170 mg/dL <200 HDL CHOLESTEROL 45 mg/dL >50 TRIGLYCERIDES 131 mg/dL <150 LDL-CHOLESTEROL 102 mg/dL (calc) NRG CHOL/HDLC RATIO 3.8 (calc) <5.0 NON HDL CHOLESTEROL 125 mg/dL (calc) <13 0 CMP - 12/11/18 08:33 GLUCOSE 125 mg/dL 65-99 UREA NITROGEN (BUN) 16 mg/dL 7-25 CREATININE 2.27 mg/dL 0.60-0.93 eGFR NON-AFR. MALAWIAN 21 mL/min/1.73m2 > OR = 60 eGFR 24 mL/min/1.73m2 > OR = 60 BUN/CREATININE RATIO 7 (calc) 6-22 SODIUM 126 mmol/L 135-146 POTASSIUM 4.5 mmol/L 3.5-5.3 CHLORIDE 89 mmol/L 98-110 CARBON DIOXIDE 27 mmol/L 20-32 CALCIUM 10.1 mg/dL 8.6-10.4 PROTEIN, TOTAL 6.6 g/dL 6.1-8.1 ALBUMIN 3.9 g/dL 3.6-5.1 GLOBULIN 2.7 g/dL (calc) 1.9-3.7 ALBUMIN/GLOBULIN RATIO 1.4 (calc) 1.0-2. 5 BILIRUBIN, TOTAL 0.9 mg/dL 0.2-1.2 ALKALINE PHOSPHATASE 62 U/L 33-130 AST 14 U/L 10-35 ALT 9 U/L 6-29 CBC - 12/11/18 08:33 WHITE BLOOD CELL COUNT 10.1 Thousand/uL 3.8-10.8 RED BLOOD CELL COUNT 4.92 Million/uL 3.8 0-5.10 HEMOGLOBIN 14.3 g/dL 11.7-15.5 HEMATOCRIT 44.3 % 35.0-45.0 MCV 90.0 fL 80.0-100.0 MCH 29.1 pg 27.0-33.0 MCHC 32.3 g/dL 32.0-36.0 RDW 13.5 % 11.0-15.0 PLATELET COUNT 297 Thousand/uL 140-400 MPV 10.1 fL 7.5-12.5 ABSOLUTE NEUTROPHILS 7514 cells/uL 1500- 7800 ABSOLUTE LYMPHOCYTES 1263 cells/uL 850-3 900 ABSOLUTE MONOCYTES 758 cells/uL 200-950 ABSOLUTE EOSINOPHILS 495 cells/uL 15-500 ABSOLUTE BASOPHILS 71 cells/uL 0-200 NEUTROPHILS 74.4 % NRG LYMPHOCYTES 12.5 % NRG MONOCYTES 7.5 % NRG EOSINOPHILS 4.9 % NRG BASOPHILS 0.7 % NRG A1C - 12/11/18 08:33 HEMOGLOBIN A1c 5.6 % of total Hgb <5.7 AMYLASE - 12/24/18 09:29 AMYLASE 35 U/L 21-101 Comprehensive metabolic panel - 02/23/19 09:53 Serum or plasma sodium measurement (moles/volume) 129 mmol/L 135-145 Serum or plasma potassium measurement (moles/volume) 3.3 mmol/L 3.6-5.0 Serum or plasma chloride measurement (moles/volume) 94 mmol/L 98-107 Carbon dioxide 25 mmol/L 21-32 Serum or plasma anion gap determination (moles/volume) 10 mmol/L 5-14 Serum or plasma urea nitrogen measurement (mass/volume ) 23 mg/dL 7-18 Serum or plasma creatinine measurement (mass/volume) 3.45 mg/dL 0.60-1.30 Serum or plasma urea nitrogen/creatinine mass ratio 7 NRG Serum or plasma creatinine measurement w ith calculation of estimated glomerular filtration rate 13 NRG Serum or plasma glucose measurement (mass/volume) 111 mg/dL 70-105 Serum or plasma calcium measurement (mass/volume) 9.6 mg/dL 8.5-10.1 Serum or plasma total bilirubin measurement (mass/volu me) 0.6 mg/dL 0.1-1.0 Serum or plasma alkaline phosphatase matt surement (enzymatic activity/volume) 58 U/L 40-136 Serum or plasma aspartate aminotransfera se measurement (enzymatic activity/volume) 17 U/L 5-34 Serum or plasma alanine aminotransferase measurement (enzymatic activity/volume) 11 U/L 0-55 Serum or plasma protein measurement (mass/volume) 6.9 g/dL 6.4-8.2 Serum or plasma albumin measurement (mass/volume) 3.5 g/dL 3.2-4.5 CALCIUM CORRECTED 10.0 mg/dL 8.5-10.1 Magnesium - 02/23/19 09:53 Magnesium 1.7 mg/dL 1.6-2.4 Serum or plasma thyrotropin measurement by detection limit <=0.05 miu/l (units/volume) - 02/23/19 09:53 Serum or plasma thyrotropin measurement by detection limit <=0.05 miu/l (units/volume) 2.86 u[iU]/mL 0.35-4.94 Serum or plasma troponin i.cardiac measu rement (mass/volume) - 02/23/19 09:53 Serum or plasma troponin i.cardiac measurement (mass/v olume) 0.063 ng/mL <0.028 Complete blood count (CBC) with automate d white blood cell (WBC) differential - 02/27/19 17:13 Blood leukocytes automated count (number/volume) 9.8 10*3/uL 4.3-11.0 Blood erythrocytes automated count (number/volume) 3.57 10*6/uL 4.35-5.85 Venous blood hemoglobin measurement (mass/volume) 10.5 g/dL 11.5-16.0 Blood hematocrit (volume fraction) 31 % 35-52 Automated erythrocyte mean corpuscular volume 87 [ foz_us] 80-99 Automated erythrocyte mean corpuscular h emoglobin (mass per erythrocyte) 29 pg 25-34 Automated erythrocyte mean corpuscular h emoglobin concentration measurement (mass/volume) 34 g/dL 32-36 Automated erythrocyte distribution width ratio 13. 9 % 10.0- 14.5 Automated blood platelet count (count/volume) 316 10*3/uL 130-400 Automated blood platelet mean volume measurement 10.9 [foz_us] 7.4-10.4 Automated blood neutrophils/100 leukocytes 66 % 42-75 Automated blood lymphocytes/100 leukocytes 16 % 12-44 Blood monocytes/100 leukocytes 10 % 0-12 Automated blood eosinophils/100 leukocytes 6 % 0-10 Automated blood basophils/100 leukocytes 1 % 0-10 Blood neutrophils automated count (number/volume) 6.5 10*3 1.8-7.8 Blood lymphocytes automated count (number/volume) 1.6 10*3 1.0-4.0 Blood monocytes automated count (number/volume) 1. 0 10*3 0.0-1.0 Automated eosinophil count 0.6 10*3/uL 0 .0-0.3 Automated blood basophil count (count/volume) 0.1 10*3/uL 0.0-0.1 Comprehensive metabolic panel - 02/27/19 17:13 Serum or plasma sodium measurement (moles/volume) 126 mmol/L 135-145 Serum or plasma potassium measurement (moles/volume) 3.3 mmol/L 3.6-5.0 Serum or plasma chloride measurement (moles/volume) 90 mmol/L 98-107 Carbon dioxide 25 mmol/L 21-32 Serum or plasma anion gap determination (moles/volume) 11 mmol/L 5-14 Serum or plasma urea nitrogen measurement (mass/volume ) 17 mg/dL 7-18 Serum or plasma creatinine measurement (mass/volume) 3.06 mg/dL 0.60-1.30 Serum or plasma urea nitrogen/creatinine mass ratio 6 NRG Serum or plasma creatinine measurement w ith calculation of estimated glomerular filtration rate 15 NRG Serum or plasma glucose measurement (mass/volume) 125 mg/dL 70-105 Serum or plasma calcium measurement (mass/volume) 9.8 mg/dL 8.5-10.1 Serum or plasma total bilirubin measurement (mass/volu me) 0.6 mg/dL 0.1-1.0 Serum or plasma alkaline phosphatase matt surement (enzymatic activity/volume) 60 U/L 40-136 Serum or plasma aspartate aminotransfera se measurement (enzymatic activity/volume) 17 U/L 5-34 Serum or plasma alanine aminotransferase measurement (enzymatic activity/volume) 9 U/L 0-55 Serum or plasma protein measurement (mass/volume) 6.9 g/dL 6.4-8.2 Serum or plasma albumin measurement (mass/volume) 3.8 g/dL 3.2-4.5 CALCIUM CORRECTED 10.0 mg/dL 8.5-10.1 PT panel in platelet poor plasma by coag ulation assay - 02/27/19 17:13 Prothrombin time (PT) in platelet poor plasma by coagu lation assay 14.1 s 12.2-14.7 INR in platelet poor plasma or blood by coagulation as say 1.1 0.8-1.4 Activated partial thromboplastin time (a PTT) in platelet poor plasma bycoagulation assay - 02/27/19 17:13 Activated partial thromboplastin time (a PTT) in platelet poor plasma bycoagulation assay 31 s 24-35 Erythrocyte sedimentation rate by jl gren method - 02/27/19 17:13 Erythrocyte sedimentation rate by westergren method 27 mm 0- 30 Serum or plasma C reactive protein measu rement (mass/volume) - 02/27/19 17:13 Serum or plasma C reactive protein measurement (mass/v olume) 6.72 mg/dL 0.00-0.50 BMP - 03/03/19 10:24 GLUCOSE 111 mg/dL 65-99 UREA NITROGEN (BUN) 18 mg/dL 7-25 CREATININE 3.00 mg/dL 0.60-0.93 eGFR NON-AFR. MALAWIAN 15 mL/min/1.73m2 > OR = 60 eGFR 17 mL/min/1.73m2 > OR = 60 BUN/CREATININE RATIO 6 (calc) 6-22 SODIUM 131 mmol/L 135-146 POTASSIUM 3.5 mmol/L 3.5-5.3 CHLORIDE 95 mmol/L 98-110 CARBON DIOXIDE 26 mmol/L 20-32 CALCIUM 9.5 mg/dL 8.6-10.4 Hemoglobin A1c measurement - 04/01/19 10 :45 Blood hemoglobin A1C measurement (mass/volume) 4.8 % 4.0-5.6 MEAN BLOOD GLUCOSE 91 % <=126 Prealbumin - 04/01/19 10:45 Serum or plasma prealbumin measurement (mass/volume) 16.2 % 18.0-37.0 Automated blood complete blood count (he mogram) panel - 04/09/19 14:50 Blood leukocytes automated count (number/volume) 9.3 10*3/uL 4.3-11.0 Blood erythrocytes automated count (number/volume) 3.08 10*6/uL 4.35-5.85 Venous blood hemoglobin measurement (mass/volume) 9.0 g/dL 11.5-16.0 Blood hematocrit (volume fraction) 27 % 35-52 Automated erythrocyte mean corpuscular volume 87 [ foz_us] 80-99 Automated erythrocyte mean corpuscular h emoglobin (mass per erythrocyte) 29 pg 25-34 Automated erythrocyte mean corpuscular h emoglobin concentration measurement (mass/volume) 34 g/dL 32-36 Automated erythrocyte distribution width ratio 14. 9 % 10.0- 14.5 Automated blood platelet count (count/volume) 368 10*3/uL 130-400 Automated blood platelet mean volume measurement 9.2 [foz_us] 7.4-10.4 PT panel in platelet poor plasma by coag ulation assay - 04/09/19 14:50 Prothrombin time (PT) in platelet poor plasma by coagu lation assay 14.9 s 12.2-14.7 INR in platelet poor plasma or blood by coagulation as say 1.1 0.8-1.4 Activated partial thromboplastin time (a PTT) in platelet poor plasma bycoagulation assay - 04/09/19 14:50 Activated partial thromboplastin time (a PTT) in platelet poor plasma bycoagulation assay 47 s 24-35 Comprehensive metabolic panel - 04/09/19 14:50 Serum or plasma sodium measurement (moles/volume) 127 mmol/L 135-145 Serum or plasma potassium measurement (moles/volume) 3.6 mmol/L 3.6-5.0 Serum or plasma chloride measurement (moles/volume) 91 mmol/L 98-107 Carbon dioxide 23 mmol/L 21-32 Serum or plasma anion gap determination (moles/volume) 13 mmol/L 5-14 Serum or plasma urea nitrogen measurement (mass/volume ) 17 mg/dL 7-18 Serum or plasma creatinine measurement (mass/volume) 3.16 mg/dL 0.60-1.30 Serum or plasma urea nitrogen/creatinine mass ratio 5 NRG Serum or plasma creatinine measurement w ith calculation of estimated glomerular filtration rate 14 NRG Serum or plasma glucose measurement (mass/volume) 91 mg/dL 70-105 Serum or plasma calcium measurement (mass/volume) 10.1 mg/dL 8.5-10.1 Serum or plasma total bilirubin measurement (mass/volu me) 0.9 mg/dL 0.1-1.0 Serum or plasma alkaline phosphatase matt surement (enzymatic activity/volume) 66 U/L 40-136 Serum or plasma aspartate aminotransfera se measurement (enzymatic activity/volume) 31 U/L 5-34 Serum or plasma alanine aminotransferase measurement (enzymatic activity/volume) 14 U/L 0-55 Serum or plasma protein measurement (mass/volume) 6.9 g/dL 6.4-8.2 Serum or plasma albumin measurement (mass/volume) 3.9 g/dL 3.2-4.5 CALCIUM CORRECTED 10.2 mg/dL 8.5-10.1 Magnesium - 04/09/19 14:50 Magnesium 1.8 mg/dL 1.6-2.4 Serum or plasma troponin i.cardiac measu rement (mass/volume) - 04/09/19 14:50 Serum or plasma troponin i.cardiac measurement (mass/v olume) 0.083 ng/mL <0.028 Bacterial blood culture - 04/09/19 14:50 Bacterial blood culture NG NRG Bacterial blood culture - 04/09/19 15:00 Bacterial blood culture NG NRG Capillary blood glucose measurement by g lucometer (mass/volume) - 04/09/19 16:30 Capillary blood glucose measurement by glucometer (mas s/volume) 109 mg/dL 70-110 Capillary blood glucose measurement by g lucometer (mass/volume) - 04/09/19 20:59 Capillary blood glucose measurement by glucometer (mas s/volume) 87 mg/dL 70-110 Whole blood basic metabolic panel - 03/27 10/12 05:04 Serum or plasma sodium measurement (moles/volume) 130 mmol/L 135-145 Serum or plasma potassium measurement (moles/volume) 3.5 mmol/L 3.6-5.0 Serum or plasma chloride measurement (moles/volume) 96 mmol/L 98-107 Carbon dioxide 20 mmol/L 21-32 Serum or plasma anion gap determination (moles/volume) 14 mmol/L 5-14 Serum or plasma urea nitrogen measurement (mass/volume ) 15 mg/dL 7-18 Serum or plasma creatinine measurement (mass/volume) 2.66 mg/dL 0.60-1.30 Serum or plasma urea nitrogen/creatinine mass ratio 6 NRG Serum or plasma creatinine measurement w ith calculation of estimated glomerular filtration rate 18 NRG Serum or plasma glucose measurement (mass/volume) 78 mg/dL 70-105 Serum or plasma calcium measurement (mass/volume) 9.4 mg/dL 8.5-10.1 Magnesium - 04/10/19 05:04 Magnesium 1.7 mg/dL 1.6-2.4 Capillary blood glucose measurement by g lucometer (mass/volume) - 04/10/19 11:26 Capillary blood glucose measurement by glucometer (mas s/volume) 88 mg/dL 70-110 Capillary blood glucose measurement by g lucometer (mass/volume) - 04/10/19 15:55 Capillary blood glucose measurement by glucometer (mas s/volume) 111 mg/dL 70-110 Capillary blood glucose measurement by g lucometer (mass/volume) - 04/10/19 21:00 Capillary blood glucose measurement by glucometer (mas s/volume) 92 mg/dL 70-110 Capillary blood glucose measurement by g lucometer (mass/volume) - 04/11/19 05:53 Capillary blood glucose measurement by glucometer (mas s/volume) 92 mg/dL 70-110 Whole blood basic metabolic panel - 03/27 11/12 05:55 Serum or plasma sodium measurement (moles/volume) 132 mmol/L 135-145 Serum or plasma potassium measurement (moles/volume) 3.8 mmol/L 3.6-5.0 Serum or plasma chloride measurement (moles/volume) 102 mmol/L 98-107 Carbon dioxide 17 mmol/L 21-32 Serum or plasma anion gap determination (moles/volume) 13 mmol/L 5-14 Serum or plasma urea nitrogen measurement (mass/volume ) 17 mg/dL 7-18 Serum or plasma creatinine measurement (mass/volume) 2.29 mg/dL 0.60-1.30 Serum or plasma urea nitrogen/creatinine mass ratio 7 NRG Serum or plasma creatinine measurement w ith calculation of estimated glomerular filtration rate 21 NRG Serum or plasma glucose measurement (mass/volume) 93 mg/dL 70-105 Serum or plasma calcium measurement (mass/volume) 9.0 mg/dL 8.5-10.1 Magnesium - 04/11/19 05:55 Magnesium 1.7 mg/dL 1.6-2.4 Lipid 1996 panel - 04/11/19 05:55 Serum or plasma triglyceride measurement (mass/volume) 75 mg/dL <150 Serum or plasma cholesterol measurement (mass/volume) 138 mg/dL < 200 Serum or plasma cholesterol in HDL measurement (mass/v olume) 54 mg/dL 40-60 Cholesterol in LDL [mass/volume] in serum or plasma by direct assay 60 mg/dL 1-129 Serum or plasma cholesterol in VLDL measurement (mass/ volume) 15 mg/dL 5-40 Capillary blood glucose measurement by g lucometer (mass/volume) - 04/11/19 11:28 Capillary blood glucose measurement by glucometer (mas s/volume) 102 mg/dL 70-110 Capillary blood glucose measurement by g lucometer (mass/volume) - 04/11/19 16:00 Capillary blood glucose measurement by glucometer (mas s/volume) 109 mg/dL 70-110 Capillary blood glucose measurement by g lucometer (mass/volume) - 04/11/19 20:21 Capillary blood glucose measurement by glucometer (mas s/volume) 102 mg/dL 70-110 Automated blood complete blood count ( mogram) panel - 04/12/19 05:10 Blood leukocytes automated count (number/volume) 11.4 10*3/uL 4.3-11.0 Blood erythrocytes automated count (number/volume) 2.87 10*6/uL 4.35-5.85 Venous blood hemoglobin measurement (mass/volume) 8.3 g/dL 11.5-16.0 Blood hematocrit (volume fraction) 25 % 35-52 Automated erythrocyte mean corpuscular volume 89 [ foz_us] 80-99 Automated erythrocyte mean corpuscular h emoglobin (mass per erythrocyte) 29 pg 25-34 Automated erythrocyte mean corpuscular h emoglobin concentration measurement (mass/volume) 33 g/dL 32-36 Automated erythrocyte distribution width ratio 15. 2 % 10.0- 14.5 Automated blood platelet count (count/volume) 320 10*3/uL 130-400 Automated blood platelet mean volume measurement 9.4 [foz_us] 7.4-10.4 Whole blood basic metabolic panel - 03/27 12/12 05:10 Serum or plasma sodium measurement (moles/volume) 133 mmol/L 135-145 Serum or plasma potassium measurement (moles/volume) 3.6 mmol/L 3.6-5.0 Serum or plasma chloride measurement (moles/volume) 105 mmol/L 98-107 Carbon dioxide 15 mmol/L 21-32 Serum or plasma anion gap determination (moles/volume) 13 mmol/L 5-14 Serum or plasma urea nitrogen measurement (mass/volume ) 16 mg/dL 7-18 Serum or plasma creatinine measurement (mass/volume) 2.19 mg/dL 0.60-1.30 Serum or plasma urea nitrogen/creatinine mass ratio 7 NRG Serum or plasma creatinine measurement w ith calculation of estimated glomerular filtration rate 22 NRG Serum or plasma glucose measurement (mass/volume) 89 mg/dL 70-105 Serum or plasma calcium measurement (mass/volume) 9.1 mg/dL 8.5-10.1 Capillary blood glucose measurement by g lucometer (mass/volume) - 04/12/19 11:05 Capillary blood glucose measurement by glucometer (mas s/volume) 82 mg/dL 70-110 Capillary blood glucose measurement by g lucometer (mass/volume) - 04/12/19 16:33 Capillary blood glucose measurement by glucometer (mas s/volume) 183 mg/dL 70-110 Capillary blood glucose measurement by g lucometer (mass/volume) - 04/12/19 20:29 Capillary blood glucose measurement by glucometer (mas s/volume) 178 mg/dL 70-110 Automated blood complete blood count (he mogram) panel - 04/13/19 07:52 Blood leukocytes automated count (number/volume) 10.8 10*3/uL 4.3-11.0 Blood erythrocytes automated count (number/volume) 2.70 10*6/uL 4.35-5.85 Venous blood hemoglobin measurement (mass/volume) 7.9 g/dL 11.5-16.0 Blood hematocrit (volume fraction) 24 % 35-52 Automated erythrocyte mean corpuscular volume 87 [ foz_us] 80-99 Automated erythrocyte mean corpuscular h emoglobin (mass per erythrocyte) 29 pg 25-34 Automated erythrocyte mean corpuscular h emoglobin concentration measurement (mass/volume) 34 g/dL 32-36 Automated erythrocyte distribution width ratio 15. 6 % 10.0- 14.5 Automated blood platelet count (count/volume) 323 10*3/uL 130-400 Automated blood platelet mean volume measurement 10.1 [foz_us] 7.4-10.4 Whole blood basic metabolic panel - 03/27 01/12 07:52 Serum or plasma sodium measurement (moles/volume) 131 mmol/L 135-145 Serum or plasma potassium measurement (moles/volume) 3.5 mmol/L 3.6-5.0 Serum or plasma chloride measurement (moles/volume) 102 mmol/L 98-107 Carbon dioxide 18 mmol/L 21-32 Serum or plasma anion gap determination (moles/volume) 11 mmol/L 5-14 Serum or plasma urea nitrogen measurement (mass/volume ) 21 mg/dL 7-18 Serum or plasma creatinine measurement (mass/volume) 2.20 mg/dL 0.60-1.30 Serum or plasma urea nitrogen/creatinine mass ratio 10 NRG Serum or plasma creatinine measurement w ith calculation of estimated glomerular filtration rate 22 NRG Serum or plasma glucose measurement (mass/volume) 169 mg/dL 70-105 Serum or plasma calcium measurement (mass/volume) 9.4 mg/dL 8.5-10.1 Complete blood count (CBC) with automate d white blood cell (WBC) differential - 04/22/19 10:35 Blood leukocytes automated count (number/volume) 9.4 10*3/uL 4.3-11.0 Blood erythrocytes automated count (number/volume) 2.35 10*6/uL 4.35-5.85 Venous blood hemoglobin measurement (mass/volume) 6.9 g/dL 11.5-16.0 Blood hematocrit (volume fraction) 21 % 35-52 Automated erythrocyte mean corpuscular volume 89 [ foz_us] 80-99 Automated erythrocyte mean corpuscular h emoglobin (mass per erythrocyte) 29 pg 25-34 Automated erythrocyte mean corpuscular h emoglobin concentration measurement (mass/volume) 33 g/dL 32-36 Automated erythrocyte distribution width ratio 16. 0 % 10.0- 14.5 Automated blood platelet count (count/volume) 440 10*3/uL 130-400 Automated blood platelet mean volume measurement 10.0 [foz_us] 7.4-10.4 Automated blood neutrophils/100 leukocytes 64 % 42-75 Automated blood lymphocytes/100 leukocytes 20 % 12-44 Blood monocytes/100 leukocytes 10 % 0-12 Automated blood eosinophils/100 leukocytes 5 % 0-10 Automated blood basophils/100 leukocytes 1 % 0-10 Blood neutrophils automated count (number/volume) 6.0 10*3 1.8-7.8 Blood lymphocytes automated count (number/volume) 1.9 10*3 1.0-4.0 Blood monocytes automated count (number/volume) 0. 9 10*3 0.0-1.0 Automated eosinophil count 0.5 10*3/uL 0 .0-0.3 Automated blood basophil count (count/volume) 0.1 10*3/uL 0.0-0.1 Blood lactic acid measurement (moles/vol ume) - 04/22/19 10:35 Blood lactic acid measurement (moles/volume) 4.22 mmol/L 0.50-2.00 PT panel in platelet poor plasma by coag ulation assay - 04/22/19 10:35 Prothrombin time (PT) in platelet poor plasma by coagu lation assay 18.0 s 12.2-14.7 INR in platelet poor plasma or blood by coagulation as say 1.4 0.8-1.4 Activated partial thromboplastin time (a PTT) in platelet poor plasma bycoagulation assay - 04/22/19 10:35 Activated partial thromboplastin time (a PTT) in platelet poor plasma bycoagulation assay 31 s 24-35 Comprehensive metabolic panel - 04/22/19 10:35 Serum or plasma sodium measurement (moles/volume) 133 mmol/L 135-145 Serum or plasma potassium measurement (moles/volume) 3.8 mmol/L 3.6-5.0 Serum or plasma chloride measurement (moles/volume) 100 mmol/L 98-107 Carbon dioxide 18 mmol/L 21-32 Serum or plasma anion gap determination (moles/volume) 15 mmol/L 5-14 Serum or plasma urea nitrogen measurement (mass/volume ) 21 mg/dL 7-18 Serum or plasma creatinine measurement (mass/volume) 2.55 mg/dL 0.60-1.30 Serum or plasma urea nitrogen/creatinine mass ratio 8 NRG Serum or plasma creatinine measurement w ith calculation of estimated glomerular filtration rate 19 NRG Serum or plasma glucose measurement (mass/volume) 165 mg/dL 70-105 Serum or plasma calcium measurement (mass/volume) 8.9 mg/dL 8.5-10.1 Serum or plasma total bilirubin measurement (mass/volu me) 0.6 mg/dL 0.1-1.0 Serum or plasma alkaline phosphatase matt surement (enzymatic activity/volume) 63 U/L 40-136 Serum or plasma aspartate aminotransfera se measurement (enzymatic activity/volume) 24 U/L 5-34 Serum or plasma alanine aminotransferase measurement (enzymatic activity/volume) 14 U/L 0-55 Serum or plasma protein measurement (mass/volume) 5.8 g/dL 6.4-8.2 Serum or plasma albumin measurement (mass/volume) 3.2 g/dL 3.2-4.5 CALCIUM CORRECTED 9.5 mg/dL 8.5-10.1 Serum or plasma troponin i.cardiac measu rement (mass/volume) - 04/22/19 10:35 Serum or plasma troponin i.cardiac measurement (mass/v olume) 0.048 ng/mL <0.028 Bacterial blood culture - 04/22/19 10:35 Bacterial blood culture NG NRG Bacterial blood culture - 04/22/19 11:22 Bacterial blood culture NG NRG RED CELLS LEUKO REDUCED AS1 - 04/22/19 1 1:59 RED CELLS LEUKO REDUCED AS1 T RANSFUSED 04/22/19 1706 NRG Blood type T Indirect antibody screen pa abril - 04/22/19 11:59 WRISTBAND NUMBER [id number] NRG ABO+Rh group OP NRG Blood group antibody screen NEGATIVE NR G Complete urinalysis with reflex to cultu re - 04/22/19 12:10 Urine color determination YELLOW NRG Urine clarity determination SL CLOUDY N RG Urine pH measurement by test strip 6.5 5-9 Specific gravity of urine by test strip 1.015 1.016-1.022 Urine protein assay by test strip, semi-quantitative 1+ NEGATIVE Urine glucose detection by automated test strip NE GATIVE NEGATIVE Erythrocytes detection in urine sediment by light micr oscopy TRACE-I NEGATIVE Urine ketones detection by automated test strip NE GATIVE NEGATIVE Urine nitrite detection by test strip NEGATIVE NEGATIVE Urine total bilirubin detection by test strip NEGA TIVE NEGATIVE Urine urobilinogen measurement by automated test strip (mass/volume) 0.2 mg/dL < = 1.0 Urine leukocyte esterase detection by dipstick 2+ NEGATIVE Automated urine sediment erythrocyte cou nt by microscopy (number/high power field) [HPF] NRG Automated urine sediment leukocyte count by microscopy (number/high power field) [HPF] NRG Bacteria detection in urine sediment by light microsco py MODERATE NRG Squamous epithelial cells detection in u rine sediment by light microscopy 0-2 NRG Crystals detection in urine sediment by light microsco py NONE NRG Casts detection in urine sediment by light microscopy NONE NRG Mucus detection in urine sediment by light microscopy NEGATIVE NRG Complete urinalysis with reflex to culture CULTURE PENDING NRG Bacterial urine culture - 04/22/19 12:10 Bacterial urine culture [id number] NRG COLONY COUNT >100,000/ML NRG FTX;REPORTABLE SUSCEPTIBILITY REPORTED 04-24-19, 1 226 NRG Dirithromycin susceptibility test by dis k diffusion - 04/22/19 12:10 Gentamicin susceptibility test by minimum inhibitory c oncentration <= NRG Trimethoprim/sulfamethoxazole susceptibi lity test by minimum inhibitoryconcentration <= NRG Levofloxacin susceptibility test by minimum inhibitory concentration <= NRG Ampicillin susceptibility test by minimum inhibitory c oncentration <= NRG Cefazolin susceptibility test by minimum inhibitory co ncentration < NRG Ceftriaxone susceptibility test by minimum inhibitory concentration < NRG Ciprofloxacin susceptibility test by minimum inhibitor y concentration <= NRG Meropenem susceptibility test by minimum inhibitory co ncentration <= NRG Nitrofurantoin susceptibility test by mi nimum inhibitory concentration <= NRG Amoxicillin and clavulanate potassium susc SALENA <= NRG Serum or plasma lactate measurement (mol es/volume) - 04/22/19 12:30 Serum or plasma lactate measurement (moles/volume) 2.62 mmol/L 0.50-2.00 Serum or plasma troponin i.cardiac measu rement (mass/volume) - 04/22/19 15:00 Serum or plasma troponin i.cardiac measurement (mass/v olume) 0.072 ng/mL <0.028 Whole blood hemoglobin and hematocrit pa abril - 04/22/19 22:55 Venous blood hemoglobin measurement (mass/volume) 10.0 g/dL 11.5-16.0 Blood hematocrit (volume fraction) 30 % 35-52 OCCULT BLOOD STOOL - 04/23/19 01:27 Stool gastrointestinal hemoglobin detection POSITI VE NEGATIVE Automated blood complete blood count (he mogram) panel - 04/23/19 03:40 Blood leukocytes automated count (number/volume) 13.6 10*3/uL 4.3-11.0 Blood erythrocytes automated count (number/volume) 3.12 10*6/uL 4.35-5.85 Venous blood hemoglobin measurement (mass/volume) 9.0 g/dL 11.5-16.0 Blood hematocrit (volume fraction) 27 % 35-52 Automated erythrocyte mean corpuscular volume 87 [ foz_us] 80-99 Automated erythrocyte mean corpuscular h emoglobin (mass per erythrocyte) 29 pg 25-34 Automated erythrocyte mean corpuscular h emoglobin concentration measurement (mass/volume) 33 g/dL 32-36 Automated erythrocyte distribution width ratio 16. 3 % 10.0- 14.5 Automated blood platelet count (count/volume) 348 10*3/uL 130-400 Automated blood platelet mean volume measurement 9.6 [foz_us] 7.4-10.4 Comprehensive metabolic panel - 04/23/19 03:40 Serum or plasma sodium measurement (moles/volume) 135 mmol/L 135-145 Serum or plasma potassium measurement (moles/volume) 4.0 mmol/L 3.6-5.0 Serum or plasma chloride measurement (moles/volume) 104 mmol/L 98-107 Carbon dioxide 22 mmol/L 21-32 Serum or plasma anion gap determination (moles/volume) 9 mmol/L 5-14 Serum or plasma urea nitrogen measurement (mass/volume ) 20 mg/dL 7-18 Serum or plasma creatinine measurement (mass/volume) 2.32 mg/dL 0.60-1.30 Serum or plasma urea nitrogen/creatinine mass ratio 9 NRG Serum or plasma creatinine measurement w ith calculation of estimated glomerular filtration rate 21 NRG Serum or plasma glucose measurement (mass/volume) 100 mg/dL 70-105 Serum or plasma calcium measurement (mass/volume) 8.5 mg/dL 8.5-10.1 Serum or plasma total bilirubin measurement (mass/volu me) 1.0 mg/dL 0.1-1.0 Serum or plasma alkaline phosphatase matt surement (enzymatic activity/volume) 67 U/L 40-136 Serum or plasma aspartate aminotransfera se measurement (enzymatic activity/volume) 35 U/L 5-34 Serum or plasma alanine aminotransferase measurement (enzymatic activity/volume) 25 U/L 0-55 Serum or plasma protein measurement (mass/volume) 5.1 g/dL 6.4-8.2 Serum or plasma albumin measurement (mass/volume) 3.1 g/dL 3.2-4.5 CALCIUM CORRECTED 9.2 mg/dL 8.5-10.1 Serum or plasma phosphate measurement (m ass/volume) - 04/23/19 03:40 Serum or plasma phosphate measurement (mass/volume) 3.2 mg/dL 2.3-4.7 Magnesium - 04/23/19 03:40 Magnesium 1.6 mg/dL 1.6-2.4 Complete blood count (CBC) with automate d white blood cell (WBC) differential - 04/24/19 04:35 Blood leukocytes automated count (number/volume) 11.4 10*3/uL 4.3-11.0 Blood erythrocytes automated count (number/volume) 3.07 10*6/uL 4.35-5.85 Venous blood hemoglobin measurement (mass/volume) 9.0 g/dL 11.5-16.0 Blood hematocrit (volume fraction) 28 % 35-52 Automated erythrocyte mean corpuscular volume 90 [ foz_us] 80-99 Automated erythrocyte mean corpuscular h emoglobin (mass per erythrocyte) 29 pg 25-34 Automated erythrocyte mean corpuscular h emoglobin concentration measurement (mass/volume) 33 g/dL 32-36 Automated erythrocyte distribution width ratio 16. 3 % 10.0- 14.5 Automated blood platelet count (count/volume) 335 10*3/uL 130-400 Automated blood platelet mean volume measurement 10.7 [foz_us] 7.4-10.4 Automated blood neutrophils/100 leukocytes 73 % 42-75 Automated blood lymphocytes/100 leukocytes 12 % 12-44 Blood monocytes/100 leukocytes 9 % 0-12 Automated blood eosinophils/100 leukocytes 6 % 0-10 Automated blood basophils/100 leukocytes 1 % 0-10 Blood neutrophils automated count (number/volume) 8.3 10*3 1.8-7.8 Blood lymphocytes automated count (number/volume) 1.3 10*3 1.0-4.0 Blood monocytes automated count (number/volume) 1. 0 10*3 0.0-1.0 Automated eosinophil count 0.7 10*3/uL 0 .0-0.3 Automated blood basophil count (count/volume) 0.1 10*3/uL 0.0-0.1 Comprehensive metabolic panel - 04/24/19 04:35 Serum or plasma sodium measurement (moles/volume) 133 mmol/L 135-145 Serum or plasma potassium measurement (moles/volume) 4.0 mmol/L 3.6-5.0 Serum or plasma chloride measurement (moles/volume) 103 mmol/L 98-107 Carbon dioxide 21 mmol/L 21-32 Serum or plasma anion gap determination (moles/volume) 9 mmol/L 5-14 Serum or plasma urea nitrogen measurement (mass/volume ) 18 mg/dL 7-18 Serum or plasma creatinine measurement (mass/volume) 2.26 mg/dL 0.60-1.30 Serum or plasma urea nitrogen/creatinine mass ratio 8 NRG Serum or plasma creatinine measurement w ith calculation of estimated glomerular filtration rate 21 NRG Serum or plasma glucose measurement (mass/volume) 97 mg/dL 70-105 Serum or plasma calcium measurement (mass/volume) 8.5 mg/dL 8.5-10.1 Serum or plasma total bilirubin measurement (mass/volu me) 0.6 mg/dL 0.1-1.0 Serum or plasma alkaline phosphatase matt surement (enzymatic activity/volume) 62 U/L 40-136 Serum or plasma aspartate aminotransfera se measurement (enzymatic activity/volume) 20 U/L 5-34 Serum or plasma alanine aminotransferase measurement (enzymatic activity/volume) 18 U/L 0-55 Serum or plasma protein measurement (mass/volume) 5.2 g/dL 6.4-8.2 Serum or plasma albumin measurement (mass/volume) 2.9 g/dL 3.2-4.5 CALCIUM CORRECTED 9.4 mg/dL 8.5-10.1 Serum or plasma lithium measurement (mol es/volume) - 04/24/19 04:35 BNP PT 1607.4 pg/mL <100.0 Complete blood count (CBC) with automate d white blood cell (WBC) differential - 04/25/19 04:20 Blood leukocytes automated count (number/volume) 10.3 10*3/uL 4.3-11.0 Blood erythrocytes automated count (number/volume) 3.12 10*6/uL 4.35-5.85 Venous blood hemoglobin measurement (mass/volume) 9.1 g/dL 11.5-16.0 Blood hematocrit (volume fraction) 28 % 35-52 Automated erythrocyte mean corpuscular volume 90 [ foz_us] 80-99 Automated erythrocyte mean corpuscular h emoglobin (mass per erythrocyte) 29 pg 25-34 Automated erythrocyte mean corpuscular h emoglobin concentration measurement (mass/volume) 32 g/dL 32-36 Automated erythrocyte distribution width ratio 16. 5 % 10.0- 14.5 Automated blood platelet count (count/volume) 347 10*3/uL 130-400 Automated blood platelet mean volume measurement 9.9 [foz_us] 7.4-10.4 Automated blood neutrophils/100 leukocytes 73 % 42-75 Automated blood lymphocytes/100 leukocytes 11 % 12-44 Blood monocytes/100 leukocytes 9 % 0-12 Automated blood eosinophils/100 leukocytes 5 % 0-10 Automated blood basophils/100 leukocytes 1 % 0-10 Blood neutrophils automated count (number/volume) 7.6 10*3 1.8-7.8 Blood lymphocytes automated count (number/volume) 1.2 10*3 1.0-4.0 Blood monocytes automated count (number/volume) 0. 9 10*3 0.0-1.0 Automated eosinophil count 0.6 10*3/uL 0 .0-0.3 Automated blood basophil count (count/volume) 0.1 10*3/uL 0.0-0.1 Comprehensive metabolic panel - 04/25/19 04:20 Serum or plasma sodium measurement (moles/volume) 133 mmol/L 135-145 Serum or plasma potassium measurement (moles/volume) 3.9 mmol/L 3.6-5.0 Serum or plasma chloride measurement (moles/volume) 104 mmol/L 98-107 Carbon dioxide 20 mmol/L 21-32 Serum or plasma anion gap determination (moles/volume) 9 mmol/L 5-14 Serum or plasma urea nitrogen measurement (mass/volume ) 17 mg/dL 7-18 Serum or plasma creatinine measurement (mass/volume) 2.39 mg/dL 0.60-1.30 Serum or plasma urea nitrogen/creatinine mass ratio 7 NRG Serum or plasma creatinine measurement w ith calculation of estimated glomerular filtration rate 20 NRG Serum or plasma glucose measurement (mass/volume) 90 mg/dL 70-105 Serum or plasma calcium measurement (mass/volume) 9.1 mg/dL 8.5-10.1 Serum or plasma total bilirubin measurement (mass/volu me) 0.6 mg/dL 0.1-1.0 Serum or plasma alkaline phosphatase matt surement (enzymatic activity/volume) 65 U/L 40-136 Serum or plasma aspartate aminotransfera se measurement (enzymatic activity/volume) 18 U/L 5-34 Serum or plasma alanine aminotransferase measurement (enzymatic activity/volume) 18 U/L 0-55 Serum or plasma protein measurement (mass/volume) 5.8 g/dL 6.4-8.2 Serum or plasma albumin measurement (mass/volume) 3.2 g/dL 3.2-4.5 CALCIUM CORRECTED 9.7 mg/dL 8.5-10.1 Complete blood count (CBC) with automate d white blood cell (WBC) differential - 04/26/19 05:25 Blood leukocytes automated count (number/volume) 10.5 10*3/uL 4.3-11.0 Blood erythrocytes automated count (number/volume) 3.15 10*6/uL 4.35-5.85 Venous blood hemoglobin measurement (mass/volume) 9.3 g/dL 11.5-16.0 Blood hematocrit (volume fraction) 28 % 35-52 Automated erythrocyte mean corpuscular volume 90 [ foz_us] 80-99 Automated erythrocyte mean corpuscular h emoglobin (mass per erythrocyte) 30 pg 25-34 Automated erythrocyte mean corpuscular h emoglobin concentration measurement (mass/volume) 33 g/dL 32-36 Automated erythrocyte distribution width ratio 15. 8 % 10.0- 14.5 Automated blood platelet count (count/volume) 328 10*3/uL 130-400 Automated blood platelet mean volume measurement 10.5 [foz_us] 7.4-10.4 Automated blood neutrophils/100 leukocytes 77 % 42-75 Automated blood lymphocytes/100 leukocytes 8 % 12-44 Blood monocytes/100 leukocytes 9 % 0-12 Automated blood eosinophils/100 leukocytes 5 % 0-10 Automated blood basophils/100 leukocytes 1 % 0-10 Blood neutrophils automated count (number/volume) 8.1 10*3 1.8-7.8 Blood lymphocytes automated count (number/volume) 0.9 10*3 1.0-4.0 Blood monocytes automated count (number/volume) 0. 9 10*3 0.0-1.0 Automated eosinophil count 0.5 10*3/uL 0 .0-0.3 Automated blood basophil count (count/volume) 0.1 10*3/uL 0.0-0.1 Comprehensive metabolic panel - 04/26/19 05:25 Serum or plasma sodium measurement (moles/volume) 132 mmol/L 135-145 Serum or plasma potassium measurement (moles/volume) 3.8 mmol/L 3.6-5.0 Serum or plasma chloride measurement (moles/volume) 102 mmol/L 98-107 Carbon dioxide 20 mmol/L 21-32 Serum or plasma anion gap determination (moles/volume) 10 mmol/L 5-14 Serum or plasma urea nitrogen measurement (mass/volume ) 15 mg/dL 7-18 Serum or plasma creatinine measurement (mass/volume) 2.41 mg/dL 0.60-1.30 Serum or plasma urea nitrogen/creatinine mass ratio 6 NRG Serum or plasma creatinine measurement w ith calculation of estimated glomerular filtration rate 20 NRG Serum or plasma glucose measurement (mass/volume) 93 mg/dL 70-105 Serum or plasma calcium measurement (mass/volume) 9.0 mg/dL 8.5-10.1 Serum or plasma total bilirubin measurement (mass/volu me) 0.6 mg/dL 0.1-1.0 Serum or plasma alkaline phosphatase matt surement (enzymatic activity/volume) 63 U/L 40-136 Serum or plasma aspartate aminotransfera se measurement (enzymatic activity/volume) 19 U/L 5-34 Serum or plasma alanine aminotransferase measurement (enzymatic activity/volume) 16 U/L 0-55 Serum or plasma protein measurement (mass/volume) 5.5 g/dL 6.4-8.2 Serum or plasma albumin measurement (mass/volume) 3.0 g/dL 3.2-4.5 CALCIUM CORRECTED 9.8 mg/dL 8.5-10.1 Complete blood count (CBC) with automate d white blood cell (WBC) differential - 04/27/19 04:30 Blood leukocytes automated count (number/volume) 11.4 10*3/uL 4.3-11.0 Blood erythrocytes automated count (number/volume) 3.48 10*6/uL 4.35-5.85 Venous blood hemoglobin measurement (mass/volume) 10.3 g/dL 11.5-16.0 Blood hematocrit (volume fraction) 31 % 35-52 Automated erythrocyte mean corpuscular volume 89 [ foz_us] 80-99 Automated erythrocyte mean corpuscular h emoglobin (mass per erythrocyte) 30 pg 25-34 Automated erythrocyte mean corpuscular h emoglobin concentration measurement (mass/volume) 33 g/dL 32-36 Automated erythrocyte distribution width ratio 16. 1 % 10.0- 14.5 Automated blood platelet count (count/volume) 375 10*3/uL 130-400 Automated blood platelet mean volume measurement 10.5 [foz_us] 7.4-10.4 Automated blood neutrophils/100 leukocytes 79 % 42-75 Automated blood lymphocytes/100 leukocytes 8 % 12-44 Blood monocytes/100 leukocytes 9 % 0-12 Automated blood eosinophils/100 leukocytes 4 % 0-10 Automated blood basophils/100 leukocytes 1 % 0-10 Blood neutrophils automated count (number/volume) 9.0 10*3 1.8-7.8 Blood lymphocytes automated count (number/volume) 0.9 10*3 1.0-4.0 Blood monocytes automated count (number/volume) 1. 0 10*3 0.0-1.0 Automated eosinophil count 0.4 10*3/uL 0 .0-0.3 Automated blood basophil count (count/volume) 0.1 10*3/uL 0.0-0.1 Comprehensive metabolic panel - 04/27/19 04:30 Serum or plasma sodium measurement (moles/volume) 133 mmol/L 135-145 Serum or plasma potassium measurement (moles/volume) 3.7 mmol/L 3.6-5.0 Serum or plasma chloride measurement (moles/volume) 102 mmol/L 98-107 Carbon dioxide 22 mmol/L 21-32 Serum or plasma anion gap determination (moles/volume) 9 mmol/L 5-14 Serum or plasma urea nitrogen measurement (mass/volume ) 12 mg/dL 7-18 Serum or plasma creatinine measurement (mass/volume) 2.39 mg/dL 0.60-1.30 Serum or plasma urea nitrogen/creatinine mass ratio 5 NRG Serum or plasma creatinine measurement w ith calculation of estimated glomerular filtration rate 20 NRG Serum or plasma glucose measurement (mass/volume) 100 mg/dL 70-105 Serum or plasma calcium measurement (mass/volume) 9.0 mg/dL 8.5-10.1 Serum or plasma total bilirubin measurement (mass/volu me) 0.6 mg/dL 0.1-1.0 Serum or plasma alkaline phosphatase matt surement (enzymatic activity/volume) 60 U/L 40-136 Serum or plasma aspartate aminotransfera se measurement (enzymatic activity/volume) 17 U/L 5-34 Serum or plasma alanine aminotransferase measurement (enzymatic activity/volume) 13 U/L 0-55 Serum or plasma protein measurement (mass/volume) 5.5 g/dL 6.4-8.2 Serum or plasma albumin measurement (mass/volume) 3.0 g/dL 3.2-4.5 CALCIUM CORRECTED 9.8 mg/dL 8.5-10.1 Automated blood complete blood count (he mogram) panel - 05/02/19 12:50 Blood leukocytes automated count (number/volume) 8.6 10*3/uL 4.3-11.0 Blood erythrocytes automated count (number/volume) 2.63 10*6/uL 4.35-5.85 Venous blood hemoglobin measurement (mass/volume) 7.9 g/dL 11.5-16.0 Blood hematocrit (volume fraction) 24 % 35-52 Automated erythrocyte mean corpuscular volume 90 [ foz_us] 80-99 Automated erythrocyte mean corpuscular h emoglobin (mass per erythrocyte) 30 pg 25-34 Automated erythrocyte mean corpuscular h emoglobin concentration measurement (mass/volume) 33 g/dL 32-36 Automated erythrocyte distribution width ratio 16. 4 % 10.0- 14.5 Automated blood platelet count (count/volume) 283 10*3/uL 130-400 Automated blood platelet mean volume measurement 10.9 [foz_us] 7.4-10.4 PT panel in platelet poor plasma by coag ulation assay - 05/02/19 12:50 Prothrombin time (PT) in platelet poor plasma by coagu lation assay 19.4 s 12.2-14.7 INR in platelet poor plasma or blood by coagulation as say 1.6 0.8-1.4 Comprehensive metabolic panel - 05/02/19 12:50 Serum or plasma sodium measurement (moles/volume) 137 mmol/L 135-145 Serum or plasma potassium measurement (moles/volume) 3.4 mmol/L 3.6-5.0 Serum or plasma chloride measurement (moles/volume) 103 mmol/L 98-107 Carbon dioxide 23 mmol/L 21-32 Serum or plasma anion gap determination (moles/volume) 11 mmol/L 5-14 Serum or plasma urea nitrogen measurement (mass/volume ) 39 mg/dL 7-18 Serum or plasma creatinine measurement (mass/volume) 2.32 mg/dL 0.60-1.30 Serum or plasma urea nitrogen/creatinine mass ratio 17 NRG Serum or plasma creatinine measurement w ith calculation of estimated glomerular filtration rate 21 NRG Serum or plasma glucose measurement (mass/volume) 116 mg/dL 70-105 Serum or plasma calcium measurement (mass/volume) 9.1 mg/dL 8.5-10.1 Serum or plasma total bilirubin measurement (mass/volu me) 0.5 mg/dL 0.1-1.0 Serum or plasma alkaline phosphatase matt surement (enzymatic activity/volume) 62 U/L 40-136 Serum or plasma aspartate aminotransfera se measurement (enzymatic activity/volume) 16 U/L 5-34 Serum or plasma alanine aminotransferase measurement (enzymatic activity/volume) 10 U/L 0-55 Serum or plasma protein measurement (mass/volume) 5.6 g/dL 6.4-8.2 Serum or plasma albumin measurement (mass/volume) 3.1 g/dL 3.2-4.5 CALCIUM CORRECTED 9.8 mg/dL 8.5-10.1 TROPONIN I FS - 05/02/19 12:50 TROPONIN I FS < 0.30 <0.30 Blood lactic acid measurement (moles/vol ume) - 05/02/19 13:07 Blood lactic acid measurement (moles/volume) 1.17 mmol/L 0.50-2.00 Complete urinalysis with reflex to cultu re - 05/02/19 13:55 Urine color determination YELLOW NRG Urine clarity determination CLEAR NR G Urine pH measurement by test strip 6.0 5-9 Specific gravity of urine by test strip 1.010 1.016-1.022 Urine protein assay by test strip, semi-quantitative 1+ NEGATIVE Urine glucose detection by automated test strip NE GATIVE NEGATIVE Erythrocytes detection in urine sediment by light micr oscopy 1+ NEGATIVE Urine ketones detection by automated test strip NE GATIVE NEGATIVE Urine nitrite detection by test strip NEGATIVE NEGATIVE Urine total bilirubin detection by test strip NEGA TIVE NEGATIVE Urine urobilinogen measurement by automated test strip (mass/volume) 0.2 mg/dL < = 1.0 Urine leukocyte esterase detection by dipstick NEG ATIVE NEGATIVE Automated urine sediment erythrocyte cou nt by microscopy (number/high power field) [HPF] NRG Automated urine sediment leukocyte count by microscopy (number/high power field) [HPF] NRG Bacteria detection in urine sediment by light microsco py NEGATIVE NRG Squamous epithelial cells detection in u rine sediment by light microscopy 2-5 NRG Crystals detection in urine sediment by light microsco py PRESENT NRG Casts detection in urine sediment by light microscopy PRESENT NRG Mucus detection in urine sediment by light microscopy NEGATIVE NRG Complete urinalysis with reflex to culture NO NRG Amorphous sediment detection in urine sediment by ligh t microscopy FEW ANA URATES NRG Granular casts detection in urine sediment by light mi croscopy 5-10 NRG Capillary blood glucose measurement by g lucometer (mass/volume) - 05/02/19 20:57 Capillary blood glucose measurement by glucometer (mas s/volume) 105 mg/dL 70-110 Complete blood count (CBC) with automate d white blood cell (WBC) differential - 05/03/19 03:13 Blood leukocytes automated count (number/volume) 6.8 10*3/uL 4.3-11.0 Blood erythrocytes automated count (number/volume) 2.36 10*6/uL 4.35-5.85 Venous blood hemoglobin measurement (mass/volume) 7.0 g/dL 11.5-16.0 Blood hematocrit (volume fraction) 21 % 35-52 Automated erythrocyte mean corpuscular volume 90 [ foz_us] 80-99 Automated erythrocyte mean corpuscular h emoglobin (mass per erythrocyte) 30 pg 25-34 Automated erythrocyte mean corpuscular h emoglobin concentration measurement (mass/volume) 33 g/dL 32-36 Automated erythrocyte distribution width ratio 16. 1 % 10.0- 14.5 Automated blood platelet count (count/volume) 244 10*3/uL 130-400 Automated blood platelet mean volume measurement 11.1 [foz_us] 7.4-10.4 Automated blood neutrophils/100 leukocytes 59 % 42-75 Automated blood lymphocytes/100 leukocytes 20 % 12-44 Blood monocytes/100 leukocytes 12 % 0-12 Automated blood eosinophils/100 leukocytes 6 % 0-10 Automated blood basophils/100 leukocytes 2 % 0-10 Blood neutrophils automated count (number/volume) 4.0 10*3 1.8-7.8 Blood lymphocytes automated count (number/volume) 1.4 10*3 1.0-4.0 Blood monocytes automated count (number/volume) 0. 8 10*3 0.0-1.0 Automated eosinophil count 0.4 10*3/uL 0 .0-0.3 Automated blood basophil count (count/volume) 0.2 10*3/uL 0.0-0.1 Comprehensive metabolic panel - 05/03/19 03:17 Serum or plasma sodium measurement (moles/volume) 138 mmol/L 135-145 Serum or plasma potassium measurement (moles/volume) 3.6 mmol/L 3.6-5.0 Serum or plasma chloride measurement (moles/volume) 105 mmol/L 98-107 Carbon dioxide 21 mmol/L 21-32 Serum or plasma anion gap determination (moles/volume) 12 mmol/L 5-14 Serum or plasma urea nitrogen measurement (mass/volume ) 39 mg/dL 7-18 Serum or plasma creatinine measurement (mass/volume) 2.34 mg/dL 0.60-1.30 Serum or plasma urea nitrogen/creatinine mass ratio 17 NRG Serum or plasma creatinine measurement w ith calculation of estimated glomerular filtration rate 20 NRG Serum or plasma glucose measurement (mass/volume) 105 mg/dL 70-105 Serum or plasma calcium measurement (mass/volume) 8.8 mg/dL 8.5-10.1 Serum or plasma total bilirubin measurement (mass/volu me) 0.5 mg/dL 0.1-1.0 Serum or plasma alkaline phosphatase matt surement (enzymatic activity/volume) 45 U/L 40-136 Serum or plasma aspartate aminotransfera se measurement (enzymatic activity/volume) 17 U/L 5-34 Serum or plasma alanine aminotransferase measurement (enzymatic activity/volume) 11 U/L 0-55 Serum or plasma protein measurement (mass/volume) 5.1 g/dL 6.4-8.2 Serum or plasma albumin measurement (mass/volume) 2.9 g/dL 3.2-4.5 CALCIUM CORRECTED 9.7 mg/dL 8.5-10.1 Serum or plasma phosphate measurement (m ass/volume) - 05/03/19 03:17 Serum or plasma phosphate measurement (mass/volume) 3.3 mg/dL 2.3-4.7 Magnesium - 05/03/19 03:17 Magnesium 1.7 mg/dL 1.6-2.4 Serum or plasma lithium measurement (mol es/volume) - 05/03/19 03:17 BNP PT 1480.4 pg/mL <100.0 RED CELLS LEUKO REDUCED AS1 - 05/03/19 0 5:23 RED CELLS LEUKO REDUCED AS1 T RANSFUSED 05/03/19 [id number] NR Blood type T Indirect antibody screen pa abril - 05/03/19 05:23 WRISTBAND NUMBER [id number] NR ABO+Rh group OP NRG Blood group antibody screen NEGATIVE NR G Complete blood count (CBC) with automate d white blood cell (WBC) differential - 05/04/19 02:40 Blood leukocytes automated count (number/volume) 7.9 10*3/uL 4.3-11.0 Blood erythrocytes automated count (number/volume) 2.93 10*6/uL 4.35-5.85 Venous blood hemoglobin measurement (mass/volume) 8.4 g/dL 11.5-16.0 Blood hematocrit (volume fraction) 25 % 35-52 Automated erythrocyte mean corpuscular volume 85 [ foz_us] 80-99 Automated erythrocyte mean corpuscular h emoglobin (mass per erythrocyte) 29 pg 25-34 Automated erythrocyte mean corpuscular h emoglobin concentration measurement (mass/volume) 34 g/dL 32-36 Automated erythrocyte distribution width ratio 18. 8 % 10.0- 14.5 Automated blood platelet count (count/volume) 201 10*3/uL 130-400 Automated blood platelet mean volume measurement 10.9 [foz_us] 7.4-10.4 Automated blood neutrophils/100 leukocytes 68 % 42-75 Automated blood lymphocytes/100 leukocytes 16 % 12-44 Blood monocytes/100 leukocytes 9 % 0-12 Automated blood eosinophils/100 leukocytes 5 % 0-10 Automated blood basophils/100 leukocytes 2 % 0-10 Blood neutrophils automated count (number/volume) 5.4 10*3 1.8-7.8 Blood lymphocytes automated count (number/volume) 1.3 10*3 1.0-4.0 Blood monocytes automated count (number/volume) 0. 7 10*3 0.0-1.0 Automated eosinophil count 0.4 10*3/uL 0 .0-0.3 Automated blood basophil count (count/volume) 0.1 10*3/uL 0.0-0.1 Comprehensive metabolic panel - 05/04/19 02:40 Serum or plasma sodium measurement (moles/volume) 136 mmol/L 135-145 Serum or plasma potassium measurement (moles/volume) 3.9 mmol/L 3.6-5.0 Serum or plasma chloride measurement (moles/volume) 104 mmol/L 98-107 Carbon dioxide 22 mmol/L 21-32 Serum or plasma anion gap determination (moles/volume) 10 mmol/L 5-14 Serum or plasma urea nitrogen measurement (mass/volume ) 34 mg/dL 7-18 Serum or plasma creatinine measurement (mass/volume) 2.33 mg/dL 0.60-1.30 Serum or plasma urea nitrogen/creatinine mass ratio 15 NRG Serum or plasma creatinine measurement w ith calculation of estimated glomerular filtration rate 21 NRG Serum or plasma glucose measurement (mass/volume) 92 mg/dL 70-105 Serum or plasma calcium measurement (mass/volume) 8.5 mg/dL 8.5-10.1 Serum or plasma total bilirubin measurement (mass/volu me) 1.3 mg/dL 0.1-1.0 Serum or plasma alkaline phosphatase matt surement (enzymatic activity/volume) 42 U/L 40-136 Serum or plasma aspartate aminotransfera se measurement (enzymatic activity/volume) 13 U/L 5-34 Serum or plasma alanine aminotransferase measurement (enzymatic activity/volume) 7 U/L 0-55 Serum or plasma protein measurement (mass/volume) 4.9 g/dL 6.4-8.2 Serum or plasma albumin measurement (mass/volume) 2.8 g/dL 3.2-4.5 CALCIUM CORRECTED 9.5 mg/dL 8.5-10.1 Serum or plasma phosphate measurement (m ass/volume) - 05/04/19 02:40 Serum or plasma phosphate measurement (mass/volume) 3.7 mg/dL 2.3-4.7 Magnesium - 05/04/19 02:40 Magnesium 2.0 mg/dL 1.6-2.4 Serum or plasma lithium measurement (mol es/volume) - 05/04/19 02:40 BNP PT 2086.4 pg/mL <100.0 Complete blood count (CBC) with automate d white blood cell (WBC) differential - 05/05/19 03:20 Blood leukocytes automated count (number/volume) 9.3 10*3/uL 4.3-11.0 Blood erythrocytes automated count (number/volume) 3.22 10*6/uL 4.35-5.85 Venous blood hemoglobin measurement (mass/volume) 9.2 g/dL 11.5-16.0 Blood hematocrit (volume fraction) 28 % 35-52 Automated erythrocyte mean corpuscular volume 87 [ foz_us] 80-99 Automated erythrocyte mean corpuscular h emoglobin (mass per erythrocyte) 29 pg 25-34 Automated erythrocyte mean corpuscular h emoglobin concentration measurement (mass/volume) 33 g/dL 32-36 Automated erythrocyte distribution width ratio 18. 2 % 10.0- 14.5 Automated blood platelet count (count/volume) 200 10*3/uL 130-400 Automated blood platelet mean volume measurement 11.0 [foz_us] 7.4-10.4 Automated blood neutrophils/100 leukocytes 83 % 42-75 Automated blood lymphocytes/100 leukocytes 7 % 12-44 Blood monocytes/100 leukocytes 7 % 0-12 Automated blood eosinophils/100 leukocytes 3 % 0-10 Automated blood basophils/100 leukocytes 0 % 0-10 Blood neutrophils automated count (number/volume) 7.8 10*3 1.8-7.8 Blood lymphocytes automated count (number/volume) 0.7 10*3 1.0-4.0 Blood monocytes automated count (number/volume) 0. 6 10*3 0.0-1.0 Automated eosinophil count 0.2 10*3/uL 0 .0-0.3 Automated blood basophil count (count/volume) 0.0 10*3/uL 0.0-0.1 Whole blood basic metabolic panel - 04/26 03:20 Serum or plasma sodium measurement (moles/volume) 135 mmol/L 135-145 Serum or plasma potassium measurement (moles/volume) 4.0 mmol/L 3.6-5.0 Serum or plasma chloride measurement (moles/volume) 101 mmol/L 98-107 Carbon dioxide 22 mmol/L 21-32 Serum or plasma anion gap determination (moles/volume) 12 mmol/L 5-14 Serum or plasma urea nitrogen measurement (mass/volume ) 31 mg/dL 7-18 Serum or plasma creatinine measurement (mass/volume) 2.32 mg/dL 0.60-1.30 Serum or plasma urea nitrogen/creatinine mass ratio 13 NRG Serum or plasma creatinine measurement w ith calculation of estimated glomerular filtration rate 21 NRG Serum or plasma glucose measurement (mass/volume) 106 mg/dL 70-105 Serum or plasma calcium measurement (mass/volume) 8.7 mg/dL 8.5-10.1 Serum or plasma phosphate measurement (m ass/volume) - 05/05/19 03:20 Serum or plasma phosphate measurement (mass/volume) 3.5 mg/dL 2.3-4.7 Magnesium - 05/05/19 03:20 Magnesium 1.9 mg/dL 1.6-2.4 Manual absolute plasma cell count - 04/26 03:20 Blood monocytes/100 leukocytes 6 % NRG Manual blood segmented neutrophils/100 leukocytes 87 % NRG Manual blood lymphocytes/100 leukocytes 6 % NRG Manual eosinophils/100 leukocytes in nose 1 % NRG Complete blood count (CBC) with automate d white blood cell (WBC) differential - 05/06/19 02:55 Blood leukocytes automated count (number/volume) 7.3 10*3/uL 4.3-11.0 Blood erythrocytes automated count (number/volume) 3.26 10*6/uL 4.35-5.85 Venous blood hemoglobin measurement (mass/volume) 9.3 g/dL 11.5-16.0 Blood hematocrit (volume fraction) 28 % 35-52 Automated erythrocyte mean corpuscular volume 87 [ foz_us] 80-99 Automated erythrocyte mean corpuscular h emoglobin (mass per erythrocyte) 29 pg 25-34 Automated erythrocyte mean corpuscular h emoglobin concentration measurement (mass/volume) 33 g/dL 32-36 Automated erythrocyte distribution width ratio 17. 6 % 10.0- 14.5 Automated blood platelet count (count/volume) 229 10*3/uL 130-400 Automated blood platelet mean volume measurement 10.3 [foz_us] 7.4-10.4 Automated blood neutrophils/100 leukocytes 74 % 42-75 Automated blood lymphocytes/100 leukocytes 12 % 12-44 Blood monocytes/100 leukocytes 10 % 0-12 Automated blood eosinophils/100 leukocytes 4 % 0-10 Automated blood basophils/100 leukocytes 1 % 0-10 Blood neutrophils automated count (number/volume) 5.4 10*3 1.8-7.8 Blood lymphocytes automated count (number/volume) 0.9 10*3 1.0-4.0 Blood monocytes automated count (number/volume) 0. 7 10*3 0.0-1.0 Automated eosinophil count 0.3 10*3/uL 0 .0-0.3 Automated blood basophil count (count/volume) 0.0 10*3/uL 0.0-0.1 Comprehensive metabolic panel - 05/06/19 02:55 Serum or plasma sodium measurement (moles/volume) 134 mmol/L 135-145 Serum or plasma potassium measurement (moles/volume) 3.6 mmol/L 3.6-5.0 Serum or plasma chloride measurement (moles/volume) 103 mmol/L 98-107 Carbon dioxide 22 mmol/L 21-32 Serum or plasma anion gap determination (moles/volume) 9 mmol/L 5-14 Serum or plasma urea nitrogen measurement (mass/volume ) 25 mg/dL 7-18 Serum or plasma creatinine measurement (mass/volume) 2.34 mg/dL 0.60-1.30 Serum or plasma urea nitrogen/creatinine mass ratio 11 NRG Serum or plasma creatinine measurement w ith calculation of estimated glomerular filtration rate 20 NRG Serum or plasma glucose measurement (mass/volume) 98 mg/dL 70-105 Serum or plasma calcium measurement (mass/volume) 8.5 mg/dL 8.5-10.1 Serum or plasma total bilirubin measurement (mass/volu me) 0.9 mg/dL 0.1-1.0 Serum or plasma alkaline phosphatase matt surement (enzymatic activity/volume) 53 U/L 40-136 Serum or plasma aspartate aminotransfera se measurement (enzymatic activity/volume) 17 U/L 5-34 Serum or plasma alanine aminotransferase measurement (enzymatic activity/volume) 9 U/L 0-55 Serum or plasma protein measurement (mass/volume) 5.3 g/dL 6.4-8.2 Serum or plasma albumin measurement (mass/volume) 2.9 g/dL 3.2-4.5 CALCIUM CORRECTED 9.4 mg/dL 8.5-10.1 Serum or plasma phosphate measurement (m ass/volume) - 05/06/19 02:55 Serum or plasma phosphate measurement (mass/volume) 3.2 mg/dL 2.3-4.7 Magnesium - 05/06/19 02:55 Magnesium 1.7 mg/dL 1.6-2.4 Complete blood count (CBC) with automate d white blood cell (WBC) differential - 05/07/19 03:45 Blood leukocytes automated count (number/volume) 9.5 10*3/uL 4.3-11.0 Blood erythrocytes automated count (number/volume) 3.54 10*6/uL 4.35-5.85 Venous blood hemoglobin measurement (mass/volume) 10.2 g/dL 11.5-16.0 Blood hematocrit (volume fraction) 31 % 35-52 Automated erythrocyte mean corpuscular volume 88 [ foz_us] 80-99 Automated erythrocyte mean corpuscular h emoglobin (mass per erythrocyte) 29 pg 25-34 Automated erythrocyte mean corpuscular h emoglobin concentration measurement (mass/volume) 33 g/dL 32-36 Automated erythrocyte distribution width ratio 17. 3 % 10.0- 14.5 Automated blood platelet count (count/volume) 249 10*3/uL 130-400 Automated blood platelet mean volume measurement 11.2 [foz_us] 7.4-10.4 Automated blood neutrophils/100 leukocytes 76 % 42-75 Automated blood lymphocytes/100 leukocytes 11 % 12-44 Blood monocytes/100 leukocytes 9 % 0-12 Automated blood eosinophils/100 leukocytes 4 % 0-10 Automated blood basophils/100 leukocytes 1 % 0-10 Blood neutrophils automated count (number/volume) 7.2 10*3 1.8-7.8 Blood lymphocytes automated count (number/volume) 1.0 10*3 1.0-4.0 Blood monocytes automated count (number/volume) 0. 9 10*3 0.0-1.0 Automated eosinophil count 0.4 10*3/uL 0 .0-0.3 Automated blood basophil count (count/volume) 0.1 10*3/uL 0.0-0.1 Whole blood basic metabolic panel - 04/26 07/15 03:45 Serum or plasma sodium measurement (moles/volume) 137 mmol/L 135-145 Serum or plasma potassium measurement (moles/volume) 4.2 mmol/L 3.6-5.0 Serum or plasma chloride measurement (moles/volume) 103 mmol/L 98-107 Carbon dioxide 25 mmol/L 21-32 Serum or plasma anion gap determination (moles/volume) 9 mmol/L 5-14 Serum or plasma urea nitrogen measurement (mass/volume ) 24 mg/dL 7-18 Serum or plasma creatinine measurement (mass/volume) 2.40 mg/dL 0.60-1.30 Serum or plasma urea nitrogen/creatinine mass ratio 10 NRG Serum or plasma creatinine measurement w ith calculation of estimated glomerular filtration rate 20 NRG Serum or plasma glucose measurement (mass/volume) 112 mg/dL 70-105 Serum or plasma calcium measurement (mass/volume) 8.8 mg/dL 8.5-10.1 Serum or plasma phosphate measurement (m ass/volume) - 05/07/19 03:45 Serum or plasma phosphate measurement (mass/volume) 2.2 mg/dL 2.3-4.7 Magnesium - 05/07/19 03:45 Magnesium 1.9 mg/dL 1.6-2.4 Encounters ACCT No. Visit Date/Time Discharge Status Pt. Type Provider Facility Loc./Unit Complaint [id number] 03/19/2019 15:15:00 03/19/2019 23:59: 59 CLS [id number] 03/03/2019 09:45:00 Document Registration [id number] 12/24/2018 14:45:00 Document Registration [id number] 12/11/2018 08:30:00 Document Registration [id number] 11/10/2018 08:45:00 Document Registration [id number] 11/05/2018 09:20:00 Document Registration [id number] 05/13/2019 12:45:00 23:59:59 CLS Outpatient HARPER BARROSO, ASIF [facility] WOUNDCARE [id number] 05/02/2019 14:49:00 13:40:00 DIS Outpatient YASEMIN KENNEDY DO [facility] CSD GI BLEED; GENERALIZED E ELMA [id number] 04/29/2019 09:44:00 23:59:59 CLS Outpatient ASIF SALEEM MD [facility] WOUNDCARE [id number] 04/22/2019 13:26:00 10:50:00 DIS Inpatient KENNEDY YASEMIN POLK V [facility] 4TH SEVERE SEPSIS/ANEMIA/UT I [id number] 04/22/2019 15:16:00 23:59:59 CLS Outpatient ASIF SALEEM MD [facility] [id number] 04/15/2019 12:11:00 23:59:59 CLS Outpatient ASIF SALEEM MD [facility] WOUNDCARE [id number] 04/14/2019 09:30:00 23:59:59 CLS Preadmit ASIF SALEEM MD [facility] RAD EMBOLISM AND THROMBOSIS OF ARTERIES OF LOWER EXT. [id number] 04/11/2019 11:35:00 10:30:00 DIS Inpatient RAUL BONNER MD [facility] 4TH ISCHEMIC FOOT [id number] 04/08/2019 09:59:00 23:59:59 CLS Outpatient ASIF SALEEM MD [facility] WOUNDCARE [id number] 04/02/2019 10:25:00 23:59:59 CLS Outpatient RAUL BONNER MD [facility] CARD CKD,HTN,PVD [id number] 04/01/2019 10:30:00 23:59:59 CLS Outpatient ASIF SALEEM MD [facility] RAD EMBOLISM AND THROMBOSIS OF ARTERIES OF LOWER EXT [id number] 04/01/2019 08:06:00 23:59:59 CLS Outpatient ASIF SALEEM MD [facility] WOUNDCARE [id number] 02/27/2019 16:22:00 19:00:00 DIS Emergency SAMREEN BARROSO, AMADO Kate [facility] ER FS SWOLLEN FT, PAIN IN FT [id number] 02/23/2019 06:53:00 23:59:59 CLS Outpatient DYLAN CHRISTIANSEN DO [facility] ENDO ABD PAIN/N V [id number] 02/23/2019 09:29:00 13:45:00 DIS Emergency LISA BARROSO, EMELY Pack [facility] ER HIGH BP [id number] 02/16/2019 05:35:00 12:01:00 DIS Outpatient DYLAN CHRISTIANSEN DO [facility] PREOP COLONOSCOPY/EGD [id number] 12/24/2018 09:09:00 23:59:59 CLS Outpatient HAIDER BARROSO, SONDRA [place] [facility] RAD FS R10.13
--- OUTSIDE RECORDS SUMMARY | 2019-05-18 20:18 | XMS REPORT | Continuity of Care Document ---
Author Organization Unknown Address Unknown Phone Unavailable Allergies Active Description Code Type Severity Reaction Onset Reported/Identified Relationship to Patient Clinical Status Yes Penicillins [id number] Drug Aller gy Mild RASH/SWELLING 02/16/2019 Yes levofloxacin [id number] Drug Allergy Severe DIARRHIA, SWELL 04/27/2019 Yes Penicillins [id number] Drug Aller gy Severe ANAPHYLAXIS 04/27/2019 Yes sulfamethoxazole [id number] Drug Allergy Severe WHEEZING/SWELLI 04/27/2019 Yes trimethoprim [id number] Drug Allergy Severe WHEEZING/SWELLI 04/27/2019 Yes Tetracyclines [id number] Johny g Allergy Mild GI UPSET 04/27/2019 Yes pseudoephedrine [id number] D rug Allergy Unknown N/A 04/27/2019 Yes Sulfa (Sulfonamide Antibiotics) [id number] Drug Allergy Unknown N/A 019 Medications [...] MD Ot E87.1 HYPO-OSMOLALITY AND HYPONATREMIA 02/25/2019 EMELY GONZALEZ MD Ot F17.210 NICOTINE DEPENDENCE, [...] DYLAN CHRISTIANSEN DO Ot Z79.8 99 OTHER LONG-TERM (CURRENT) DRUG THERAPY 03/06/2019 DYLAN CHRISTIANSEN DO [...] DYLAN POLK B Ot Z79.8 99 OTHER LONG-TERM (CURRENT) DRUG THERAPY 03/11/2019 ЕЛЕНА POLK DYLAN [...] MD Ot R14.0 ABDOMINAL DISTENSION (GASEOUS) 04/01/2019 ЕЛЕНА RUPALI POLKIC B Ot F17.2 10 NICOTINE [...] CHRISTIANSEN DOIC B Ot Z79.8 99 OTHER LONG-TERM (CURRENT) DRUG THERAPY 04/01/2019 RUPALI CHRISTIANSEN DOIC [...] 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 04/06/2019 ASIF SALEEM MD Ot E11.621 TYPE [...] 22 TYPE 2 DIABETES MELLITUS W DIABETIC LEAD HOUSEKEEPER 04/08/2019 RAUL BONNER MD Ot E11.621 TYPE [...] DYLAN CHRISTIANSEN DO Ot Z79.8 99 OTHER VOCATIONAL REHABILITATION SUPERVISOR (CURRENT) DRUG THERAPY 04/09/2019 DYLAN CHRISTIANSEN DO Ot Z88.0 ALLERGY STATUS TO PENICILLIN 04/09/2019 DYLAN CHRISTIANSEN DO Ot Z88.1 ALLERGY STATUS TO OTHER ANTIBIOTIC AGENT 04/09/2019 DYLAN CHRISTIANSEN DO Ot Z88.2 ALLERGY STATUS TO SULFONAMIDES STATUS 04/09/2019 ASIF SALEEM MD Ot 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 04/17/2019 ASIF [...] 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 04/17/2019 ASIF SALEEM MD, Ot E11.52 TYPE 2 DIABETES W DIABETIC PERIPHERAL AN 04/17/2019 ASIF SALEEM MD, Ot E11.621 TYPE 2 DIABETES MELLITUS WITH FOOT ULCER 04/17/2019 ASIF SALEEM MD, Ot 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, CIGARETTES, W OTH D 04/17/2019 ASIF SALEEM MD Ot I12 .0 HYP CHR KIDNEY DISEASE W STAGE 5 CHR KID 04/17/2019 ASIF SALEEM MD, Ot 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 04/17/2019 ASIF [...] 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 04/20/2019 ASIF SALEEM MD Ot E11.621 TYPE [...] 22 TYPE 2 DIABETES MELLITUS W DIABETIC LEAD HOUSEKEEPER 04/20/2019 RAUL BONNER MD Ot E11.621 TYPE [...] 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 04/21/2019 ASIF SALEEM MD, Ot E11.52 TYPE 2 DIABETES W DIABETIC PERIPHERAL AN 04/21/2019 ASIF SALEEM MD, Ot E11.621 TYPE 2 DIABETES MELLITUS WITH FOOT ULCER 04/21/2019 ASIF SALEEM MD, Ot F17.219 NICOTINE DEPENDENCE, CIGARETTES, W UNSP 04/21/2019 ASIF SALEEM MD, Ot I10 ESSENTIAL (PRIMARY) HYPERTENSION 04/21/2019 ASIF SALEEM MD, Ot I70 .0 ATHEROSCLEROSIS OF [place] 04/21/2019 ASIF SALEEM MD, Ot I70.235 ATHSCL [place]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 04/21/2019 ASIF SALEEM MD, Ot I70.245 ATHSCL [place] ARTERIES OF LEFT LEG W ULC 04/21/2019 [...] YASEMIN Ot I25.10 ATHSCL HEART DISEASE OF [place] CORONARY 04/27/2019 MARCIA POLK YASEMIN Ot I71.4 [...] SHOCK 04/27/2019 YASEMIN KENNEDY DO Ot Z79.01 VOCATIONAL REHABILITATION SUPERVISOR (CURRENT) USE OF ANTICOAGULANT 04/27/2019 MARCIA POLK YASEMIN Ot Z79.82 VOCATIONAL REHABILITATION SUPERVISOR (CURRENT) USE OF ASPIRIN 04/27/2019 JASON KENNEDY DOI Ot Z87.89 1 PERSONAL HISTORY OF NICOTINE DEPENDENCE 04/27/2019 YASEMIN KENNEDY DO Ot A41.9 SEPSIS, UNSPECIFIED ORGANISM 04/27/2019 MARCIA [...] DOI Ot I25.10 ATHSCL HEART DISEASE OF [place] CORONARY 04/27/2019 YASEMIN KENNEDY DO Ot I71.4 [...] SHOCK 04/27/2019 YASEMIN KENNEDY DO Ot Z79.01 LONG-TERM (CURRENT) USE OF ANTICOAGULANT 04/27/2019 YASEMIN KENNEDY DO Ot Z79.82 VOCATIONAL REHABILITATION SUPERVISOR (CURRENT) USE OF ASPIRIN 04/27/2019 YASEMIN KENNEDY [...] DOI Ot I25.10 ATHSCL HEART DISEASE OF [place] CORONARY 04/27/2019 JASON KENNEDY DOI Ot I71.4 [...] NON-PRESSURE CHRONIC ULCER OTH PRT LEFT 04/27/2019 JSAON KENNEDY DOI Ot M19.91 PRIMARY OSTEOARTHRITIS, UNSPECIFIED [...] SHOCK 04/27/2019 YASEMIN KENNEDY DO Ot Z79.01 LONG-TERM (CURRENT) USE OF ANTICOAGULANT 04/27/2019 YASEMIN KENNEDY DO Ot Z79.82 VOCATIONAL REHABILITATION SUPERVISOR (CURRENT) USE OF ASPIRIN 04/27/2019 YASEMIN KENNEDY [...] DO Ot I25.10 ATHSCL HEART DISEASE OF [place] CORONARY 04/27/2019 JASON KENNEDY DOI Ot I71.4 [...] SHOCK 04/27/2019 YASEMIN KENNEDY DO Ot Z79.01 LONG-TERM (CURRENT) USE OF ANTICOAGULANT 04/27/2019 JASON KENNEDY DOI Ot Z79.82 VOCATIONAL REHABILITATION SUPERVISOR (CURRENT) USE OF ASPIRIN 04/27/2019 JASON KENNEDY [...] YASEMIN Ot I25.10 ATHSCL HEART DISEASE OF [place] CORONARY 04/27/2019 JASON KENNEDY DOI Ot I71.4 [...] SHOCK 04/27/2019 MARCIA POLK YASEMIN Ot Z79.01 LONG-TERM (CURRENT) USE OF ANTICOAGULANT 04/27/2019 MARCIA POLK YASEMIN Ot Z79.82 VOCATIONAL REHABILITATION SUPERVISOR (CURRENT) USE OF ASPIRIN 04/27/2019 MARCIA POLK YASEMIN Ot Z87.89 1 PERSONAL HISTORY OF NICOTINE DEPENDENCE 04/27/2019 ASIF SALEEM MD Ot 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 04/27/2019 ASIF SALEEM MD, Ot E11.621 TYPE 2 DIABETES MELLITUS WITH FOOT ULCER 04/27/2019 ASIF SALEEM MD Ot 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, CIGARETTES, W OTH D 04/27/2019 ASIF SALEEM MD Ot I12 .0 HYP CHR KIDNEY DISEASE W STAGE 5 CHR KID 04/27/2019 ASIF SALEEM MD, Ot I70.235 ATHSCL [place]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 04/27/2019 ASIF SALEEM MD, Ot I70.245 ATHSCL [place] ARTERIES OF LEFT LEG W ULC 04/27/2019 [...] YASEMIN Ot I25.10 ATHSCL HEART DISEASE OF [place] CORONARY 04/27/2019 MARCIA POLK YASEMIN Ot I71.4 [...] SHOCK 04/27/2019 YASEMIN KENNEDY DO Ot Z79.01 VOCATIONAL REHABILITATION SUPERVISOR (CURRENT) USE OF ANTICOAGULANT 04/27/2019 YASEMIN KENNEDY DO Ot Z79.82 VOCATIONAL REHABILITATION SUPERVISOR (CURRENT) USE OF ASPIRIN 04/27/2019 YASEMIN KENNEDY [...] DOI Ot I25.10 ATHSCL HEART DISEASE OF [place] CORONARY 04/28/2019 JASON KENNEDY DOI Ot I71.4 [...] SHOCK 04/28/2019 MARCIA POLK YASEMIN Ot Z79.01 VOCATIONAL REHABILITATION SUPERVISOR (CURRENT) USE OF ANTICOAGULANT 04/28/2019 MARCIA POLK YASEMIN Ot Z79.82 VOCATIONAL REHABILITATION SUPERVISOR (CURRENT) USE OF ASPIRIN 04/28/2019 MARCIA POLK [...] Ot D64.9 ANEMIA, UNSPECIFIED 04/28/2019 MARCIA POLK YASEMIN Ot E78.5 HYPERLIPIDEMIA, UNSPECIFIED 04/28/2019 MARCIA POLK YASEMIN Ot E87.1 HYPO-OSMOLALITY AND HYPONATREMIA 04/28/2019 MARCIA POLK YASEMIN Ot I07.1 RHEUMATIC TRICUSPID INSUFFICIENCY 04/28/2019 MARCIA POLK YASEMIN Ot I12.9 HYPERTENSIVE CHRONIC KIDNEY DISEASE W ST 04/28/2019 MARCIA POLK YASEMIN Ot I21.A1 MYOCARDIAL INFARCTION TYPE 2 04/28/2019 JASON KENNEDY DOI Ot I25.10 ATHSCL HEART DISEASE OF [place] CORONARY 04/28/2019 MARCIA POLK YASEMIN Ot I71.4 [...] SHOCK 04/28/2019 JASON KENNEDY DOI Ot Z79.01 VOCATIONAL REHABILITATION SUPERVISOR (CURRENT) USE OF ANTICOAGULANT 04/28/2019 JASON KENNEDY DOI Ot Z79.82 VOCATIONAL REHABILITATION SUPERVISOR (CURRENT) USE OF ASPIRIN 04/28/2019 MARCIA POLK YASEMIN Ot Z87.89 1 PERSONAL HISTORY OF NICOTINE DEPENDENCE 05/01/2019 ASIF SALEEM MD Ot 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 05/01/2019 ASIF SALEEM MD, Ot E11.52 TYPE [...] 05/01/2019 ASIF SALEEM MD, Ot 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 05/01/2019 ASIF [...] YASEMIN Ot I25.10 ATHSCL HEART DISEASE OF [place] CORONARY 05/06/2019 MARCIA POLK YASEMIN Ot I50.33 [...] (SEVERE) 05/06/2019 JASON KENNEDY DOI Ot Z79.01 LONG-TERM (CURRENT) USE OF ANTICOAGULANT 05/06/2019 MARCIA POLK YASEMIN Ot Z79.02 VOCATIONAL REHABILITATION SUPERVISOR (CURRENT) USE OF ANTITHROMBOTI 05/06/2019 JASON KENNEDY DOI Ot Z79.82 VOCATIONAL REHABILITATION SUPERVISOR (CURRENT) USE OF ASPIRIN 05/06/2019 JASON KENNEDY DOI Ot Z87.89 1 PERSONAL HISTORY OF NICOTINE DEPENDENCE 05/06/2019 HARPER BARROSO, ASIF Joyner Ot 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 05/06/2019 HARPER BARROSO, ASIF Joyner Ot E11.621 TYPE 2 DIABETES MELLITUS WITH FOOT ULCER 05/06/2019 ASIF SALEEM MD Ot 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, CIGARETTES, W OTH D 05/06/2019 ASIF SALEEM MD Ot I12 .0 HYP CHR KIDNEY DISEASE W STAGE 5 CHR KID 05/06/2019 ASIF SALEEM MD Ot I70.235 ATHSCL [place]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 05/06/2019 ASIF SALEEM MD Ot I70.245 ATHSCL [place] ARTERIES OF LEFT LEG W ULC 05/06/2019 [...] YASEMIN Ot I25.10 ATHSCL HEART DISEASE OF [place] CORONARY 05/07/2019 MARCIA POLK YASEMIN Ot I50.33 [...] (SEVERE) 05/07/2019 YASEMIN KENNEDY DO Ot Z79.01 VOCATIONAL REHABILITATION SUPERVISOR (CURRENT) USE OF ANTICOAGULANT 05/07/2019 YASEMIN KENNEDY DO Ot Z79.02 LONG-TERM (CURRENT) USE OF ANTITHROMBOTI 05/07/2019 YASEMIN KENNEDY DO Ot Z79.82 VOCATIONAL REHABILITATION SUPERVISOR (CURRENT) USE OF ASPIRIN 05/07/2019 YASEMIN KENNEDY [...] DO Ot I25.10 ATHSCL HEART DISEASE OF [place] CORONARY 05/07/2019 YASEMIN KENNEDY DO Ot I47.1 [...] (SEVERE) 05/07/2019 YASEMIN KENNEDY DO Ot Z79.01 VOCATIONAL REHABILITATION SUPERVISOR (CURRENT) USE OF ANTICOAGULANT 05/07/2019 YASEMIN KENNEDY DO Ot Z79.02 VOCATIONAL REHABILITATION SUPERVISOR (CURRENT) USE OF ANTITHROMBOTI 05/07/2019 YSAEMIN KENNEDY DO Ot Z87.89 1 PERSONAL HISTORY OF NICOTINE DEPENDENCE 05/18/2019 ASIF SALEEM MD, Ot 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 05/18/2019 ASIF SALEEM MD, Ot E11.52 TYPE [...] 05/18/2019 ASIF SALEEM MD, Ot 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 05/18/2019 ASIF [...] SELF Procedures Code Description Performed By Per [facility] On [id number] ME ASURE OF CARDIAC SAMPL PRESSURE, L H 04/12/2019 [id number] FL UOROSCOPY OF MULT COR ART USING L OSM 04/12/2019 [id number] FL UOROSCOPY OF [place], BI LE ART USING L 04/12/2019 [id number] EX CISION OF ESOPHAGOGASTRIC JUNCTION, EN 04/27/2019 [id number] EX CISION OF STOMACH, ENDO, DIAGN 04/27/2019 [id number] EX CISION OF STOMACH, PYLORUS, ENDO, DIAG 04/27/2019 [id number] EX CISION OF ASCENDING COLON, ENDO, DIAGN 04/27/2019 [id number] EX CISION OF TRANSVERSE COLON, ENDO, DIAG 04/27/2019 [id number] EX CISION OF DESCENDING COLON, ENDO, DIAG 04/27/2019 [id number] IN SPECTION OF UPPER INTESTINAL TRACT, EN [...] 7-25 CREATININE 2.27 mg/dL 0.60-0.93 eGFR NON-AFR. [place] 21 mL/min/1.73m2 > OR = 60 eGFR [...] 7-25 CREATININE 3.00 mg/dL 0.60-0.93 eGFR NON-AFR. [place] 15 mL/min/1.73m2 > OR = 60 eGFR [...] pa abril - 04/22/19 11:59 WRISTBAND NUMBER [id number] NRG ABO+Rh group OP NRG Blood group [...] culture - 04/22/19 12:10 Bacterial urine culture [id number] NRG COLONY COUNT >100,000/ML NRG FTX;REPORTABLE SUSCEPTIBILITY [...] CELLS LEUKO REDUCED AS1 T RANSFUSED 05/03/19 1297 NR Blood type T Indirect antibody screen pa abril - 05/03/19 05:23 WRISTBAND NUMBER [id number] NR ABO+Rh group OP NRG Blood group [...] Status Pt. Type Provider Facility Loc./Unit Complaint [id number] 03/19/2019 15:15:00 03/19/2019 23:59: 59 CLS Outpatient [facility] [id number] 03/03/2019 09:45:00 Document Registration [id number] 12/24/2018 14:45:00 Document Registration [id number] 12/11/2018 08:30:00 Document Registration [id number] 11/10/2018 08:45:00 Document Registration [id number] 11/05/2018 09:20:00 Document Registration [id number] 05/13/2019 12:45:00 23:59:59 CLS Outpatient HARPER BARROSO, ASIF Cook [facility] [id number] 05/02/2019 14:49:00 13:40:00 DIS Outpatient YASEMIN KENNEDY DO [facility] CSD GI BLEED; GENERALIZED E ELMA [id number] 04/29/2019 09:44:00 23:59:59 CLS Outpatient ASIF SALEEM MD [facility] [id number] 04/22/2019 13:26:00 10:50:00 DIS Inpatient KENNEDY YASEMIN POLK V [facility] 4TH SEVERE SEPSIS/ANEMIA/UT I [id number] 04/22/2019 15:16:00 23:59:59 CLS Outpatient ASIF SALEEM MD [id number] 04/15/2019 12:11:00 23:59:59 CLS Outpatient ASIF SALEEM MD [facility] W[facility] [id number] 04/14/2019 09:30:00 23:59:59 CLS Preadmit ASIF SALEEM MD [facility] RAD EMBOLISM AND THROMBOSIS OF ARTERIES OF LOWER EXT. 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 [id number] 04/01/2019 08:06:00 23:59:59 CLS Outpatient ASIF SALEEM MD [facility] [id number] 02/27/2019 16:22:00 19:00:00 DIS Emergency SAMREEN BARROSO, AMADO Kate [facility] ER FS SWOLLEN FT, PAIN IN FT [id number] 02/23/2019 06:53:00 23:59:59 CLS Outpatient DYLAN CHRISTIANSEN DO [facility] ENDO ABD PAIN/N V [id number] 02/23/2019 09:29:00 13:45:00 DIS Emergency LISA BARROSO, EMELY Pack [facility] ER HIGH BP [id number] 02/16/2019 05:35:00 12:01:00 DIS Outpatient DYLAN CHRISTIANSEN DO [facility] PREOP COLONOSCOPY/EGD [id number] 12/24/2018 09:09:00 23:59:59 CLS Outpatient HAIDER BARROSO, SONDRA [place] [facility] RAD FS R10.13 [id number] 06/04/2019 21:00:00 P EN Preadmit OSEI VALENZUELA APRN [facility] SLEEP SLEEP DISORDER,HYPERSOMNIA,S NORING [id number] 06/01/2019 08:45:00 P EN Preadmit OSEI VALENZUELA E RECHECKER [facility] RAD DYSPNEA,COPD,TOBACCO DEPENDE NCE SYNDROME
== END 2019-04-28 10:50 | disposition home or self-care (01) | DRG 871 ==
LOC: EDUNIT# 10:31 → ER 10:33 → ICU 13:26 → 4TH 04-23 14:36
PROVIDERS: ADMIT Internal Medicine; ATTEND Internal Medicine
PROC: 0DBK8ZX Excision of Ascending Colon, Via Natural or Artificial Opening Endoscopic, Diagnostic (ICD-10-PCS; 2019-04-27)
PROC: 0DB48ZX Excision of Esophagogastric Junction, Via Natural or Artificial Opening Endoscopic, Diagnostic (ICD-10-PCS; 2019-04-27)
PROC: 0DB78ZX Excision of Stomach, Pylorus, Via Natural or Artificial Opening Endoscopic, Diagnostic (ICD-10-PCS; 2019-04-27)
PROC: 0DB68ZX Excision of Stomach, Via Natural or Artificial Opening Endoscopic, Diagnostic (ICD-10-PCS; 2019-04-27)
PROC: 0DBL8ZX Excision of Transverse Colon, Via Natural or Artificial Opening Endoscopic, Diagnostic (ICD-10-PCS; principal; 2019-04-27 12:00)
PROC: 0DBM8ZX Excision of Descending Colon, Via Natural or Artificial Opening Endoscopic, Diagnostic (ICD-10-PCS; 2019-04-27 12:00)
DX: A41.9 Sepsis, unspecified organism (principal); R65.21 Severe sepsis with septic shock; N30.00 Acute cystitis without hematuria; N17.9 Acute kidney failure, unspecified; I12.9 Hypertensive chronic kidney disease with stage 1 through stage 4 chronic kidney disease, or unspecified chronic kidney disease; N18.4 Chronic kidney disease, stage 4 (severe); D64.9 Anemia, unspecified; I21.A1 Myocardial infarction type 2; I71.4 Abdominal aortic aneurysm, without rupture; I73.1 Thromboangiitis obliterans [Buerger's disease]; I82.813 Embolism and thrombosis of superficial veins of lower extremities, bilateral; K92.1 Melena; E87.1 Hypo-osmolality and hyponatremia; L97.519 Non-pressure chronic ulcer of other part of right foot with unspecified severity; L97.529 Non-pressure chronic ulcer of other part of left foot with unspecified severity; I73.9 Peripheral vascular disease, unspecified; I07.1 Rheumatic tricuspid insufficiency; E78.5 Hyperlipidemia, unspecified; K58.1 Irritable bowel syndrome with constipation; K58.0 Irritable bowel syndrome with diarrhea; I25.10 Atherosclerotic heart disease of native coronary artery without angina pectoris; M19.91 Primary osteoarthritis, unspecified site; M54.9 Dorsalgia, unspecified; Z87.891 Personal history of nicotine dependence; K29.70 Gastritis, unspecified, without bleeding; D12.2 Benign neoplasm of ascending colon; D12.3 Benign neoplasm of transverse colon; D12.4 Benign neoplasm of descending colon; K57.30 Diverticulosis of large intestine without perforation or abscess without bleeding
CPT/HCPCS: 36415; 51702; 71045; 80053; 81000; 82274; 83605; 83735; 83880; 84100; 84484; 85014; 85018; 85025; 85027; 85610; 85730; 86850; 86900; 86901; 86920; 87040; 87077; 87088; 87186; 88305; 93005; 96361; 96374; 96375; 99213

== ENCOUNTER → 2019-04-22 | Outpatient (CLI) | payer MEDICARE ==
[~2019-04-22] MED LIST changes: +CLON1PAT33 TD; +NITR1OIN TOP; +PANT40TA3 PO
== END ==
LOC: WOUNDCARE 09:52
PROVIDERS: ATTEND Surgery
DX: E11.621 Type 2 diabetes mellitus with foot ulcer (principal); E11.22 Type 2 diabetes mellitus with diabetic chronic kidney disease; I12.0 Hypertensive chronic kidney disease with stage 5 chronic kidney disease or end stage renal disease; L97.522 Non-pressure chronic ulcer of other part of left foot with fat layer exposed; L97.512 Non-pressure chronic ulcer of other part of right foot with fat layer exposed; N18.5 Chronic kidney disease, stage 5; F17.218 Nicotine dependence, cigarettes, with other nicotine-induced disorders; I70.245 Atherosclerosis of native arteries of left leg with ulceration of other part of foot; I70.235 Atherosclerosis of native arteries of right leg with ulceration of other part of foot
CPT/HCPCS: 99213

== ENCOUNTER → 2019-04-29 | Outpatient (CLI) | payer MEDICARE ==
[~2019-04-29] MED LIST changes: +BISA5TAB8 PO; +CLON1PAT TD; +CLON1PAT33 TD; +METO-333; +NITR1OIN TOP; +OMG1KC PO; +PANT40TA2 PO; +PANT40TA3 PO; +SUCR1TAB PO
== END ==
LOC: WOUNDCARE 09:44
PROVIDERS: ATTEND Surgery
DX: E11.621 Type 2 diabetes mellitus with foot ulcer (principal); E11.52 Type 2 diabetes mellitus with diabetic peripheral angiopathy with gangrene; E11.22 Type 2 diabetes mellitus with diabetic chronic kidney disease; I12.0 Hypertensive chronic kidney disease with stage 5 chronic kidney disease or end stage renal disease; I70.263 Atherosclerosis of native arteries of extremities with gangrene, bilateral legs; L97.522 Non-pressure chronic ulcer of other part of left foot with fat layer exposed; L97.512 Non-pressure chronic ulcer of other part of right foot with fat layer exposed; I71.4 Abdominal aortic aneurysm, without rupture; N18.5 Chronic kidney disease, stage 5; T65.222A Toxic effect of tobacco cigarettes, intentional self-harm, initial encounter; I48.91 Unspecified atrial fibrillation; F17.218 Nicotine dependence, cigarettes, with other nicotine-induced disorders
CPT/HCPCS: 99213

== ENCOUNTER 2019-05-02 12:10 | Inpatient (IN) | payer MEDICARE ==
[~2019-05-02] VITALS: Ht 149.8 cm; Wt 46.6 kg
[~2019-05-02 12:10] MED LIST changes: -BISA5TAB8 PO; -CLON1PAT TD; -METO-333; -OMG1KC PO; -PANT40TA2 PO; -SUCR1TAB PO
[2019-05-02 12:30] VITALS: BP 147/65
--- NOTE | 2019-05-02 12:30 | NUR ---
Patient had bedside occult exam with physician doing a rectal exam. No sign of blood red or black except speck of dark in clear mucous. Occult resulted trace positive with very faint line.
--- NOTE | 2019-05-02 12:50 | NUR ---
Pt is requiring support of as she is fearful of IV start and moving restlessly. Started by Karen MILTON and labs drawn. Pt requests it removed and at this time educated to possible needs of this device and requirement to re-insert. Pt will permit left in place. Pt talks faster and faster amplifing voice.
--- NOTE | 2019-05-02 12:54 | ED General ---
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 She was quite anemic with a hemoglobin of 6.9 prior to fluid resuscitation, and described a history of having had black stools she received aggressive resuscitation with IV fluids and was transfused 2 units of blood, discharged 4 days ago on 04-28 she had upper and lower endoscopy finding gastritis and evidence of some b leeding in the stomach but no ulcers seen scattered diverticuli and some colon polyps she did undergo some biopsies and polypectomies no major bleeding source she did have an elevated troponin, (recent heart cath showed mild to mod non- obstructive disease) was found to have acute on chronic renal failure notes show she had bilateral pedal edema (was getting lasix inpatient, not on now) she is documented to have chronic renal failure stage IV and hyponatremia Today she presents seeming very anxious she notes that she has had continuation of some liquidy black stools and 2 stools with more reddish material feels somewhat short of breath and she feels she had new onset of leg edema not there before a few days ago left greater than right denies chest pain abd pain fever vomiting or urinary sx's Allergies and Home Medications Allergies Coded Allergies: Penicillins (Verified Allergy, Severe, ANAPHYLAXIS, 02/16/19) levofloxacin (Verified Allergy, Severe, DIARRHIA, SWELLING, WEAKNESS, 02/16/19) sulfamethoxazole (Verified Allergy, Severe, WHEEZING/SWELLING, 02/16/19) trimethoprim (Verified Allergy, Severe, WHEEZING/SWELLING, 02/16/19) Tetracyclines (Verified Allergy, Mild, GI UPSET, 02/16/19) Sulfa (Sulfonamide Antibiotics) (Verified Allergy, Unknown, 02/16/19) pseudoephedrine (Verified Allergy, Unknown, 02/16/19) Home Medications Amlodipine Besylate 10 Mg Tablet, 10 MG PO DAILY, (Reported) Aspirin 81 Mg Tablet.dr, 81 MG PO DAILY, (Reported) Atorvastatin Calcium 80 Mg Tablet, 80 MG PO HS, (Reported) Clonidine 1 Each Patch.tdwk, 0.1 MG TD Q7D@09 Prescribed by: YASEMIN KENNEDY on 04/28/19 1004 Clopidogrel Bisulfate 75 Mg Tablet, 75 MG PO DAILY, (Reported) Isosorbide Mononitrate 30 Mg Tab.er.24h, 30 MG PO DAILY, (Reported) Metoprolol Succinate 25 Mg Tab.er.24h, 50 MG PO DAILY, (Reported) LAST FILLED #60 03-03-19 TAKES 2 (25MG) TABLETS Pantoprazole Sodium 40 Mg Tablet.dr, 40 MG PO BID Prescribed by: YASEMIN KENNEDY on 04/28/19 1004 Rivaroxaban 2.5 Mg Tablet, 2.5 MG PO BID, (Reported) Tramadol HCl 50 Mg Tablet, 100 MG PO BID PRN for PAIN-MODERATE (5-7), (Reported) TAKES 2 (50MG) TABLETS Patient Home Medication List Home Medication List Reviewed: Yes Review of Systems Review of Systems Constitutional: weakness EENTM: no symptoms reported Respiratory: short of breath Cardiovascular: no symptoms reported Gastrointestinal: melena, other (little red blood in stool) Genitourinary: no symptoms reported Musculoskeletal: no symptoms reported, other (increased leg edema derek left) Skin: no symptoms reported, other (ulcerations great toes unchanged) Past Hbouwnk-Nsojbx-Kfjnqc Hx Patient Social History Alcohol Beverage of Choice: Beer Type Used: Cigarettes 2nd Hand Smoke Exposure: Yes Recent Hopitalizations: No Immunizations Up To Date PED Vaccines UTD: No Date of Pneumonia Vaccine: Mar 05, 2016 Date of Influenza Vaccine: Mar 14, 2019 Seasonal Allergies Seasonal Allergies: Yes Past Medical History Surgeries: Yes Tubal Ligation Respiratory: No Currently Using CPAP: No Currently Using BIPAP: No Cardiac: Yes Hypertension Neurological: No Female Reproductive Disorders: Denies Sexually Transmitted Disease: No HIV/AIDS: No Genitourinary: Yes (STAGE 3) Renal Failure Gastrointestinal: Yes (N/V, ABD PAIN) Chronic Constipation, Chronic Diarrhea, Irritable Bowel Musculoskeletal: Yes Arthritis, Chronic Back Pain Endocrine: No HEENT: Yes (READING GLASSES, DENTURES, blurred vision) Loss of Vision: Bilateral Hearing Impairment: Denies Cancer: No (egd, tubaligation) Did You Recieve Any Treatments: No Psychosocial: Yes (SITUATIONAL-RELATED TO MOTHERS ) Depression Integumentary: Yes (foot wounds due to Buerger's Disease) Blood Disorders: No Adverse Reaction/Blood Tranf: No (N/A) Family Medical History CAD Over 55 Years Old, Diabetes, Hypertension Physical Exam Vital Signs Vital Signs - First Documented 05/02/19 12:14 Temp 37.2 Pulse 110 Resp 20 B/P (MAP) 103/68 (80) Pulse Ox 100 O2 Delivery Room Air Capillary Refill : Height, Weight, BMI Height: '" Weight: lbs. oz. kg; 19.00 BMI Method: General Appearance: Anxious, Chronically ill Eyes: Bilateral Eye PERRL, Bilateral Eye EOMI HEENT: Pharynx Normal, Moist Mucous Membranes Neck: Supple Respiratory: Lungs Clear Cardiovascular: Systolic Murmur, Tachycardia Gastrointestinal: Normal Bowel Sounds, Non Tender, Soft, Other (aortic pulsations prominent) Rectal: Other (perianal area reddened no sig stool in rectal vault trace heme+) Back: Normal Inspection Extremity: Other (has 3+ edema LLE extending well above knee RLE similar but less severe superficial laceratios both great toes) Neurologic/Psychiatric: Alert, Oriented x3, No Motor/Sensory Deficits Focused Exam Lactate Level 05/02/19 13:07: Lactic Acid Level 1.17 Lactic Acid Level Laboratory Tests Test 05/02/19 13:07 Lactic Acid Level 1.17 MMOL/L (0.50-2.00) Progress/Results/Core Measures Suspected Sepsis SIRS Temperature: Pulse: Respiratory Rate: Laboratory Tests 05/02/19 12:50: White Blood Count 8.6 Blood Pressure / Mean: 05/02/19 13:07: Lactic Acid Level 1.17 Laboratory Tests 05/02/19 12:50: Creatinine 2.32H, INR Comment 1.6H, Platelet Count 283, Total Bilirubin 0.5 Results/Orders Lab Results Laboratory Tests Test 05/02/19 12:50 05/02/19 13:07 05/02/19 13:55 Range/Units White Blood Count 8.6 4.3-11.0 10^3/uL Red Blood Count 2.63 L 4.35-5.85 10^6/uL Hemoglobin 7.9 #L 11.5-16.0 G/DL Hematocrit 24 L 35-52 % Mean Corpuscular Volume 90 80-99 FL Mean Corpuscular Hemoglobin 30 25-34 PG Mean Corpuscular Hemoglobin Concent 33 32-36 G/DL Red Cell Distribution Width 16.4 H 10.0-14.5 % Platelet Count 283 130-400 10^3/uL Mean Platelet Volume 10.9 H 7.4-10.4 FL Prothrombin Time 19.4 H 12.2-14.7 SEC INR Comment 1.6 H 0.8-1.4 Sodium Level 137 135-145 MMOL/L Potassium Level 3.4 L 3.6-5.0 MMOL/L Chloride Level 103 98-107 MMOL/L Carbon Dioxide Level 23 21-32 MMOL/L Anion Gap 11 5-14 MMOL/L Blood Urea Nitrogen 39 H 7-18 MG/DL Creatinine 2.32 H 0.60-1.30 MG/DL Estimat Glomerular Filtration Rate 21 BUN/Creatinine Ratio 17 Glucose Level 116 H 70-105 MG/DL Calcium Level 9.1 8.5-10.1 MG/DL Corrected Calcium 9.8 8.5-10.1 MG/DL Total Bilirubin 0.5 0.1-1.0 MG/DL Aspartate Amino Transf (AST/SGOT) 16 5-34 U/L Alanine Aminotransferase (ALT/SGPT) 10 0-55 U/L Alkaline Phosphatase 62 40-136 U/L Troponin I < 0.30 <0.30 NG/ML Total Protein 5.6 L 6.4-8.2 GM/DL Albumin 3.1 L 3.2-4.5 GM/DL Lactic Acid Level 1.17 0.50-2.00 MMOL/L Urine Color YELLOW Urine Clarity CLEAR Urine pH 6.0 5-9 Urine Specific Wilkinson 1.010 L 1.016-1.022 Urine Protein 1+ H NEGATIVE Urine Glucose (UA) NEGATIVE NEGATIVE Urine Ketones NEGATIVE NEGATIVE Urine Nitrite NEGATIVE NEGATIVE Urine Bilirubin NEGATIVE NEGATIVE Urine Urobilinogen 0.2 < = 1.0 MG/DL Urine Leukocyte Esterase NEGATIVE NEGATIVE Urine RBC (Auto) 1+ H NEGATIVE Urine RBC 10-25 H /HPF Urine WBC 2-5 /HPF Urine Squamous Epithelial Cells 2-5 /HPF Urine Crystals PRESENT H /LPF Urine Amorphous Sediment FEW ANA URATES H /LPF Urine Bacteria NEGATIVE /HPF Urine Casts PRESENT /LPF Urine Granular Casts 5-10 H /LPF Urine Mucus NEGATIVE /LPF Urine Culture Indicated NO My Orders Orders - SERENE LUZ MD Iv Heplock-Insert (Order) (05/02/19 12:26) Cbc No Diff (05/02/19 12:26) Orthostatic Vital Signs (Adult (05/02/19 12:26) Protime With Inr (05/02/19 12:26) Comprehensive Metabolic Panel (05/02/19 12:46) Urinalysis (05/02/19 12:46) Chest 1 View Ap/Pa Only (05/02/19 12:46) Ekg Tracing (05/02/19 12:46) Continuous Ekg Monitoring (05/02/19 12:46) Troponin I Fs (05/02/19 12:54) Lactic Acid Analyzer (05/02/19 12:54) Lorazepam Injection (Ativan Injection) (05/02/19 13:15) Fentanyl Injection (Sublimaze Injection (05/02/19 13:15) Medications Given in ED Current Medications Medications Dose Ordered Sig/Adali Route Start Time Stop Time Status Last Admin Dose Admin Fentanyl Citrate 25 mcg Q1H PRN IVP 05/02/19 13:15 05/02/19 13:22 25 MCG Lorazepam 0.5 mg ONCE ONCE IVP 05/02/19 13:15 05/02/19 13:16 DC 05/02/19 13:21 0.5 MG Vital Signs/I&O 05/02/19 05/02/19 12:14 13:15 Temp 37.2 Pulse 110 115 114 112 Resp 20 B/P (MAP) 103/68 (80) 146/96 (113) 119/74 (89) 105/56 (72) Pulse Ox 100 O2 Delivery Room Air Capillary Refill : Progress Note : Progress Note Hb 7.9 was 10.3 on dismissal from the hospital 4 days ago pt has generalzed edema creat is stable at 2.3 BUN up from 12 to 39 troponin negative INR is 1.6 she is on Plavix xarelto and aspirin lactic acid is 1.[address] Kennedy, will admit to cardiac stepdown unit consults to Dr Stratton and [place] ECG Initial ECG Impression Date: May 02, 2019 Initial ECG Impression Time: 13:08 Comment EKG shows a sinus tachycardia with a rate of 110 very wavy baseline in the lateral chest leads there may be some non specific ST depression lateral Diagnostic Imaging Comments Chest x-ray showing cardiomegaly perhaps slightly more prominent than prior exam with central pulmonary vascular congestion and improved and nearly resolved bibasilar pleural parenchymal opacities Departure Communication (Admissions) Time/Spoke to Admitting Phy: 14:33 Time/Spoke to Consulting Phy: 14:33 Impression Primary Impression: GI bleed Qualified Codes: K92.2 - Gastrointestinal hemorrhage, unspecified Additional Impression: Generalized edema Disposition: ADMITTED INPATIENT Condition: Stable Admissions Decision to Admit Reason: Admit from ER (Trauma) Decision to Admit/Date: May 02, 2019 Time/Decision to Admit Time: 14:36 Departure-Patient Inst. Referrals: SONDRA MALONEY MD (PCP/Family) Primary Care Physician SERENE LUZ MD May 02, 2019 12:54 POS
--- NOTE | 2019-05-02 13:00 | NUR ---
Patient continues to be so very anxious with trembling changes in voice and shaking. Pt breathing shallow and fast. Encourage patient to relax and slow deep breathe as anxiety is becoming her issue.
--- NOTE | 2019-05-02 13:08 | Diagnostic Imaging Report ---
INDICATION: Bloody stools COMPARISON: 04/25/2019 TECHNIQUE: Single radiograph of the chest dated 05/02/2019. FINDINGS: The cardiac silhouette is enlarged, appearing more prominent than the prior examination. Increasing central pulmonary vascular congestion. Previously noted right basilar pleural-parenchymal opacity has significantly improved and nearly resolved. Previously noted left basilar pleural-parenchymal opacity is also improved since the prior examination. No additional new focal pulmonary opacity. No large volume pleural effusion. No pneumothorax. No acute osseous abnormality. IMPRESSION: Enlargement of the cardiac silhouette, appearing slightly more prominent than the prior examination. This is associated with central pulmonary vascular congestion. Improved and nearly resolved bibasilar pleural-parenchymal opacities. Dictated by: Dictated on workstation # [id number]
[2019-05-02 13:13] LABS: HEMOGLOBIN 7.9 G/DL (11.5-16.0); WHITE BLOOD COUNT 8.6 10^3/uL (4.3-11.0)
[2019-05-02 13:14] LABS: MEAN PLATELET VOLUME 10.9 FL (7.4-10.4); RED CELL DISTRIBUTION WIDTH 16.4 % (10.0-14.5)
[2019-05-02 13:15] VITALS: BP_SYST 105; BP_SYST 119; BP_SYST 146; BP_DIAS 56; BP_DIAS 74; BP_DIAS 96
[2019-05-02] MEDS ORDERED: LORazepam INJ 2 MG/ML (ATIVAN) VIAL IVP ONE (13:15)
[2019-05-02] MEDS ORDERED: fentaNYL INJECTION 100 MCG/2 ML AMP IVP PRN (13:15)
[2019-05-02 13:21] LABS: INR 1.6 (0.8-1.4); PROTHROMBIN TIME PATIENT 19.4 SEC (12.2-14.7)
--- NOTE | 2019-05-02 13:21 | NUR ---
Ativan 0.5 mg diluted SIVP for anxiety.
--- NOTE | 2019-05-02 13:22 | NUR ---
Fentanyl 25 mcg SIVP for generalized pain, c/o legs hurting and edematous.
[2019-05-02 13:28] LABS: BUN/CREATININE RATIO 17; CARBON DIOXIDE 23 MMOL/L (21-32); CHLORIDE 103 MMOL/L (98-107); CREATININE SERUM 2.32 MG/DL (0.60-1.30); GFR ESTIMATED 21; GLUCOSE 116 MG/DL (70-105); POTASSIUM 3.4 MMOL/L (3.6-5.0); SODIUM 137 MMOL/L (135-145)
[2019-05-02 13:29] LABS: ALANINE AMINOTRANSFERASE 10 U/L (0-55); ALBUMIN 3.1 GM/DL (3.2-4.5); ALKALINE PHOSPHATASE 62 U/L (40-136); BILIRUBIN,TOTAL 0.5 MG/DL (0.1-1.0); CALCIUM 9.1 MG/DL (8.5-10.1); TOTAL PROTEIN 5.6 GM/DL (6.4-8.2)
[2019-05-02 13:30] VITALS: BP 128/61
[2019-05-02] MEDS ORDERED: CLOP75TA28 PO (14:12)
[2019-05-02] MEDS ORDERED: METO-333 (14:12)
[2019-05-02 14:21] LABS: BACTERIA,URINE NEGATIVE /HPF; BILIRUBIN,URINE NEGATIVE (NEGATIVE); CLARITY,URINE CLEAR; COLOR,URINE YELLOW; GLUCOSE, URINE (UA) NEGATIVE (NEGATIVE); KETONES,URINE NEGATIVE (NEGATIVE); LEUKOCYTE ESTERASE ,URINE NEGATIVE (NEGATIVE); NITRITE,URINE NEGATIVE (NEGATIVE); PROTEIN,URINE 1+ (NEGATIVE)
[2019-05-02 14:22] LABS: AMORPHOUS SEDIMENT,UR FEW AMOR URATES /LPF
[2019-05-02 14:30] VITALS: BP 131/58
--- NOTE | 2019-05-02 14:30 | NUR ---
Pt resting quietly and no tremoring. Pt voice is soft and slower speech pattern. SaO2 100% Rm Air. Pt is now conversing with no tears or labile emotions.
--- NOTE | 2019-05-02 14:30 | NUR ---
Dr Perkins has acceptance to admit to Dr Diaz covering [facility].
--- NOTE | 2019-05-02 14:35 | NUR ---
Dr Perkins to room to discuss need to consider re-admit for lowering hemoglobin and GI bleed sx. Pt was informed they could also re-eval her worsening kidney function and the edema problem.
--- NOTE | 2019-05-02 14:40 | NUR ---
Call to Pediatric Rn Susu MILTON to request CSD bed assignment
--- NOTE | 2019-05-02 16:08 | NUR ---
f pt name] admitted to room CU2-1, with an admitting diagnosis of GI BLEED AND GENERALIZED EDEMA, on 05/02/19 from [facility] via , accompanied by .RIC VILLEGAS introduced to surroundings, call light, bed controls, phone, TV, temperature control, lights, meal times, smoking policy, visitor policy, side rail policy, bathrooms and showers. Patient Rights given to patient in the handbook.RIC VILLEGAS verbalizes understanding that [facility] is not responsible for the loss or damage to any personal effects or valuables that are kept in the patients posession during their hospitalization.
[2019-05-02 16:15] VITALS: BP 158/79
[2019-05-02] MEDS ORDERED: CATHETER FLUSH 10 ML SYR IV PRN (16:30)
--- NOTE | 2019-05-02 17:04 | Consultation - Surgery ---
History of Present Illness History of Present Illness Patient Consulted On(sandra/time) 05/02/19 16:59 Time Seen by Provider: 16:47 History of Present Illness Surgery asked to consult regarding Hematochezia, Melena and anemia. HPI per ED: 73-year-old female diagnosed with Buerger's disease with ul cerations on her toes. On 04-22 she was found to be very tachycardic and hypotensive and admitted to ICU for sepsis source urine? She was quite anemic with a hemoglobin of 6.9 prior to fluid resuscitation, and described a history of having had black stools, she received aggressive resuscitation with IV fluids and was transfused 2 units of blood, discharged 4 days ago on 04-28 she had upper and lower endoscopy finding gastritis and evidence of some bleeding in the stomach but no ulcers seen, scattered diverticuli and some colon polyps she did undergo some biopsies and polypectomies no major bleeding source she did have an elevated troponin, (recent heart cath showed mild to mod non- obstructive disease) was found to have acute on chronic renal failure. notes show she had bilateral pedal edema (was getting lasix inpatient, not on now) she is documented to have chronic renal failure stage IV and hyponatremia Today she presents seeming very anxious, she notes that she has had continuation of some liquidy black stools and 2 stools with more reddish material, feels somewhat short of breath and she feels she had new onset of leg edema not there before a few days ago left greater than right denies chest pain abd pain fever vomiting or urinary sx's When I spoke to pt she complained of abdominal pain in the RLQ. She is very anxious about having the problems and didn't want her to worry. She actually wrote down on an envelope her symptoms and when she was having BMs. According to the envelope, she had 4-5 brown BM's and then yesterday had 4 black and finally today 2 red BMs. Allergies and Home Medications Allergies Coded Allergies: Penicillins (Verified Allergy, Severe, ANAPHYLAXIS, 02/16/19) levofloxacin (Verified Allergy, Severe, DIARRHIA, SWELLING, WEAKNESS, 02/16/19) sulfamethoxazole (Verified Allergy, Severe, WHEEZING/SWELLING, 02/16/19) trimethoprim (Verified Allergy, Severe, WHEEZING/SWELLING, 02/16/19) Tetracyclines (Verified Allergy, Mild, GI UPSET, 02/16/19) Sulfa (Sulfonamide Antibiotics) (Verified Allergy, Unknown, 02/16/19) pseudoephedrine (Verified Allergy, Unknown, 02/16/19) Home Medications Amlodipine Besylate 10 Mg Tablet, 10 MG PO DAILY, (Reported) Aspirin 81 Mg Tablet.dr, 81 MG PO DAILY, (Reported) Atorvastatin Calcium 80 Mg Tablet, 80 MG PO HS, (Reported) Clonidine 1 Each Patch.tdwk, 0.1 MG TD Q7D@09 Prescribed by: YASEMIN KENNEDY on 04/28/19 1004 Clopidogrel Bisulfate 75 Mg Tablet, 75 MG PO DAILY, (Reported) Isosorbide Mononitrate 30 Mg Tab.er.24h, 30 MG PO DAILY, (Reported) Metoprolol Succinate 25 Mg Tab.er.24h, 50 MG PO DAILY, (Reported) LAST FILLED #60 03-03-19 TAKES 2 (25MG) TABLETS Pantoprazole Sodium 40 Mg Tablet.dr, 40 MG PO BID Prescribed by: YASEMIN KENNEDY on 04/28/19 1004 Rivaroxaban 2.5 Mg Tablet, 2.5 MG PO BID, (Reported) Tramadol HCl 50 Mg Tablet, 100 MG PO BID PRN for PAIN-MODERATE (5-7), (Reported) TAKES 2 (50MG) TABLETS Patient Home Medication List Home Medication List Reviewed: Yes Past Pzhufkd-Kizruc-Wihfzb Hx Patient Social History Alcohol Use: Rarely Uses Number of Drinks Today: AA Recreational Drug Use: No Smoking Status: Former Smoker Type Used: Cigarettes 2nd Hand Smoke Exposure: Yes Recent Foreign Travel: No Contact w/Someone Who Travel: No Recent Infectious Disease Expo: No Recent Hopitalizations: No Immunizations Up To Date PED Vaccines UTD: No Date of Pneumonia Vaccine: Mar 05, 2016 Date of Influenza Vaccine: Mar 14, 2019 Seasonal Allergies Seasonal Allergies: Yes Surgeries History of Surgeries: Yes (EGD/Colonoscopy) Surgeries: Tubal Ligation Respiratory History of Respiratory Disorde: No Cardiovascular History of Cardiac Disorders: Yes Cardiac Disorders: Hypertension Neurological History of Neurological Disord: No Reproductive System Sexually Transmitted Disease: No HIV/AIDS: No Female Reproductive Disorders: Denies Genitourinary History of Genitourinary Disor: Yes (CKD Stage 4) Genitourinary Disorders: Renal Failure Gastrointestinal History of Gastrointestinal Di: Yes (Recent scope and gastritis) Gastrointestinal Disorders: Gastrointestinal Bleed, Chronic Constipation, Chronic Diarrhea, Irritable Bowel Musculoskeletal History of Musculoskeletal Dis: Yes Musculoskeletal Disorders: Arthritis, Chronic Back Pain Endocrine History of Endocrine Disorders: No HEENT History of HEENT Disorders: Yes (READING GLASSES, DENTURES, blurred vision) Loss of Vision: Bilateral Hearing Impairment: Denies Cancer History of Cancer: No Psychosocial History of Psychiatric Problem: Yes (SITUATIONAL-RELATED TO MOTHERS ) Behavioral Health Disorders: Depression Integumentary History of Skin or Integumenta: Yes (foot wounds due to Buerger's Disease (dark blackened tips of toes)) Blood Transfusions History of Blood Disorders: Yes (Anemia r/t GI blood loss, Renal Failure stage 4) Adverse Reaction to a Blood Tr: No (N/A) Family Medical History Significant Family History: CAD Over 55 Years Old, Diabetes, Hypertension Review of Systems-General Constitutional: malaise, weakness EENTM: No blurred vision, No mouth pain, No mouth swelling, No epistaxis, No throat swelling Respiratory: No cough; dyspnea on exertion; No hemoptysis; short of breath Cardiovascular: No chest pain; edema, Hx of Intervention Gastrointestinal: RLQ, abdominal pain, loss of appetite, melena, nausea; No vomiting Genitourinary: No dysuria, No frequency, No hematuria Musculoskeletal: joint pain, joint swelling, muscle stiffness Skin: No change in color, No change in hair/nails Psychiatric/Neurological: Anxiety; Denies Depressed, Denies Seizure, Denies Tremors Other pt has hx of easy bleeding and bruising, because she is taking blood thinners Physical Exam-General Problems Physical Exam Vital Signs Vital Signs - First Documented 05/02/19 12:14 Temp 37.2 Pulse 110 Resp 20 B/P (MAP) 103/68 (80) Pulse Ox 100 O2 Delivery Room Air Capillary Refill : Less Than 3 Seconds General Appearance: WD/WN, mild distress Eyes: Bilateral Eye PERRL, Bilateral Eye EOMI HEENT: pharynx normal; No scleral icterus (R), No scleral icterus (L); other (poor dentition) Neck: non-tender, supple Respiratory: chest non-tender, lungs clear, normal breath sounds, no respiratory distress, no accessory muscle use Cardiovascular: regular rate, rhythm, no murmur Gastrointestinal: normal bowel sounds, soft, no organomegaly, no pulsatile mass, guarding (voluntary with deep palpation), tenderness (RLQ) Back: no CVA tenderness, no vertebral tenderness Extremities: no calf tenderness, normal capillary refill, pedal edema Neurologic/Psychiatric: supervisor money room II-XII nml as tested, alert, oriented x 3 Skin: normal color, warm/dry Lymphatic: no adenopathy (neck, axilla or groin) Data Review Labs Laboratory Tests 05/02/19 12:50: White Blood Count 8.6, Red Blood Count 2.63L, Hemoglobin 7.9#L, Hematocrit 24L, Mean Corpuscular Volume 90, Mean Corpuscular Hemoglobin 30, Mean Corpuscular Hemoglobin Concent 33, Red Cell Distribution Width 16.4H, Platelet Count 283, Mean Platelet Volume 10.9H, Prothrombin Time 19.4H, INR Comment 1.6H, Sodium Level 137, Potassium Level 3.4L, Chloride Level 103, Carbon Dioxide Level 23, Anion Gap 11, Blood Urea Nitrogen 39H, Creatinine 2.32H, Estimat Glomerular Filtration Rate 21, BUN/Creatinine Ratio 17, Glucose Level 116H, Calcium Level 9.1, Corrected Calcium 9.8, Total Bilirubin 0.5, Aspartate Amino Transf (AST/SGOT) 16, Alanine Aminotransferase (ALT/SGPT) 10, Alkaline Phosphatase 62, Troponin I < 0.30, Total Protein 5.6L, Albumin 3.1L 05/02/19 13:07: Lactic Acid Level 1.17 05/02/19 13:55: Urine Color YELLOW, Urine Clarity CLEAR, Urine pH 6.0, Urine Specific Hancock 1.010L, Urine Protein 1+H, Urine Glucose (UA) NEGATIVE, Urine Ketones NEGATIVE, Urine Nitrite NEGATIVE, Urine Bilirubin NEGATIVE, Urine Urobilinogen 0.2, Urine Leukocyte Esterase NEGATIVE, Urine RBC (Auto) 1+H, Urine RBC 10-25H, Urine WBC 2-5, Urine Squamous Epithelial Cells 2-5, Urine Crystals PRESENTH, Urine Amorphous Sediment FEW ANA URATESH, Urine Bacteria NEGATIVE, Urine Casts PRESENT, Urine Granular Casts 5-10H, Urine Mucus NEGATIVE, Urine Culture Indicated NO Assessment/Plan Assessment/Plan Assessment/Plan Hematochezia Melena Anemia Abdominal Pain Renal Failure Hypokalemia Pt is anemic and bleeding again, unfortunately last time she was in the hospital EGD/Colonoscopy failed to show source. She did have some colon polyps and it looked like blood in stomach, with small ulcers but no active bleeding. Plan is to rechech her H/H tomorrow, will make her NPO at midnight and do an EGD tomorrow. If her hemoglobin drops may need to do bleeding scan; however, that may not be possible to do until Saturday. Pt will be started on IV Protonix 40mg BID and IV fluids. Will get consent for EGD, pt stated she did not want to do colonoscopy again. Clinical Quality Measures DVT/VTE Risk/Contraindication: Risk Factor Score Per Nursin RFS Level Per Nursing on Admit: 4+=Very High DYLAN CHRISTIANSEN DO May 02, 2019 17:04 POS
[2019-05-02 20:00] VITALS: BP 135/89
[2019-05-02] MEDS: CATHETER FLUSH 10 ML SYR IV SCH (22:39)
[2019-05-02] MEDS: PANTOPRAZOLE 40 MG (PROTONIX) VIAL IV SCH (22:40)
[2019-05-02] MEDS: fentaNYL INJECTION 100 MCG/2 ML AMP IVP PRN (22:40)
[2019-05-03] VITALS (11 sets, daily range): BP systolic 92–151; BP diastolic 59–93
[2019-05-03] MEDS: fentaNYL INJECTION 100 MCG/2 ML AMP IVP PRN (01:53)
[2019-05-03 03:49] LABS: BASOPHILS # (AUTO) 0.2 10^3/uL (0.0-0.1); BASOPHILS % (AUTO) 2 % (0-10); EOSINOPHILS # (AUTO) 0.4 10^3/uL (0.0-0.3); EOSINOPHILS % (AUTO) 6 % (0-10); HEMATOCRIT 21 % (35-52); LYMPHOCYTES # (AUTO) 1.4 X 10^3 (1.0-4.0); LYMPHOCYTES % (AUTO) 20 % (12-44); MEAN CORPUSCULAR HEMOGLOBIN 30 PG (25-34); MEAN CORPUSCULAR HGB CONC 33 G/DL (32-36); MEAN CORPUSCULAR VOLUME 90 FL (80-99); MEAN PLATELET VOLUME 11.1 FL (7.4-10.4); MONOCYTES # (AUTO) 0.8 X 10^3 (0.0-1.0); MONOCYTES % (AUTO) 12 % (0-12); NEUTROPHILS % (AUTO) 59 % (42-75); PLATELET COUNT 244 10^3/uL (130-400); RED CELL DISTRIBUTION WIDTH 16.1 % (10.0-14.5); WHITE BLOOD COUNT 6.8 10^3/uL (4.3-11.0)
--- NOTE | 2019-05-03 04:10 | Pulmonary Consultation ---
History of Present Illness History of Present Illness Date Seen by Provider: May 03, 2019 Time Seen by Provider: 04:16 Date of Admission Allergies and Home Medications Allergies Coded Allergies: Penicillins (Verified Allergy, Severe, ANAPHYLAXIS, 02/16/19) levofloxacin (Verified Allergy, Severe, DIARRHIA, SWELLING, WEAKNESS, 02/16/19) sulfamethoxazole (Verified Allergy, Severe, WHEEZING/SWELLING, 02/16/19) trimethoprim (Verified Allergy, Severe, WHEEZING/SWELLING, 02/16/19) Tetracyclines (Verified Allergy, Mild, GI UPSET, 02/16/19) Sulfa (Sulfonamide Antibiotics) (Verified Allergy, Unknown, 02/16/19) pseudoephedrine (Verified Allergy, Unknown, 02/16/19) Home Medications Amlodipine Besylate 10 Mg Tablet, 10 MG PO DAILY, (Reported) Aspirin 81 Mg Tablet.dr, 81 MG PO DAILY, (Reported) Atorvastatin Calcium 80 Mg Tablet, 80 MG PO HS, (Reported) Clonidine 1 Each Patch.tdwk, 0.1 MG TD Q7D@09 Prescribed by: YASEMIN KENNEDY on 04/28/19 1004 Clopidogrel Bisulfate 75 Mg Tablet, 75 MG PO DAILY, (Reported) Isosorbide Mononitrate 30 Mg Tab.er.24h, 30 MG PO DAILY, (Reported) Metoprolol Succinate 25 Mg Tab.er.24h, 50 MG PO DAILY, (Reported) LAST FILLED #60 03-03-19 TAKES 2 (25MG) TABLETS Pantoprazole Sodium 40 Mg Tablet.dr, 40 MG PO BID Prescribed by: YASEMIN KENNEDY on 04/28/19 1004 Rivaroxaban 2.5 Mg Tablet, 2.5 MG PO BID, (Reported) Tramadol HCl 50 Mg Tablet, 100 MG PO BID PRN for PAIN-MODERATE (5-7), (Reported) TAKES 2 (50MG) TABLETS Past Oaalkes-Mdzjfi-Qwjzba Hx Patient Social History Alcohol Use: Rarely Uses Number of Drinks Today: AA Alcohol Beverage of Choice: Beer Recreational Drug Use: No Smoking Status: Former Smoker Type Used: Cigarettes 2nd Hand Smoke Exposure: Yes Recent Foreign Travel: No Contact w/Someone Who Travel: No Recent Infectious Disease Expo: No Recent Hopitalizations: No Physical Abuse: No Sexual Abuse: No Mistreated: No Fear: No Immunizations Up To Date PED Vaccines UTD: No Date of Pneumonia Vaccine: Mar 05, 2016 Date of Influenza Vaccine: Mar 14, 2019 Seasonal Allergies Seasonal Allergies: Yes Past Medical History Surgeries: Yes (EGD/Colonoscopy) Tubal Ligation Respiratory: No Currently Using CPAP: No Currently Using BIPAP: No Cardiac: Yes Hypertension Neurological: No Female Reproductive Disorders: Denies Sexually Transmitted Disease: No HIV/AIDS: No Genitourinary: Yes (CKD Stage 4) Renal Failure Gastrointestinal: Yes (Recent scope and gastritis) Gastrointestinal Bleed, Chronic Constipation, Chronic Diarrhea, Irritable Bowel Musculoskeletal: Yes Arthritis, Chronic Back Pain Endocrine: No HEENT: Yes (READING GLASSES, DENTURES, blurred vision) Loss of Vision: Bilateral Hearing Impairment: Denies Cancer: No Did You Recieve Any Treatments: No Psychosocial: Yes (SITUATIONAL-RELATED TO MOTHERS ) Depression Integumentary: Yes (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 oz. kg; 23.88 BMI Method: Exam Exam Vital Signs Date Time Temp Pulse Resp B/P (MAP) Pulse Ox O2 Delivery O2 Flow Rate FiO2 05/03/19 01:00 100 05/03/19 00:00 77 115/59 (77) 97 Room Air 05/03/19 00:00 Room Air 05/02/19 21:02 100 05/02/19 21:00 Room Air 05/02/19 20:00 96 26 135/89 (104) 100 Room Air 05/02/19 20:00 37.3 05/02/19 20:00 Room Air 05/02/19 16:15 36.9 92 20 158/79 (105) 98 Room Air 05/02/19 15:24 36.9 104 20 142/80 (72) 99 Room Air 05/02/19 14:30 96 21 131/58 (82) 94 Room Air 05/02/19 13:30 94 21 128/61 (83) 99 Room Air 05/02/19 13:15 115 146/96 (113) 114 119/74 (89) 112 105/56 (72) 05/02/19 12:30 37.2 111 20 147/65 (92) 99 Room Air 05/02/19 12:14 37.2 110 20 103/68 (80) 100 Room Air I & O 05/03/19 07:00 Intake Total 50 ml Output Total 300 ml Balance -250 ml Height & Weight Height: '" Weight: lbs. oz. kg; 23.88 BMI Method: General Appearance: Anxious, Chronically ill HEENT: Pharynx Normal, Moist Mucous Membranes Neck: Supple Respiratory: Lungs Clear Cardiovascular: Systolic Murmur, Tachycardia Capillary Refill: Less Than 3 Seconds Gastrointestinal: normal bowel sounds, soft, no organomegaly, no pulsatile mass, guarding (voluntary with deep palpation), tenderness (RLQ) Extremity: Other (has 3+ edema LLE extending well above knee RLE similar but less severe superficial laceratios both great toes) Neurologic/Psychiatric: Alert, Oriented x3, No Motor/Sensory Deficits Results Lab Laboratory Tests 05/02/19 12:50 05/03/19 03:13 Assessment/Plan Assessment/Plan Hematochezia -EGD scheduled for today -Recent admission with EGD/Colonoscopy with no findings of acute bleeding Acute renal failure -Monitor Anemia -Monitor -Will transfuse 1 unit PRBC secondary dropping hb and renal failure. Abdominal Pain JULIAN PEREZ DO May 03, 2019 04:10 POS
[2019-05-03 04:32] LABS: ALBUMIN 2.9 GM/DL (3.2-4.5); BILIRUBIN,TOTAL 0.5 MG/DL (0.1-1.0); CALCIUM 8.8 MG/DL (8.5-10.1); CREATININE SERUM 2.34 MG/DL (0.60-1.30); MAGNESIUM 1.7 MG/DL (1.6-2.4); PHOSPHORUS 3.3 MG/DL (2.3-4.7); POTASSIUM 3.6 MMOL/L (3.6-5.0); TOTAL PROTEIN 5.1 GM/DL (6.4-8.2)
[2019-05-03] MEDS ORDERED: HALOPERIDOL 5 MG/ML (HALDOL) AMP ONE (04:58)
[2019-05-03] MEDS: HALOPERIDOL 5 MG/ML (HALDOL) AMP IV PRN ×2 (05:09→20:40)
[2019-05-03] MEDS: CATHETER FLUSH 10 ML SYR IV SCH ×3 (05:09→22:00)
[2019-05-03] MEDS ORDERED: POTASSIUM CL 10MEQ/50ML IVPB 100 ML IV ONE (06:38)
[2019-05-03] MEDS: MAGNESIUM 1 GM/100 ML IVPB 100 ML IV SCH ×2 (07:00→07:44)
[2019-05-03] MEDS: POTASSIUM CL 10MEQ/50ML IVPB 50 ML IV SCH ×2 (07:00→07:53)
--- NOTE | 2019-05-03 07:45 | Consultation-Cardiology ---
HPI-Cardiology Cardiology Consultation Date of Consultation 05/03/19 Date of Admission Time Seen by Provider: 07:39 Indication: Generalized weakness, GI bleed HPI 73-year-old lady with peripheral arterial disease, hypertension and hyperlipidemia, was discharged from the hospital recently, started to have black tarry stool intermittent and alternating with bright red blood per rectum. Has been complaining of increasing fatigue and loss of energy and pedal edema. Denied any chest pain. No palpitation. No syncope Home Medications & Allergies Allergies: Coded Allergies: Penicillins (Verified Allergy, Severe, ANAPHYLAXIS, 02/16/19) levofloxacin (Verified Allergy, Severe, DIARRHIA, SWELLING, WEAKNESS, 02/16/19) sulfamethoxazole (Verified Allergy, Severe, WHEEZING/SWELLING, 02/16/19) trimethoprim (Verified Allergy, Severe, WHEEZING/SWELLING, 02/16/19) Tetracyclines (Verified Allergy, Mild, GI UPSET, 02/16/19) Sulfa (Sulfonamide Antibiotics) (Verified Allergy, Unknown, 02/16/19) pseudoephedrine (Verified Allergy, Unknown, 02/16/19) Home Medication List Reviewed: Yes IQZ-Bvdlce-Lazcix Hx Patient Social History Marital Status: Employed/Student: retired Alcohol Use: Rarely Uses Recreational Drug Use: No Smoking Status: Former Smoker Type Used: Cigarettes 2nd Hand Smoke Exposure: Yes Recent Foreign Travel: No Recent Infectious Disease Expo: No Recent Hopitalizations: No Immunizations Up To Date Date of Pneumonia Vaccine: Mar 05, 2016 Date of Influenza Vaccine: Mar 14, 2019 Past Medical History Discussed below Family Medical History Significant Family History: CAD Over 55 Years Old, Diabetes, Hypertension Family Medical Hx Noncontributory Review of Systems-General Review of Systems Constitutional: see HPI, malaise, weakness EENTM: see HPI; No blurred vision, No mouth pain, No mouth swelling, No epistaxis, No throat swelling Respiratory: No cough; dyspnea on exertion; No hemoptysis; short of breath Cardiovascular: see HPI; No chest pain; edema, Hx of Intervention Gastrointestinal: RLQ, see HPI, abdominal pain, loss of appetite, melena, nausea; No vomiting Genitourinary: see HPI; No dysuria, No frequency, No hematuria Musculoskeletal: see HPI, joint pain, joint swelling, muscle stiffness Skin: see HPI; No change in color, No change in hair/nails; other (Gangrene on her toes) Psychiatric/Neurological: Anxiety; Denies Depressed, Denies Seizure, Denies Tremors Reviewed Test Results Reviewed Test Results Lab Laboratory Tests Test 05/02/19 12:50 05/02/19 13:07 05/02/19 13:55 05/02/19 20:57 Range/Units White Blood Count 8.6 4.3-11.0 10^3/uL Red Blood Count 2.63 L 4.35-5.85 10^6/uL Hemoglobin 7.9 #L 11.5-16.0 G/DL Hematocrit 24 L 35-52 % Mean Corpuscular Volume 90 80-99 FL Mean Corpuscular Hemoglobin 30 25-34 PG Mean Corpuscular Hemoglobin Concent 33 32-36 G/DL Red Cell Distribution Width 16.4 H 10.0-14.5 % Platelet Count 283 130-400 10^3/uL Mean Platelet Volume 10.9 H 7.4-10.4 FL Prothrombin Time 19.4 H 12.2-14.7 SEC INR Comment 1.6 H 0.8-1.4 Sodium Level 137 135-145 MMOL/L Potassium Level 3.4 L 3.6-5.0 MMOL/L Chloride Level 103 98-107 MMOL/L Carbon Dioxide Level 23 21-32 MMOL/L Anion Gap 11 5-14 MMOL/L Blood Urea Nitrogen 39 H 7-18 MG/DL Creatinine 2.32 H 0.60-1.30 MG/DL Estimat Glomerular Filtration Rate 21 BUN/Creatinine Ratio 17 Glucose Level 116 H 70-105 MG/DL Calcium Level 9.1 8.5-10.1 MG/DL Corrected Calcium 9.8 8.5-10.1 MG/DL Total Bilirubin 0.5 0.1-1.0 MG/DL Aspartate Amino Transf (AST/SGOT) 16 5-34 U/L Alanine Aminotransferase (ALT/SGPT) 10 0-55 U/L Alkaline Phosphatase 62 40-136 U/L Troponin I < 0.30 <0.30 NG/ML Total Protein 5.6 L 6.4-8.2 GM/DL Albumin 3.1 L 3.2-4.5 GM/DL Lactic Acid Level 1.17 0.50-2.00 MMOL/L Urine Color YELLOW Urine Clarity CLEAR Urine pH 6.0 5-9 Urine Specific [place] 1.010 L 1.016-1.022 Urine Protein 1+ H NEGATIVE Urine Glucose (UA) NEGATIVE NEGATIVE Urine Ketones NEGATIVE NEGATIVE Urine Nitrite NEGATIVE NEGATIVE Urine Bilirubin NEGATIVE NEGATIVE Urine Urobilinogen 0.2 < = 1.0 MG/DL Urine Leukocyte Esterase NEGATIVE NEGATIVE Urine RBC (Auto) 1+ H NEGATIVE Urine RBC 10-25 H /HPF Urine WBC 2-5 /HPF Urine Squamous Epithelial Cells 2-5 /HPF Urine Crystals PRESENT H /LPF Urine Amorphous Sediment FEW ANA URATES H /LPF Urine Bacteria NEGATIVE /HPF Urine Casts PRESENT /LPF Urine Granular Casts 5-10 H /LPF Urine Mucus NEGATIVE /LPF Urine Culture Indicated NO Glucometer 105 70-110 MG/DL Test 05/03/19 03:13 05/03/19 03:17 Range/Units White Blood Count 6.8 4.3-11.0 10^3/uL Red Blood Count 2.36 L 4.35-5.85 10^6/uL Hemoglobin 7.0 L 11.5-16.0 G/DL Hematocrit 21 L 35-52 % Mean Corpuscular Volume 90 80-99 FL Mean Corpuscular Hemoglobin 30 25-34 PG Mean Corpuscular Hemoglobin Concent 33 32-36 G/DL Red Cell Distribution Width 16.1 H 10.0-14.5 % Platelet Count 244 130-400 10^3/uL Mean Platelet Volume 11.1 H 7.4-10.4 FL Neutrophils (%) (Auto) 59 42-75 % Lymphocytes (%) (Auto) 20 12-44 % Monocytes (%) (Auto) 12 0-12 % Eosinophils (%) (Auto) 6 0-10 % Basophils (%) (Auto) 2 0-10 % Neutrophils # (Auto) 4.0 1.8-7.8 X 10^3 Lymphocytes # (Auto) 1.4 1.0-4.0 X 10^3 Monocytes # (Auto) 0.8 0.0-1.0 X 10^3 Eosinophils # (Auto) 0.4 H 0.0-0.3 10^3/uL Basophils # (Auto) 0.2 H 0.0-0.1 10^3/uL Sodium Level 138 135-145 MMOL/L Potassium Level 3.6 3.6-5.0 MMOL/L Chloride Level 105 98-107 MMOL/L Carbon Dioxide Level 21 21-32 MMOL/L Anion Gap 12 5-14 MMOL/L Blood Urea Nitrogen 39 H 7-18 MG/DL Creatinine 2.34 H 0.60-1.30 MG/DL Estimat Glomerular Filtration Rate 20 BUN/Creatinine Ratio 17 Glucose Level 105 70-105 MG/DL Calcium Level 8.8 8.5-10.1 MG/DL Corrected Calcium 9.7 8.5-10.1 MG/DL Phosphorus Level 3.3 2.3-4.7 MG/DL Magnesium Level 1.7 1.6-2.4 MG/DL Total Bilirubin 0.5 0.1-1.0 MG/DL Aspartate Amino Transf (AST/SGOT) 17 5-34 U/L Alanine Aminotransferase (ALT/SGPT) 11 0-55 U/L Alkaline Phosphatase 45 40-136 U/L B-Type Natriuretic Peptide 1480.4 H <100.0 PG/ML Total Protein 5.1 L 6.4-8.2 GM/DL Albumin 2.9 L 3.2-4.5 GM/DL Physical Exam Physical Exam Vital Signs Vital Signs - First Documented 05/02/19 12:14 Temp 37.2 Pulse 110 Resp 20 B/P (MAP) 103/68 (80) Pulse Ox 100 O2 Delivery Room Air Capillary Refill : Less Than 3 Seconds Height, Weight, BMI Height: '" Weight: lbs. oz. kg; 23.88 BMI Method: General Appearance: Anxious, Chronically ill, Mild Distress Eyes: Bilateral Eye PERRL, Bilateral Eye EOMI HEENT: Pharynx Normal, Moist Mucous Membranes Neck: Normal Inspection, Non Tender, Supple Respiratory: Lungs Clear, Normal Breath Sounds, No Accessory Muscle Use Cardiovascular: Systolic Murmur, Gallop/S3, Tachycardia Gastrointestinal: Normal Bowel Sounds, Non Tender, Soft, Other (aortic pulsations prominent) Rectal: Other (perianal area reddened no sig stool in rectal vault trace heme+) Back: Normal Inspection Extremity: Pedal Edema, Other ( 1-2+ edema LLE, gangrene on her toes) Neurologic/Psychiatric: Alert, Oriented x3, No Motor/Sensory Deficits A/P-Cardiology Admission Diagnosis GI bleed Anemia Acute renal failure Congestive heart failure, acute on chronic left ventricular diastolic dysfunction Assessment/Plan GI bleed, actively bleeding, has upper and lower endoscopy during the last admission and reported to have hemorrhoid and questionable diverticulum, was transfused 2 units of packed RBCs and monitor H&H closely Gangrenous toes, subacute ischemic bilaterally, probably embolization from AAA, discussed with Dr. Andrews, followed by heart and vascular care Peripheral edema, combination of heart failure and renal failure. We will use diuretic cautiously and monitor closely Congestive heart failure, acute on chronic left ventricular diastolic dysfunction, echocardiogram in March 2019 showed hyperactive ventricle with ejection fraction 65-70 percent, grade 2 diastolic dysfunction with left atrial dilatation, calcified mitral valve and aortic valve, no significant aortic stenosis, mild mitral regurgitation, moderate tricuspid regurgitation, pulmonary hypertension with PA pressure 45 mmHg. We'll use low-dose dose diuretics and monitor closely Chronic kidney disease stage IV, continue to monitor renal function closely while on diuretics Peripheral arterial disease, angiogram done on April 12, 2019 showing [id number] disease, abdominal aortic aneurysm, ultrasound measured 4.2 x 3.9, refer to heart and vascular care, was treated with aspirin and Xarelto, unable to tolerate Xarelto due to active bleed Coronary artery disease - cardiac catheterization carried out Apr 12, 2019 showed mild to moderate nonobstructive disease. Hypertension, monitor blood pressure Hyperlipidemia, monitor lipids Tobaccoism, reported that she has stopped in March 2019, encouraged to continue with smoking cessation Clinical Quality Measures DVT/VTE Risk/Contraindication: Risk Factor Score Per Nursin RFS Level Per Nursing on Admit: 4+=Very High RAUL BONNER MD May 03, 2019 07:45 POS
[2019-05-03] MEDS ORDERED: FUROSEMIDE 40 MG/4 ML INJ (LASIX) IVP NR (08:00)
[2019-05-03] MEDS ORDERED: NS IV 500 ML 500 ML IV SCH ×2 (08:00→14:15)
[2019-05-03] MEDS ORDERED: NS IV 500 ML 500 ML ONE ×2 (08:10→16:36)
--- NOTE | 2019-05-03 08:17 | Progress Note - Surgery ---
PATRICIA HERMAN,MED STUDENT 05/03/19 0817: Subjective Date Seen by a Provider: May 03, 2019 Time Seen by a Provider: 07:25 Subjective/Events-last exam Patient seen and examined. States she was anxious about what was the plan was, and didn't know what an EGD was, so I explained it to her which appeared to make her feel more at easy. Patient commented that she hopes we can figure out the cause of the blood in her stools and get her better. During, interview patient mentions that she feels cold in her Lower extremities and that she has lesions on her toes that she had since February. Review of Systems General: Fatigue; No Appetite HEENT: No Head Aches, No Dysphasia Pulmonary: Dyspnea; No Cough Cardiovascular: Edema; No: Chest Pain Gastrointestinal: Melena, Hematochezia; No: Nausea, Vomiting, Abdominal Pain, Constipation Focused Exam Lactate Level 05/02/19 13:07: Lactic Acid Level 1.17 Objective Exam Vital Signs Date Time Temp Pulse Resp B/P (MAP) Pulse Ox O2 Delivery O2 Flow Rate FiO2 05/03/19 04:00 89 23 128/81 (97) 100 Room Air 05/03/19 04:00 Room Air 05/03/19 01:00 100 05/03/19 00:00 77 115/59 (77) 97 Room Air 05/03/19 00:00 Room Air 05/02/19 21:02 100 05/02/19 21:00 Room Air 05/02/19 20:00 96 26 135/89 (104) 100 Room Air 05/02/19 20:00 37.3 05/02/19 20:00 Room Air 05/02/19 16:15 36.9 92 20 158/79 (105) 98 Room Air 05/02/19 15:24 36.9 104 20 142/80 (72) 99 Room Air 05/02/19 14:30 96 21 131/58 (82) 94 Room Air 05/02/19 13:30 94 21 128/61 (83) 99 Room Air 05/02/19 13:15 115 146/96 (113) 114 119/74 (89) 112 105/56 (72) 05/02/19 12:30 37.2 111 20 147/65 (92) 99 Room Air 05/02/19 12:14 37.2 110 20 103/68 (80) 100 Room Air I & O 05/03/19 07:00 Intake Total 50 ml Output Total 400 ml Balance -350 ml Capillary Refill : Less Than 3 Seconds General Appearance: Anxious, Chronically ill, Mild Distress HEENT: PERRL/EOMI, Moist Mucous Membranes Neck: Non Tender, Supple Respiratory: Lungs Clear, No Accessory Muscle Use, No Respiratory Distress Cardiovascular: Systolic Murmur, Gallop/S3, Tachycardia Gastrointestinal: soft, no organomegaly, no pulsatile mass, guarding (voluntary with deep palpation), tenderness (LLQ ) Extremity: Pedal Edema, Other ( 1-2+ edema LLE, gangrene on her toes) Neurologic/Psychiatric: Alert, Oriented x3, No Motor/Sensory Deficits Skin: Normal Color Results Lab Laboratory Tests 05/02/19 12:50: White Blood Count 8.6, Red Blood Count 2.63L, Hemoglobin 7.9#L, Hematocrit 24L, Mean Corpuscular Volume 90, Mean Corpuscular Hemoglobin 30, Mean Corpuscular Hemoglobin Concent 33, Red Cell Distribution Width 16.4H, Platelet Count 283, Mean Platelet Volume 10.9H, Prothrombin Time 19.4H, INR Comment 1.6H, Sodium Level 137, Potassium Level 3.4L, Chloride Level 103, Carbon Dioxide Level 23, Anion Gap 11, Blood Urea Nitrogen 39H, Creatinine 2.32H, Estimat Glomerular Filtration Rate 21, BUN/Creatinine Ratio 17, Glucose Level 116H, Calcium Level 9.1, Corrected Calcium 9.8, Total Bilirubin 0.5, Aspartate Amino Transf (AST/SGOT) 16, Alanine Aminotransferase (ALT/SGPT) 10, Alkaline Phosphatase 62, Troponin I < 0.30, Total Protein 5.6L, Albumin 3.1L 05/02/19 13:07: Lactic Acid Level 1.17 05/02/19 13:55: Urine Color YELLOW, Urine Clarity CLEAR, Urine pH 6.0, Urine Specific [place] 1. 010L, Urine Protein 1+H, Urine Glucose (UA) NEGATIVE, Urine Ketones NEGATIVE, Urine Nitrite NEGATIVE, Urine Bilirubin NEGATIVE, Urine Urobilinogen 0.2, Urine Leukocyte Esterase NEGATIVE, Urine RBC (Auto) 1+H, Urine RBC 10-25H, Urine WBC 2-5, Urine Squamous Epithelial Cells 2-5, Urine Crystals PRESENTH, Urine Amorphous Sediment FEW ANA URATESH, Urine Bacteria NEGATIVE, Urine Casts PRESENT, Urine Granular Casts 5-10H, Urine Mucus NEGATIVE, Urine Culture Indicated NO 05/02/19 20:57: Glucometer 105 05/03/19 03:13: White Blood Count 6.8, Red Blood Count 2.36L, Hemoglobin 7.0L, Hematocrit 21L, Mean Corpuscular Volume 90, Mean Corpuscular Hemoglobin 30, Mean Corpuscular Hemoglobin Concent 33, Red Cell Distribution Width 16.1H, Platelet Count 244, M clay Platelet Volume 11.1H, Neutrophils (%) (Auto) 59, Lymphocytes (%) (Auto) 20, Monocytes (%) (Auto) 12, Eosinophils (%) (Auto) 6, Basophils (%) (Auto) 2, Neutrophils # (Auto) 4.0, Lymphocytes # (Auto) 1.4, Monocytes # (Auto) 0.8, Eos inophils # (Auto) 0.4H, Basophils # (Auto) 0.2H 05/03/19 03:17: Sodium Level 138, Potassium Level 3.6, Chloride Level 105, Carbon Dioxide Level 21, Anion Gap 12, Blood Urea Nitrogen 39H, Creatinine 2.34H, Estimat Glomerular Filtration Rate 20, BUN/Creatinine Ratio 17, Glucose Level 105, Calcium Level 8.8, Corrected Calcium 9.7, Phosphorus Level 3.3, Magnesium Level 1.7, Total Bilirubin 0.5, Aspartate Amino Transf (AST/SGOT) 17, Alanine Aminotransferase (ALT/SGPT) 11, Alkaline Phosphatase 45, B-Type Natriuretic Peptide 1480.4H, To reema Protein 5.1L, Albumin 2.9L Assessment/Plan Assessment/Plan Assessment/Plan Hematochezia Melena Anemia Abdominal Pain Renal Failure Hypokalemia Lesions on hallices bilaterally Pt is anemic and bleeding again, unfortunately last time she was in the hospital EGD/Colonoscopy failed to show source. She did have some colon polyps and it looked like blood in stomach, with small ulcers but no active bleeding. Hbg and hematocrit were lower today then yesterday. Patient is NPO and scheduled for an EGD today. Pt on IV Protonix 40mg BID and IV fluids. Patient is getting 2units of pRBC, per Dr. Stratton's orders. If possible perform a bleeding scan; however, this may not be possible until Saturday. Consent for the EGD has been obtain and the patient is willing to do a colonoscopy if it is needed. Consent of the colonoscopy will need to be obtained before being done. Lesions on hallices appear to be healing and show no signs of infection at this time, will continue to monitor. Clinical Quality Measures DVT/VTE Risk/Contraindication: Risk Factor Score Per Nursin RFS Level Per Nursing on Admit: 4+=Very High DYLAN CHRISTIANSEN DO 05/03/19 1015: Subjective Time Seen by a Provider: 10:06 Subjective/Events-last exam Pt seen and examined, states she is still having rectal bleed "it is streaky". She is ready for EGD. Objective Exam Gastrointestinal: soft, no organomegaly, no pulsatile mass; No guarding (voluntary with deep palpation); tenderness (LLQ ) Assessment/Plan Assessment/Plan Assessment/Plan Plan for EGD today, will then talk to pt more about possible colonoscopy. At this time I am not sure pt is bleeding enough for nuclear scan to work, but may be our only option. Supervisory-Addendum Brief Verification & Attestation Participated in pt care: history, MDM, physical Personally performed: exam, history, MDM Care discussed with: Medical Student Procedures: n/a Verification and Attestation of Medical Student E/M Service A medical student performed and documented this service in my presence. I reviewed and verified all information documented by the medical student and made modifications to such information, when appropriate. I personally performed the physical exam and medical decision making. Dylan Christiansen, May 03, 2019,10:15 PATRICIA HERMAN,MED STUDENT May 03, 2019 08:17 DYLAN ROLLINS DO May 03, 2019 10:15 POS
[2019-05-03] MEDS: PANTOPRAZOLE 40 MG (PROTONIX) VIAL IV SCH (08:52)
[2019-05-03] MEDS ORDERED: cloNIDine 0.1 MG PATCH (CATAPRES TTS) TDSY TOP SCH (09:00)
[2019-05-03] MEDS ORDERED: proPOfol 200 MG/20 ML (DIPRIVAN) VIAL IV ONE (09:59)
[2019-05-03] MEDS ORDERED: HURRICAINE EXT TUBE (BENZOCAINE) ONE (09:59)
--- NOTE | 2019-05-03 10:40 | Progress Note-Post Operative ---
Post-Operative Progess Note Surgeon (s)/[employer] Senator (s) Surgeon DYLAN CHRISTIANSEN DO [employer] Senator: none Pre-Operative Diagnosis Anemia, Melena Post-Operative Diagnosis Bleeding Ulcer in Duodenal diverticulum Procedure & Operative Findings Date of Procedure 05/03/19 Procedure Performed/Findings EGD Anesthesia Type IV sedation by ROUSTABOUT PUSHER Estimated Blood Loss Estimated blood loss (mL): none Specimens/Packing Specimens Removed none DYLAN CHRISTIANSEN DO May 03, 2019 10:40 POS
[2019-05-03] MEDS: PANTOPRAZOLE INJECTION 200 MG in NS (IVPB) 100 ML IV SCH (11:39)
[2019-05-03] MEDS: OCTREOTIDE INJECTION 500 MCG in NS (IVPB) 99 ML IV SCH ×2 (11:42→23:12)
--- NOTE | 2019-05-03 12:16 | History & Physical-Hospitalist ---
History of Present Illness HPI/Chief Complaint Chief complaint: Anemia with edema and tarry stools History of present illness: This is a 73-year-old white female clinic patient [facility] who I just discharged earlier this week after she underwent a colonoscopy on Saturday by Dr. Whitehead for tarry stools reported which revealed no significant bleeding source so she felt good enough to go home after cardiology and pulmonology approved and she was discharged back on her oral anticoagulation and antiplatelet agent because of ischemic toes and a variety of other reasons that she must be on aggressive blood thinning protocol including Khoury's disease with ischemic toes who presented back to the [facility] with complaints of tarry stools and confusion and weakness found to have a hemoglobin of 7.9 down from 10.3 when she was discharged after 2 units of blood was given at that time with tarry stools. She was admitted to cardiac stepdown cardiology was consulted along with general surgery who just performed EGD revealing an ulcer of the duodenum under a diverticula of the antrum with bleeding source confirmed. She will be given 2 units of blood but patient will have a requirement for close monitoring since she actually requires anticoagulation to resume but she may actually need surgery since this is an ulcer that may be difficult to heal without it. Patient with very complex medical problems and seems to get more and more complex. We'll hold anticoagulation and antiplatelet meds due to risks outweigh the benefits right now. Source: family, RN/, old records Exam Limitations: clinical condition Date Seen 05/03/19 Time Seen by a Provider: 10:00 Attending Physician Jo Kennedy Pankaj K MD Referring Physician Date of Admission May 02, 2019 at 14:49 Home Medications & Allergies Home Medications Reviewed patient Home Medication Reconciliation performed by pharmacy medication reconciliations inorganic chemical technician and/or nursing. Patients Allergies have been reviewed. Allergies Allergies Coded Allergies Penicillins (Verified Allergy, Severe, ANAPHYLAXIS, 02/16/19) levofloxacin (Verified Allergy, Severe, DIARRHIA, SWELLING, WEAKNESS, 02/16/19) sulfamethoxazole (Verified Allergy, Severe, WHEEZING/SWELLING, 02/16/19) trimethoprim (Verified Allergy, Severe, WHEEZING/SWELLING, 02/16/19) Tetracyclines (Verified Allergy, Mild, GI UPSET, 02/16/19) Sulfa (Sulfonamide Antibiotics) (Verified Allergy, Unknown, 02/16/19) pseudoephedrine (Verified Allergy, Unknown, 02/16/19) Past Kvhqjsn-Eyyuze-Wgaucu Hx Past Med/Social Hx: Reviewed Nursing Past Med/Soc Hx, Reviewed and Corrections made Patient Social History Marrital Status: Employed/Student: retired Alcohol Use: Rarely Uses Number of Drinks Today: AA Alcohol Beverage of Choice: Beer Recreational Drug Use: No Smoking Status: Former Smoker Type Used: Cigarettes 2nd Hand Smoke Exposure: Yes Recent Foreign Travel: No Contact w/other who traveled: No Recent Hopitalizations: No Recent Infectious Disease Expo: No Immunizations Up To Date Pediatric: No Date of Pneumonia Vaccine: Mar 05, 2016 Date of Influenza Vaccine: Mar 14, 2019 Seasonal Allergies Seasonal Allergies: Yes Past Medical History Surgeries: Tubal Ligation Respiratory: COPD Currently Using CPAP: No Currently Using BIPAP: No Cardiac: Hypertension Buerger's disease Neurological: Dementia Sexually Transmitted Disease: No HIV/AIDS: No Female Reproductive Disorders: Denies Genitourinary: Renal Failure Gastrointestinal: Gastrointestinal Bleed, Chronic Constipation, Chronic Diarrhea, Irritable Bowel Musculoskeletal: Arthritis, Chronic Back Pain Loss of Vision: Bilateral Hearing Impairment: Denies Did You Recieve Any Treatments: No Psychosocial: Depression History of Blood Disorders: Yes (Anemia r/t GI blood loss, Renal Failure stage 4) Adverse Reaction to Blood Wu: No (N/A) Family History CAD Over 55 Years Old, Diabetes, Hypertension Review of Systems Constitutional: malaise, weakness Cardiovascular: edema Psychiatric/Neurological: Anxiety, Other (confusion) Physical Exam Physical Exam Vital Signs Vital Signs - First Documented 05/02/19 12:14 Temp 37.2 Pulse 110 Resp 20 B/P (MAP) 103/68 (80) Pulse Ox 100 O2 Delivery Room Air Capillary Refill : Less Than 3 Seconds Height, Weight, BMI Height: '" Weight: lbs. oz. kg; 23.88 BMI Method: General Appearance: No Apparent Distress, WD/WN, Chronically ill, Other (pale) Eyes: Right Eye Normal Inspection, Right Eye PERRL HEENT: PERRL/EOMI, Normal ENT Inspection, Pharynx Normal, Moist Mucous Membranes Neck: Full Range of Motion, Normal Inspection, Non Tender Respiratory: Chest Non Tender, Lungs Clear, Normal Breath Sounds, No Accessory Muscle Use, No Respiratory Distress Cardiovascular: Regular Rate, Rhythm, No Gallop, No JVD, No Murmur, Normal Peripheral Pulses Gastrointestinal: Normal Bowel Sounds, No Organomegaly, No Pulsatile Mass, Non Tender, Soft Back: Normal Inspection, No CVA Tenderness, No Vertebral Tenderness Extremity: Normal Capillary Refill, Normal Inspection, Normal Range of Motion, Non Tender, No Calf Tenderness, Pedal Edema Neurologic/Psychiatric: Alert, Oriented x3, No Motor/Sensory Deficits, Normal Mood/Affect, superintendent construction II-XII Norm as Tested Skin: Normal Color, Warm/Dry Lymphatic: No Adenopathy Results Results/Procedures Labs Laboratory Tests 05/02/19 12:50 05/03/19 03:13 05/03/19 03:17 Patient resulted labs reviewed. 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 Smoker COPD Confusion I suspect dementia vascular type Hypertension Chronic renal insufficiency Plan: Octreotide PPI Appreciate general surgery and cardiology and pulmonology Very complex case Guarded prognosis given the complexities of her medical problems and now with active GI bleeding Admission Status: Inpatient Order (span 2 midnights) Reason for Inpatient Admission: GI bleed Diagnosis/Problems Diagnosis/Problems (1) GI bleed Status: Acute Qualifiers: GI bleed type/associated pathology: unspecified gastrointestinal hemorrhage type Qualified Codes: K92.2 - Gastrointestinal hemorrhage, unspecified (2) Generalized edema Status: Acute (3) Acute on chronic renal failure Status: Acute (4) Transfusion of blood during current hospitalisation (5) Buergers disease (6) Melena (7) Former smoker (8) Acute anemia Status: Acute Clinical Quality Measures DVT/VTE Risk/Contraindication: Risk Factor Score Per Nursin RFS Level Per Nursing on Admit: 4+=Very High JO KENNEDY DO May 03, 2019 12:16 POS
--- NOTE | 2019-05-03 13:16 | Diagnostic Imaging Report ---
PROCEDURE: CT abdomen and pelvis without contrast. TECHNIQUE: Multiple contiguous axial images were obtained through the abdomen and pelvis without the use of intravenous contrast. Auto Exposure Controls were utilized during the CT exam to meet ALARA standards for radiation dose reduction. INDICATION: Bleeding, duodenal diverticulum COMPARISON: None available FINDINGS: Mild left basilar scarring and/or atelectasis. Moderate sized pericardial effusion is partially visualized measuring up to 1.6 cm. Ectasia of the descending thoracic aorta is present measuring up to 3.7 cm. Additionally, bilobed fusiform aneurysmal dilatation of the infrarenal abdominal aorta is also present measuring up to 4.5 cm. The liver is unremarkable. The spleen is unremarkable. The adrenal glands are unremarkable. The unenhanced pancreas is grossly unremarkable. A gallstone is present within the gallbladder. Mild atrophy of the left kidney. The kidneys are otherwise unremarkable. The urinary bladder is unremarkable. The uterus and adnexal structures are unremarkable for age. Loops of small bowel are mildly dilated measuring up to 3.2 cm, though no discrete transition point is identified. The appendix is unremarkable. Mild diffuse anasarca. No free air. Scattered osseous degenerative changes without acute osseous abnormality. IMPRESSION: Moderate sized pericardial effusion. Aneurysmal dilatation of the descending aorta as described above, including within the thorax and abdomen. Cholelithiasis. Mild small bowel dilatation without focal transition point. This could relate to focal ileus versus possible low-grade obstruction. Diffuse anasarca. Additional findings as described above. Dictated by: Dictated on workstation # [id number]
[2019-05-03] MEDS: SUCRALFATE 1 GM (CARAFATE) TAB PO SCH ×3 (16:44→20:40)
--- NOTE | 2019-05-03 17:30 | OPERATIVE REPORT ---
DATE OF SERVICE: PREOPERATIVE DIAGNOSES: Anemia, gastrointestinal bleed. POSTOPERATIVE DIAGNOSES: Bleeding, duodenal diverticula, possible ulcer plus anemia. SURGEON: Sabino Whitehead DO TUNNEL KILN FIRER: None. ANESTHESIA: IV sedation by SAND BOBBER. SPECIMENS: None. BLOOD LOSS: None. FLUIDS: Per anesthesia. POSTOPERATIVE CONDITION: Stable. INDICATION FOR PROCEDURE: The patient is a 73-year-old female who had a history of anemia and GI bleed, began having bleeding again. She has also recently started back up on her blood thinners because of her poor peripheral vascular disease and heart problems. FINDINGS: The patient had a lot of black liquid in the stomach and then in the duodenum, looked to be like duodenal diverticula had bright red blood in it, looked like there was blood coming out. PROCEDURE NOTE: After informed consent was obtained, the patient in her bed in the ICU, was administered IV sedation by the SAND BOBBER who then monitored her vitals the entire time, heart rate, blood pressure and pulse ox and the scope was inserted down the mouth through the esophagus into the stomach. Upon entering the stomach, noted a lot of black liquid suctioned this out and then carefully washed out the entire stomach, saw some maybe small irritation or ulcers, gastritis, but did not see any obvious ulcers or bleeding in the stomach, pushed through into the duodenum. First portion of duodenum looked okay, but then when pushed past the first portion of duodenum, I again saw the duodenal diverticula seen before and this time, there was bright red blood in it, flushed it out a little bit, looked like there was some bleeding, but could not see very well into this area, but looked like this where the bleeding was and then noticed right next to it, the ampulla of the common bile duct and pancreatic duct; actually could see the bile leaking out of it. At this point, then pulled the scope back. Suctioned out all the air in the stomach and pulled the scope up the esophagus and out the mouth. The patient tolerated the procedure. Job ID: [id number] DocumentID: [id number] Dictated Date: 05/03/2019 12:56:25 Psychiatry Instructor Date: 05/03/2019 17:29:21 Dictated By: SABINO WHITEHEAD DO MTDD
[2019-05-03] MEDS: morphine INJ 4 MG/ML 1 ML (VIAL/SYRINGE) IVP PRN (20:40)
--- NOTE | 2019-05-03 23:23 | NUR ---
This RN notified Dr. Diaz that patient feeling anxious and unable to sleep. New orders received at this time.
[2019-05-03] MEDS ORDERED: LORazepam 0.5 MG (ATIVAN) TABLET PO PRN (23:30)
[2019-05-03] MEDS ORDERED: LORazepam 0.5 MG (ATIVAN) TABLET ONE (23:53)
[2019-05-04] VITALS: BP 140/76
[2019-05-04] MEDS: HALOPERIDOL 5 MG/ML (HALDOL) AMP IV PRN (00:02)
--- NOTE | 2019-05-04 00:15 | NUR ---
This RN gave report to YOAN Barone who is taking over care for this patient for remainder of shift.
[2019-05-04] MEDS: morphine INJ 4 MG/ML 1 ML (VIAL/SYRINGE) IVP PRN ×2 (00:46→05:33)
[2019-05-04 03:20] LABS: BASOPHILS # (AUTO) 0.1 10^3/uL (0.0-0.1); BASOPHILS % (AUTO) 2 % (0-10); EOSINOPHILS # (AUTO) 0.4 10^3/uL (0.0-0.3); EOSINOPHILS % (AUTO) 5 % (0-10); HEMATOCRIT 25 % (35-52); HEMOGLOBIN 8.4 G/DL (11.5-16.0); LYMPHOCYTES # (AUTO) 1.3 X 10^3 (1.0-4.0); LYMPHOCYTES % (AUTO) 16 % (12-44); MEAN CORPUSCULAR HEMOGLOBIN 29 PG (25-34); MEAN CORPUSCULAR HGB CONC 34 G/DL (32-36); MEAN CORPUSCULAR VOLUME 85 FL (80-99); MEAN PLATELET VOLUME 10.9 FL (7.4-10.4); MONOCYTES # (AUTO) 0.7 X 10^3 (0.0-1.0); MONOCYTES % (AUTO) 9 % (0-12); NEUTROPHILS # (AUTO) 5.4 X 10^3 (1.8-7.8); NEUTROPHILS % (AUTO) 68 % (42-75); PLATELET COUNT 201 10^3/uL (130-400); RED CELL DISTRIBUTION WIDTH 18.8 % (10.0-14.5); WHITE BLOOD COUNT 7.9 10^3/uL (4.3-11.0)
[2019-05-04 03:57] LABS: ALBUMIN 2.8 GM/DL (3.2-4.5); BILIRUBIN,TOTAL 1.3 MG/DL (0.1-1.0); CALCIUM 8.5 MG/DL (8.5-10.1); CREATININE SERUM 2.33 MG/DL (0.60-1.30); PHOSPHORUS 3.7 MG/DL (2.3-4.7); POTASSIUM 3.9 MMOL/L (3.6-5.0); TOTAL PROTEIN 4.9 GM/DL (6.4-8.2)
[2019-05-04 04:00] VITALS: BP 130/71
[2019-05-04] MEDS: SUCRALFATE 1 GM (CARAFATE) TAB PO SCH ×4 (05:00→22:27)
[2019-05-04] MEDS: PANTOPRAZOLE INJECTION 200 MG in NS (IVPB) 100 ML IV SCH (05:03)
[2019-05-04] MEDS: OCTREOTIDE INJECTION 500 MCG in NS (IVPB) 99 ML IV SCH ×3 (05:04→20:52)
[2019-05-04] MEDS ORDERED: EPINEPHrine INJECTION 1 MG/ML AMP ONE ×2 (05:06→05:19)
--- NOTE | 2019-05-04 05:40 | NUR ---
epi given as
[2019-05-04] MEDS ORDERED: meTOprolol 5 MG/5 ML (LOPRESSOR) VIAL ONE (05:41)
[2019-05-04] MEDS ORDERED: meTOprolol 5 MG/5 ML (LOPRESSOR) VIAL IV ONE (05:45)
--- NOTE | 2019-05-04 05:48 | NUR ---
epi given as ordered hr incresed to 170's o2 applied ekg done dr barker at bedside ordered lopressor 5mg to be given .. ms also given . pt is currently resting quietly hr 126 bp 133/73
--- NOTE | 2019-05-04 05:52 | Pulmonary Progress Note ---
Subjective Date Seen by a Provider: May 04, 2019 Time Seen by a Provider: 05:52 Subjective/Events-last exam Called to bedside stat secondary to SVT. RN states she gave 0.3mg IM X 1 that was ordered for different patient. PT is complaining of palpitations, SOB and CP. I gave Lopressor 5mg IV X 1. Sepsis Event Evaluation Height, Weight, BMI Height: '" Weight: lbs. oz. kg; 23.88 BMI Method: Focused Exam Lactate Level 05/02/19 13:07: Lactic Acid Level 1.17 Exam Exam Vital Signs Date Time Temp Pulse Resp B/P (MAP) Pulse Ox O2 Delivery O2 Flow Rate FiO2 05/04/19 04:00 37.0 67 18 130/71 (90) 93 Room Air 05/04/19 04:00 92 Room Air 05/04/19 01:07 84 05/04/19 01:00 83 05/04/19 00:00 Room Air 05/04/19 00:00 36.7 85 17 140/76 (97) 92 Room Air 05/03/19 21:40 36.8 78 16 92/77 95 Room Air 05/03/19 21:00 Room Air 05/03/19 20:00 36.2 74 16 134/81 (98) 97 Room Air 05/03/19 20:00 Room Air 05/03/19 19:00 85 05/03/19 18:21 36.4 81 139/78 93 Room Air 05/03/19 18:05 36.7 79 18 141/82 97 Room Air 05/03/19 16:25 Room Air 05/03/19 15:24 36.3 05/03/19 14:46 86 05/03/19 12:35 Room Air 05/03/19 12:30 36.8 132/80 92 Room Air 05/03/19 12:00 91 132/80 (97) 95 Room Air 05/03/19 11:19 36.8 05/03/19 09:00 Room Air 05/03/19 09:00 36.4 87 151/93 97 Room Air 05/03/19 08:46 36.8 84 147/82 100 Room Air 05/03/19 08:00 Room Air 05/03/19 08:00 36.8 92 18 147/82 (103) Room Air 05/03/19 07:00 89 I & O 05/04/19 07:00 Intake Total 870 ml Output Total 1700 ml Balance -830 ml Height & Weight Height: '" Weight: lbs. oz. kg; 23.88 BMI Method: General Appearance: No Apparent Distress, WD/WN, Chronically ill, Other (pale) HEENT: PERRL/EOMI, Normal ENT Inspection, Pharynx Normal, Moist Mucous Membranes Neck: Full Range of Motion, Normal Inspection, Non Tender Respiratory: Chest Non Tender, Lungs Clear, Normal Breath Sounds, No Accessory Muscle Use, No Respiratory Distress Cardiovascular: Regular Rate, Rhythm, No Gallop, No JVD, No Murmur, Normal Peripheral Pulses Capillary Refill: Less Than 3 Seconds Gastrointestinal: soft, no organomegaly, no pulsatile mass; No guarding (voluntary with deep palpation); tenderness (LLQ ) Extremity: Normal Capillary Refill, Normal Inspection, Normal Range of Motion, Non Tender, No Calf Tenderness, Pedal Edema Neurologic/Psychiatric: Alert, Oriented x3, No Motor/Sensory Deficits, Normal Mood/Affect, suture winder 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 RN states she gave 0.3mg IM X 1 that was ordered for different patient. PT is complaining of palpitations, SOB and CP. I gave Lopressor 5mg IV X 1. Pt did improve with Lopressor. Will continue to monitor close. Acute renal failure -Monitor Anemia -Monitor -S/p 2 units of PRBC Abdominal Pain JULIAN PEREZ DO May 04, 2019 05:52 POS
[2019-05-04] MEDS: CATHETER FLUSH 10 ML SYR IV SCH ×3 (05:57→22:28)
--- NOTE | 2019-05-04 07:02 | NUR ---
pt is resting quietly no distress hr 79
--- NOTE | 2019-05-04 07:56 | Cardiology Progress Note ---
Subjective Date Seen by Provider: May 04, 2019 Time Seen by Provider: 07:53 Subjective/Events-last exam Patient is laying down in bed, sleepy. Denied any chest pain. Review of Systems General: No Chills, No Night Sweats, No Fatigue, No Malaise, No Appetite, No Other HEENT: No Head Aches, No Visual Changes, No Eye Pain, No Ear Pain, No Dysphasia, No Sinus Congestion, No Post Nasal Drip, No Sore Throat, No Other Pulmonary: No Dyspnea, No Cough, No Pleuritic Chest Pain, No Other Cardiovascular: No: Chest Pain, Palpitations, Orthopnea, Paroxysmal Noc. Dyspnea, Edema, Lt Headedness, Other Focused Exam Lactate Level 05/02/19 13:07: Lactic Acid Level 1.17 Objective-Cardiology Exam Last Set of Vital Signs Vital Signs 05/04/19 07:00 Pulse 81 Capillary Refill : Less Than 3 Seconds I&O Intake and Output 05/04/19 00:00 Intake Total 670 ml Output Total 1400 ml Balance -730 ml Intake Oral 540 ml IV Total 100 ml Other 30 ml Output Urine Total 1400 ml # Bowel Movements 5 General: Alert, Oriented X3, Cooperative HEENT: Atraumatic, PERRLA Neck: Supple, No JVD, No Thyromegaly Lungs: Clear to Auscultation, Normal Air Movement Heart: Regular Rate, Normal S1, Normal S2, Other (Systolic murmur) Abdomen: Normal Bowel Sounds, Soft, No Tenderness, No Hepatosplenomegaly, No Masses Extremities: No Tenderness/Swelling, Other (Gangrene on the toes) Skin: No Rashes, Other (Gangrene on the toes) Neuro: Normal Gait, Normal Speech, Strength at 5/5 X4 Ext, Normal Tone, Sensation Intact Psych/Mental Status: Mental Status NL, Mood NL Results Lab Laboratory Tests 05/04/19 02:40 A/P-Cardiology Admission Diagnosis GI bleed Anemia Acute renal failure Congestive heart failure, acute on chronic left ventricular diastolic dysfunction Assessment/Plan GI bleed, actively bleeding, had upper and lower scope done with Dr. Whitehead again on May 03, 2019, there was some blood in the diverticula. Questionable upper GI bleed also. Currently off anticoagulation and continue to transfuse and monitor H&H Gangrenous toes, subacute ischemic bilaterally, probably embolization from AAA, discussed with Dr. Andrews, followed by heart and vascular care Peripheral edema, combination of heart failure and renal failure, continue on low dose diuretics and monitor closely Congestive heart failure, acute on chronic left ventricular diastolic dysfunction, echocardiogram in March 2019 showed hyperactive ventricle with ejection fraction 65-70 percent, grade 2 diastolic dysfunction with left atrial dilatation, calcified mitral valve and aortic valve, no significant aortic stenosis, mild mitral regurgitation, moderate tricuspid regurgitation, pulmonary hypertension with PA pressure 45 mmHg. We'll use low-dose dose diuretics and monitor closely Chronic kidney disease stage IV, continue to monitor renal function closely while on diuretics Peripheral arterial disease, angiogram done on April 12, 2019 showing [id number] disease, abdominal aortic aneurysm, ultrasound measured 4.2 x 3.9, refer to heart and vascular care, was treated with aspirin and Xarelto, unable to tolerate Xarelto due to active bleed Coronary artery disease - cardiac catheterization carried out Apr 12, 2019 showed mild to moderate nonobstructive disease. Hypertension, monitor blood pressure Hyperlipidemia, monitor lipids Tobaccoism, reported that she has stopped in March 2019, encouraged to continue with smoking cessation Clinical Quality Measures DVT/VTE Risk/Contraindication: Risk Factor Score Per Nursin RFS Level Per Nursing on Admit: 4+=Very High RAUL BONNER MD May 04, 2019 07:56 POS
--- NOTE | 2019-05-04 07:59 | Progress Note - Surgery ---
PATRICIA HERMAN,MED STUDENT 05/04/19 0759: Subjective Date Seen by a Provider: May 04, 2019 Time Seen by a Provider: 07:20 Subjective/Events-last exam Patient says that she is feeling a little better to day but said that she was very sleepy. She was difficult to keep aroused and feel asleep during interview. Focused Exam Lactate Level 05/02/19 13:07: Lactic Acid Level 1.17 Objective Exam Vital Signs Date Time Temp Pulse Resp B/P (MAP) Pulse Ox O2 Delivery O2 Flow Rate FiO2 05/04/19 07:00 81 05/04/19 04:00 37.0 67 18 130/71 (90) 93 Room Air 05/04/19 04:00 92 Room Air 05/04/19 01:07 84 05/04/19 01:00 83 05/04/19 00:00 Room Air 05/04/19 00:00 36.7 85 17 140/76 (97) 92 Room Air 05/03/19 21:40 36.8 78 16 92/77 95 Room Air 05/03/19 21:00 Room Air 05/03/19 20:00 36.2 74 16 134/81 (98) 97 Room Air 05/03/19 20:00 Room Air 05/03/19 19:00 85 05/03/19 18:21 36.4 81 139/78 93 Room Air 05/03/19 18:05 36.7 79 18 141/82 97 Room Air 05/03/19 16:25 Room Air 05/03/19 15:24 36.3 05/03/19 14:46 86 05/03/19 12:35 Room Air 05/03/19 12:30 36.8 132/80 92 Room Air 05/03/19 12:00 91 132/80 (97) 95 Room Air 05/03/19 11:19 36.8 05/03/19 09:00 Room Air 05/03/19 09:00 36.4 87 151/93 97 Room Air 05/03/19 08:46 36.8 84 147/82 100 Room Air 05/03/19 08:00 Room Air 05/03/19 08:00 36.8 92 18 147/82 (103) Room Air I & O 05/04/19 07:00 Intake Total 870 ml Output Total 1700 ml Balance -830 ml Capillary Refill : Less Than 3 Seconds General Appearance: No Apparent Distress, WD/WN, Chronically ill, Other (pale) HEENT: PERRL/EOMI, Pharynx Normal Neck: Full Range of Motion, Normal Inspection, Non Tender Respiratory: Chest Non Tender, Lungs Clear, Normal Breath Sounds, No Accessory Muscle Use, No Respiratory Distress Cardiovascular: Regular Rate, Rhythm, No Murmur, Normal Peripheral Pulses Peripheral Pulses: 2+ Dorsalis Pedis (R), 2+ Left Dors-Pedis (L) Gastrointestinal: soft, no organomegaly, no pulsatile mass; No guarding (voluntary with deep palpation); tenderness (epigastric ) Extremity: Normal Capillary Refill, Non Tender, No Calf Tenderness, Pedal Edema Neurologic/Psychiatric: Alert, Oriented x3, Normal Mood/Affect Skin: Normal Color, Warm/Dry Results Lab Laboratory Tests 05/04/19 02:40: White Blood Count 7.9, Red Blood Count 2.93L, Hemoglobin 8.4L, Hematocrit 25L, Mean Corpuscular Volume 85, Mean Corpuscular Hemoglobin 29, Mean Corpuscular Hemoglobin Concent 34, Red Cell Distribution Width 18.8H, Platelet Count 201, Mean Platelet Volume 10.9H, Neutrophils (%) (Auto) 68, Lymphocytes (%) (Auto) 16, Monocytes (%) (Auto) 9, Eosinophils (%) (Auto) 5, Basophils (%) (Auto) 2, Ne utrophils # (Auto) 5.4, Lymphocytes # (Auto) 1.3, Monocytes # (Auto) 0.7, Eosinophils # (Auto) 0.4H, Basophils # (Auto) 0.1, Sodium Level 136, Potassium Level 3.9, Chloride Level 104, Carbon Dioxide Level 22, Anion Gap 10, Blood Urea Nitrogen 34H, Creatinine 2.33H, Estimat Glomerular Filtration Rate 21, BUN/Creatinine Ratio 15, Glucose Level 92, Calcium Level 8.5, Corrected Calcium 9.5, Phosphorus Level 3.7, Magnesium Level 2.0, Total Bilirubin 1.3H, Aspartate Amino Transf (AST/SGOT) 13, Alanine Aminotransferase (ALT/SGPT) 7, Alkaline Phosphatase 42, B-Type Natriuretic Peptide 2086.4H, Total Protein 4.9L, Albumin 2.8L Assessment/Plan Assessment/Plan Assessment/Plan anemia gastric and duodenal ulcers Duodenal diverticula EGD yesterday showed, ulcers in her stomach and duodenum, duodenal diverticula around the ampulla of vater and signs of active bleeding up could not completely visualize source of bleeding. Patient was start on Protonix drip and octreotide. Will continue to monitor and discuss possibility of surgery. Clinical Quality Measures DVT/VTE Risk/Contraindication: Risk Factor Score Per Nursin RFS Level Per Nursing on Admit: 4+=Very High SABINO WHITEHEAD DO 05/04/19 1622: Subjective Time Seen by a Provider: 14:42 Subjective/Events-last exam Pt seen and examined, was sitting up in chair. Pt denies abdominal pain, still feels a little weak. Review of Systems General: Fatigue, Malaise Cardiovascular: No: Chest Pain, Palpitations Gastrointestinal: No: Nausea, Vomiting, Abdominal Pain Objective Exam Gastrointestinal: soft, no organomegaly, tenderness (epigastric ), other (? pulsatile mass palpable) Assessment/Plan Assessment/Plan Assessment/Plan Anemia Duodenal ulcer in Duodenal diverticula AAA Pt states she was not aware she had AAA. Anemia is stable. I looked at the CT and believe that the duodenal diverticula is very close to the aorta and would be a very difficult surgery to remove the diverticula or try and oversew the ulcer. This puts pt in a very difficult position because it would not be a good idea to put her on blood thinners. She will also need to see Vascular surgery regarding her AAA. Supervisory-Addendum Brief Verification & Attestation Participated in pt care: history, MDM, physical Personally performed: exam, MDM Care discussed with: Medical Student Procedures: n/a Verification and Attestation of Medical Student E/M Service A medical student performed and documented this service in my presence. I reviewed and verified all information documented by the medical student and made modifications to such information, when appropriate. I personally performed the physical exam and medical decision making. Sabino Whitehead, May 04, 2019,16:22 PATRICIA HERMAN,MED STUDENT May 04, 2019 07:59 SABINO ROLLINS DO May 04, 2019 16:22 POS
[2019-05-04 08:00] VITALS: BP 143/81
[2019-05-04] MEDS ORDERED: FUROSEMIDE 40 MG/4 ML INJ (LASIX) IVP NR (08:00)
--- NOTE | 2019-05-04 08:46 | Diagnostic Imaging Report ---
INDICATION: Shortness of breath. TECHNIQUE/COMPARISON: A frontal chest was obtained at 0818 hours and compared to 05/02/2019. FINDINGS: There is cardiomegaly. There is central vascular congestion which has increased compared to the prior study with borderline interstitial edema. There is no consolidation. There is a new small left pleural effusion. IMPRESSION: Prominent cardiomegaly. Worsening central vascular congestion with borderline interstitial edema and a small left pleural effusion. Dictated by: Dictated on workstation # [id number]
[2019-05-04] MEDS ORDERED: PANT40TA2 PO (09:50)
[2019-05-04] MEDS ORDERED: NITR1OIN TOP (09:50)
[2019-05-04] MEDS ORDERED: BISA5TAB8 PO (10:17)
[2019-05-04] MEDS ORDERED: OMG1KC PO (10:17)
[2019-05-04] MEDS ORDERED: CLON1PAT TD (10:17)
[2019-05-04] MEDS ORDERED: PANT40TA3 PO (10:17)
--- NOTE | 2019-05-04 10:19 | NUR ---
PATIENT WAS ADMITTED LAST WEEK AND I TALKED TO HER ABOUT HER MEDICATIONS THEN. SHE HAS HER BOTTLES HERE WITH HER NOW. SHE DOES NOT HAVE THE PLAVIX BOTTLE THAT WAS IN QUESTION LAST VISIT, SHE STILL STATES SHE IS NOT TAKING IT. I LEFT IT OFF THE MED REC LIKE I DID LAST VISIT. SHE DOES NOT HAVE HER METOPROLOL BOTTLE EITHER. LAST VISIT SHE STATED SHE KNEW THE TARTRATE WAS SWITCHED TO THE SUCCINATE DESPITE IT BEING PAST DUE FOR REFILL. THIS VISIT SHE THINKS SHE IS NOT TAKING EITHER FORMULATION HOWEVER SHE DOES THINK SHE IS TAKING A BLOOD PRESSURE MED BID. SHE HAS A BOTTLE OF LISINOPRIL HERE WITH HER NOW THAT WAS FILLED #90 07-05-18 - SHE STATES SHE IS NOT TAKING IT BUT KEEPS IT IN CASE SHE IS STARTED BACK ON IT. I CALLED DR. MALONEY'S OFFICE AT THIS TIME, ON 03-03-19 THE LISINOPRIL WAS STOPPED AND AMLODIPINE WAS PRESCRIBED. THE METOPROLOL TARTRATE WAS CHANGED TO SUCCINATE AND THIS WAS ALL DONE AT [facility]. I LEFT THE METOPROLOL SUCCINATE ON THE MED REC AT THIS TIME AND NOTED THE PAST DUE FILL DATE. SHE TAKES THE FOLLOWING OTC: FISH OIL DAILY BISACODYL 5MG PRN ASPIRIN 81MG DAILY SHE STILL STATES THE NITRO BID WAS STOPPED DUE TO BURNING.
[2019-05-04 12:00] VITALS: BP 128/82
--- NOTE | 2019-05-04 14:31 | NUR ---
Initial visit: Upon introducing myself the pt said she had just been counting her blessings. She described that she was reflecting on her life, reviewing blessings and regrets. States she feels she has come to peace with things she cannot change, and feels the overall she has had a good life. pt expressed hopes of her health improving, and requested prayer for her health and her 's health and strength.
--- NOTE | 2019-05-04 14:35 | Physical Therapy Evaluation ---
PT Evaluation-General Medical Diagnosis Admission Date May 02, 2019 at 14:49 Medical Diagnosis: GI bleed/generalized edema Onset Date: May 02, 2019 Therapy Diagnosis Therapy Diagnosis: debility Precautions Precautions/Isolations: Standard Precautions Weight Bear Status Right Lower Extremity: Right Full Weight Bearing Left Lower Extremity: Left Full Weight Bearing FWB Referral Physician: Mirza Reason for Referral: Evaluation/Treatment Medical History Pertinent Medical History: Arthritis, COPD, HTN, Renal Insufficiency, Smoking Additional Medical History Buerger's disease (foot wounds) Current History ER with tarry stools Reviewed History: Yes Social History Home: Single Level Prior Prior Level of Function SCALE: Activities may be completed with or without assistive devices. 2-Oqbdkabvyy-oipkjth completes the activity by him/herself with no assistance from a helper. 5-Set-up or Clean-up Assistance-helper sets up or cleans up; patient completes activity. [place] assists only prior to or following the activity. 4-Supervision or Touching Assistance-helper provides verbal cues and/or touching/steadying and/or contact guard assistance as patient completes activity. Assistance may be provided throughout the activity or intermittently. 3-Partial/Moderate Assistance-helper does LESS THAN HALF the effort. [place] lifts, holds or supports trunk or limbs, but provides less than half the effort. 2-Substantial/Maximal Assistance-helper does MORE THAN HALF the effort. [place] lifts or holds trunk or limbs and provides more than half the effort. 4-Atxgyzbpf-qyzwkf does ALL the effort. Patient does none of the effort to complete the activity. Or, the assistance of 2 or more helpers is required for the patient to complete the activity. If activity was not attempted, code reason: 7-Patient Refused. 9-Not Applicable-not attempted and the patient did not perform the activity before the current illness, exacerbation or injury. 10-Not Attempted due to Environmental Limitations-(lack of equipment, weather restraints, etc.). 88-Not Attempted due to Medical Conditions or Safety Concerns. Bed Mobility: 6 Transfers (B,C,W/C): 6 Gait: 6 Indoor Mobility (Ambulation): Independent Stairs: Independent Prior Devices Use: Walker PT Evaluation-Current Subjective Patient agrees to PT. No c/o except of being lonely. Pain Numeric Pain Scale: 0-No Pain Location: No Pain Reported Objective Patient Orientation: Normal For Age Attachments: Oxygen, IV ROM/Strength ROM Lower Extremities bilateral LE WFL Strength Lower Extremities 3+/5 grossly bilateral LE Integumentary/Posture Integumentary refer to nursing notes Bowel Incontinence: No Bladder Incontinence: No Posture WFL Neuromuscular (Tone, Coordination, Reflexes) grossly intact Sensory Vision: Functional Hearing: Functional Sensation Right Lower Extremit: Intact Sensation Left Lower Extremity: Intact Transfers Roll Left to Right (QC): 6 Sit to Lying (QC): 6 Lying to Sitting/Side of Bed(Q: 6 Sit to Stand (QC): 5 Chair/Dho-qh-Oshiu Xfer(QC): 5 Car Transfer (QC): 88 Gait Does the Patient Walk?: Yes Mode of Locomotion: Walk Anticipated Mode of Locomotion: Walk Walk 10 feet (QC): 5 Walk 50 ft with 2 Turns(QC): 5 Walk 150 ft (QC): 5 Walking 10ft/uneven surface-QC: 5 Distance: 160' Gait Assistive Device: FWW Comments/Gait Description slow, safe and functional Wheelchair Training Does the Pt Use a Wheelchair?: No Wheel 50 ft with 2 turns (QC): 9 Wheel 150 ft (QC): 9 Type of Wheelchair: Manual Stairs 1 Step (curb) (QC): 88 4 Steps (QC): 88 12 Steps (QC): 9 Balance Sitting Static: Normal Sitting Dynamic: Normal Standing Static: Normal Standing Dynamic: Normal Picking up an Object (QC): 5 Assessment/Needs 73 y.o. female, will benefit from skilled PT to address functional strength and mobility to improve current LOF. Patient requires time to complete all functional tasks and requires redirection to remain on task. Rehab Potential: Guarded PT Residential Goals Patent Prosecution Attorney Goals PT Residential Goals Time Frame: May 16, 2019 Roll Left & Right (QC): 6 Sit to Lying (QC): 6 Lying-Sitting on Side/Bed(QC): 6 Sit to Stand (QC): 6 Chair/Afs-gf-Qcrtf Xfer(QC): 6 Toilet Transfer (QC): 6 Car Transfer (QC): 6 Does the Patient Walk: Yes Walk 10 feet (QC): 6 Walk 50ft with 2 Turns (QC): 6 Walk 150 ft (QC): 6 Walking 10ft on Uneven Surface: 6 1 Step (curb) (QC): 6 4 Steps (QC): 6 12 Steps (QC): 9 Picking up an Object (QC): 6 Does the Pt use WC or Scooter?: Yes Type: N/A Type: N/A PT Plan Problem List Problem List: Activity Tolerance Treatment/Plan Treatment Plan: Continue Plan of Care Treatment Plan: Bed Mobility, Education, Functional Activity Alison, Functional Strength, Gait, Safety, Therapeutic Exercise, Transfers Treatment Duration: May 16, 2019 Frequency: 6 times per week Estimated Hrs Per Day: .25 hour per day Patient and/or Family Agrees t: Yes Time/GCodes Time In: 1400 Time Out: 1424 Total Billed Treatment Time: 24 Total Billed Treatment 1 visit EVLowC 10 min FA 14 min MICHELLE PERSAUD PT May 04, 2019 14:35 POS
--- NOTE | 2019-05-04 15:40 | Occupational Therapy Eval ---
OT Evaluation-General/PLF Medical Diagnosis Admission Date May 02, 2019 at 14:49 Medical Diagnosis: GI bleed/generalized edema Onset Date: May 02, 2019 Therapy Diagnosis Therapy Diagnosis: impaired ADLs and functional mobility Precautions Precautions/Isolations: Standard Precautions Safety Interventions: Bed Exit Alarm Referral Physician: Mirza Morales Reason: Activity Tolerance, Self Care, Evaluation/Treatment, Strengthening/ROM Medical History Pertinent Medical History: Arthritis, CAD, COPD, HTN, Renal Insufficiency, Smoking Additional Medical History Buerger's disease, depression, Current History Per H&P: "History of present illness: This is a 73-year-old white female clinic [facility] who I just discharged earlier this week after she underwent a colonoscopy on Saturday by Dr. Whitehead for tarry stools reported which revealed no significant bleeding source so she felt good enough to go home after cardiology and pulmonology approved and she was discharged back on her oral anticoagulation and antiplatelet agent because of ischemic toes and a variety of other reasons that she must be on aggressive blood thinning protocol including Khoury's disease with ischemic toes who presented back to the [place] ER with complaints of tarry stools and confusion and weakness found to have a hemoglobin of 7.9 down from 10.3 when she was discharged after 2 units of blood was given at that time with tarry stools. She was admitted to cardiac stepdown cardiology was consulted along with general surgery who just performed EGD revealing an ulcer of the duodenum under a diverticula of the antrum with bleeding source confirmed. She will be given 2 units of blood but patient will have a requirement for close monitoring since she actually requires anticoagulation to resume but she may actually need surgery since this is an ulcer that may be difficult to heal without it. Patient with very complex medical problems and seems to get more and more complex. We'll hold anticoagulation and antiplatelet meds due to risks outweigh the benefits right now." Reviewed History: Yes Social History Home: Apartment (single level) Current Living Status: Spouse Entry Into Home: Stairs With Railing Steps Into Home: 2 ADL-Prior Level of Function SCALE: Activities may be completed with or without assistive devices. 3-Ghnwzgacse-honmlex completes the activity by him/herself with no assistance from a helper. 5-Set-up or Clean-up Assistance-helper sets up or cleans up; patient completes activity. [place] assists only prior to or following the activity. 4-Supervision or Touching Assistance-helper provides verbal cues and/or touching/steadying and/or contact guard assistance as patient completes activity . Assistance may be provided throughout the activity or intermittently. 3-Partial/Moderate Assistance-helper does LESS THAN HALF the effort. [place] lifts, holds or supports trunk or limbs, but provides less than half the effort. 2-Substantial/Maximal Assistance-helper does MORE THAN HALF the effort. [place] lifts or holds trunk or limbs and provides more than half the effort. 4-Yexsqmklq-lmimua does ALL the effort. Patient does none of the effort to complete the activity. Or, the assistance of 2 or more helpers is required for the patient to complete the activity. If activity was not attempted, code reason: 7-Patient Refused. 9-Not Applicable-not attempted and the patient did not perform the activity before the current illness, exacerbation or injury. 10-Not Attempted due to Environmental Limitations-(lack of equipment, weather restraints, etc.). 88-Not Attempted due to Medical Conditions or Safety Concerns. ADL PLOF Comments Pt reports being independent with ADLs prior to hospitalization, her does the cooking and cleaning. She said she and her do a good job of helping each other out when they need it. She has been taking a sponge bath for the last couple of months due to her foot wounds, she reports her doctor told her not to get into the water. Self Care: Needed Some Help Functional Cognition: Independent DME/Equipment Comments she reports primarily using a quad cane while inside but she also has a FWW OT Current Status Subjective Pt laying in bed, agreeable to OT evaluation at this time. Pt did not verbalize any pain during session, stating she is very tired and wants to go home. Mental Status/Objective Patient Orientation: Person, Place, Time, Situation Attachments: IV Current Glasses/Contacts: Yes Hearing Aids: No Dentures/Partials: Yes Hand Dominance: Right Upper Extremity ROM WFL, BUE shoulder flexion to approximately 150 degrees, pt can touch the back of her head with her hands. Upper Extremity Coordination no deficits noted during tx. Upper Extremity Sensation pt states she "rarely" has any tingling/numbnes in her arms/hands. Upper Extremity Strength grossly 3+/5 MMT ADL-Treatment Eating (QC): 7 Oral Hygiene (QC): 7 Shower/Bathe Self (QC): 7 Upper Body Dressing (QC): 7 Lower Body Dressing (QC): 7 On/Off Footwear (QC): 7 Toileting Hygiene (QC): 7 Toilet Transfer (QC): 7 Other Treatments Pt provided information about PLOF and home set up. Pt declined all ADLs this tx stating she was tired and had already been up walking. When asked if she put her own socks on this morning, she said she had to because she doesn't have any help. Based off of clinical judgement, pt would most likely require some assistance donning/doffing footwear due to fatigue and weakness. Pt appeared drowsy throughout session, closing her eyes and taking a few seconds before responding to questions. Post OT session, pt laying in bed with call light in reach and all needs met. Nursing notified of position. Education OT Patient Education: Correct positioning, Energy conservation, Modified ADL techniques, Progress toward Goal/Update tx plan, Purpose of tx/functional activities Teaching Recipient: Patient Teaching Methods: Discussion Response to Teaching: Verbalize Understanding, Reinforcement Needed OT Mcfp Goals Mcfp Goals Time Frame: May 15, 2019 Eating (QC): 6 Oral Hygiene (QC): 6 Toileting Hygiene (QC): 6 Shower/Bathe Self (QC): 4 Upper Body Dressing (QC): 5 Lower Body Dressing (QC): 4 On/Off Footwear (QC): 5 Additional Goals: 1-Demonstrate ADL Tasks, 2-Verbalize Understanding, 3- ImproveStrength/[place] 1=Demonstrate adherence to instructed precautions during ADL tasks. 2=Patient will verbalize/demonstrate understanding of assistive lyla kvng/modifications for ADL. 3=Patient will improve strength/tolerance for activity to enable patient to perform ADL's. OT Education/Plan Problem List/Assessment Assessment: Decreased Activ Tolerance, Decreased UE Strength, Impaired I ADL's, Impaired Self-Care Skills Discharge Recommendations Plan/Recommendations: Continue POC Treatment Plan/Plan of Care Treatment,Training & Education: Yes Patient would benefit from OT for education, treatment and training to promote independence in ADL's, mobility, safety and/or upper extremity function for ADL's. Plan of Care: ADL Retraining, Caregiver Training, Functional Mobility, UE Funct Exercise/Act Treatment Duration: May 15, 2019 Frequency: 5 times per week Estimated Hrs Per Day: .25 hour per day Agreement: Yes Rehab Potential: Guarded Time/GCodes Start Time: 15:20 Stop Time: 15:30 Total Time Billed (hr/min): 10 Billed Treatment Time 1, HERMANN NORRIS OT May 04, 2019 15:40 POS
[2019-05-04 16:00] VITALS: BP 150/85
--- NOTE | 2019-05-04 16:46 | Progress Note ---
Subjective Subjective/Events-last exam Patient awake and states that she feels tired this AM. Denies any more BMs that are dark or have blood. Denies any pain, shortness of breath or chest pain. Review of Systems General: No Chills Pulmonary: No Dyspnea, No Cough Cardiovascular: No: Chest Pain, Palpitations Gastrointestinal: No: Nausea, Vomiting, Abdominal Pain, Diarrhea, Constipation, Melena Genitourinary: No Dysuria, No Frequency Musculoskeletal: foot pain Neurological: Weakness Focused Exam Lactate Level 05/02/19 13:07: Lactic Acid Level 1.17 Objective Exam Last Set of Vital Signs Vital Signs Date Time Temp Pulse Resp B/P (MAP) Pulse Ox O2 Delivery O2 Flow Rate FiO2 05/04/19 16:00 36.1 64 150/85 (106) 97 Room Air 05/04/19 12:35 2.00 05/04/19 08:00 13 Capillary Refill : Less Than 3 Seconds I&O Intake and Output 05/04/19 00:00 Intake Total 670 ml Output Total 1400 ml Balance -730 ml Intake Oral 540 ml IV Total 100 ml Other 30 ml Output Urine Total 1400 ml # Bowel Movements 5 General: Alert, Oriented X3, Cooperative, No Acute Distress Lungs: Clear to Auscultation, Normal Air Movement Heart: Regular Rate, No Murmurs Abdomen: Normal Bowel Sounds, Soft, No Tenderness, No Masses Extremities: Other (1+ edema bilaterally, darken toes on left) Neuro: Normal Speech, Cranial Nerves 3-12 NL Psych/Mental Status: Mental Status NL Results/Procedures Lab Laboratory Tests 05/04/19 02:40: White Blood Count 7.9, Red Blood Count 2.93L, Hemoglobin 8.4L, Hematocrit 25L, Mean Corpuscular Volume 85, Mean Corpuscular Hemoglobin 29, Mean Corpuscular Hemoglobin Concent 34, Red Cell Distribution Width 18.8H, Platelet Count 201, M clay Platelet Volume 10.9H, Neutrophils (%) (Auto) 68, Lymphocytes (%) (Auto) 16, Monocytes (%) (Auto) 9, Eosinophils (%) (Auto) 5, Basophils (%) (Auto) 2, Neutrophils # (Auto) 5.4, Lymphocytes # (Auto) 1.3, Monocytes # (Auto) 0.7, Eosi nophils # (Auto) 0.4H, Basophils # (Auto) 0.1, Sodium Level 136, Potassium Level 3.9, Chloride Level 104, Carbon Dioxide Level 22, Anion Gap 10, Blood Urea Nitrogen 34H, Creatinine 2.33H, Estimat Glomerular Filtration Rate 21, BUN/Creatinine Ratio 15, Glucose Level 92, Calcium Level 8.5, Corrected Calcium 9.5, Phosphorus Level 3.7, Magnesium Level 2.0, Total Bilirubin 1.3H, Aspartate Amino Transf (AST/SGOT) 13, Alanine Aminotransferase (ALT/SGPT) 7, Alkaline Phosphatase 42, B-Type Natriuretic Peptide 2086.4H, Total Protein 4.9L, Albumin 2.8L Assessment/Plan Assessment/Plan (1) GI bleed Status: Acute Assessment & Plan: 05/04: EGD yesterday with duodenal ulcer, Dr Whitehead consulted and managing, appreciate recommendations, Continue Protonix IV, Octreotide, Sucralfate, holding anticoagulation at this time Qualifiers: Qualified Codes: K92.2 - Gastrointestinal hemorrhage, unspecified (2) Critical ischemia of lower extremity Status: Acute (3) Duodenal bulb ulcer Status: Acute (4) Acute blood loss anemia Status: Acute Assessment & Plan: 05/04: s/p 2 units pRBCs, continue to monitor Hgb, consider iron replacement (5) AAA (abdominal aortic aneurysm) Status: Chronic Assessment & Plan: 05/04: Dr Stratton has spoke with Dr Andrews in [place], at this time patient is not a surgical candidate Qualifiers: Qualified Codes: I71.4 - Abdominal aortic aneurysm, without rupture (6) PVD (peripheral vascular disease) Status: Chronic (7) Acute on chronic diastolic (congestive) heart failure Assessment & Plan: 05/04: Dr Stratton consulted, appreciate recommendations (8) CKD (chronic kidney disease), stage IV Status: Chronic Assessment & Plan: 05/04: Stable at baseline (9) CAD (coronary artery disease) Status: Chronic Qualifiers: Qualified Codes: I25.10 - Atherosclerotic heart disease of [place] coronary artery without angina pectoris (10) HTN (hypertension) Status: Chronic Assessment & Plan: 05/04: Holding BP meds due to GI bleed Qualifiers: Qualified Codes: I10 - Essential (primary) hypertension (11) HLD (hyperlipidemia) Status: Chronic Qualifiers: Qualified Codes: E78.2 - Mixed hyperlipidemia (12) Melena Status: Acute (13) [place] disease Status: Chronic (14) DVT prophylaxis Status: Acute Assessment & Plan: - SCDs, anticoagulation is contraindicated at this time due to acute GI bleed requiring transfusion Clinical Quality Measures DVT/VTE Risk/Contraindication: Risk Factor Score Per Nursin RFS Level Per Nursing on Admit: 4+=Very High ELBA PEREZ MD May 04, 2019 16:46 POS
--- NOTE | 2019-05-04 19:17 | Wound Care Assessment ---
Wound Care Assessment Date Seen by Provider: May 04, 2019 Time Seen by Provider: 17:30 Chief Complaint Bilateral foot ulcers. HPI The patient is a 73 year old female with ischemic ulceration of the bilateral great toes. The wounds are currently stable with betadine dressings. Will continue same. Smoking Status: Former Smoker Recreational Drug Use: No Alcohol Use: Rarely Uses Exam Vital Signs Date Time Temp Pulse Resp B/P (MAP) Pulse Ox O2 Delivery O2 Flow Rate FiO2 05/04/19 16:20 98 Nasal Cannula 2.00 05/04/19 16:00 36.1 64 150/85 (106) 05/04/19 08:00 13 Capillary Refill : Less Than 3 Seconds Results Laboratory Tests 05/04/19 02:40: White Blood Count 7.9, Red Blood Count 2.93L, Hemoglobin 8.4L, Hematocrit 25L, Mean Corpuscular Volume 85, Mean Corpuscular Hemoglobin 29, Mean Corpuscular Hemoglobin Concent 34, Red Cell Distribution Width 18.8H, Platelet Count 201, Mean Platelet Volume 10.9H, Neutrophils (%) (Auto) 68, Lymphocytes (%) (Auto) 16, Monocytes (%) (Auto) 9, Eosinophils (%) (Auto) 5, Basophils (%) (Auto) 2, Neutrophils # (Auto) 5.4, Lymphocytes # (Auto) 1.3, Monocytes # (Auto) 0.7, Eosinophils # (Auto) 0.4H, Basophils # (Auto) 0.1, Sodium Level 136, Potassium Level 3.9, Chloride Level 104, Carbon Dioxide Level 22, Anion Gap 10, Blood Urea Nitrogen 34H, Creatinine 2.33H, Estimat Glomerular Filtration Rate 21, BUN/Crea tinine Ratio 15, Glucose Level 92, Calcium Level 8.5, Corrected Calcium 9.5, Phosphorus Level 3.7, Magnesium Level 2.0, Total Bilirubin 1.3H, Aspartate Amino Transf (AST/SGOT) 13, Alanine Aminotransferase (ALT/SGPT) 7, Alkaline Phospha tase 42, B-Type Natriuretic Peptide 2086.4H, Total Protein 4.9L, Albumin 2.8L ASIF SALEEM MD May 04, 2019 19:17 POS
[2019-05-04 20:50] VITALS: BP 129/77
[2019-05-04] MEDS: POVIDONE (BETADINE) 10% SOLN 240 ML BTL TOP SCH (22:27)
[2019-05-05 00:06] VITALS: BP 145/81
[2019-05-05 03:37] LABS: BASOPHILS % (AUTO) 0 % (0-10); EOSINOPHILS # (AUTO) 0.2 10^3/uL (0.0-0.3); EOSINOPHILS % (AUTO) 3 % (0-10); HEMATOCRIT 28 % (35-52); HEMOGLOBIN 9.2 G/DL (11.5-16.0); LYMPHOCYTES # (AUTO) 0.7 X 10^3 (1.0-4.0); LYMPHOCYTES % (AUTO) 7 % (12-44); MEAN CORPUSCULAR HEMOGLOBIN 29 PG (25-34); MEAN CORPUSCULAR HGB CONC 33 G/DL (32-36); MEAN CORPUSCULAR VOLUME 87 FL (80-99); MONOCYTES # (AUTO) 0.6 X 10^3 (0.0-1.0); MONOCYTES % (AUTO) 7 % (0-12); NEUTROPHILS # (AUTO) 7.8 X 10^3 (1.8-7.8); NEUTROPHILS % (AUTO) 83 % (42-75); PLATELET COUNT 200 10^3/uL (130-400); RED CELL DISTRIBUTION WIDTH 18.2 % (10.0-14.5); WHITE BLOOD COUNT 9.3 10^3/uL (4.3-11.0)
[2019-05-05 03:55] LABS: CALCIUM 8.7 MG/DL (8.5-10.1); CREATININE SERUM 2.32 MG/DL (0.60-1.30); MAGNESIUM 1.9 MG/DL (1.6-2.4); PHOSPHORUS 3.5 MG/DL (2.3-4.7)
[2019-05-05 04:00] VITALS: BP 144/87
[2019-05-05 04:25] LABS: EOSINOPHILS % (MANUAL) 1 %; LYMPHOCYTES % (MANUAL) 6 %; MONOCYTES % (MANUAL) 6 %; NEUTROPHILS % (MANUAL) 87 %
[2019-05-05] MEDS: SUCRALFATE 1 GM (CARAFATE) TAB PO SCH ×4 (05:25→21:36)
[2019-05-05] MEDS: CATHETER FLUSH 10 ML SYR IV SCH ×3 (05:26→21:37)
[2019-05-05] MEDS: PANTOPRAZOLE INJECTION 200 MG in NS (IVPB) 100 ML IV SCH (05:29)
--- NOTE | 2019-05-05 05:45 | Pulmonary Progress Note ---
Sepsis Event Evaluation Height, Weight, BMI Height: '" Weight: lbs. oz. kg; 23.88 BMI Method: Focused Exam Lactate Level 05/02/19 13:07: Lactic Acid Level 1.17 Exam Exam Vital Signs Date Time Temp Pulse Resp B/P (MAP) Pulse Ox O2 Delivery O2 Flow Rate FiO2 05/05/19 04:00 36.6 73 20 144/87 (106) 100 Nasal Cannula 1.50 05/05/19 04:00 100 Nasal Cannula 1.50 05/05/19 00:44 76 05/05/19 00:06 36.6 77 145/81 (102) 99 Nasal Cannula 2.00 05/05/19 00:00 98 Nasal Cannula 2.00 05/04/19 20:50 36.3 71 129/77 (94) 99 Nasal Cannula 2.00 05/04/19 20:18 99 Nasal Cannula 2.00 05/04/19 18:40 75 05/04/19 16:20 98 Nasal Cannula 2.00 05/04/19 16:00 36.1 64 150/85 (106) 97 Room Air 05/04/19 13:00 71 05/04/19 12:35 98 Nasal Cannula 2.00 05/04/19 12:00 76 128/82 (97) Room Air 05/04/19 09:00 Room Air 05/04/19 08:25 98 Nasal Cannula 2.00 05/04/19 08:00 74 13 143/81 (101) Room Air 05/04/19 07:00 81 I & O 05/05/19 07:00 Intake Total 880 ml Output Total 1650 ml Balance -770 ml Height & Weight Height: '" Weight: lbs. oz. kg; 23.88 BMI Method: General Appearance: No Apparent Distress, WD/WN, Chronically ill, Other (pale) HEENT: PERRL/EOMI, Normal ENT Inspection, Pharynx Normal, Moist Mucous Membranes Neck: Full Range of Motion, Normal Inspection, Non Tender Respiratory: Chest Non Tender, Lungs Clear, Normal Breath Sounds, No Accessory Muscle Use, No Respiratory Distress Cardiovascular: Regular Rate, Rhythm, No Gallop, No JVD, No Murmur, Normal Peripheral Pulses Capillary Refill: Less Than 3 Seconds Peripheral Pulses: 2+ Dorsalis Pedis (R), 2+ Left Dors-Pedis (L) Gastrointestinal: soft, no organomegaly, tenderness (epigastric ), other (? 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
--- NOTE | 2019-05-05 07:11 | Diagnostic Imaging Report ---
INDICATION: Shortness of breath. TECHNIQUE: Single view chest 6:45 AM. CORRELATION STUDY: 05/04/2019 FINDINGS: Unchanged severity cardiac enlargement with rounded configuration. Vasculature overall appears slightly less congested. Some fullness of the right hilum is noted. Left diaphragm is obscured likely combination of infiltrate along with effusion. IMPRESSION: 1. Unchanged severity cardiac enlargement with slightly rounded configuration. Severity of vascular congestion does appear to be slightly improved. 2. Likely combination of atelectasis and/or infiltrate along with effusion of left lung base. Dictated by: Dictated on workstation # [id number]
--- NOTE | 2019-05-05 07:30 | Progress Note - Surgery ---
PATRICIA HERMAN,MED STUDENT 05/05/19 0730: Subjective Date Seen by a Provider: May 05, 2019 Time Seen by a Provider: 07:15 Subjective/Events-last exam Patient seen and examined. She says that she is feeling better but does feel a little anxious, she did not say what is making her anxious when asked. She denies having any abdominal pain. Review of Systems General: No Chills Pulmonary: Dyspnea; No Cough Cardiovascular: No: Chest Pain, Palpitations Gastrointestinal: No: Nausea, Vomiting, Abdominal Pain Genitourinary: No Dysuria Neurological: No: Change in speech anxious Focused Exam Lactate Level 05/02/19 13:07: Lactic Acid Level 1.17 Objective Exam Vital Signs Date Time Temp Pulse Resp B/P (MAP) Pulse Ox O2 Delivery O2 Flow Rate FiO2 05/05/19 04:00 36.6 73 20 144/87 (106) 100 Nasal Cannula 1.50 05/05/19 04:00 100 Nasal Cannula 1.50 05/05/19 00:44 76 05/05/19 00:06 36.6 77 145/81 (102) 99 Nasal Cannula 2.00 05/05/19 00:00 98 Nasal Cannula 2.00 05/04/19 20:50 36.3 71 129/77 (94) 99 Nasal Cannula 2.00 05/04/19 20:18 99 Nasal Cannula 2.00 05/04/19 18:40 75 05/04/19 16:20 98 Nasal Cannula 2.00 05/04/19 16:00 36.1 64 150/85 (106) 97 Room Air 05/04/19 13:00 71 05/04/19 12:35 98 Nasal Cannula 2.00 05/04/19 12:00 76 128/82 (97) Room Air 05/04/19 09:00 Room Air 05/04/19 08:25 98 Nasal Cannula 2.00 05/04/19 08:00 74 13 143/81 (101) Room Air I & O0 05/05/19 07:00 Intake Total 1480 ml Output Total 1900 ml Balance -420 ml Capillary Refill : Less Than 3 Seconds General Appearance: No Apparent Distress, WD/WN, Chronically ill, Other (pale) HEENT: PERRL/EOMI Neck: Non Tender, Supple Respiratory: Chest Non Tender, Lungs Clear, Normal Breath Sounds, No Accessory Muscle Use, No Respiratory Distress Cardiovascular: Regular Rate, Rhythm, No Murmur, Normal Peripheral Pulses Peripheral Pulses: 2+ Dorsalis Pedis (R), 2+ Left Dors-Pedis (L) Gastrointestinal: soft, no organomegaly, tenderness (epigastric ), other (? pulsatile mass palpable) Extremity: Non Tender, No Calf Tenderness, Pedal Edema Neurologic/Psychiatric: Alert, Oriented x3, Normal Mood/Affect Skin: Normal Color, Warm/Dry Results Lab Laboratory Tests 05/05/19 03:20: White Blood Count 9.3, Red Blood Count 3.22L, Hemoglobin 9.2L, Hematocrit 28L, Mean Corpuscular Volume 87, Mean Corpuscular Hemoglobin 29, Mean Corpuscular Hemoglobin Concent 33, Red Cell Distribution Width 18.2H, Platelet Count 200, Mean Platelet Volume 11.0H, Neutrophils (%) (Auto) 83H, Lymphocytes (%) (Auto) 7L, Monocytes (%) (Auto) 7, Eosinophils (%) (Auto) 3, Basophils (%) (Auto) 0, Neutrophils # (Auto) 7.8, Lymphocytes # (Auto) 0.7L, Monocytes # (Auto) 0.6, Eosinophils # (Auto) 0.2, Basophils # (Auto) 0.0, Neutrophils % (Manual) 87, Lymphocytes % (Manual) 6, Monocytes % (Manual) 6, Eosinophils % (Manual) 1, Sodium Level 135, Potassium Level 4.0, Chloride Level 101, Carbon Dioxide Level 22, Anion Gap 12, Blood Urea Nitrogen 31H, Creatinine 2.32H, Estimat Glomerular Filtration Rate 21, BUN/Creatinine Ratio 13, Glucose Level 106H, Calcium Level 8.7, Phosphorus Level 3.5, Magnesium Level 1.9 Assessment/Plan Assessment/Plan Assessment/Plan Anemia Duodenal ulcer in Duodenal diverticula AAA pericardial effusion Left pleural effusion Anemia is stable and trending up. CXR from today shows no change in cardiac enlargement, most likely d/t pericardial effusion seen on CT 2days ago, and minimal improvement in vascular congestion. CXR also shows signs of atelectasis and a pleural effusion of the left lung base. No surgical interventions are planned at this time to address her duodenal diverticula d/t complexity of patient's pathology; she will need to seen by a vascular surgeon to evaluate possibility of surgery. Will continue to monitor patient's H/H, pericardial effusion and pleural effusion for signs of improvement or worsening. Clinical Quality Measures DVT/VTE Risk/Contraindication: Risk Factor Score Per Nursin RFS Level Per Nursing on Admit: 4+=Very High SABINO CHRISTIANSEN DO 05/05/19 1621: Subjective Time Seen by a Provider: 08:41 Subjective/Events-last exam Pt seen and examined, denies abdominal pain and is wondering when she can go home Objective Exam Respiratory: Lungs Clear, Normal Breath Sounds Cardiovascular: Regular Rate, Rhythm, No Murmur Gastrointestinal: non tender, soft, no organomegaly, other (? pulsatile mass palpable) Assessment/Plan Assessment/Plan Assessment/Plan Duodenal Ulcer with bleed Anemia - stable AAA Pt most likely ok to go home, no surgical intervention planned. I spoke with Dr. Blue and we talked about only placing pt on one blood thinner; Plavix and starting that Saturday. Pt will be set up with Vascular surgeon and I believe Cardiology has been in contact with someone. Might be best to excise diverticula during open AAA. Supervisory-Addendum Brief Verification & Attestation Participated in pt care: history, MDM, physical Personally performed: exam, history, MDM Care discussed with: Medical Student Procedures: n/a Verification and Attestation of Medical Student E/M Service A medical student performed and documented this service in my presence. I reviewed and verified all information documented by the medical student and made modifications to such information, when appropriate. I personally performed the physical exam and medical decision making. Sabino Christiansen, May 05, 2019,16:21 PATRICIA HERMAN,MED STUDENT May 05, 2019 07:30 SABINO ROLLINS DO May 05, 2019 16:21 POS
--- NOTE | 2019-05-05 10:26 | Physical Therapy Daily Note ---
PT Daily Note-Current Subjective Patient agrees to PT. O2 NC on patient's face but not on wall. RN notified. Pain Numeric Pain Scale: 0-No Pain Location: No Pain Reported Mental Status Patient Orientation: Person, Time, Situation Attachments: Oxygen, IV Transfers SCALE: Activities may be completed with or without assistive devices. 4-Jtxzcmgupp-vnfaofu completes the activity by him/herself with no assistance from a helper. 5-Set-up or Clean-up Assistance-helper sets up or cleans up; patient completes activity. [place] assists only prior to or following the activity. 4-Supervision or Touching Assistance-helper provides verbal cues and/or touching/steadying and/or contact guard assistance as patient completes activity. Assistance may be provided throughout the activity or intermittently. 3-Partial/Moderate Assistance-helper does LESS THAN HALF the effort. [place] lifts, holds or supports trunk or limbs, but provides less than half the effort. 2-Substantial/Maximal Assistance-helper does MORE THAN HALF the effort. [place] lifts or holds trunk or limbs and provides more than half the effort. 6-Xjrcpzloo-fkaiex does ALL the effort. Patient does none of the effort to complete the activity. Or, the assistance of 2 or more helpers is required for the patient to complete the activity. If activity was not attempted, code reason: 7-Patient Refused. 9-Not Applicable-not attempted and the patient did not perform the activity before the current illness, exacerbation or injury. 10-Not Attempted due to Environmental Limitations-(lack of equipment, weather restraints, etc.). 88-Not Attempted due to Medical Conditions or Safety Concerns. Roll Left & Right (QC): 6 Sit to Lying (QC): 6 Lying to Sitting/Side of Bed(Q: 4 Sit to Stand (QC): 6 Weight Bearing Right Lower Extremity: Right Full Weight Bearing Left Lower Extremity: Left Full Weight Bearing FWB Gait Training Does the Patient Walk?: Yes Distance: 300' Walk 10 feet (QC): 6 Walk 50 ft with 2 Turns(QC): 6 Walk 150 ft (QC): 6 Gait Assistive Device: FWW NBOS, functional gait sequence Assessment Patient returned to bed and OT present for treatment. PT to increase activity as tolerated by patient. PT Longterm Goals Surveillance Technician Goals PT Longterm Goals Time Frame: May 16, 2019 Roll Left & Right (QC): 6 Sit to Lying (QC): 6 Lying-Sitting on Side/Bed(QC): 6 Sit to Stand (QC): 6 Chair/Wsu-wx-Osdmz Xfer(QC): 6 Toilet Transfer (QC): 6 Car Transfer (QC): 6 Does the Patient Walk: Yes Walk 10 feet (QC): 6 Walk 50ft with 2 Turns (QC): 6 Walk 150 ft (QC): 6 Walking 10ft on Uneven Surface: 6 1 Step (curb) (QC): 6 4 Steps (QC): 6 12 Steps (QC): 9 Picking up an Object (QC): 6 Does the Pt use WC or Scooter?: Yes Type: N/A Type: N/A PT Plan Treatment/Plan Treatment Plan: Continue Plan of Care Treatment Plan: Bed Mobility, Education, Functional Activity Alison, Functional Strength, Gait, Safety, Therapeutic Exercise, Transfers Treatment Duration: May 16, 2019 Frequency: 6 times per week Estimated Hrs Per Day: .25 hour per day Patient and/or Family Agrees t: Yes Time/GCodes Time In: 829 Time Out: 839 Total Billed Treatment Time: 10 Total Billed Treatment 1 visit FA 10 min MICHELLE PERSAUD PT May 05, 2019 10:26 POS
[2019-05-05 12:00] VITALS: BP 189/85
[2019-05-05] MEDS: POVIDONE (BETADINE) 10% SOLN 240 ML BTL TOP SCH ×2 (12:44→21:36)
[2019-05-05] MEDS: OCTREOTIDE INJECTION 500 MCG in NS (IVPB) 99 ML IV SCH ×2 (12:44→23:00)
--- NOTE | 2019-05-05 13:01 | Cardiology Progress Note ---
Subjective Date Seen by Provider: May 05, 2019 Time Seen by Provider: 12:59 Subjective/Events-last exam Patient is laying down in bed, asking to go home, denied any chest pain Review of Systems General: No Chills, No Night Sweats, No Fatigue, No Malaise, No Appetite, No Other HEENT: No Head Aches, No Visual Changes, No Eye Pain, No Ear Pain, No Dysphasia, No Sinus Congestion, No Post Nasal Drip, No Sore Throat, No Other Pulmonary: No Dyspnea, No Cough, No Pleuritic Chest Pain, No Other Cardiovascular: No: Chest Pain, Palpitations, Orthopnea, Paroxysmal Noc. Dyspnea, Edema, Lt Headedness, Other Focused Exam Lactate Level 05/02/19 13:07: Lactic Acid Level 1.17 Objective-Cardiology Exam Last Set of Vital Signs Vital Signs 05/05/19 12:39 Pulse 83 Capillary Refill : Less Than 3 Seconds I&O Intake and Output 05/05/19 00:00 Intake Total 1080 ml Output Total 2050 ml Balance -970 ml Intake Oral 1080 ml Output Urine Total 2050 ml General: Alert, Oriented X3, Cooperative, No Acute Distress HEENT: Atraumatic, PERRLA Neck: Supple, No JVD, No Thyromegaly Lungs: Clear to Auscultation, Normal Air Movement Heart: Regular Rate, No Murmurs Abdomen: Normal Bowel Sounds, Soft, No Tenderness, No Masses Extremities: Other (1+ edema bilaterally, darken toes on left) Skin: No Rashes, Other (Gangrene on the toes) Neuro: Normal Speech, Cranial Nerves 3-12 NL Psych/Mental Status: Mental Status NL Results Lab Laboratory Tests 05/05/19 03:20 A/P-Cardiology Admission Diagnosis GI bleed Anemia Acute renal failure Congestive heart failure, acute on chronic left ventricular diastolic dysfunction Assessment/Plan GI bleed, actively bleeding, had upper and lower scope done with Dr. Whitehead again on May 03, 2019, there was some blood in the diverticula. Questionable upper GI bleed also. Currently off anticoagulation, continue to monitor H&H, may require cauterization, it was reported that the duodenal ulcer is fairly close to the location of the abdominal aortic aneurysm. Discussed with Dr. Blue possibly transferring to tertiary care center with vascular surgery backup Gangrenous toes, subacute ischemic bilaterally, probably embolization from AAA, discussed with Dr. Andrews, followed by heart and vascular care Peripheral edema, combination of heart failure and renal failure, continue on l ow dose diuretics and monitor closely Congestive heart failure, acute on chronic left ventricular diastolic dysfunction, echocardiogram in March 2019 showed hyperactive ventricle with ejection fraction 65-70 percent, grade 2 diastolic dysfunction with left atrial dilatation, calcified mitral valve and aortic valve, no significant aortic stenosis, mild mitral regurgitation, moderate tricuspid regurgitation, pulmonary hypertension with PA pressure 45 mmHg. continue to monitor Chronic kidney disease stage IV, continue to monitor renal function closely while on diuretics Peripheral arterial disease, angiogram done on April 12, 2019 showing [id number]-[id number] disease, abdominal aortic aneurysm, ultrasound measured 4.2 x 3.9, refer to heart and vascular care, was treated with aspirin and Xarelto, unable to tolerate Xarelto due to active bleed Coronary artery disease - cardiac catheterization carried out Apr 12, 2019 show ed mild to moderate nonobstructive disease. Hypertension, monitor blood pressure Hyperlipidemia, monitor lipids Tobaccoism, reported that she has stopped in March 2019, encouraged to continue with smoking cessation Clinical Quality Measures DVT/VTE Risk/Contraindication: Risk Factor Score Per Nursin RFS Level Per Nursing on Admit: 4+=Very High RAUL BONNER MD May 05, 2019 1:01 pm POS
--- NOTE | 2019-05-05 13:44 | Occupational Ther Daily Note ---
OT Current Status-Daily Note Subjective No pain reported. Appearance Pt. in bed after PT treatment. Agrees to work with therapist. Mental Status/Objective Patient Orientation: Person, Place, Time, Situation ADL-Treatment Therapy Code Descriptions/Definitions Functional [place] Measure: 0=Not Assessed/NA 4=Minimal Assistance 1=Total Assistance 5=Supervision or Setup 2=Maximal Assistance 6=Modified [place] 3=Moderate Assistance 7=Complete IndependenceSCALE: Activities may be completed with or without assistive devices. 3-Aktgwhdlcu-ervxliv completes the activity by him/herself with no assistance from a helper. 5-Set-up or Clean-up Assistance-helper sets up or cleans up; patient completes activity. [place] assists only prior to or following the activity. 4-Supervision or Touching Assistance-helper provides verbal cues and/or touching/steadying and/or contact guard assistance as patient completes activity. Assistance may be provided throughout the activity or intermittently. 3-Partial/Moderate Assistance-helper does LESS THAN HALF the effort. [place] lifts, holds or supports trunk or limbs, but provides less than half the effort. 2-Substantial/Maximal Assistance-helper does MORE THAN HALF the effort. [place] lifts or holds trunk or limbs and provides more than half the effort. 2-Evyyfsfrl-tqvhyy does ALL the effort. Patient does none of the effort to complete the activity. Or, the assistance of 2 or more helpers is required for the patient to complete the activity. If activity was not attempted, code reason: 7-Patient Refused. 9-Not Applicable-not attempted and the patient did not perform the activity before the current illness, exacerbation or injury. 10-Not Attempted due to Environmental Limitations-(lack of equipment, weather restraints, etc.). 88-Not Attempted due to Medical Conditions or Safety Concerns. Shower/Bathe Self (QC): 4 (CGA in stance to wash elisabeth area.) Pt. in bed but agrees to sponge bathe. Pt. states that she is unable to wash feet. Pt. transferred supine-sit with SBA. Pt. able to complete sponge bath seated on side of bed. Declined doffing slipper socks as she states that she is not supposed to get her feet wet. Pt. is able to stand with SBA and transfer toward HOB. Sat and transferred sit-supine with min assist needed. All needs met. Education OT Patient Education: Correct positioning, Modified ADL techniques, Progress toward Goal/Update tx plan, Purpose of tx/functional activities, Reviewed precautions, Rehab process, Transfer techniques Teaching Recipient: Patient Teaching Methods: Demonstration, Discussion Response to Teaching: Verbalize Understanding, Return Demonstration OT Nursing Home Goals Nursing Home Goals Time Frame: May 15, 2019 Eating (QC): 6 Oral Hygiene (QC): 6 Toileting Hygiene (QC): 6 Shower/Bathe Self (QC): 4 Upper Body Dressing (QC): 5 Lower Body Dressing (QC): 4 On/Off Footwear (QC): 5 Additional Goals: 1-Demonstrate ADL Tasks, 2-Verbalize Understanding, 3- ImproveStrength/Alison 1=Demonstrate adherence to instructed precautions during ADL tasks. 2=Patient will verbalize/demonstrate understanding of assistive devices/modifications for ADL. 3=Patient will improve strength/tolerance for activity to enable patient to perform ADL's. OT Education/Plan Problem List/Assessment Assessment: Decreased Activ Tolerance, Impaired I ADL's, Impaired Self-Care Skills Discharge Recommendations Plan/Recommendations: Continue POC Therapy Discharge Recommendati: Post Acute OT Treatment Plan/Plan of Care Treatment,Training & Education: Yes Patient would benefit from OT for education, treatment and training to promote independence in ADL's, mobility, safety and/or upper extremity function for ADL's. Plan of Care: ADL Retraining, Caregiver Training, Functional Mobility, UE Funct Exercise/Act Treatment Duration: May 15, 2019 Frequency: 5 times per week Estimated Hrs Per Day: .25 hour per day Agreement: Yes Rehab Potential: Fair Time/GCodes Start Time: 08:39 Stop Time: 08:55 Total Time Billed (hr/min): 16 Billed Treatment Time 1, ADL LEEANNE ROBERTSON OT May 05, 2019 13:44 POS
[2019-05-05 16:25] VITALS: BP 191/94
--- NOTE | 2019-05-05 18:10 | NUR ---
Pt bed alarm going off, attempting to get out of bed, reoriented. Bleeding scab noted above R wrist, bandaid applied.
--- NOTE | 2019-05-05 19:10 | Progress Note ---
Subjective Subjective/Events-last exam Patient states that she is feeling better today and desires to go home. She denies any BM in the last 24 hrs but had 2 normal BMs since the tarry one. Denies any chest pain or abdominal pain. Tolerating PO diet. Review of Systems Pulmonary: No Dyspnea, No Cough Cardiovascular: No: Chest Pain, Palpitations, Orthopnea, Edema Gastrointestinal: No: Nausea, Abdominal Pain, Diarrhea, Constipation Neurological: Weakness Objective Exam Last Set of Vital Signs Vital Signs Date Time Temp Pulse Resp B/P (MAP) Pulse Ox O2 Delivery O2 Flow Rate FiO2 05/05/19 16:25 36.8 82 19 191/94 (126) 96 Nasal Cannula 1.50 Capillary Refill : Less Than 3 Seconds I&O Intake and Output 05/05/19 00:00 Intake Total 1080 ml Output Total 2050 ml Balance -970 ml Intake Oral 1080 ml Output Urine Total 2050 ml General: Alert, Oriented X3, Cooperative, No Acute Distress Lungs: Clear to Auscultation, Normal Air Movement Heart: Regular Rate, Other (loud systolic murmur) Abdomen: Normal Bowel Sounds, Soft, No Tenderness, No Masses Neuro: Normal Speech, Sensation Intact, Cranial Nerves 3-12 NL Results/Procedures Lab Laboratory Tests 05/05/19 03:20: White Blood Count 9.3, Red Blood Count 3.22L, Hemoglobin 9.2L, Hematocrit 28L, Mean Corpuscular Volume 87, Mean Corpuscular Hemoglobin 29, Mean Corpuscular Hemoglobin Concent 33, Red Cell Distribution Width 18.2H, Platelet Count 200, Mean Platelet Volume 11.0H, Neutrophils (%) (Auto) 83H, Lymphocytes (%) (Auto) 7L, Monocytes (%) (Auto) 7, Eosinophils (%) (Auto) 3, Basophils (%) (Auto) 0, Neutrophils # (Auto) 7.8, Lymphocytes # (Auto) 0.7L, Monocytes # (Auto) 0.6, Eosinophils # (Auto) 0.2, Basophils # (Auto) 0.0, Neutrophils % (Manual) 87, Lymphocytes % (Manual) 6, Monocytes % (Manual) 6, Eosinophils % (Manual) 1, Sodium Level 135, Potassium Level 4.0, Chloride Level 101, Carbon Dioxide Level 22, Anion Gap 12, Blood Urea Nitrogen 31H, Creatinine 2.32H, Estimat Glomerular Filtration Rate 21, BUN/Creatinine Ratio 13, Glucose Level 106H, Calcium Level 8.7, Phosphorus Level 3.5, Magnesium Level 1.9 Assessment/Plan Assessment/Plan (1) GI bleed Status: Acute Assessment & Plan: 05/04: EGD yesterday with duodenal ulcer, Dr Whitehead consulted and managing, appreciate recommendations, Continue Protonix IV, Octreotide, Sucralfate, holding anticoagulation at this time 05/05: Patient is not a candidate for surgery due to location of AAA with ulcer location, Maximize medical management with PPI and Sucralfate, holding anticoagulation at this time Qualifiers: Qualified Codes: K92.2 - Gastrointestinal hemorrhage, unspecified (2) Critical ischemia of lower extremity Status: Acute (3) Duodenal bulb ulcer Status: Acute (4) Acute blood loss anemia Status: Acute Assessment & Plan: 05/04: s/p 2 units pRBCs, continue to monitor Hgb, consider iron replacement 05/05: HDS, Hgb trending up (5) AAA (abdominal aortic aneurysm) Status: Chronic Assessment & Plan: 05/04: Dr Stratton has spoke with Dr Andrews in [place], at this time patient is not a surgical candidate Qualifiers: Qualified Codes: I71.4 - Abdominal aortic aneurysm, without rupture (6) PVD (peripheral vascular disease) Status: Chronic (7) Acute on chronic diastolic (congestive) heart failure Assessment & Plan: 05/04: Dr Stratton consulted, appreciate recommendations (8) CKD (chronic kidney disease), stage IV Status: Chronic Assessment & Plan: 05/04: Stable at baseline (9) CAD (coronary artery disease) Status: Chronic Qualifiers: Qualified Codes: I25.10 - Atherosclerotic heart disease of [place] coronary artery without angina pectoris (10) HTN (hypertension) Status: Chronic Assessment & Plan: 05/04: Holding BP meds due to GI bleed 05/05: Elevated today, restart home meds today Norvasc and BB Qualifiers: Qualified Codes: I10 - Essential (primary) hypertension (11) HLD (hyperlipidemia) Status: Chronic Qualifiers: Qualified Codes: E78.2 - Mixed hyperlipidemia (12) [place] Status: Acute (13) [place] disease Status: Chronic (14) DVT prophylaxis Status: Acute Assessment & Plan: - SCDs, anticoagulation is contraindicated at this time due to acute GI bleed requiring transfusion Clinical Quality Measures DVT/VTE Risk/Contraindication: Risk Factor Score Per Nursin RFS Level Per Nursing on Admit: 4+=Very High ELBA PEREZ MD May 05, 2019 19:10 POS
[2019-05-05 20:00] VITALS: BP 170/78
[2019-05-05] MEDS: morphine INJ 4 MG/ML 1 ML (VIAL/SYRINGE) IVP PRN (22:01)
[2019-05-06] VITALS: BP 154/71
[2019-05-06 03:00] VITALS: BP 143/89
[2019-05-06 03:03] LABS: BASOPHILS % (AUTO) 1 % (0-10); EOSINOPHILS # (AUTO) 0.3 10^3/uL (0.0-0.3); EOSINOPHILS % (AUTO) 4 % (0-10); HEMATOCRIT 28 % (35-52); HEMOGLOBIN 9.3 G/DL (11.5-16.0); LYMPHOCYTES # (AUTO) 0.9 X 10^3 (1.0-4.0); LYMPHOCYTES % (AUTO) 12 % (12-44); MEAN CORPUSCULAR HEMOGLOBIN 29 PG (25-34); MEAN CORPUSCULAR HGB CONC 33 G/DL (32-36); MEAN CORPUSCULAR VOLUME 87 FL (80-99); MEAN PLATELET VOLUME 10.3 FL (7.4-10.4); MONOCYTES # (AUTO) 0.7 X 10^3 (0.0-1.0); MONOCYTES % (AUTO) 10 % (0-12); NEUTROPHILS # (AUTO) 5.4 X 10^3 (1.8-7.8); NEUTROPHILS % (AUTO) 74 % (42-75); PLATELET COUNT 229 10^3/uL (130-400); RED CELL DISTRIBUTION WIDTH 17.6 % (10.0-14.5); WHITE BLOOD COUNT 7.3 10^3/uL (4.3-11.0)
[2019-05-06 03:26] LABS: ALBUMIN 2.9 GM/DL (3.2-4.5); BILIRUBIN,TOTAL 0.9 MG/DL (0.1-1.0); CALCIUM 8.5 MG/DL (8.5-10.1); CREATININE SERUM 2.34 MG/DL (0.60-1.30); MAGNESIUM 1.7 MG/DL (1.6-2.4); PHOSPHORUS 3.2 MG/DL (2.3-4.7); POTASSIUM 3.6 MMOL/L (3.6-5.0); TOTAL PROTEIN 5.3 GM/DL (6.4-8.2)
[2019-05-06] MEDS: CATHETER FLUSH 10 ML SYR IV SCH ×3 (05:23→22:46)
[2019-05-06] MEDS: SUCRALFATE 1 GM (CARAFATE) TAB PO SCH ×4 (05:23→20:44)
--- NOTE | 2019-05-06 07:44 | Progress Note - Surgery ---
PATRICIA HERMAN,MED STUDENT 05/06/19 0744: Subjective Date Seen by a Provider: May 06, 2019 Time Seen by a Provider: 07:30 Subjective/Events-last exam Patient seen and examined. She denies having any abdominal pain or any other new complaint. She says she is feeling better but is anxious about when she will to be able to go home. Review of Systems General: No Chills, No Fatigue HEENT: No Head Aches, No Sore Throat Pulmonary: No Dyspnea, No Cough Cardiovascular: No: Chest Pain, Palpitations Gastrointestinal: No: Nausea, Vomiting, Abdominal Pain anxious Objective Exam Vital Signs Date Time Temp Pulse Resp B/P (MAP) Pulse Ox O2 Delivery O2 Flow Rate FiO2 05/06/19 04:00 94 Room Air 05/06/19 03:00 36.8 78 15 143/89 (107) 96 Room Air 05/06/19 00:51 74 05/06/19 00:00 37.0 84 14 154/71 (98) 98 Nasal Cannula 1.50 05/06/19 00:00 100 Room Air 05/06/19 00:00 36.9 05/05/19 21:00 Room Air 05/05/19 20:00 100 Room Air 05/05/19 20:00 37.2 81 16 170/78 (108) 98 Nasal Cannula 1.50 05/05/19 18:41 73 05/05/19 16:25 36.8 82 19 191/94 (126) 96 Nasal Cannula 1.50 05/05/19 16:00 100 Nasal Cannula 1.50 05/05/19 12:39 83 05/05/19 12:00 100 Nasal Cannula 1.50 05/05/19 12:00 36.4 83 18 189/85 (119) 97 Nasal Cannula 1.50 05/05/19 09:00 99 Nasal Cannula 2.00 05/05/19 08:00 100 Nasal Cannula 1.50 05/05/19 08:00 72 I & O 05/06/19 07:00 Intake Total 2280 ml Output Total 1900 ml Balance 380 ml Capillary Refill : Less Than 3 Seconds General Appearance: No Apparent Distress, WD/WN, Chronically ill, Other (pale) HEENT: PERRL/EOMI Neck: Non Tender, Supple Respiratory: Lungs Clear, Normal Breath Sounds, No Accessory Muscle Use, No Respiratory Distress Cardiovascular: Regular Rate, Rhythm, No Edema, Normal Peripheral Pulses Peripheral Pulses: 2+ Dorsalis Pedis (R), 2+ Left Dors-Pedis (L), 2+ Radial Pulses (R), 2+ Radial Pulses (L) Gastrointestinal: soft, no organomegaly, tenderness (RLQ tenderness ), other (? pulsatile mass palpable) Extremity: Non Tender, No Calf Tenderness Neurologic/Psychiatric: Alert, Oriented x3, Normal Mood/Affect Skin: Normal Color, Warm/Dry Results Lab Laboratory Tests 05/06/19 02:55: White Blood Count 7.3, Red Blood Count 3.26L, Hemoglobin 9.3L, Hematocrit 28L, Mean Corpuscular Volume 87, Mean Corpuscular Hemoglobin 29, Mean Corpuscular Hemoglobin Concent 33, Red Cell Distribution Width 17.6H, Platelet Count 229, Mean Platelet Volume 10.3, Neutrophils (%) (Auto) 74, Lymphocytes (%) (Auto) 12, Monocytes (%) (Auto) 10, Eosinophils (%) (Auto) 4, Basophils (%) (Auto) 1, Neutrophils # (Auto) 5.4, Lymphocytes # (Auto) 0.9L, Monocytes # (Auto) 0.7, Eosinophils # (Auto) 0.3, Basophils # (Auto) 0.0, Sodium Level 134L, Potassium Level 3.6, Chloride Level 103, Carbon Dioxide Level 22, Anion Gap 9, Blood Urea Nitrogen 25H, Creatinine 2.34H, Estimat Glomerular Filtration Rate 20, BUN/Creatinine Ratio 11, Glucose Level 98, Calcium Level 8.5, Corrected Calcium 9.4, Phosphorus Level 3.2, Magnesium Level 1.7, Total Bilirubin 0.9, Aspartate Amino Transf (AST/SGOT) 17, Alanine Aminotransferase (ALT/SGPT) 9, Alkaline Phosphatase 53, Total Protein 5.3L, Albumin 2.9L Assessment/Plan Assessment/Plan Assessment/Plan Duodenal Ulcer with bleed Anemia - stable AAA Pt most likely okay to go home, no surgical intervention planned. Anemia is stable. Patient is being set up with a Vascular surgeon to further evaluate her AAA and possible removal of duodenal diverticula at the same time. Will continue to monitor patient while she is in the hospital. Clinical Quality Measures DVT/VTE Risk/Contraindication: Risk Factor Score Per Nursin RFS Level Per Nursing on Admit: 4+=Very High SABINO WHITEHEAD DO 05/06/19 1607: Subjective Time Seen by a Provider: 15:27 Subjective/Events-last exam Pt seen and examined, wants to go home. Denies any problems. Objective Exam General Appearance: No Apparent Distress, WD/WN Respiratory: Lungs Clear, Normal Breath Sounds Gastrointestinal: non tender, soft, other (? pulsatile mass palpable) Assessment/Plan Assessment/Plan Assessment/Plan No surgical intervention, may require a Tertiary center. She does have appt to see Vascular surgeon in [place]. I will see her in my office as an outpt. Supervisory-Addendum Brief Verification & Attestation Participated in pt care: history, MDM, physical Personally performed: exam, history, MDM Care discussed with: Medical Student Procedures: n/a Verification and Attestation of Medical Student E/M Service A medical student performed and documented this service in my presence. I reviewed and verified all information documented by the medical student and made modifications to such information, when appropriate. I personally performed the physical exam and medical decision making. Sabino Whitehead, May 06, 2019,16:07 PATRICIA HERMAN,MED STUDENT May 06, 2019 07:44 SABINO ROLLINS DO May 06, 2019 16:07 POS
[2019-05-06] MEDS: PANTOPRAZOLE INJECTION 200 MG in NS (IVPB) 100 ML IV SCH (07:53)
[2019-05-06] MEDS: amLODIPine 10 MG (NORVASC) TAB PO SCH (08:01)
[2019-05-06] MEDS: POVIDONE (BETADINE) 10% SOLN 240 ML BTL TOP SCH ×2 (08:02→20:44)
[2019-05-06] MEDS ORDERED: KCL 20 MEQ TAB (K-DUR) PO ONE (09:00)
[2019-05-06] MEDS ORDERED: NON-FORMULARY MEDICATION 1 EA EA (Amlodipine Besylate 10 MG) PO SCH (09:00)
--- NOTE | 2019-05-06 09:43 | Occupational Ther Daily Note ---
OT Current Status-Daily Note Subjective Pt laying in bed at start of session, agreeable to OT tx this AM. Pt declined completing ADLs stating she had taken a sponge bath yesterday, she instead agreed to BUE exercises. Mental Status/Objective Attachments: IV ADL-Treatment Therapy Code Descriptions/Definitions Functional [place] Measure: 0=Not Assessed/NA 4=Minimal Assistance 1=Total Assistance 5=Supervision or Setup 2=Maximal Assistance 6=Modified [place] 3=Moderate Assistance 7=Complete IndependenceSCALE: Activities may be completed with or without assistive devices. 9-Lvdhkylxve-hqxzhzr completes the activity by him/herself with no assistance from a helper. 5-Set-up or Clean-up Assistance-helper sets up or cleans up; patient completes activity. [place] assists only prior to or following the activity. 4-Supervision or Touching Assistance-helper provides verbal cues and/or touching/steadying and/or contact guard assistance as patient completes a ctivity. Assistance may be provided throughout the activity or intermittently. 3-Partial/Moderate Assistance-helper does LESS THAN HALF the effort. [place] lifts, holds or supports trunk or limbs, but provides less than half the effort. 2-Substantial/Maximal Assistance-helper does MORE THAN HALF the effort. [place] lifts or holds trunk or limbs and provides more than half the effort. 2-Jbpvtjrht-mpurmy does ALL the effort. Patient does none of the effort to complete the activity. Or, the assistance of 2 or more helpers is required for the patient to complete the activity. If activity was not attempted, code reason: 7-Patient Refused. 9-Not Applicable-not attempted and the patient did not perform the activity before the current illness, exacerbation or injury. 10-Not Attempted due to Environmental Limitations-(lack of equipment, weather restraints, etc.). 88-Not Attempted due to Medical Conditions or Safety Concerns. Lower Body Dressing (QC): 2 (assist for threading BLE into pants, pt able to pull pants up at bed level.) Other Treatment Pt laying in bed at start of session, transferred supine to sit with min A with upper body. In order to increase BUE strength and functional endurance, pt completed x10 reps each of the following BUE AROM exercises: shoulder flexion,& shoulder horizontal abduction. Pt attempted to perform elbow flexion but reported increased pain due to IV so this exercise was terminated. Pt then transferred sit to supine with max A, requiring assistance with bringing both legs into bed. Pt stated she would like to put her pants on, Pt required assistance threading legs into the pants and she was then able to use her legs to bridge her hips up to pull up the pants. Post OT session, pt was laying in bed, call light in reach and all needs met. Education OT Patient Education: Correct positioning, Energy conservation, Exercise program, Modified ADL techniques, Progress toward Goal/Update tx plan, Purpose of tx/functional activities, Transfer techniques Teaching Recipient: Patient Teaching Methods: Demonstration, Discussion Response to Teaching: Verbalize Understanding, Return Demonstration OT Shelter Goals Bilingual Speech Language Pathologist Goals Time Frame: May 15, 2019 Eating (QC): 6 Oral Hygiene (QC): 6 Toileting Hygiene (QC): 6 Shower/Bathe Self (QC): 4 Upper Body Dressing (QC): 5 Lower Body Dressing (QC): 4 On/Off Footwear (QC): 5 Additional Goals: 1-Demonstrate ADL Tasks, 2-Verbalize Understanding, 3-I mproveStrength/Alison 1=Demonstrate adherence to instructed precautions during ADL tasks. 2=Patient will verbalize/demonstrate understanding of assistive devices/modifications for ADL. 3=Patient will improve strength/tolerance for activity to enable patient to perform ADL's. OT Education/Plan Problem List/Assessment Assessment: Decreased Activ Tolerance, Decreased UE Strength, Impaired Funct Balance, Impaired I ADL's, Impaired Self-Care Skills Discharge Recommendations Plan/Recommendations: Continue POC Treatment Plan/Plan of Care Treatment,Training & Education: Yes Patient would benefit from OT for education, treatment and training to promote independence in ADL's, mobility, safety and/or upper extremity function for ADL's. Plan of Care: ADL Retraining, Caregiver Training, Functional Mobility, UE Funct Exercise/Act Treatment Duration: May 15, 2019 Frequency: 5 times per week Estimated Hrs Per Day: .25 hour per day Agreement: Yes Rehab Potential: Fair Time/GCodes Start Time: 08:22 Stop Time: 08:41 Total Time Billed (hr/min): 19 Billed Treatment Time 1, EX HERMANN JARAMILLO OT May 06, 2019 09:43 POS
--- NOTE | 2019-05-06 10:22 | Physical Therapy Daily Note ---
PT Daily Note-Current Subjective Pt agreeable. Denies pain upon arrival. C/o (R) foot hurting with walking, did not rate pain. Pt c/o fatigue at end of treatment and requested to go back to bed so she could rest. Mental Status Patient Orientation: Person, Place, Situation Transfers SCALE: Activities may be completed with or without assistive devices. 6-[place]la-upxgeua completes the activity by him/herself with no assistance from a helper. 5-Set-up or Clean-up Assistance-helper sets up or cleans up; patient completes activity. [place] assists only prior to or following the activity. 4-Supervision or Touching Assistance-helper provides verbal cues and/or touching/steadying and/or contact guard assistance as patient completes activity. Assistance may be provided throughout the activity or intermittently. 3-Partial/Moderate Assistance-helper does LESS THAN HALF the effort. [place] lifts, holds or supports trunk or limbs, but provides less than half the effort. 2-Substantial/Maximal Assistance-helper does MORE THAN HALF the effort. [place] lifts or holds trunk or limbs and provides more than half the effort. 8-Rviqxfsid-fmcpyg does ALL the effort. Patient does none of the effort to complete the activity. Or, the assistance of 2 or more helpers is required for the patient to complete the activity. If activity was not attempted, code reason: 7-Patient Refused. 9-Not Applicable-not attempted and the patient did not perform the activity before the current illness, exacerbation or injury. 10-Not Attempted due to Environmental Limitations-(lack of equipment, weather restraints, etc.). 88-Not Attempted due to Medical Conditions or Safety Concerns. Weight Bearing Right Lower Extremity: Right Full Weight Bearing Left Lower Extremity: Left Full Weight Bearing FWB Exercises Seated Therapy Exercises: Ankle pumps, Long arc quads Seated Reps: 15 Treatments Transfers: pt mod (I) out of bed, required min A with (B) LE to transfer into bed. Pt amb with FWW and CGA, f/u of IV pole x 300ft. Gait slow and steady, narrow RENZO. Assessment Current Status: Good Progress Pt steady balance throughout, required vc's for proper placement and maintaining good proximity to walker during turns. Pt otilio well but fatigued toward end of treatment. Pt resting in bed with call light and all needs met post therapy session. PT Tractor Engine Assembler Goals Tractor Engine Assembler Goals PT Alf Goals Time Frame: May 16, 2019 Roll Left & Right (QC): 6 Sit to Lying (QC): 6 Lying-Sitting on Side/Bed(QC): 6 Sit to Stand (QC): 6 Chair/Xyz-yb-Jmfoa Xfer(QC): 6 Toilet Transfer (QC): 6 Car Transfer (QC): 6 Does the Patient Walk: Yes Walk 10 feet (QC): 6 Walk 50ft with 2 Turns (QC): 6 Walk 150 ft (QC): 6 Walking 10ft on Uneven Surface: 6 1 Step (curb) (QC): 6 4 Steps (QC): 6 12 Steps (QC): 9 Picking up an Object (QC): 6 Does the Pt use WC or Scooter?: Yes Type: N/A Type: N/A PT Plan Treatment/Plan Treatment Plan: Continue Plan of Care Treatment Plan: Bed Mobility, Education, Functional Activity [place], Functional Strength, Gait, Safety, Therapeutic Exercise, Transfers Treatment Duration: May 16, 2019 Frequency: 6 times per week Estimated Hrs Per Day: .25 hour per day Patient and/or Family Agrees t: Yes Time/GCodes Time In: 935 Time Out: 955 Total Billed Treatment Time: 20 Total Billed Treatment 1, gait 15min, ther ex 5 min HOLLIS ROTH CPTA May 06, 2019 10:22 POS
[2019-05-06] MEDS: OCTREOTIDE INJECTION 500 MCG in NS (IVPB) 99 ML IV SCH ×2 (10:23→20:44)
[2019-05-06 12:00] VITALS: BP 155/90
--- NOTE | 2019-05-06 12:14 | NUR ---
"RD ASSESSMENT PMHx: HTN; Buerger's disease; chronic diarrhea/constipation; COPD; dementia PT INTERACTION: Pt was awake and pleasant during nutrition assessment. Pt states current appetite is poor and has been for some time. Note avg PO intake of <25% x3d, per chart review. Pt states no recent issues with n/v/c/d at this time. Note last BM was 05/03 (x5) for bowel prep for colonoscopy on 05/04, per chart review. Note pt not currently on bowel regimen per chart review. ABNORMAL NUTRITION-RELATED LAB VALUES LOW: Na 134; Pro 5.3; alb 2.9 HIGH: BUN 25; cr 2.34 Est. kcal needs: 2964-5182 kcal | 30-35 kcal/kg Est. Pro needs: 53-62 g Pro | 1.2-1.4 g Pro/kg PES STATEMENT: Inadequate oral intake (NI-2.1) related to loss of appetite as evidenced by pt interview | avg PO intake <25% x3d INTERVENTION: Continue with current diet order of Clear Liquid diet. Advance diet as medically able and as tolerated. Add Ensure Clear (vary) to meals TID for increased kcal intake. Provides 240 kcal and 8 g Pro per serving. Will continue to follow and reassess as pt needs and status change. MONITOR/EVALUATE: PO Intake; Plan of Care; Hydration Status; Weight Status; Lab Values Juanita Jose, MS, RD, LD"
--- NOTE | 2019-05-06 14:16 | Cardiology Progress Note ---
Subjective Date Seen by Provider: May 06, 2019 Time Seen by Provider: 14:15 Subjective/Events-last exam patient is sitting in bed comfortably, denied any chest pain, H&H are more stable Review of Systems General: No Chills, No Night Sweats, No Fatigue, No Malaise, No Appetite, No Other HEENT: No Head Aches, No Visual Changes, No Eye Pain, No Ear Pain, No Dysphasia, No Sinus Congestion, No Post Nasal Drip, No Sore Throat, No Other Pulmonary: No Dyspnea, No Cough, No Pleuritic Chest Pain, No Other Cardiovascular: No: Chest Pain, Palpitations, Orthopnea, Paroxysmal Noc. Dyspnea, Edema, Lt Headedness, Other Objective-Cardiology Exam Last Set of Vital Signs Vital Signs 05/06/19 13:00 Pulse 67 Capillary Refill : Less Than 3 Seconds I&O Intake and Output 05/06/19 00:00 Intake Total 2580 ml Output Total 1650 ml Balance 930 ml Intake Oral 2380 ml IV Total 200 ml Output Urine Total 1650 ml # Voids 2 General: Alert, Oriented X3, Cooperative, No Acute Distress HEENT: Atraumatic, PERRLA Neck: Supple, No JVD, No Thyromegaly Lungs: Clear to Auscultation, Normal Air Movement Heart: Regular Rate, Other (loud systolic murmur) Abdomen: Normal Bowel Sounds, Soft, No Tenderness, No Masses Extremities: No Clubbing, No Cyanosis, Other (1+ edema bilaterally, darken toes on left) Skin: No Rashes, Other (Gangrene on the toes) Neuro: Normal Speech, Sensation Intact, Cranial Nerves 3-12 NL Psych/Mental Status: Mental Status NL Results Lab Laboratory Tests 05/06/19 02:55 A/P-Cardiology Admission Diagnosis GI bleed Anemia Acute renal failure Congestive heart failure, acute on chronic left ventricular diastolic dysfunction Assessment/Plan GI bleed, actively bleeding, had upper and lower scope done with Dr. Whitehead again on May 03, 2019, there was some blood in the diverticula. Questionable upper GI bleed also. Currently off anticoagulation, continue to monitor H&H, may require cauterization, it was reported that the duodenal ulcer is fairly close to the location of the abdominal aortic aneurysm. Gangrenous toes, subacute ischemic bilaterally, probably embolization from AAA, discussed with Dr. Andrews, followed by heart and vascular care Peripheral edema, combination of heart failure and renal failure, continue on low dose diuretics and monitor closely Congestive heart failure, acute on chronic left ventricular diastolic dysfunction, echocardiogram in March 2019 showed hyperactive ventricle with ejection fraction 65-70 percent, grade 2 diastolic dysfunction with left atrial dilatation, calcified mitral valve and aortic valve, no significant aortic stenosis, mild mitral regurgitation, moderate tricuspid regurgitation, pulmonary hypertension with PA pressure 45 mmHg. continue to monitor Chronic kidney disease stage IV, continue to monitor renal function closely while on diuretics Peripheral arterial disease, angiogram done on April 12, 2019 showing dlpq-[id number] disease, abdominal aortic aneurysm, ultrasound measured 4.2 x 3.9, refer to heart and vascular care, was treated with aspirin and Xarelto, unable to tolerate Xarelto due to active bleed Coronary artery disease - cardiac catheterization carried out Apr 12, 2019 showed mild to moderate nonobstructive disease. Hypertension, monitor blood pressure Hyperlipidemia, monitor lipids Tobaccoism, reported that she has stopped in March 2019, encouraged to continue with smoking cessation Okay for discharge from cardiology standpoint, cannot tolerate platelet inhibitors or oral anticoagulation at this time. Clinical Quality Measures DVT/VTE Risk/Contraindication: Risk Factor Score Per Nursin RFS Level Per Nursing on Admit: 4+=Very High RAUL BONNER MD May 06, 2019 14:16 POS
[2019-05-06 16:00] VITALS: BP 143/87
--- NOTE | 2019-05-06 19:57 | Progress Note ---
Subjective Subjective/Events-last exam Patient doing well this AM. Tolerating PO diet. Denies any bloody stools. Pain well controlled. Review of Systems Pulmonary: No Dyspnea, No Cough Cardiovascular: No: Chest Pain, Palpitations Gastrointestinal: No: Abdominal Pain, Melena Objective Exam Last Set of Vital Signs Vital Signs Date Time Temp Pulse Resp B/P (MAP) Pulse Ox O2 Delivery O2 Flow Rate FiO2 05/06/19 18:06 97 Room Air 05/06/19 16:00 36.6 62 18 143/87 (105) 05/06/19 00:00 1.50 Capillary Refill : Less Than 3 Seconds I&O Intake and Output 05/06/19 00:00 Intake Total 2580 ml Output Total 1650 ml Balance 930 ml Intake Oral 2380 ml IV Total 200 ml Output Urine Total 1650 ml # Voids 2 General: Alert, Oriented X3, Cooperative, No Acute Distress Lungs: Clear to Auscultation, Normal Air Movement Heart: Regular Rate, Other (systolic murmur) Abdomen: Normal Bowel Sounds, Soft, No Tenderness, No Masses Skin: Other (darkened toes no both feet, no signs of secondary infection) Results/Procedures Lab Laboratory Tests 05/06/19 02:55: White Blood Count 7.3, Red Blood Count 3.26L, Hemoglobin 9.3L, Hematocrit 28L, Mean Corpuscular Volume 87, Mean Corpuscular Hemoglobin 29, Mean Corpuscular Hemoglobin Concent 33, Red Cell Distribution Width 17.6H, Platelet Count 229, Mean Platelet Volume 10.3, Neutrophils (%) (Auto) 74, Lymphocytes (%) (Auto) 12, Monocytes (%) (Auto) 10, Eosinophils (%) (Auto) 4, Basophils (%) (Auto) 1, Neutrophils # (Auto) 5.4, Lymphocytes # (Auto) 0.9L, Monocytes # (Auto) 0.7, Eosinophils # (Auto) 0.3, Basophils # (Auto) 0.0, Sodium Level 134L, Potassium Level 3.6, Chloride Level 103, Carbon Dioxide Level 22, Anion Gap 9, Blood Urea Nitrogen 25H, Creatinine 2.34H, Estimat Glomerular Filtration Rate 20, BUN/Creatinine Ratio 11, Glucose Level 98, Calcium Level 8.5, Corrected Calcium 9.4, Phosphorus Level 3.2, Magnesium Level 1.7, Total Bilirubin 0.9, Aspartate Amino Transf (AST/SGOT) 17, Alanine Aminotransferase (ALT/SGPT) 9, Alkaline Phosphatase 53, Total Protein 5.3L, Albumin 2.9L Assessment/Plan Assessment/Plan (1) GI bleed Status: Acute Assessment & Plan: 05/04: EGD yesterday with duodenal ulcer, Dr Whitehead consulted and managing, appreciate recommendations, Continue Protonix IV, Octreotide, Suc ralfate, holding anticoagulation at this time 05/05: Patient is not a candidate for surgery due to location of AAA with ulcer location, Maximize medical management with PPI and Sucralfate, holding anticoagulation at this time 05/06: Transition to PO tomorrow and plan for d/c with close f.u with CT Surgeon in [place] Qualifiers: Qualified Codes: K92.2 - Gastrointestinal hemorrhage, unspecified (2) Critical ischemia of lower extremity Status: Acute (3) Duodenal bulb ulcer Status: Acute (4) Acute blood loss anemia Status: Acute Assessment & Plan: 05/04: s/p 2 units pRBCs, continue to monitor Hgb, consider iron replacement 05/05: HDS, Hgb trending up 05/06: Stable and trending up (5) AAA (abdominal aortic aneurysm) Status: Chronic Assessment & Plan: 05/04: Dr Stratton has spoke with Dr Andrews in [place], at this time patient is not a surgical candidate Qualifiers: Qualified Codes: I71.4 - Abdominal aortic aneurysm, without rupture (6) PVD (peripheral vascular disease) Status: Chronic (7) Acute on chronic diastolic (congestive) heart failure Assessment & Plan: 05/04: Dr Stratton consulted, appreciate recommendations (8) CKD (chronic kidney disease), stage IV Status: Chronic Assessment & Plan: 05/04: Stable at baseline (9) CAD (coronary artery disease) Status: Chronic Qualifiers: Qualified Codes: I25.10 - Atherosclerotic heart disease of [place] coronary artery without angina pectoris (10) HTN (hypertension) Status: Chronic Assessment & Plan: 05/04: Holding BP meds due to GI bleed 05/05: Elevated today, restart home meds today Norvasc and BB Qualifiers: Qualified Codes: I10 - Essential (primary) hypertension (11) HLD (hyperlipidemia) Status: Chronic Qualifiers: Qualified Codes: E78.2 - Mixed hyperlipidemia (12) Melena Status: Acute (13) [place] disease Status: Chronic (14) DVT prophylaxis Status: Acute Assessment & Plan: - SCDs, anticoagulation is contraindicated at this time due to acute GI bleed requiring transfusion Clinical Quality Measures DVT/VTE Risk/Contraindication: Risk Factor Score Per Nursin RFS Level Per Nursing on Admit: 4+=Very High ELBA PEREZ MD May 06, 2019 19:57 POS
[2019-05-06 20:00] VITALS: BP 127/79
[2019-05-07] VITALS: BP 145/84
[2019-05-07 03:50] VITALS: BP 143/79
[2019-05-07 04:25] LABS: BASOPHILS # (AUTO) 0.1 10^3/uL (0.0-0.1); BASOPHILS % (AUTO) 1 % (0-10); EOSINOPHILS # (AUTO) 0.4 10^3/uL (0.0-0.3); EOSINOPHILS % (AUTO) 4 % (0-10); HEMATOCRIT 31 % (35-52); HEMOGLOBIN 10.2 G/DL (11.5-16.0); LYMPHOCYTES % (AUTO) 11 % (12-44); MEAN CORPUSCULAR HEMOGLOBIN 29 PG (25-34); MEAN CORPUSCULAR HGB CONC 33 G/DL (32-36); MEAN CORPUSCULAR VOLUME 88 FL (80-99); MEAN PLATELET VOLUME 11.2 FL (7.4-10.4); MONOCYTES # (AUTO) 0.9 X 10^3 (0.0-1.0); MONOCYTES % (AUTO) 9 % (0-12); NEUTROPHILS # (AUTO) 7.2 X 10^3 (1.8-7.8); NEUTROPHILS % (AUTO) 76 % (42-75); PLATELET COUNT 249 10^3/uL (130-400); RED CELL DISTRIBUTION WIDTH 17.3 % (10.0-14.5); WHITE BLOOD COUNT 9.5 10^3/uL (4.3-11.0)
[2019-05-07 04:46] LABS: CALCIUM 8.8 MG/DL (8.5-10.1); CREATININE SERUM 2.4 MG/DL (0.60-1.30); MAGNESIUM 1.9 MG/DL (1.6-2.4); PHOSPHORUS 2.2 MG/DL (2.3-4.7); POTASSIUM 4.2 MMOL/L (3.6-5.0)
[2019-05-07] MEDS: CATHETER FLUSH 10 ML SYR IV SCH (06:25)
[2019-05-07] MEDS: OCTREOTIDE INJECTION 500 MCG in NS (IVPB) 99 ML IV SCH (06:25)
[2019-05-07] MEDS: SUCRALFATE 1 GM (CARAFATE) TAB PO SCH ×2 (06:26→11:07)
[2019-05-07 08:00] VITALS: BP 152/78
[2019-05-07] MEDS: PANTOPRAZOLE INJECTION 200 MG in NS (IVPB) 100 ML IV SCH (08:02)
--- NOTE | 2019-05-07 08:29 | Cardiology Progress Note ---
Subjective Date Seen by Provider: May 07, 2019 Time Seen by Provider: 08:27 Subjective/Events-last exam Patient is laying down in bed, asking to go home, feeling better Review of Systems General: No Chills, No Night Sweats, No Fatigue, No Malaise, No Appetite, No Other HEENT: No Head Aches, No Visual Changes, No Eye Pain, No Ear Pain, No Dysphasia, No Sinus Congestion, No Post Nasal Drip, No Sore Throat, No Other Pulmonary: No Dyspnea, No Cough, No Pleuritic Chest Pain, No Other Cardiovascular: No: Chest Pain, Palpitations, Orthopnea, Paroxysmal Noc. Dyspnea, Edema, Lt Headedness, Other Objective-Cardiology Exam Last Set of Vital Signs Vital Signs 05/07/19 08:00 Temp 36.2 Pulse 62 Resp 18 B/P (MAP) 152/78 (102) Pulse Ox 99 O2 Delivery Room Air Capillary Refill : Less Than 3 Seconds I&O Intake and Output 05/07/19 00:00 Intake Total 1675 ml Output Total 1500 ml Balance 175 ml Intake Oral 1375 ml IV Total 300 ml Output Urine Total 1500 ml General: Alert, Oriented X3, Cooperative, No Acute Distress HEENT: Atraumatic, PERRLA Neck: Supple, No JVD, No Thyromegaly Lungs: Clear to Auscultation, Normal Air Movement Heart: Regular Rate, Other (systolic murmur) Abdomen: Normal Bowel Sounds, Soft, No Tenderness, No Masses Extremities: No Clubbing, No Cyanosis, Other (1+ edema bilaterally, darken toes on left) Skin: No Rashes, Other (darkened toes no both feet, no signs of secondary infection) Neuro: Normal Speech, Sensation Intact, Cranial Nerves 3-12 NL Psych/Mental Status: Mental Status NL Results Lab Laboratory Tests 05/07/19 03:45 A/P-Cardiology Admission Diagnosis GI bleed Anemia Acute renal failure Congestive heart failure, acute on chronic left ventricular diastolic dysfunction Assessment/Plan Status post acute GI bleed, stable at this time, H&H has been monitored, underwent endoscopy which reported as diverticular bleed and duodenal bleed, unable to cauterize with endoscopy. Dr. Whitehead has recommended surgical ap proach and considered high risk for access due to proximity of the abdominal aortic aneurysm. Consider referral to tertiary care center as an outpatient Gangrenous toes, subacute ischemic bilaterally, probably embolization from AAA, discussed with Dr. Andrews, followed by heart and vascular care, cannot tolerate oral anticoagulation or antiplatelet therapy due to recurrent GI bleed Peripheral edema, combination of heart failure and renal failure, continue on low dose diuretics and monitor closely Congestive heart failure, acute on chronic left ventricular diastolic dysfunction, echocardiogram in March 2019 showed hyperactive ventricle with ejection fraction 65-70 percent, grade 2 diastolic dysfunction with left atrial dilatation, calcified mitral valve and aortic valve, no significant aortic stenosis, mild mitral regurgitation, moderate tricuspid regurgitation, pulmonary hypertension with PA pressure 45 mmHg. continue to monitor Chronic kidney disease stage IV, continue to monitor renal function closely while on diuretics Peripheral arterial disease, angiogram done on April 12, 2019 showing yqqi-xi-vprlwplf disease, abdominal aortic aneurysm, ultrasound measured 4.2 x 3.9, refer to heart and vascular care, was treated with aspirin and Xarelto, unable to tolerate Xarelto due to active bleed Coronary artery disease - cardiac catheterization carried out Apr 12, 2019 showed mild to moderate nonobstructive disease. Hypertension, monitor blood pressure Hyperlipidemia, monitor lipids Tobaccoism, reported that she has stopped in March 2019, encouraged to c ontinue with smoking cessation Okay for discharge from cardiology standpoint, cannot tolerate platelet inhibitors or oral anticoagulation at this time. Clinical Quality Measures DVT/VTE Risk/Contraindication: Risk Factor Score Per Nursin RFS Level Per Nursing on Admit: 4+=Very High RAUL BONNER MD May 07, 2019 08:29 POS
[2019-05-07] MEDS: amLODIPine 10 MG (NORVASC) TAB PO SCH (09:27)
[2019-05-07] MEDS: POVIDONE (BETADINE) 10% SOLN 240 ML BTL TOP SCH (09:27)
--- NOTE | 2019-05-07 10:42 | Occupational Ther Daily Note ---
OT Current Status-Daily Note Subjective Pt sitting upright in bed at start of session, stated she would like to go home and that the "bed is killing me" Mental Status/Objective Attachments: IV ADL-Treatment Therapy Code Descriptions/Definitions Functional [place] Measure: 0=Not Assessed/NA 4=Minimal Assistance 1=Total Assistance 5=Supervision or Setup 2=Maximal Assistance 6=Modified [place] 3=Moderate Assistance 7=Complete IndependenceSCALE: Activities may be completed with or without assistive devices. 7-Sfflnunqvk-dnhvttj completes the activity by him/herself with no assistance from a helper. 5-Set-up or Clean-up Assistance-helper sets up or cleans up; patient completes activity. [place] assists only prior to or following the activity. 4-Supervision or Touching Assistance-helper provides verbal cues and/or touching/steadying and/or contact guard assistance as patient completes activity. Assistance may be provided throughout the activity or intermittently. 3-Partial/Moderate Assistance-helper does LESS THAN HALF the effort. [place] lifts, holds or supports trunk or limbs, but provides less than half the effort. 2-Substantial/Maximal Assistance-helper does MORE THAN HALF the effort. [place] lifts or holds trunk or limbs and provides more than half the effort. 7-Tnqisiwke-dovrbx does ALL the effort. Patient does none of the effort to complete the activity. Or, the assistance of 2 or more helpers is required for the patient to complete the activity. If activity was not attempted, code reason: 7-Patient Refused. 9-Not Applicable-not attempted and the patient did not perform the activity before the current illness, exacerbation or injury. 10-Not Attempted due to Environmental Limitations-(lack of equipment, weather restraints, etc.). 88-Not Attempted due to Medical Conditions or Safety Concerns. FOOTWEAR: 1 Pt required total assistance with donning BLE socks. Other Treatment Pt sitting upright in bed at start of session, required assistance with donning BLE socks. Pt declined ADLs this tx, stating she had help taking a sponge bath already. Pt then used FWW to transfer to the recliner with CGA as OT managed IV pole. Pt then completed x10 reps each of the following BUE exercises: shoulder flexion, shoulder horizontal abduction and front punches. Post OT session, pt seated upright in recliner, chair alarm on, call light in reach and all needs met. Education OT Patient Education: Correct positioning, Energy conservation, Exercise program, Modified ADL techniques, Progress toward Goal/Update tx plan, Purpose of tx/functional activities, Transfer techniques Teaching Recipient: Patient Teaching Methods: Discussion Response to Teaching: Verbalize Understanding OT Arabic Professor Goals Mcfp Goals Time Frame: May 15, 2019 Eating (QC): 6 Oral Hygiene (QC): 6 Toileting Hygiene (QC): 6 Shower/Bathe Self (QC): 4 Upper Body Dressing (QC): 5 Lower Body Dressing (QC): 4 On/Off Footwear (QC): 5 Additional Goals: 1-Demonstrate ADL Tasks, 2-Verbalize Understanding, 3- ImproveStrength/Alison 1=Demonstrate adherence to instructed precautions during ADL tasks. 2=Patient will verbalize/demonstrate understanding of assistive de vices/modifications for ADL. 3=Patient will improve strength/tolerance for activity to enable patient to perform ADL's. OT Education/Plan Problem List/Assessment Assessment: Decreased Activ Tolerance, Decreased UE Strength, Impaired I ADL's, Impaired Self-Care Skills Discharge Recommendations Plan/Recommendations: Continue POC Treatment Plan/Plan of Care Treatment,Training & Education: Yes Patient would benefit from OT for education, treatment and training to promote independence in ADL's, mobility, safety and/or upper extremity function for ADL's. Plan of Care: ADL Retraining, Caregiver Training, Functional Mobility, UE Funct Exercise/Act Treatment Duration: May 15, 2019 Frequency: 5 times per week Estimated Hrs Per Day: .25 hour per day Agreement: Yes Rehab Potential: Fair Time/GCodes Start Time: 09:58 Stop Time: 10:16 Total Time Billed (hr/min): 18 Billed Treatment Time 1, EX HERMANN JARAMILLO OT May 07, 2019 10:42 POS
--- NOTE | 2019-05-07 11:52 | Discharge Summary ---
Diagnosis/Chief Complaint Date of Admission May 02, 2019 at 14:49 Date of Discharge 05/07/19 Admission Diagnosis Admission Diagnosis See problem list Discharge Diagnosis See Below Problems/Diagnosis: (1) GI bleed Assessment & Plan: 05/04: EGD yesterday with duodenal ulcer, Dr Whitehead consulted and managing, appreciate recommendations, Continue Protonix IV, Octreotide, Sucralfate, holding anticoagulation at this time 05/05: Patient is not a candidate for surgery due to location of AAA with ulcer location, Maximize medical management with PPI and Sucralfate, holding anticoagulation at this time 05/06: Transition to PO tomorrow and plan for d/c with close f.u with CT Surgeon in [place] 05/07: Home on protonix and sucralfate, NO ANTICOAGULATION Qualifiers: Qualified Codes: K92.2 - Gastrointestinal hemorrhage, unspecified Status: Acute (2) Critical ischemia of lower extremity Status: Acute (3) Duodenal bulb ulcer Status: Acute (4) Acute blood loss anemia Assessment & Plan: 05/04: s/p 2 units pRBCs, continue to monitor Hgb, consider iron replacement 05/05: HDS, Hgb trending up 05/06: Stable and trending up Status: Acute (5) AAA (abdominal aortic aneurysm) Assessment & Plan: 05/04: Dr Stratton has spoke with Dr Andrews in [place], at this time patient is not a surgical candidate Qualifiers: Qualified Codes: I71.4 - Abdominal aortic aneurysm, without rupture Status: Chronic (6) PVD (peripheral vascular disease) Status: Chronic (7) Acute on chronic diastolic (congestive) heart failure Assessment & Plan: 05/04: Dr Stratton consulted, appreciate recommendations (8) CKD (chronic kidney disease), stage IV Assessment & Plan: 05/04: Stable at baseline Status: Chronic (9) CAD (coronary artery disease) Qualifiers: Qualified Codes: I25.10 - Atherosclerotic heart disease of [place] coronary artery without angina pectoris Status: Chronic (10) HTN (hypertension) Assessment & Plan: 05/04: Holding BP meds due to GI bleed 05/05: Elevated today, restart home meds today Norvasc and BB Qualifiers: Qualified Codes: I10 - Essential (primary) hypertension Status: Chronic (11) HLD (hyperlipidemia) Qualifiers: Qualified Codes: E78.2 - Mixed hyperlipidemia Status: Chronic (12) Melena Status: Acute (13) [place] disease Status: Chronic (14) DVT prophylaxis Assessment & Plan: - SCDs, anticoagulation is contraindicated at this time due to acute GI bleed requiring transfusion Status: Acute Discharge Summary-Simple/Stand Procedures EGD: Duodenal bulb ulcer Consultations Dr Whitehead: General Surgery Dr Stratton: Cardiology Discharge Physical Examination Allergies: Coded Allergies: Penicillins (Verified Allergy, Severe, ANAPHYLAXIS, 02/16/19) levofloxacin (Verified Allergy, Severe, DIARRHIA, SWELLING, WEAKNESS, 02/16/19) sulfamethoxazole (Verified Allergy, Severe, WHEEZING/SWELLING, 02/16/19) trimethoprim (Verified Allergy, Severe, WHEEZING/SWELLING, 02/16/19) Tetracyclines (Verified Allergy, Mild, GI UPSET, 02/16/19) Sulfa (Sulfonamide Antibiotics) (Verified Allergy, Unknown, 02/16/19) pseudoephedrine (Verified Allergy, Unknown, 02/16/19) Vitals & I&Os Vital Sign - Last 12Hours Date Time Temp Pulse Resp B/P (MAP) Pulse Ox O2 Delivery O2 Flow Rate FiO2 05/07/19 08:00 Room Air 05/07/19 08:00 36.2 62 18 152/78 (102) 99 05/06/19 00:00 1.50 Intake and Output 05/07/19 00:00 Intake Total 1175 ml Output Total 1000 ml Balance 175 ml General Appearance: Alert, Oriented X3, Cooperative, No Acute Distress HEENT: Mucous Memb Moist/[place] Respiratory: Clear to Auscultation, Normal Air Movement Cardiovascular: Regular Rate, No Murmurs Abdominal: Normal Bowel Sounds, Soft, No Tenderness, No Masses Extremities: No Edema, No Tenderness/Swelling Skin: Other (gangerous toes bilaterally, no signs of infection) Neuro: Normal Gait, Normal Speech, Strength at 5/5 X4 Ext, Sensation Intact, Cranial Nerves 3-12 NL Psych/Mental Status: Mental Status NL, Mood NL Hospital Course Was the Problem List Reviewed?: Yes See final discharge diagnosis. Other pending tests PATIENT NEEDS F.U WITH DR ANDREWS IN [place] Discussion & Recommendations 73 YO F that presented with GI found to have Duodenal ulcer. Patient had been on blood thinners for atrial fibrillation and severe PVD with ganrenous toes bilaterally. She was seen by Cardiology and general surgery during admission. She was sent home without anticoagulation due to GI bleed requiring 2 units of pRBCs. She also has a AAA that needs close f.u as it is 4 cm. Discharge Condition at discharge Guarded Instructions to patient/family Please see electronic discharge instructions given to patient. Discharge Medications Reviewed and agree with Discharge Medication list on patient's Discharge Instruction sheet Clinical Quality Measures DVT/VTE Risk/Contraindication: Risk Factor Score Per Nursin RFS Level Per Nursing on Admit: 4+=Very High Copy Copies To 1: SONDRA MALONEY MD, HOLLY R MD May 07, 2019 11:52 POS
[2019-05-07] MEDS ORDERED: SUCR1TAB PO (11:54)
--- NOTE | 2019-05-07 11:56 | Discharge Instructions ---
Discharge [facility] Reconcile Patient Problems Problems Reviewed?: Yes Discharge Medications New, Converted or Re-Newed RX: Transmitted to Pharmacy New Medications: Sucralfate (Sucralfate) 1 Gm Tablet 1 GM PO ACHS, #120 TAB Continued Medications: Amlodipine Besylate (Amlodipine Besylate) 10 Mg Tablet 10 MG PO DAILY, TAB Atorvastatin Calcium (Atorvastatin Calcium) 80 Mg Tablet 80 MG PO HS, TAB Clonidine (Catapres-TTS 1 Patch) 1 Each Patch.tdwk 0.1 MG TD We, PATCH Metoprolol Succinate (Metoprolol Succinate) 25 Mg Tab.er.24h 50 MG PO DAILY, TAB LAST FILLED #60 10-8-19 TAKES 2 (25MG) TABLETS [place] 3 Polyunsat Fatty Acids (Fish Oil 1,000 mg Capsule) 1,000 Mg Cap 1000 MG PO DAILY, CAP Pantoprazole Sodium (Pantoprazole Sodium) 40 Mg Tablet.dr 40 MG PO BID, TAB Discontinued Medications: Aspirin (Aspirin EC) 81 Mg Tablet.dr 81 MG PO DAILY, TAB Bisacodyl (Bisacodyl) 5 Mg Tablet.dr 5 MG PO DAILY PRN for CONSTIPATION-4TH LINE, TAB Isosorbide Mononitrate (Isosorbide Mononitrate ER) 30 Mg Tab.er.24h 30 MG PO DAILY, TAB Rivaroxaban (Xarelto) 2.5 Mg Tablet 2.5 MG PO BID, TAB Patient Instructions Goal/Follow Up Appt: You have an appt with Dr Wasserman on SaturdayMay 11 @ 0315 Needs f.u appt with Dr Andrews Vascular Surgery Patient Instructions: - Make sure you have reviewed your medications as many have then have been changed - You have been taken off you blood thinners - Monitor your feet, if you start to have any signs of infection contact your PCP Activity & Diet Discharge Diet: Low Sodium Diet, ADA Diet Activity as Tolerated: Yes Copy Copies To 1: SONDRA WASSERMAN MD, HOLLY R MD May 07, 2019 11:56 POS
[2019-05-07 12:00] VITALS: BP 139/67
[2019-05-10] MEDS ORDERED: CLONIDINE PATCH REMOVAL TP SCH (08:59)
== END 2019-05-07 13:40 | disposition home or self-care (01) | DRG 377 ==
LOC: EDUNIT# 12:10 → ER FS 12:11 → ICU 14:49 → CSD 05-04 16:15
PROVIDERS: ADMIT Internal Medicine; ATTEND Internal Medicine
PROC: 0DJ08ZZ Inspection of Upper Intestinal Tract, Via Natural or Artificial Opening Endoscopic (ICD-10-PCS; principal; 2019-05-02)
DX: K26.4 Chronic or unspecified duodenal ulcer with hemorrhage (principal); K57.11 Diverticulosis of small intestine without perforation or abscess with bleeding; D62 Acute posthemorrhagic anemia; I13.0 Hypertensive heart and chronic kidney disease with heart failure and stage 1 through stage 4 chronic kidney disease, or unspecified chronic kidney disease; I50.33 Acute on chronic diastolic (congestive) heart failure; N18.4 Chronic kidney disease, stage 4 (severe); N17.9 Acute kidney failure, unspecified; I74.09 Other arterial embolism and thrombosis of abdominal aorta; I47.1 Supraventricular tachycardia; K25.9 Gastric ulcer, unspecified as acute or chronic, without hemorrhage or perforation; I71.4 Abdominal aortic aneurysm, without rupture; L97.529 Non-pressure chronic ulcer of other part of left foot with unspecified severity; L97.519 Non-pressure chronic ulcer of other part of right foot with unspecified severity; K29.70 Gastritis, unspecified, without bleeding; J44.9 Chronic obstructive pulmonary disease, unspecified; F01.50 Vascular dementia, unspecified severity, without behavioral disturbance, psychotic disturbance, mood disturbance, and anxiety; I73.1 Thromboangiitis obliterans [Buerger's disease]; E78.5 Hyperlipidemia, unspecified; I08.1 Rheumatic disorders of both mitral and tricuspid valves; I25.10 Atherosclerotic heart disease of native coronary artery without angina pectoris; E87.6 Hypokalemia; I95.9 Hypotension, unspecified; K58.1 Irritable bowel syndrome with constipation; K58.0 Irritable bowel syndrome with diarrhea; M19.91 Primary osteoarthritis, unspecified site; M54.9 Dorsalgia, unspecified; F43.21 Adjustment disorder with depressed mood; Z87.891 Personal history of nicotine dependence; Z79.01 Long term (current) use of anticoagulants; Z79.02 Long term (current) use of antithrombotics/antiplatelets
CPT/HCPCS: 36415; 51701; 71045; 74176; 80048; 80053; 81000; 82274; 82962; 83605; 83735; 83880; 84100; 84484; 85007; 85025; 85027; 85610; 86850; 86900; 86901; 86920; 93005; 94664; 96374; 96375

== ENCOUNTER → 2019-05-13 | Outpatient (CLI) | payer MEDICARE ==
[~2019-05-13] MED LIST changes: +BISA5TAB8 PO; +CLON1PAT TD; +METO-333; +OMG1KC PO; +PANT40TA2 PO; +SUCR1TAB PO
== END ==
LOC: WOUNDCARE 12:45
PROVIDERS: ATTEND Surgery
DX: E11.621 Type 2 diabetes mellitus with foot ulcer (principal); E11.52 Type 2 diabetes mellitus with diabetic peripheral angiopathy with gangrene; E11.22 Type 2 diabetes mellitus with diabetic chronic kidney disease; I12.0 Hypertensive chronic kidney disease with stage 5 chronic kidney disease or end stage renal disease; I70.263 Atherosclerosis of native arteries of extremities with gangrene, bilateral legs; L97.522 Non-pressure chronic ulcer of other part of left foot with fat layer exposed; L97.512 Non-pressure chronic ulcer of other part of right foot with fat layer exposed; N18.5 Chronic kidney disease, stage 5; I48.91 Unspecified atrial fibrillation; I71.4 Abdominal aortic aneurysm, without rupture; T65.222A Toxic effect of tobacco cigarettes, intentional self-harm, initial encounter; F17.218 Nicotine dependence, cigarettes, with other nicotine-induced disorders
CPT/HCPCS: 99213

== ENCOUNTER → 2019-06-03 | Outpatient (CLI) | payer OTHER ==
[~2019-06-03] MED LIST changes: -TRAM50TA2 PO; +TRM50T PO
== END ==
LOC: WOUNDCARE 12:31
PROVIDERS: ATTEND Orthopaedic Surgery Hand Surgery
DX: E11.622 Type 2 diabetes mellitus with other skin ulcer (principal); E11.52 Type 2 diabetes mellitus with diabetic peripheral angiopathy with gangrene; E11.22 Type 2 diabetes mellitus with diabetic chronic kidney disease; I12.0 Hypertensive chronic kidney disease with stage 5 chronic kidney disease or end stage renal disease; I70.263 Atherosclerosis of native arteries of extremities with gangrene, bilateral legs; L97.528 Non-pressure chronic ulcer of other part of left foot with other specified severity; L97.518 Non-pressure chronic ulcer of other part of right foot with other specified severity; I48.91 Unspecified atrial fibrillation; I71.4 Abdominal aortic aneurysm, without rupture; N18.5 Chronic kidney disease, stage 5; T65.222A Toxic effect of tobacco cigarettes, intentional self-harm, initial encounter; F17.218 Nicotine dependence, cigarettes, with other nicotine-induced disorders
CPT/HCPCS: 99212

== ENCOUNTER → 2019-06-18 | Outpatient (CLI) | payer OTHER ==
[~2019-06-18] MED LIST changes: -METO-387 PO; +MTP25TSR PO
== END ==
LOC: WOUNDCARE 13:17
PROVIDERS: ATTEND Orthopaedic Surgery Hand Surgery
DX: E11.621 Type 2 diabetes mellitus with foot ulcer (principal); E11.52 Type 2 diabetes mellitus with diabetic peripheral angiopathy with gangrene; E11.22 Type 2 diabetes mellitus with diabetic chronic kidney disease; I70.263 Atherosclerosis of native arteries of extremities with gangrene, bilateral legs; I48.91 Unspecified atrial fibrillation; I12.0 Hypertensive chronic kidney disease with stage 5 chronic kidney disease or end stage renal disease; N18.5 Chronic kidney disease, stage 5; T65.222A Toxic effect of tobacco cigarettes, intentional self-harm, initial encounter; F17.218 Nicotine dependence, cigarettes, with other nicotine-induced disorders; L89.620 Pressure ulcer of left heel, unstageable; L89.610 Pressure ulcer of right heel, unstageable; S91.302A Unspecified open wound, left foot, initial encounter; S91.301A Unspecified open wound, right foot, initial encounter; R60.0 Localized edema
CPT/HCPCS: 99214

== ENCOUNTER → 2019-06-24 | Outpatient (CLI) | payer OTHER | LOC: WOUNDCARE 10:19 | PROVIDERS: ATTEND Orthopaedic Surgery Hand Surgery | DX: E11.621 Type 2 diabetes mellitus with foot ulcer (principal); I70.245 Atherosclerosis of native arteries of left leg with ulceration of other part of foot; I70.235 Atherosclerosis of native arteries of right leg with ulceration of other part of foot; L97.528 Non-pressure chronic ulcer of other part of left foot with other specified severity; L97.518 Non-pressure chronic ulcer of other part of right foot with other specified severity; I48.91 Unspecified atrial fibrillation; I71.4 Abdominal aortic aneurysm, without rupture; N18.5 Chronic kidney disease, stage 5; E11.22 Type 2 diabetes mellitus with diabetic chronic kidney disease; T65.222A Toxic effect of tobacco cigarettes, intentional self-harm, initial encounter; F17.218 Nicotine dependence, cigarettes, with other nicotine-induced disorders; L89.620 Pressure ulcer of left heel, unstageable; L89.610 Pressure ulcer of right heel, unstageable; S91.302A Unspecified open wound, left foot, initial encounter; S91.301A Unspecified open wound, right foot, initial encounter; R60.0 Localized edema | CPT/HCPCS: 99214 ==

== ENCOUNTER → 2019-07-01 | Outpatient (CLI) | payer OTHER | LOC: WOUNDCARE 10:09 | PROVIDERS: ATTEND Orthopaedic Surgery Hand Surgery | DX: E11.621 Type 2 diabetes mellitus with foot ulcer (principal); I70.245 Atherosclerosis of native arteries of left leg with ulceration of other part of foot; I70.235 Atherosclerosis of native arteries of right leg with ulceration of other part of foot; I48.91 Unspecified atrial fibrillation; I71.4 Abdominal aortic aneurysm, without rupture; I12.0 Hypertensive chronic kidney disease with stage 5 chronic kidney disease or end stage renal disease; E11.22 Type 2 diabetes mellitus with diabetic chronic kidney disease; N18.5 Chronic kidney disease, stage 5; T65.222A Toxic effect of tobacco cigarettes, intentional self-harm, initial encounter; F17.218 Nicotine dependence, cigarettes, with other nicotine-induced disorders; L89.620 Pressure ulcer of left heel, unstageable; L89.610 Pressure ulcer of right heel, unstageable; S91.302A Unspecified open wound, left foot, initial encounter; S91.301A Unspecified open wound, right foot, initial encounter; R60.0 Localized edema | CPT/HCPCS: 99214 ==

== ENCOUNTER → 2019-07-15 | Outpatient (CLI) | payer OTHER | LOC: WOUNDCARE 10:11 | PROVIDERS: ATTEND Orthopaedic Surgery Hand Surgery | DX: E11.621 Type 2 diabetes mellitus with foot ulcer (principal); I70.245 Atherosclerosis of native arteries of left leg with ulceration of other part of foot; I70.235 Atherosclerosis of native arteries of right leg with ulceration of other part of foot; I48.91 Unspecified atrial fibrillation; I71.4 Abdominal aortic aneurysm, without rupture; I12.0 Hypertensive chronic kidney disease with stage 5 chronic kidney disease or end stage renal disease; E11.22 Type 2 diabetes mellitus with diabetic chronic kidney disease; N18.5 Chronic kidney disease, stage 5; T65.222A Toxic effect of tobacco cigarettes, intentional self-harm, initial encounter; F17.218 Nicotine dependence, cigarettes, with other nicotine-induced disorders; L89.620 Pressure ulcer of left heel, unstageable; L89.610 Pressure ulcer of right heel, unstageable; L97.528 Non-pressure chronic ulcer of other part of left foot with other specified severity; L97.518 Non-pressure chronic ulcer of other part of right foot with other specified severity; R60.0 Localized edema | CPT/HCPCS: 99213 ==

== ENCOUNTER → 2019-07-27 | Outpatient (CLI) | payer OTHER | LOC: WOUNDCARE 09:00 | PROVIDERS: ATTEND Surgery | DX: L97.522 Non-pressure chronic ulcer of other part of left foot with fat layer exposed (principal); L97.512 Non-pressure chronic ulcer of other part of right foot with fat layer exposed; I70.245 Atherosclerosis of native arteries of left leg with ulceration of other part of foot; I70.235 Atherosclerosis of native arteries of right leg with ulceration of other part of foot; E11.621 Type 2 diabetes mellitus with foot ulcer; E11.52 Type 2 diabetes mellitus with diabetic peripheral angiopathy with gangrene; E11.22 Type 2 diabetes mellitus with diabetic chronic kidney disease; N18.5 Chronic kidney disease, stage 5; I71.4 Abdominal aortic aneurysm, without rupture; I48.91 Unspecified atrial fibrillation | CPT/HCPCS: 99213 ==

== ENCOUNTER → 2019-08-12 | Outpatient (CLI) | payer MEDICARE | LOC: WOUNDCARE 10:07 | PROVIDERS: ATTEND Surgery | DX: E11.621 Type 2 diabetes mellitus with foot ulcer (principal); E11.22 Type 2 diabetes mellitus with diabetic chronic kidney disease; L97.522 Non-pressure chronic ulcer of other part of left foot with fat layer exposed; L97.512 Non-pressure chronic ulcer of other part of right foot with fat layer exposed; I70.245 Atherosclerosis of native arteries of left leg with ulceration of other part of foot; I70.235 Atherosclerosis of native arteries of right leg with ulceration of other part of foot; N18.5 Chronic kidney disease, stage 5; I71.4 Abdominal aortic aneurysm, without rupture; I48.91 Unspecified atrial fibrillation | CPT/HCPCS: 99213 ==

== ENCOUNTER → 2019-08-26 | Outpatient (CLI) | payer MEDICARE | LOC: WOUNDCARE 09:56 | PROVIDERS: ATTEND Surgery | DX: E11.621 Type 2 diabetes mellitus with foot ulcer (principal); E11.22 Type 2 diabetes mellitus with diabetic chronic kidney disease; L97.522 Non-pressure chronic ulcer of other part of left foot with fat layer exposed; L97.512 Non-pressure chronic ulcer of other part of right foot with fat layer exposed; I70.245 Atherosclerosis of native arteries of left leg with ulceration of other part of foot; I70.235 Atherosclerosis of native arteries of right leg with ulceration of other part of foot; N18.5 Chronic kidney disease, stage 5; I71.4 Abdominal aortic aneurysm, without rupture; I48.91 Unspecified atrial fibrillation | CPT/HCPCS: 99213 ==

== ENCOUNTER → 2019-09-23 | Outpatient (CLI) | payer MEDICARE | LOC: WOUNDCARE 09:43 | PROVIDERS: ATTEND Surgery | DX: E11.621 Type 2 diabetes mellitus with foot ulcer (principal); E11.22 Type 2 diabetes mellitus with diabetic chronic kidney disease; L97.512 Non-pressure chronic ulcer of other part of right foot with fat layer exposed; I70.235 Atherosclerosis of native arteries of right leg with ulceration of other part of foot; N18.5 Chronic kidney disease, stage 5; I71.4 Abdominal aortic aneurysm, without rupture; I48.91 Unspecified atrial fibrillation | CPT/HCPCS: 99212 ==

== ENCOUNTER 2019-10-19 10:55 | Emergency (ER) | payer MEDICARE ==
[~2019-10-19] VITALS: Ht 154 cm; Wt 45.0 kg
[~2019-10-19 10:55] MED LIST changes: +FUROSEMIDE 40 MG/4 ML INJ (LASIX) ONE
[2019-10-19] MEDS ORDERED: methylPREDNISolone 125 MG (Solu-MEDROL) VIAL ONE (10:56)
[2019-10-19] MEDS ORDERED: SODIUM BICARB 8.4% 50 MEQ/50 ML (ABBOTT) SYR INJ ONE (11:01)
[2019-10-19] MEDS ORDERED: ATROPINE INJECTION 1 MG/10 ML SYR (ABBOTT) INJ ONE (11:01)
[2019-10-19] MEDS ORDERED: fentaNYL INJECTION 100 MCG/2 ML AMP INJ ONE (11:01)
[2019-10-19] MEDS ORDERED: CALCIUM CHLORIDE 1 GM/10 ML (IMS) SYR INJ ONE (11:01)
[2019-10-19] MEDS ORDERED: EPINEPHrine 0.1 MG/ML 10 ML (HOSPIRA) SYR IJ ONE (11:01)
[2019-10-19] MEDS ORDERED: MIDAZOLAM 5 MG/5 ML (VERSED) VIAL INJ ONE (11:01)
[2019-10-19] MEDS ORDERED: SUCCINYLCHOLINE INJ 100 MG/5 ML SYR INJ ONE (11:01)
[2019-10-19] MEDS ORDERED: NOREPINEPHRINE 4 MG/250 ML 250 ML IV ONE (11:03)
--- OUTSIDE RECORDS SUMMARY | 2019-10-19 11:06 | XMS REPORT | Continuity of Care Document ---
Author Organization Unknown Address Unknown Phone Unavailable Allergies Active Description Code Type Severity Reaction Onset Reported/Identified Relationship to Patient Clinical Status Yes Penicillins [id number] Drug Aller gy Mild RASH/SWELLING 02/16/2019 Yes levofloxacin [id number] Drug Allergy Severe DIARRHIA, SWELL 04/27/2019 Yes Penicillins [id number] Drug Aller gy Severe ANAPHYLAXIS 04/27/2019 Yes sulfamethoxazole [id number] Drug Allergy Severe WHEEZING/SWELLI 04/27/2019 Yes trimethoprim [id number] Drug Allergy Severe WHEEZING/SWELLI 04/27/2019 Yes Tetracyclines [id number] Johny g Allergy Mild GI UPSET 04/27/2019 Yes pseudoephedrine [id number] D rug Allergy Unknown N/A 04/27/2019 Yes Sulfa (Sulfonamide Antibiotics) [id number] Drug Allergy Unknown N/A 019 Medications [...] MD Ot R14.0 ABDOMINAL DISTENSION (GASEOUS) 02/23/2019 LISA BARROSO, EMELY Pack Ot E87.1 HYPO-OSMOLALITY AND HYPONATREMIA 02/23/2019 EMELY GONZALEZ MD Ot F17.210 NICOTINE DEPENDENCE, CIGARETTES, UNCOMPL 02/23/2019 EMELY GONZALEZ MD Ot F32.9 MAJOR DEPRESSIVE DISORDER, SINGLE EPISOD 02/23/2019 EMELY GONZALEZ MD Ot I10 ESSENTIAL (PRIMARY) HYPERTENSION 02/23/2019 EMELY GONZALEZ MD Ot I12.9 HYPERTENSIVE CHRONIC KIDNEY DISEASE W ST 02/23/2019 EMELY GONZALEZ MD Ot N17.9 ACUTE KIDNEY FAILURE, UNSPECIFIED 02/23/2019 EMELY GONZALEZ MD Ot N18.3 CHRONIC KIDNEY DISEASE, STAGE 3 [...] DEPRESSIVE DISORDER, SINGLE EPISOD 02/25/2019 EMELY GONZALEZ MD Ot I10 ESSENTIAL (PRIMARY) HYPERTENSION 02/25/2019 EMELY GONZALEZ MD, Ot I12.9 HYPERTENSIVE CHRONIC KIDNEY DISEASE W ST 02/25/2019 EMELY GONZALEZ MD Ot N17.9 ACUTE KIDNEY FAILURE, UNSPECIFIED 02/25/2019 EMELY GONZALEZ MD Ot N18.3 CHRONIC KIDNEY DISEASE, STAGE 3 (MODERAT 02/25/2019 EMELY GONZALEZ MD Ot R03.0 ELEVATED BLOOD-PRESSURE READING, W/O OMAR 02/25/2019 EMELY GONZALEZ MD Ot R94.31 ABNORMAL ELECTROCARDIOGRAM [ECG] [EKG] 02/25/2019 EMELY GONZALEZ MD, Ot Z88.0 ALLERGY STATUS TO PENICILLIN 02/25/2019 EMELY GONZALEZ MD Ot Z88.1 ALLERGY STATUS TO OTHER ANTIBIOTIC AGENT 02/25/2019 EMELY GONZALEZ MD Ot Z88.2 ALLERGY STATUS [...] 3 EPIGASTRIC PAIN 03/06/2019 DYLAN CHRISTIANSEN DO Ot R11.2 NAUSEA WITH VOMITING, UNSPECIFIED 03/06/2019 DYLAN CHRISTIANSEN DO B Ot R19.7 DIARRHEA, UNSPECIFIED 03/06/2019 DYLAN CHRISTIANSEN DO Ot Z53.9 PROCEDURE AND TREATMENT NOT CARRIED OUT, 03/06/2019 DYLAN CHRISTIANSEN DO Ot Z79.8 99 OTHER ROPE MAKER (CURRENT) DRUG THERAPY 03/06/2019 DYLAN CHRISTIANSEN DO Ot Z88.0 ALLERGY STATUS TO PENICILLIN 03/06/2019 DYLAN CHRISTIANSEN DO Ot Z88.1 ALLERGY STATUS TO OTHER ANTIBIOTIC AGENT 03/06/2019 ЕЛЕНА DO DYLAN B Ot Z88.2 ALLERGY STATUS TO SULFONAMIDES STATUS 03/11/2019 ЕЛЕНА DO DYLAN B Ot F17.2 10 NICOTINE DEPENDENCE, CIGARETTES, UNCOMPL 03/11/2019 ЕЛЕНА POLK DYLAN B Ot F32.9 MAJOR DEPRESSIVE DISORDER, SINGLE EPISOD 03/11/2019 KATHEFRANC DO DYLAN B Ot I10 ESSENTIAL (PRIMARY) HYPERTENSION 03/11/2019 KATHEFRANC DO DYLAN B Ot N28.9 DISORDER OF KIDNEY AND URETER, UNSPECIFI 03/11/2019 KATHEFRANC DO DYLAN B Ot R10.1 3 EPIGASTRIC PAIN 03/11/2019 KATHEFRANC DO DYLAN B Ot R11.2 NAUSEA WITH VOMITING, UNSPECIFIED 03/11/2019 KATHEFRANC DO DYLAN B Ot R19.7 DIARRHEA, UNSPECIFIED 03/11/2019 KATHEFRANC DO DYLAN B Ot Z53.9 PROCEDURE AND TREATMENT NOT CARRIED OUT, 03/11/2019 RUPALI CHRISTIANSEN DOIC B Ot Z79.8 99 OTHER ROPE MAKER (CURRENT) DRUG THERAPY 03/11/2019 KATHEFRANC DO DYLAN B Ot Z88.0 ALLERGY STATUS TO PENICILLIN 03/11/2019 KATHEFRANC DO DYLAN B Ot Z88.1 ALLERGY STATUS TO OTHER ANTIBIOTIC AGENT 03/11/2019 RUPALI CHRISTIANSEN DOIC B Ot Z88.2 ALLERGY STATUS TO SULFONAMIDES STATUS 04/01/2019 SONDRA MALONEY MD Ot R10.13 EPIGASTRIC PAIN 04/01/2019 SONDRA MALONEY MD Ot R11.10 VOMITING, UNSPECIFIED 04/01/2019 SONDRA MALONEY MD Ot R14.0 ABDOMINAL DISTENSION (GASEOUS) 04/01/2019 KATHEFRANC RUPALI POLKIC B Ot F17.2 10 NICOTINE DEPENDENCE, CIGARETTES, UNCOMPL 04/01/2019 KATHEFRANC RUPALI POLKIC B Ot F32.9 MAJOR DEPRESSIVE DISORDER, SINGLE EPISOD 04/01/2019 KATHEFRANC DO DYLAN B Ot I10 ESSENTIAL (PRIMARY) HYPERTENSION 04/01/2019 KATHEFRANC , DYLAN B Ot N28.9 DISORDER OF KIDNEY AND URETER, UNSPECIFI 04/01/2019 ЕЛЕНА POLK DYLAN B Ot R10.1 3 EPIGASTRIC PAIN 04/01/2019 DELMAN DO, DYLAN B Ot R11.2 NAUSEA WITH VOMITING, UNSPECIFIED 04/01/2019 RUPALI CHRISTIANSEN DOIC B Ot R19.7 DIARRHEA, UNSPECIFIED 04/01/2019 RUPALI CHRISTIANSEN DOIC B Ot Z53.9 PROCEDURE AND TREATMENT NOT CARRIED OUT, 04/01/2019 RUPALI CHRISTIANSEN DOIC B Ot Z79.8 99 OTHER SHELTER (CURRENT) DRUG THERAPY 04/01/2019 DYLAN CHRISTIANSEN DO Ot Z88.0 ALLERGY STATUS TO PENICILLIN 04/01/2019 ЕЛЕНА POLK DYLAN B Ot Z88.1 ALLERGY STATUS TO OTHER ANTIBIOTIC AGENT 04/01/2019 RUPALI CHRISTIANSEN DOIC B Ot Z88.2 ALLERGY STATUS TO SULFONAMIDES STATUS 04/01/2019 ASIF SALEEM MD Ot I74 .3 EMBOLISM AND THROMBOSIS OF ARTERIES OF T 04/01/2019 ASIF SALEEM MD, Ot I74 .3 EMBOLISM AND THROMBOSIS OF ARTERIES OF T 04/06/2019 ASIF SALEEM MD Ot E11.22 TYPE 2 DIABETES MELLITUS W DIABETIC STAFF HOME THERAPY RN 04/06/2019 ASIF SALEEM MD Ot E11.621 TYPE [...] OTH PRT RIGHT FOOT 04/06/2019 ASIF SALEEM MD, Ot L97.522 NON-PRS CHRONIC ULCER OTH PRT LEFT FOOT 04/06/2019 ASIF SALEEM MD Ot N18 .5 CHRONIC KIDNEY DISEASE, STAGE 5 04/06/2019 ASIF SALEEM MD Ot T65.222A TOXIC EFFECT OF TOBACCO CIGARETTES, SELF 04/08/2019 RAUL BONNER MD Ot E11. 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 9 HYPERTENSIVE CHRONIC KIDNEY DISEASE W ST 04/08/2019 RAUL BONNER MD Ot I73. 9 PERIPHERAL VASCULAR DISEASE, UNSPECIFIED 04/08/2019 RAUL BONNER MD, Ot I74. 3 EMBOLISM AND THROMBOSIS OF ARTERIES OF T 04/08/2019 RAUL BONNER MD Ot L97.512 NON-PRS CHRONIC ULCER OTH PRT RIGHT FOOT 04/08/2019 RAUL BONNER MD, Ot L97.522 NON-PRS CHRONIC ULCER OTH PRT LEFT FOOT 04/08/2019 RAUL BONNER MD, Ot N18. 5 CHRONIC KIDNEY DISEASE, STAGE 5 04/08/2019 RAUL BONNER MD, Ot T65.222A TOXIC EFFECT OF TOBACCO CIGARETTES, SELF 04/08/2019 RAUL BONNER MD Ot Z72. 0 TOBACCO USE 04/08/2019 ASIF SALEEM MD, Ot I74 .3 EMBOLISM [...] PROCEDURE AND TREATMENT NOT CARRIED OUT, 04/09/2019 ЕЛЕНА POLKDYLAN Ot Z79.8 99 OTHER SHELTER (CURRENT) DRUG THERAPY 04/09/2019 ЕЛЕНА DYLAN POLK Ot Z88.0 ALLERGY STATUS TO PENICILLIN 04/09/2019 KATHEFRANC DYLAN POLK Ot Z88.1 ALLERGY STATUS TO OTHER ANTIBIOTIC AGENT 04/09/2019 KATHEFRANC DYLAN POLK Ot Z88.2 ALLERGY STATUS TO SULFONAMIDES STATUS 04/09/2019 ASIF SALEEM MD Ot E11.22 TYPE 2 DIABETES MELLITUS W DIABETIC STAFF HOME THERAPY RN 04/09/2019 ASIF SALEEM MD, Ot E11.621 TYPE 2 DIABETES MELLITUS WITH FOOT ULCER 04/09/2019 ASIF SALEEM MD, Ot 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, CIGARETTES, W OTH D 04/09/2019 ASIF SALEEM MD Ot I12 .0 HYP CHR KIDNEY DISEASE W STAGE 5 CHR KID 04/09/2019 ASIF SALEEM MD Ot I74 .3 [...] 22 TYPE 2 DIABETES MELLITUS W DIABETIC STAFF HOME THERAPY RN 04/09/2019 RAUL BONNER MD Ot E11.621 TYPE 2 [...] OF ARTERIES OF T 04/09/2019 RAUL BONNER MD, Ot L97.512 NON-PRS CHRONIC ULCER OTH [...] Ot I25. 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 04/17/2019 ASIF [...] E11.22 TYPE 2 DIABETES MELLITUS W DIABETIC STAFF HOME THERAPY RN 04/17/2019 ASIF SALEEM MD, Ot E11.52 TYPE 2 DIABETES W DIABETIC PERIPHERAL AN 04/17/2019 ASIF SALEEM MD, Ot E11.621 TYPE 2 DIABETES MELLITUS WITH FOOT ULCER 04/17/2019 ASIF SALEEM MD, Ot 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, CIGARETTES, W OTH D 04/17/2019 ASIF SALEEM MD Ot I12 .0 HYP CHR KIDNEY DISEASE W STAGE 5 CHR KID 04/17/2019 ASIF SALEEM MD Ot 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 04/17/2019 ASIF SALEEM MD Ot I71 .4 ABDOMINAL AORTIC ANEURYSM, 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 04/17/2019 ASIF SALEEM MD, Ot L97.512 NON-PRS CHRONIC ULCER OTH PRT RIGHT FOOT 04/17/2019 ASIF SALEEM MD, Ot L97.522 NON-PRS CHRONIC ULCER OTH PRT LEFT FOOT 04/17/2019 ASIF SALEEM MD Ot N18 .5 CHRONIC KIDNEY DISEASE, STAGE 5 04/17/2019 ASIF SALEEM MD, Ot T65.222A TOXIC EFFECT OF TOBACCO CIGARETTES, SELF 04/20/2019 ASIF SALEEM MD Ot E11.22 TYPE 2 DIABETES MELLITUS W DIABETIC STAFF HOME THERAPY RN 04/20/2019 ASIF SALEEM MD Ot E11.621 TYPE 2 DIABETES MELLITUS WITH FOOT ULCER 04/20/2019 ASIF SALEEM MD Ot 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, CIGARETTES, W OTH D 04/20/2019 ASIF SALEEM MD Ot I12 .0 HYP CHR KIDNEY DISEASE W STAGE 5 CHR KID 04/20/2019 ASIF SALEEM MD Ot I74 .3 EMBOLISM AND THROMBOSIS OF ARTERIES OF T 04/20/2019 ASIF SALEEM MD, Ot L97.512 NON-PRS CHRONIC ULCER OTH PRT RIGHT FOOT 04/20/2019 ASIF SALEEM MD, Ot L97.522 NON-PRS CHRONIC ULCER OTH PRT LEFT FOOT 04/20/2019 ASIF SALEEM MD, Ot N18 .5 CHRONIC KIDNEY DISEASE, STAGE 5 04/20/2019 ASIF SALEEM MD, Ot T65.222A TOXIC EFFECT OF TOBACCO CIGARETTES, SELF 04/20/2019 RAUL BONNER MD Ot E11. 22 TYPE 2 DIABETES MELLITUS W DIABETIC STAFF HOME THERAPY RN 04/20/2019 RAUL BONNER MD, Ot E11.621 TYPE 2 [...] Z72. 0 TOBACCO USE 04/21/2019 ASIF SALEEM MD, Ot E11.22 TYPE 2 DIABETES MELLITUS W DIABETIC STAFF HOME THERAPY RN 04/21/2019 ASIF SALEEM MD, Ot E11.52 TYPE 2 DIABETES W DIABETIC PERIPHERAL AN 04/21/2019 ASIF SALEEM MD, Ot E11.621 TYPE 2 DIABETES MELLITUS WITH FOOT ULCER 04/21/2019 ASIF SALEEM MD, Ot F17.219 NICOTINE DEPENDENCE, CIGARETTES, W UNSP 04/21/2019 ASIF SALEEM MD, Ot I10 ESSENTIAL (PRIMARY) HYPERTENSION 04/21/2019 ASIF SALEEM MD, Ot I70 .0 ATHEROSCLEROSIS OF AORTA 04/21/2019 ASIF SALEEM MD, Ot I70.235 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 04/21/2019 ASIF SALEEM MD, Ot I70.245 ATHSCL [place] ARTERIES OF LEFT LEG W ULC 04/21/2019 ASIF SALEEM MD, Ot L97.512 NON-PRS CHRONIC ULCER OTH PRT RIGHT FOOT 04/21/2019 ASIF SALEEM MD Ot L97.522 NON-PRS CHRONIC ULCER OTH PRT LEFT FOOT 04/21/2019 ASIF SALEEM MD, Ot N18 .5 CHRONIC KIDNEY DISEASE, STAGE 5 04/21/2019 ASIF SALEEM MD, Ot T65.222A TOXIC EFFECT OF TOBACCO CIGARETTES, SELF 04/27/2019 MARCIA DO YASEMIN Ot A41.9 SEPSIS, UNSPECIFIED ORGANISM 04/27/2019 [...] YASEMIN Ot I25.10 ATHSCL HEART DISEASE OF [place] CORONARY 04/27/2019 MARCIA POLK YASEMIN Ot I71.4 [...] SHOCK 04/27/2019 YASEMIN KENNEDY DO Ot Z79.01 ROPE MAKER (CURRENT) USE OF ANTICOAGULANT 04/27/2019 MARCIA POLK YASEMIN Ot Z79.82 ROPE MAKER (CURRENT) USE OF ASPIRIN 04/27/2019 JASON KENNEDY [...] DOI Ot I25.10 ATHSCL HEART DISEASE OF [place] CORONARY 04/27/2019 YASEMIN KENNEDY DO Ot I71.4 [...] K58.0 IRRITABLE BOWEL SYNDROME WITH DIARRHEA 04/27/2019 JASON KENNEDY DOI Ot K58.1 IRRITABLE BOWEL SYNDROME WITH CONSTIPATI 04/27/2019 JASON KENNEDY DOI Ot K92.1 MELENA 04/27/2019 YASEMIN KENNEDY DO Ot L97.51 9 NON-PRS CHRONIC ULCER OTH PRT RIGHT FOOT 04/27/2019 JASON KENNEDY DOI Ot L97.52 9 NON-PRESSURE CHRONIC ULCER OTH PRT LEFT 04/27/2019 JASON KENNEDY DOI Ot M19.91 PRIMARY OSTEOARTHRITIS, UNSPECIFIED SITE 04/27/2019 YASEMIN KENNEDY DO Ot M54.9 DORSALGIA, UNSPECIFIED 04/27/2019 MARCIA POLK YASEMIN Ot N17.9 ACUTE KIDNEY FAILURE, UNSPECIFIED 04/27/2019 MARCIA POLK YASEMIN Ot N18.4 CHRONIC KIDNEY DISEASE, STAGE 4 (SEVERE) 04/27/2019 YASEMIN KENNEDY DO Ot N30.00 ACUTE CYSTITIS WITHOUT HEMATURIA 04/27/2019 JASON KENNEDY DOI Ot R65.21 SEVERE SEPSIS WITH SEPTIC SHOCK 04/27/2019 YASEMIN KENNEDY DO Ot Z79.01 SHELTER (CURRENT) USE OF ANTICOAGULANT 04/27/2019 YASEMIN KENNEDY DO Ot Z79.82 ROPE MAKER (CURRENT) USE OF ASPIRIN 04/27/2019 YASEMIN KENNEDY DO Ot Z87.89 1 PERSONAL HISTORY OF NICOTINE DEPENDENCE 04/27/2019 YASEMIN KENNEDY DO Ot A41.9 SEPSIS, UNSPECIFIED ORGANISM 04/27/2019 YASEMIN KENNEDY DO Ot D64.9 ANEMIA, UNSPECIFIED 04/27/2019 YASEMIN KENNEDY DO Ot E78.5 HYPERLIPIDEMIA, UNSPECIFIED 04/27/2019 YASEMIN KENNEDY DO Ot E87.1 HYPO-OSMOLALITY AND HYPONATREMIA 04/27/2019 YASEMIN KENNEDY DO Ot I07.1 RHEUMATIC TRICUSPID INSUFFICIENCY 04/27/2019 JASON KENNEDY DOI Ot I12.9 HYPERTENSIVE CHRONIC KIDNEY DISEASE W ST 04/27/2019 YASEMIN KENNEDY DO Ot I21.A1 MYOCARDIAL INFARCTION TYPE 2 04/27/2019 YASEMIN KENNEDY DO Ot I25.10 ATHSCL HEART DISEASE OF [place] CORONARY 04/27/2019 YASEMIN KENNEDY DO Ot I71.4 ABDOMINAL AORTIC ANEURYSM, 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 04/27/2019 YASEMIN KENNEDY DO Ot I73.1 THROMBOANGIITIS OBLITERANS [BUERGER'S DI 04/27/2019 YSAEMIN KENNEDY DO Ot I73.9 PERIPHERAL VASCULAR DISEASE, UNSPECIFIED 04/27/2019 YASEMIN KENNEDY DO Ot I82.81 3 EMBOLISM AND THOMBOS OF SUPERFIC VEINS O 04/27/2019 JASON KENNEDY DOI Ot I96 GANGRENE, NOT ELSEWHERE CLASSIFIED 04/27/2019 YASEMIN KENNEDY DO Ot K58.0 IRRITABLE BOWEL SYNDROME WITH DIARRHEA 04/27/2019 YASEMIN KENNEDY DO Ot K58.1 IRRITABLE BOWEL SYNDROME WITH CONSTIPATI 04/27/2019 YASEMIN KENNEDY DO Ot K92.1 MELENA 04/27/2019 YASEMIN KENNEDY DO [...] SHOCK 04/27/2019 YASEMIN KENNEDY DO Ot Z79.01 SHELTER (CURRENT) USE OF ANTICOAGULANT 04/27/2019 YASEMIN KENNEDY DO Ot Z79.82 ROPE MAKER (CURRENT) USE OF ASPIRIN 04/27/2019 JASON KENNEDY [...] DO Ot I25.10 ATHSCL HEART DISEASE OF [place] CORONARY 04/27/2019 JASON KENNEDY DOI Ot I71.4 [...] K58.0 IRRITABLE BOWEL SYNDROME WITH DIARRHEA 04/27/2019 JASON KENNEDY DOI Ot K58.1 IRRITABLE BOWEL SYNDROME WITH CONSTIPATI 04/27/2019 YASEMIN KENNEDY DO Ot K92.1 MELENA 04/27/2019 YASEMIN KENNEDY DO [...] SHOCK 04/27/2019 YASEMIN KENNEDY DO Ot Z79.01 ROPE MAKER (CURRENT) USE OF ANTICOAGULANT 04/27/2019 YASEMIN KENNEDY DO Ot Z79.82 ROPE MAKER (CURRENT) USE OF ASPIRIN 04/27/2019 YASEMIN KENNEDY [...] DOI Ot I25.10 ATHSCL HEART DISEASE OF [place] CORONARY 04/27/2019 JASON KENNEDY DOI Ot I71.4 ABDOMINAL AORTIC ANEURYSM, 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 04/27/2019 JASON KENNEDY DOI Ot I73.1 THROMBOANGIITIS OBLITERANS [BUERGER'S DI 04/27/2019 JASON KENNEYD DOI Ot I73.9 PERIPHERAL VASCULAR DISEASE, UNSPECIFIED 04/27/2019 YASEMIN KENNEDY DO Ot I82.81 3 EMBOLISM AND THOMBOS OF SUPERFIC VEINS O 04/27/2019 KENNEDYJENNY POLK YASEMIN Ot I96 GANGRENE, NOT ELSEWHERE CLASSIFIED 04/27/2019 MARCIA POLK YASEMIN Ot K58.0 IRRITABLE BOWEL SYNDROME WITH DIARRHEA 04/27/2019 MARCIA POLK YASEMIN Ot K58.1 IRRITABLE BOWEL SYNDROME WITH CONSTIPATI 04/27/2019 MARCIA POLK YASEMIN Ot K92.1 MELENA 04/27/2019 MARCIA POLK YASEMIN [...] SHOCK 04/27/2019 MARCIA POLK YASEMIN Ot Z79.01 ROPE MAKER (CURRENT) USE OF ANTICOAGULANT 04/27/2019 MARCIA POLK YASEMIN Ot Z79.82 SHELTER (CURRENT) USE OF ASPIRIN 04/27/2019 JASON KENNEDY DOI Ot Z87.89 1 PERSONAL HISTORY OF NICOTINE DEPENDENCE 04/27/2019 ASIF SALEEM MD Ot E11.22 TYPE 2 DIABETES MELLITUS W DIABETIC STAFF HOME THERAPY RN 04/27/2019 ASIF SALEEM MD, Ot E11.621 TYPE 2 DIABETES MELLITUS WITH FOOT ULCER 04/27/2019 ASIF SALEEM MD, Ot 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, CIGARETTES, W OTH D 04/27/2019 ASIF SALEEM MD, Ot I12 .0 HYP CHR KIDNEY DISEASE W STAGE 5 CHR KID 04/27/2019 ASIF SALEEM MD, Ot I70.235 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 04/27/2019 ASIF SALEEM MD, Ot I70.245 ATHSCL [place] ARTERIES OF LEFT LEG W ULC 04/27/2019 [...] YASEMIN Ot I25.10 ATHSCL HEART DISEASE OF [place] CORONARY 04/27/2019 MARCIA POLK YASEMIN Ot I71.4 [...] K58.1 IRRITABLE BOWEL SYNDROME WITH CONSTIPATI 04/27/2019 MARCIA POLK YASEMIN Ot K92.1 MELENA 04/27/2019 MARCIA POLK YASEMIN [...] SHOCK 04/27/2019 YASEMIN KENNEDY DO Ot Z79.01 ROPE MAKER (CURRENT) USE OF ANTICOAGULANT 04/27/2019 YASEMIN KENNEDY DO Ot Z79.82 ROPE MAKER (CURRENT) USE OF ASPIRIN 04/27/2019 YASEMIN KENNEDY DO Ot Z87.89 1 PERSONAL HISTORY OF NICOTINE DEPENDENCE 04/28/2019 YASEMIN KENNEDY DO Ot A41.9 SEPSIS, UNSPECIFIED ORGANISM 04/28/2019 YASEMIN KENNEDY DO Ot D64.9 ANEMIA, UNSPECIFIED 04/28/2019 YASEMIN KENNEDY DO Ot E78.5 HYPERLIPIDEMIA, UNSPECIFIED 04/28/2019 YASEMIN KENNEDY DO Ot E87.1 HYPO-OSMOLALITY AND HYPONATREMIA 04/28/2019 YASEMIN KENNEDY DO Ot I07.1 RHEUMATIC TRICUSPID INSUFFICIENCY 04/28/2019 YASEMIN KENNEDY DO Ot I12.9 HYPERTENSIVE CHRONIC KIDNEY DISEASE W ST 04/28/2019 YASEMIN KENNEDY DO Ot I21.A1 MYOCARDIAL INFARCTION TYPE 2 04/28/2019 YASEMIN KENNEDY DO Ot I25.10 ATHSCL HEART DISEASE OF [place] CORONARY 04/28/2019 YASEMIN KENNEDY DO Ot I71.4 ABDOMINAL AORTIC ANEURYSM, 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 04/28/2019 YASEMIN KENNEDY DO Ot I73.1 THROMBOANGIITIS OBLITERANS [BUERGER'S DI 04/28/2019 YASEMIN KENNEDY DO Ot I73.9 PERIPHERAL VASCULAR DISEASE, UNSPECIFIED 04/28/2019 YASEMIN KENNEDY DO Ot I82.81 3 EMBOLISM AND THOMBOS OF SUPERFIC VEINS O 04/28/2019 YASEMIN KENNEDY DO Ot I96 GANGRENE, NOT ELSEWHERE CLASSIFIED 04/28/2019 YASEMIN KENNEDY DO Ot K58.0 IRRITABLE BOWEL SYNDROME WITH DIARRHEA 04/28/2019 MARCIA POLK YASEMIN Ot K58.1 IRRITABLE BOWEL SYNDROME WITH CONSTIPATI 04/28/2019 JASON KENNEDY DOI Ot K92.1 MELENA 04/28/2019 MARCIA POLK YASEMIN [...] SHOCK 04/28/2019 JASON KENNEDY DOI Ot Z79.01 SHELTER (CURRENT) USE OF ANTICOAGULANT 04/28/2019 MARCIA POLK YASEMIN Ot Z79.82 ROPE MAKER (CURRENT) USE OF ASPIRIN 04/28/2019 MARCIA POLK [...] Ot I21.A1 MYOCARDIAL INFARCTION TYPE 2 04/28/2019 YASEMIN KENNEDY DO Ot I25.10 ATHSCL HEART DISEASE OF [place] CORONARY 04/28/2019 MARCIA POLK YASEMIN Ot I71.4 ABDOMINAL AORTIC ANEURYSM, 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 04/28/2019 MARCIA POLK YASEMIN Ot I73.1 THROMBOANGIITIS OBLITERANS [BUERGER'S DI 04/28/2019 MARCIA POLK YASEMIN Ot I73.9 PERIPHERAL VASCULAR DISEASE, UNSPECIFIED 04/28/2019 MARCIA POLK YASEMIN Ot I82.81 3 EMBOLISM AND THOMBOS OF SUPERFIC VEINS O 04/28/2019 MARCIA POLK YASEMIN Ot I96 GANGRENE, NOT ELSEWHERE CLASSIFIED 04/28/2019 JASON KENNEDY DOI Ot K29.70 GASTRITIS, UNSPECIFIED, WITHOUT BLEEDING 04/28/2019 JASON KENNEDY DOI Ot K57.30 DVRTCLOS OF LG INT W/O PERFORATION OR AB 04/28/2019 MARCIA POLK YASEMIN Ot K58.0 IRRITABLE BOWEL SYNDROME WITH DIARRHEA 04/28/2019 MARCIA POLK YASEMIN Ot K58.1 IRRITABLE BOWEL SYNDROME WITH CONSTIPATI 04/28/2019 JASON KENNEDY DOI Ot K92.1 MELENA 04/28/2019 MARCIA POKL YASEMIN Ot L97.51 9 NON-PRS CHRONIC ULCER OTH PRT RIGHT FOOT 04/28/2019 JASON KENNEDY DOI Ot L97.52 9 NON-PRESSURE CHRONIC ULCER OTH PRT LEFT 04/28/2019 MARCIA POLK YASEMIN Ot M19.91 PRIMARY OSTEOARTHRITIS, UNSPECIFIED SITE 04/28/2019 YASEMIN KENNEDY DO Ot M54.9 DORSALGIA, UNSPECIFIED 04/28/2019 MARCIA POLK YASEMIN Ot N17.9 ACUTE KIDNEY FAILURE, UNSPECIFIED 04/28/2019 MARCIA POLK YASEMIN Ot N18.4 CHRONIC KIDNEY DISEASE, STAGE 4 (SEVERE) 04/28/2019 JASON KENNEDY DOI Ot N30.00 ACUTE CYSTITIS WITHOUT HEMATURIA 04/28/2019 JASON KENNEDY DOI Ot R65.21 SEVERE SEPSIS WITH SEPTIC SHOCK 04/28/2019 YASEMIN KENNEDY DO Ot Z79.01 ROPE MAKER (CURRENT) USE OF ANTICOAGULANT 04/28/2019 YASEMIN KENNEDY DO Ot Z79.82 ROPE MAKER (CURRENT) USE OF ASPIRIN 04/28/2019 YASEMIN KENNEDY DO Ot Z87.89 1 PERSONAL HISTORY OF NICOTINE DEPENDENCE 05/01/2019 ASIF SALEEM MD Ot E11.22 TYPE 2 DIABETES MELLITUS W DIABETIC STAFF HOME THERAPY RN 05/01/2019 ASIF SALEEM MD, Ot E11.52 TYPE [...] 05/01/2019 ASIF SALEEM MD, Ot 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 05/01/2019 ASIF SALEEM MD Ot I71 .4 ABDOMINAL AORTIC ANEURYSM, WITHOUT [...] YASEMIN Ot D62 ACUTE POSTHEMORRHAGIC ANEMIA 05/06/2019 JASON KENNEDY DOI Ot E78.5 HYPERLIPIDEMIA, UNSPECIFIED 05/06/2019 JASON KENNEDY DOI Ot E87.6 HYPOKALEMIA 05/06/2019 MARCIA POLK YASEMIN Ot F01.50 VASCULAR DEMENTIA WITHOUT BEHAVIORAL DIS 05/06/2019 MARCIA POLK YASEMIN Ot F43.21 ADJUSTMENT DISORDER WITH DEPRESSED MOOD 05/06/2019 JASON KENNEDY DOI Ot I08.1 RHEUMATIC DISORDERS OF BOTH MITRAL AND T 05/06/2019 MARCIA POLK YASEMIN Ot I13.0 HYP HRT CHR KDNY DIS W HRT FAIL AND ST 05/06/2019 MARCIA POLK YASEMIN Ot I25.10 ATHSCL HEART DISEASE OF [place] CORONARY 05/06/2019 MARCIA POLK YASEMIN Ot I50.33 ACUTE ON CHRONIC DIASTOLIC (CONGESTIVE) 05/06/2019 MARCIA POLK YASEMIN Ot I71.4 ABDOMINAL AORTIC ANEURYSM, 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 05/06/2019 JASON KENNEDY DOI Ot I73.1 THROMBOANGIITIS OBLITERANS [BUERGER'S DI 05/06/2019 MARCIA POLK YASEMIN Ot I74.09 OTHER ARTERIAL EMBOLISM AND THROMBOSIS O 05/06/2019 MARCIA POLK YASEMIN Ot I95.9 HYPOTENSION, UNSPECIFIED 05/06/2019 MARCIA POLK YASEMIN Ot J44.9 CHRONIC OBSTRUCTIVE PULMONARY DISEASE, U 05/06/2019 MARCIA POLK YASEMIN Ot K25.9 GASTRIC ULCER, UNSP ACUTE OR CHRONIC, 05/06/2019 JASON KENNEDY DOI Ot K26.4 CHRONIC OR [...] Ot M19.91 PRIMARY OSTEOARTHRITIS, UNSPECIFIED SITE 05/06/2019 JASON KENNEDY DOI Ot M54.9 DORSALGIA, UNSPECIFIED 05/06/2019 MARCIA POLK YASEMIN Ot N17.9 ACUTE KIDNEY FAILURE, UNSPECIFIED 05/06/2019 JASON KENNEDY DOI Ot N18.4 CHRONIC KIDNEY DISEASE, STAGE 4 (SEVERE) 05/06/2019 MARCIA POLK YASEMIN Ot Z79.01 SHELTER (CURRENT) USE OF ANTICOAGULANT 05/06/2019 JASON KENNEDY DOI Ot Z79.02 ROPE MAKER (CURRENT) USE OF ANTITHROMBOTI 05/06/2019 JASON KENNEDY DOI Ot Z79.82 ROPE MAKER (CURRENT) USE OF ASPIRIN 05/06/2019 JASON EKNNEDY DOI Ot Z87.89 1 PERSONAL HISTORY OF NICOTINE DEPENDENCE 05/06/2019 HARPER BARROSO, ASIF Joyner Ot E11.22 TYPE 2 DIABETES MELLITUS W DIABETIC STAFF HOME THERAPY RN 05/06/2019 HARPER BARROSO, ASIF Joyner Ot E11.621 TYPE 2 DIABETES MELLITUS WITH FOOT ULCER 05/06/2019 ASIF SALEEM MD Ot 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, CIGARETTES, W OTH D 05/06/2019 ASIF SALEEM MD Ot I12 .0 HYP CHR KIDNEY DISEASE W STAGE 5 CHR KID 05/06/2019 ASIF SALEEM MD Ot I70.235 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 05/06/2019 ASIF SALEEM MD Ot I70.245 ATHSCL [place] ARTERIES OF LEFT LEG W ULC 05/06/2019 ASIF SALEEM MD Ot L97.512 NON-PRS CHRONIC ULCER OTH PRT RIGHT FOOT 05/06/2019 ASIF SALEEM MD, Ot L97.522 NON-PRS CHRONIC [...] YASEMIN Ot I25.10 ATHSCL HEART DISEASE OF [place] CORONARY 05/07/2019 MARCIA POLK YASEMIN Ot I50.33 [...] OR UNSPECIFIED DUODENAL ULCER [place] 05/07/2019 YASEMIN EKNNEDY DO Ot K29.70 GASTRITIS, UNSPECIFIED, WITHOUT BLEEDING 05/07/2019 YASEMIN KENNEDY DO Ot 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 05/07/2019 YASEMIN KENNEDY DO Ot K58.0 IRRITABLE BOWEL SYNDROME WITH DIARRHEA 05/07/2019 JASON KENNEDY DOI Ot K58.1 IRRITABLE BOWEL SYNDROME WITH CONSTIPATI 05/07/2019 YASEMIN KENNEDY DO Ot M19.91 PRIMARY OSTEOARTHRITIS, UNSPECIFIED SITE 05/07/2019 YASEMIN KENNEDY DO Ot M54.9 DORSALGIA, UNSPECIFIED 05/07/2019 YASEMIN KENNEDY DO Ot N17.9 ACUTE KIDNEY FAILURE, UNSPECIFIED 05/07/2019 YASEMIN KENNEDY DO Ot N18.4 CHRONIC KIDNEY DISEASE, STAGE 4 (SEVERE) 05/07/2019 YASEMIN KENNEDY DO Ot Z79.01 ROPE MAKER (CURRENT) USE OF ANTICOAGULANT 05/07/2019 YASEMIN KENNEDY DO Ot Z79.02 ROPE MAKER (CURRENT) USE OF ANTITHROMBOTI 05/07/2019 YASEMIN KENNEDY DO Ot Z79.82 SHELTER (CURRENT) USE OF ASPIRIN 05/07/2019 YASEMIN KENNEDY [...] DO Ot I25.10 ATHSCL HEART DISEASE OF [place] CORONARY 05/07/2019 YASEMIN KENNEDY DO Ot I47.1 SUPRAVENTRICULAR TACHYCARDIA 05/07/2019 JASON KENNEDY DOI Ot I50.33 ACUTE ON CHRONIC DIASTOLIC (CONGESTIVE) 05/07/2019 MARCIA POLK YASEMIN Ot I71.4 ABDOMINAL AORTIC ANEURYSM, 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 05/07/2019 MARCIA POLK AYSEMIN Ot I73.1 THROMBOANGIITIS OBLITERANS [BUERGER'S DI 05/07/2019 MARCIA POLK YASEMIN Ot I74.09 OTHER ARTERIAL EMBOLISM AND THROMBOSIS O 05/07/2019 MARCIA POLK YASEMIN Ot I95.9 HYPOTENSION, UNSPECIFIED 05/07/2019 MARCIA POLK YASEMIN Ot J44.9 CHRONIC OBSTRUCTIVE PULMONARY DISEASE, U 05/07/2019 JASON KENNEDY DOI Ot K25.9 GASTRIC ULCER, UNSP ACUTE OR CHRONIC, 05/07/2019 MARCIA POLK YASEMIN Ot K26.4 CHRONIC OR UNSPECIFIED DUODENAL ULCER [place] 05/07/2019 MARCIA POLK YASEMIN Ot K29.70 GASTRITIS, UNSPECIFIED, WITHOUT BLEEDING 05/07/2019 MARCIA POLK YASEMIN Ot 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 05/07/2019 MARCIA POLK YASEMIN Ot K58.0 IRRITABLE BOWEL SYNDROME WITH DIARRHEA 05/07/2019 MARCIA POLK YASEMIN Ot K58.1 IRRITABLE BOWEL SYNDROME WITH CONSTIPATI 05/07/2019 MARCIA POLK YASEMIN Ot L97.51 9 NON-PRS CHRONIC ULCER OTH PRT RIGHT FOOT 05/07/2019 JASON KENNEDY DOI Ot L97.52 9 NON-PRESSURE CHRONIC ULCER OTH PRT LEFT 05/07/2019 MARCIA POLK YASEMIN Ot M19.91 PRIMARY OSTEOARTHRITIS, UNSPECIFIED SITE 05/07/2019 MARCIA POLK YASEMIN Ot M54.9 DORSALGIA, UNSPECIFIED 05/07/2019 JASON KENNEDY DOI Ot N17.9 ACUTE KIDNEY FAILURE, UNSPECIFIED 05/07/2019 MARCIA POLK YASEMIN Ot N18.4 CHRONIC KIDNEY DISEASE, STAGE 4 (SEVERE) 05/07/2019 JASON KENNEDY DOI Ot Z79.01 SHELTER (CURRENT) USE OF ANTICOAGULANT 05/07/2019 YASEMIN KENNEDY DO Ot Z79.02 ROPE MAKER (CURRENT) USE OF ANTITHROMBOTI 05/07/2019 MARCIA POLK YASEMIN Ot Z87.89 1 PERSONAL HISTORY OF NICOTINE DEPENDENCE 05/18/2019 ASIF SALEEM MD, Ot E11.22 TYPE 2 DIABETES MELLITUS W DIABETIC STAFF HOME THERAPY RN 05/18/2019 ASIF SALEEM MD, Ot E11.52 TYPE 2 DIABETES W DIABETIC PERIPHERAL AN 05/18/2019 ASIF SALEEM MD, Ot E11.621 TYPE 2 DIABETES MELLITUS WITH FOOT ULCER 05/18/2019 ASIF SALEEM MD, Ot 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, CIGARETTES, W OTH D 05/18/2019 ASIF SALEEM MD Ot I12 .0 HYP CHR KIDNEY DISEASE W STAGE 5 CHR KID 05/18/2019 ASIF SALEEM MD, Ot I48.91 UNSPECIFIED ATRIAL FIBRILLATION 05/18/2019 ASIF SALEEM MD, Ot 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 05/18/2019 ASIF SALEEM MD, Ot I71 .4 ABDOMINAL AORTIC ANEURYSM, 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 05/18/2019 ASIF SALEEM MD Ot L97.512 NON-PRS CHRONIC ULCER OTH PRT RIGHT FOOT 05/18/2019 ASIF SALEEM MD, Ot L97.522 NON-PRS CHRONIC ULCER OTH PRT LEFT FOOT 05/18/2019 ASIF SALEEM MD Ot N18 .5 CHRONIC KIDNEY DISEASE, STAGE 5 05/18/2019 ASIF SALEEM MD, Ot T65.222A TOXIC EFFECT OF TOBACCO CIGARETTES, SELF 05/19/2019 ASIF SALEEM MD Ot E11.22 TYPE 2 DIABETES MELLITUS W DIABETIC STAFF HOME THERAPY RN 05/19/2019 ASIF SALEEM MD, Ot E11.52 TYPE 2 DIABETES W DIABETIC PERIPHERAL AN 05/19/2019 ASIF SALEEM MD, Ot E11.621 TYPE 2 DIABETES MELLITUS WITH FOOT ULCER 05/19/2019 ASIF SALEEM MD, Ot 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, CIGARETTES, W OTH D 05/19/2019 ASIF SALEEM MD Ot I12 .0 HYP CHR KIDNEY DISEASE W STAGE 5 CHR KID 05/19/2019 ASIF SALEEM MD, Ot I48.91 UNSPECIFIED ATRIAL FIBRILLATION 05/19/2019 ASIF SALEEM MD Ot 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 05/19/2019 ASIF SALEEM MD Ot I71 .4 ABDOMINAL AORTIC ANEURYSM, 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 05/19/2019 ASIF SALEEM MD Ot L97.512 NON-PRS CHRONIC ULCER OTH PRT RIGHT FOOT 05/19/2019 ASIF SALEEM MD Ot L97.522 NON-PRS CHRONIC ULCER OTH PRT LEFT FOOT 05/19/2019 ASIF SALEEM MD Ot N18 .5 CHRONIC KIDNEY DISEASE, STAGE 5 05/19/2019 ASIF SALEEM MD, Ot T65.222A TOXIC EFFECT OF TOBACCO CIGARETTES, SELF 05/29/2019 SONDRA MALONEY MD Ot R10.13 EPIGASTRIC PAIN 05/29/2019 SONDRA MALONEY MD Ot R11.10 VOMITING, UNSPECIFIED 05/29/2019 SONDRA MALONEY MD Ot R14.0 ABDOMINAL DISTENSION (GASEOUS) 05/29/2019 ЕЛЕНА POLK DYLAN B Ot F17.2 10 NICOTINE DEPENDENCE, CIGARETTES, UNCOMPL 05/29/2019 ЕЛЕНА POLK, DYLAN B Ot F32.9 MAJOR DEPRESSIVE DISORDER, SINGLE EPISOD 05/29/2019 ЕЛЕНА POLK DYLAN B Ot I10 ESSENTIAL (PRIMARY) HYPERTENSION 05/29/2019 ЕЛЕНА POLK, DYLAN B Ot N28.9 DISORDER OF KIDNEY AND URETER, UNSPECIFI 05/29/2019 ЕЛЕНА POLK DYLAN B Ot R10.1 3 EPIGASTRIC PAIN 05/29/2019 ЕЛЕНА POLK DYLAN B Ot R11.2 NAUSEA WITH VOMITING, UNSPECIFIED 05/29/2019 ЕЛЕНА POLK DYLAN B Ot R19.7 DIARRHEA, UNSPECIFIED 05/29/2019 ЕЛЕНА POLK DYLAN B Ot Z53.9 PROCEDURE AND TREATMENT NOT CARRIED OUT, 05/29/2019 ЕЛЕНА POLK DYLAN B Ot Z79.8 99 OTHER ROPE MAKER (CURRENT) DRUG THERAPY 05/29/2019 ЕЛЕНА POLK DYLAN B Ot Z88.0 ALLERGY STATUS TO PENICILLIN 05/29/2019 ЕЛЕНА POLK DYLAN B Ot Z88.1 ALLERGY STATUS TO OTHER ANTIBIOTIC AGENT 05/29/2019 ЕЛЕНА POLK DYLAN B Ot Z88.2 ALLERGY STATUS TO SULFONAMIDES STATUS 05/29/2019 ASIF SALEEM MD Ot E11.22 TYPE 2 DIABETES MELLITUS W DIABETIC STAFF HOME THERAPY RN 05/29/2019 ASIF SALEEM MD Ot E11.52 TYPE 2 DIABETES W DIABETIC PERIPHERAL AN 05/29/2019 ASIF SALEEM MD Ot E11.621 TYPE 2 DIABETES MELLITUS WITH FOOT ULCER 05/29/2019 ASIF SALEEM MD Ot F17.219 NICOTINE DEPENDENCE, CIGARETTES, W UNSP 05/29/2019 ASIF SALEEM MD Ot I10 ESSENTIAL (PRIMARY) HYPERTENSION 05/29/2019 ASIF SALEEM MD Ot I70 .0 ATHEROSCLEROSIS OF [place] 05/29/2019 ASIF SALEEM MD Ot I70.235 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 05/29/2019 ASIF SALEEM MD Ot I70.245 ATHSCL [place] ARTERIES OF LEFT LEG W ULC 05/29/2019 ASIF SALEEM MD Ot L97.512 NON-PRS CHRONIC ULCER OTH PRT RIGHT FOOT 05/29/2019 ASIF SALEEM MD Ot L97.522 NON-PRS CHRONIC ULCER OTH PRT LEFT FOOT 05/29/2019 ASIF SALEEM MD Ot N18 .5 CHRONIC KIDNEY DISEASE, STAGE 5 05/29/2019 ASIF SALEEM MD, Ot T65.222A TOXIC EFFECT OF TOBACCO CIGARETTES, SELF 05/29/2019 ASIF SALEEM MD Ot E11.22 TYPE 2 DIABETES MELLITUS W DIABETIC STAFF HOME THERAPY RN 05/29/2019 ASIF SALEEM MD Ot E11.621 TYPE 2 DIABETES MELLITUS WITH FOOT ULCER 05/29/2019 ASIF SALEEM MD Ot 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 3 COMB RHEUMATIC DISORD OF MITRAL, AORTIC 05/29/2019 RAUL BONNER MD, Ot I12. 9 HYPERTENSIVE CHRONIC KIDNEY DISEASE W ST 05/29/2019 RAUL BONNER MD Ot I73. 9 PERIPHERAL VASCULAR DISEASE, UNSPECIFIED 05/29/2019 RAUL BONNER MD, Ot I74. 3 EMBOLISM AND THROMBOSIS OF ARTERIES OF T 05/29/2019 RAUL BONNER MD, Ot L97.512 NON-PRS CHRONIC ULCER OTH PRT RIGHT FOOT 05/29/2019 RAUL BONNER MD, Ot L97.522 NON-PRS CHRONIC ULCER OTH PRT LEFT FOOT 05/29/2019 RAUL BONNER MD, Ot N18. 5 CHRONIC KIDNEY DISEASE, STAGE 5 05/29/2019 RAUL BONNER MD, Ot T65.222A TOXIC EFFECT OF TOBACCO CIGARETTES, SELF 05/29/2019 RAUL BONNER MD Ot Z72. 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 05/29/2019 ASIF SALEEM MD, Ot I70.245 ATHSCL [place] ARTERIES OF LEFT LEG W ULC 05/29/2019 ASIF SALEEM MD, Ot L97.512 NON-PRS CHRONIC ULCER OTH PRT RIGHT FOOT 05/29/2019 ASIF SALEEM MD, Ot L97.522 NON-PRS CHRONIC ULCER OTH PRT LEFT FOOT 05/29/2019 HARPER MD, ASIF G Ot N18 .5 CHRONIC KIDNEY DISEASE, STAGE 5 05/29/2019 ASIF SALEEM MD Ot T65.222A TOXIC EFFECT OF TOBACCO CIGARETTES, SELF 05/29/2019 ASIF SALEEM MD Ot E11.22 TYPE 2 DIABETES MELLITUS W DIABETIC STAFF HOME THERAPY RN 05/29/2019 ASIF SALEEM MD Ot E11.52 TYPE 2 DIABETES W DIABETIC PERIPHERAL AN 05/29/2019 ASIF SALEEM MD Ot E11.621 TYPE 2 DIABETES MELLITUS WITH FOOT ULCER 05/29/2019 ASIF SALEEM MD Ot 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, CIGARETTES, W OTH D 05/29/2019 ASIF SALEEM MD Ot I12 .0 HYP CHR KIDNEY DISEASE W STAGE 5 CHR KID 05/29/2019 ASIF SALEEM MD, Ot 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 05/29/2019 ASIF SALEEM MD Ot I71 .4 ABDOMINAL AORTIC ANEURYSM, 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 05/29/2019 ASIF SALEEM MD Ot L97.512 NON-PRS CHRONIC ULCER OTH PRT RIGHT FOOT 05/29/2019 ASIF SALEEM MD Ot L97.522 NON-PRS CHRONIC ULCER OTH PRT LEFT FOOT 05/29/2019 ASIF SALEEM MD Ot N18 .5 CHRONIC KIDNEY DISEASE, STAGE 5 05/29/2019 ASIF SALEEM MD, Ot T65.222A TOXIC EFFECT OF TOBACCO CIGARETTES, SELF 05/29/2019 ASIF SALEEM MD Ot E11.22 TYPE 2 DIABETES MELLITUS W DIABETIC STAFF HOME THERAPY RN 05/29/2019 ASIF SALEEM MD Ot E11.621 TYPE 2 DIABETES MELLITUS WITH FOOT ULCER 05/29/2019 ASIF SALEEM MD Ot 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, CIGARETTES, W OTH D 05/29/2019 ASIF SALEEM MD Ot I12 .0 HYP CHR KIDNEY DISEASE W STAGE 5 CHR KID 05/29/2019 ASIF SALEEM MD Ot I70.235 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 05/29/2019 ASIF SALEEM MD Ot I70.245 ATHSCL [place] ARTERIES OF LEFT LEG W ULC 05/29/2019 ASIF SALEEM MD Ot L97.512 NON-PRS CHRONIC ULCER OTH PRT RIGHT FOOT 05/29/2019 ASIF SALEEM MD Ot L97.522 NON-PRS CHRONIC ULCER OTH PRT LEFT FOOT 05/29/2019 HARPER BARROSO, ASIF Joyner Ot N18 .5 CHRONIC KIDNEY DISEASE, STAGE 5 05/29/2019 ASIF SALEEM MD Ot E11.22 TYPE 2 DIABETES MELLITUS W DIABETIC STAFF HOME THERAPY RN 05/29/2019 HARPER BARROSO, ASIF Joyner Ot E11.52 TYPE 2 DIABETES W DIABETIC PERIPHERAL AN 05/29/2019 HARPER ABRROSO, ASIF Joyner Ot E11.621 TYPE 2 DIABETES MELLITUS WITH FOOT ULCER 05/29/2019 ASIF SALEEM MD Ot 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, CIGARETTES, W OTH D 05/29/2019 ASIF SALEEM MD Ot I12 .0 HYP CHR KIDNEY DISEASE W STAGE 5 CHR KID 05/29/2019 ASIF SALEEM MD Ot I48.91 UNSPECIFIED ATRIAL FIBRILLATION 05/29/2019 ASIF SALEEM MD Ot 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 05/29/2019 ASIF SALEEM MD Ot I71 .4 ABDOMINAL AORTIC ANEURYSM, 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 05/29/2019 ASIF SALEEM MD Ot L97.512 NON-PRS CHRONIC ULCER OTH PRT RIGHT FOOT 05/29/2019 ASIF SALEEM MD Ot L97.522 NON-PRS CHRONIC ULCER OTH PRT LEFT FOOT 05/29/2019 ASIF SALEEM MD Ot N18 .5 CHRONIC KIDNEY DISEASE, STAGE 5 05/29/2019 ASIF SALEEM MD Ot T65.222A TOXIC EFFECT OF TOBACCO CIGARETTES, SELF 05/29/2019 ASIF SALEEM MD Ot E11.22 TYPE 2 DIABETES MELLITUS W DIABETIC STAFF HOME THERAPY RN 05/29/2019 HARPER BARROSO, ASIF Joyner Ot E11.52 TYPE 2 DIABETES W DIABETIC PERIPHERAL AN 05/29/2019 ASIF SALEEM MD Ot E11.621 TYPE 2 DIABETES MELLITUS WITH FOOT ULCER 05/29/2019 ASIF SALEEM MD Ot 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, CIGARETTES, W OTH D 05/29/2019 ASIF SALEEM MD Ot I12 .0 HYP CHR KIDNEY DISEASE W STAGE 5 CHR KID 05/29/2019 ASIF SALEEM MD Ot I48.91 UNSPECIFIED ATRIAL FIBRILLATION 05/29/2019 ASIF SALEEM MD Ot 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 05/29/2019 ASIF SALEEM MD Ot I71 .4 ABDOMINAL AORTIC ANEURYSM, 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 05/29/2019 ASIF SALEEM MD Ot L97.512 NON-PRS CHRONIC ULCER OTH PRT RIGHT FOOT 05/29/2019 ASIF SALEEM MD Ot L97.522 NON-PRS CHRONIC ULCER OTH PRT LEFT FOOT 05/29/2019 ASIF SALEEM MD Ot N18 .5 CHRONIC KIDNEY DISEASE, STAGE 5 05/29/2019 ASIF SALEEM MD Ot T65.222A TOXIC EFFECT OF TOBACCO CIGARETTES, SELF 05/29/2019 OSEI VALENZUELA APRN Ot G47.9 SLEEP DISORDER, UNSPECIFIED 06/05/2019 RADHA RANDOLPH MD Ot E11.22 TYPE 2 DIABETES MELLITUS W DIABETIC STAFF HOME THERAPY RN 06/05/2019 RADHA RANDOLPH MD, Ot E11.52 TYPE 2 DIABETES W DIABETIC PERIPHERAL AN 06/05/2019 RADHA RANDOLPH MD Ot E11.622 TYPE 2 DIABETES MELLITUS WITH OTHER SKIN 06/05/2019 RADHA RANDOLPH MD Ot 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, CIGARETTES, W OTH D 06/05/2019 RADHA RANDOLPH MD Ot I12.0 HYP CHR KIDNEY DISEASE W STAGE 5 CHR KID 06/05/2019 RADHA RANDOLPH MD Ot I48.91 UNSPECIFIED ATRIAL FIBRILLATION 06/05/2019 RADHA RANDOLPH MD Ot 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 06/05/2019 RADHA RANDOLPH MD Ot I71.4 ABDOMINAL AORTIC ANEURYSM, 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 06/05/2019 RADHA RANDOLPH MD Ot L97.518 NON- PRS CHRONIC ULCER OTH PRT RIGHT FOOT 06/05/2019 RADHA RANDOLPH MD, Ot L97.528 NON- PRS CHRONIC ULCER OTH PRT LEFT FOOT 06/05/2019 RADHA RANDOLPH MD Ot N18.5 CHRONIC KIDNEY DISEASE, STAGE 5 06/05/2019 RADHA RANDOLPH MD Ot T65.222A TOXIC EFFECT OF TOBACCO CIGARETTES, SELF 06/18/2019 SONDRA MALONEY MD Ot R10.13 EPIGASTRIC PAIN 06/18/2019 SONDRA MALONEY MD Ot R11.10 VOMITING, UNSPECIFIED 06/18/2019 SONDRA MALONEY MD Ot R14.0 ABDOMINAL DISTENSION (GASEOUS) 06/18/2019 DYLAN CHRISTIANSEN DO Ot F17.2 10 NICOTINE DEPENDENCE, CIGARETTES, UNCOMPL 06/18/2019 ЕЛЕНА POLK, DYLAN B Ot F32.9 MAJOR DEPRESSIVE DISORDER, SINGLE EPISOD 06/18/2019 ЕЛЕНА POLK, DYLAN B Ot I10 ESSENTIAL (PRIMARY) HYPERTENSION 06/18/2019 ЕЛЕНА POLK, DYLAN B Ot N28.9 DISORDER OF KIDNEY AND URETER, UNSPECIFI 06/18/2019 ЕЛЕНА POLK, DYLAN B Ot R10.1 3 EPIGASTRIC PAIN 06/18/2019 ЕЛЕНА POLK, DYLAN B Ot R11.2 NAUSEA WITH VOMITING, UNSPECIFIED 06/18/2019 ЕЛЕНА POLK, DYLAN B Ot R19.7 DIARRHEA, UNSPECIFIED 06/18/2019 ЕЛЕНА POLK, DYLAN B Ot Z53.9 PROCEDURE AND TREATMENT NOT CARRIED OUT, 06/18/2019 ЕЛЕНА POLK DYLAN B Ot Z79.8 99 OTHER ROPE MAKER (CURRENT) DRUG THERAPY 06/18/2019 ЕЛЕНА POLK DYLAN B Ot Z88.0 ALLERGY STATUS TO PENICILLIN 06/18/2019 ЕЛЕНА POLK DYLAN B Ot Z88.1 ALLERGY STATUS TO OTHER ANTIBIOTIC AGENT 06/18/2019 ЕЛЕНА POLK DYLAN B Ot Z88.2 ALLERGY STATUS TO SULFONAMIDES STATUS 06/18/2019 ASIF SALEEM MD Ot E11.22 TYPE 2 DIABETES MELLITUS W DIABETIC STAFF HOME THERAPY RN 06/18/2019 ASIF SALEEM MD Ot E11.52 TYPE 2 DIABETES W DIABETIC PERIPHERAL AN 06/18/2019 ASIF SALEEM MD Ot E11.621 TYPE 2 DIABETES MELLITUS WITH FOOT ULCER 06/18/2019 ASIF SALEEM MD Ot F17.219 NICOTINE DEPENDENCE, CIGARETTES, W UNSP 06/18/2019 ASIF SALEEM MD Ot I10 ESSENTIAL (PRIMARY) HYPERTENSION 06/18/2019 ASIF SALEEM MD Ot I70 .0 ATHEROSCLEROSIS OF [place] 06/18/2019 ASIF SALEEM MD Ot I70.235 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, CIGARETTES, W OTH D 06/18/2019 ASIF SALEEM MD Ot I12 .0 HYP CHR KIDNEY DISEASE W STAGE 5 CHR KID 06/18/2019 ASIF SALEEM MD, Ot I74 .3 EMBOLISM AND THROMBOSIS OF ARTERIES OF T 06/18/2019 ASIF SALEEM MD, Ot L97.512 NON-PRS CHRONIC ULCER OTH PRT RIGHT FOOT 06/18/2019 ASIF SALEEM MD, Ot L97.522 NON-PRS CHRONIC ULCER OTH PRT LEFT FOOT 06/18/2019 ASIF SALEEM MD, Ot N18 .5 CHRONIC KIDNEY DISEASE, STAGE 5 06/18/2019 ASIF SALEEM MD, Ot T65.222A TOXIC EFFECT OF TOBACCO CIGARETTES, SELF 06/18/2019 RAUL BONNER MD Ot E11. 22 TYPE 2 DIABETES MELLITUS W DIABETIC STAFF HOME THERAPY RN 06/18/2019 RAUL BONNER MD Ot E11.621 TYPE 2 DIABETES MELLITUS WITH FOOT ULCER 06/18/2019 RAUL BONNER MD Ot 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, CIGARETTES, W OTH D 06/18/2019 RAUL BONNER MD Ot I08. 3 COMB RHEUMATIC DISORD OF MITRAL, AORTIC 06/18/2019 RAUL BONNER MD Ot I12. 9 HYPERTENSIVE CHRONIC KIDNEY DISEASE W ST 06/18/2019 RAUL BONNER MD Ot I73. 9 PERIPHERAL VASCULAR DISEASE, UNSPECIFIED 06/18/2019 RAUL BONNER MD Ot I74. 3 EMBOLISM AND THROMBOSIS OF ARTERIES OF T 06/18/2019 RAUL BONNER MD Ot L97.512 NON-PRS CHRONIC ULCER OTH PRT RIGHT FOOT 06/18/2019 RAUL BONNER MD Ot L97.522 NON-PRS CHRONIC ULCER OTH PRT LEFT FOOT 06/18/2019 RAUL BONNER MD Ot N18. 5 CHRONIC KIDNEY DISEASE, STAGE 5 06/18/2019 HA BARROSO, RAUL Obrien Ot T65.222A TOXIC EFFECT OF TOBACCO CIGARETTES, SELF 06/18/2019 HA BARROSO, RAUL Obrien Ot Z72. 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 06/18/2019 ASIF SALEEM MD Ot I70.245 ATHSCL [place] ARTERIES OF LEFT LEG W ULC 06/18/2019 ASIF SALEEM MD Ot L97.512 NON-PRS CHRONIC ULCER OTH PRT RIGHT FOOT 06/18/2019 ASIF SALEEM MD Ot L97.522 NON-PRS CHRONIC ULCER OTH PRT LEFT FOOT 06/18/2019 ASIF SALEEM MD Ot N18 .5 CHRONIC KIDNEY DISEASE, STAGE 5 06/18/2019 ASIF SALEEM MD, Ot T65.222A TOXIC EFFECT OF TOBACCO CIGARETTES, SELF 06/18/2019 ASIF SALEEM MD Ot E11.22 TYPE 2 DIABETES MELLITUS W DIABETIC STAFF HOME THERAPY RN 06/18/2019 ASIF SALEEM MD Ot E11.52 TYPE 2 DIABETES W DIABETIC PERIPHERAL AN 06/18/2019 ASIF SALEEM MD Ot E11.621 TYPE 2 DIABETES MELLITUS WITH FOOT ULCER 06/18/2019 ASIF SALEEM MD Ot 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, CIGARETTES, W OTH D 06/18/2019 ASIF SALEEM MD Ot I12 .0 HYP CHR KIDNEY DISEASE W STAGE 5 CHR KID 06/18/2019 ASIF SALEEM MD Ot 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 06/18/2019 ASIF SALEEM MD Ot I71 .4 ABDOMINAL AORTIC ANEURYSM, 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 06/18/2019 HARPER BARROSO, ASIF Joyner Ot L97.512 NON-PRS CHRONIC ULCER OTH PRT RIGHT FOOT 06/18/2019 ASIF SALEEM MD Ot L97.522 NON-PRS CHRONIC ULCER OTH PRT LEFT FOOT 06/18/2019 ASIF SALEEM MD Ot N18 .5 CHRONIC KIDNEY DISEASE, STAGE 5 06/18/2019 ASIF SALEEM MD Ot T65.222A TOXIC EFFECT OF TOBACCO CIGARETTES, SELF 06/18/2019 ASIF SALEEM MD Ot E11.22 TYPE 2 DIABETES MELLITUS W DIABETIC STAFF HOME THERAPY RN 06/18/2019 ASIF SALEEM MD Ot E11.621 TYPE 2 DIABETES MELLITUS WITH FOOT ULCER 06/18/2019 ASIF SALEEM MD Ot 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, CIGARETTES, W OTH D 06/18/2019 ASIF SALEEM MD Ot I12 .0 HYP CHR KIDNEY DISEASE W STAGE 5 CHR KID 06/18/2019 ASIF SALEEM MD Ot I70.235 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 06/18/2019 ASIF SALEEM MD Ot I70.245 ATHSCL [place] ARTERIES OF LEFT LEG W ULC 06/18/2019 ASIF SALEEM MD Ot L97.512 NON-PRS CHRONIC ULCER OTH PRT RIGHT FOOT 06/18/2019 ASIF SALEEM MD Ot L97.522 NON-PRS CHRONIC ULCER OTH PRT LEFT FOOT 06/18/2019 ASIF SALEEM MD Ot N18 .5 CHRONIC KIDNEY DISEASE, STAGE 5 06/18/2019 ASIF SALEEM MD Ot E11.22 TYPE 2 DIABETES MELLITUS W DIABETIC STAFF HOME THERAPY RN 06/18/2019 ASIF SALEEM MD Ot E11.52 TYPE 2 DIABETES W DIABETIC PERIPHERAL AN 06/18/2019 ASIF SALEEM MD Ot E11.621 TYPE 2 DIABETES MELLITUS WITH FOOT ULCER 06/18/2019 ASIF SALEEM MD Ot 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, CIGARETTES, W OTH D 06/18/2019 ASIF SALEEM MD Ot I12 .0 HYP CHR KIDNEY DISEASE W STAGE 5 CHR KID 06/18/2019 ASIF SALEEM MD Ot I48.91 UNSPECIFIED ATRIAL FIBRILLATION 06/18/2019 ASIF SALEEM MD Ot 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 06/18/2019 ASIF SALEEM MD Ot I71 .4 ABDOMINAL AORTIC ANEURYSM, 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 06/18/2019 ASIF SALEEM MD Ot L97.512 NON-PRS CHRONIC ULCER OTH PRT RIGHT FOOT 06/18/2019 ASIF SALEEM MD Ot L97.522 NON-PRS CHRONIC ULCER OTH PRT LEFT FOOT 06/18/2019 ASIF SALEEM MD Ot N18 .5 CHRONIC KIDNEY DISEASE, STAGE 5 06/18/2019 ASIF SALEEM MD, Ot T65.222A TOXIC EFFECT OF TOBACCO CIGARETTES, SELF 06/18/2019 ASIF SALEEM MD Ot E11.22 TYPE 2 DIABETES MELLITUS W DIABETIC STAFF HOME THERAPY RN 06/18/2019 ASIF SALEEM MD, Ot E11.52 TYPE 2 DIABETES W DIABETIC PERIPHERAL AN 06/18/2019 ASIF SALEEM MD, Ot E11.621 TYPE 2 DIABETES MELLITUS WITH FOOT ULCER 06/18/2019 ASIF SALEEM MD, Ot 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, CIGARETTES, W OTH D 06/18/2019 ASIF SALEEM MD Ot I12 .0 HYP CHR KIDNEY DISEASE W STAGE 5 CHR KID 06/18/2019 ASIF SALEEM MD Ot I48.91 UNSPECIFIED ATRIAL FIBRILLATION 06/18/2019 ASIF SALEEM MD, Ot 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 06/18/2019 ASIF SALEEM MD Ot I71 .4 ABDOMINAL AORTIC ANEURYSM, 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 06/18/2019 ASIF SALEEM MD Ot L97.512 NON-PRS CHRONIC ULCER OTH PRT RIGHT FOOT 06/18/2019 ASIF SALEEM MD, Ot L97.522 NON-PRS CHRONIC ULCER OTH PRT LEFT FOOT 06/18/2019 ASIF SALEEM MD Ot N18 .5 CHRONIC KIDNEY DISEASE, STAGE 5 06/18/2019 ASIF SALEEM MD, Ot T65.222A TOXIC EFFECT OF TOBACCO CIGARETTES, SELF 06/18/2019 RADHA RANDOLPH MD Ot E11.22 TYPE 2 DIABETES MELLITUS W DIABETIC STAFF HOME THERAPY RN 06/18/2019 RADHA RANDOLPH MD Ot E11.52 TYPE 2 DIABETES W DIABETIC PERIPHERAL AN 06/18/2019 RADHA RANDOLPH MD Ot E11.622 TYPE 2 DIABETES MELLITUS WITH OTHER SKIN 06/18/2019 RADHA RANDOLPH MD Ot 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, CIGARETTES, W OTH D 06/18/2019 RADHA RANDOLPH MD Ot I12.0 HYP CHR KIDNEY DISEASE W STAGE 5 CHR KID 06/18/2019 RADHA RANDOLPH MD Ot I48.91 UNSPECIFIED ATRIAL FIBRILLATION 06/18/2019 RADHA RANDOLPH MD Ot 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 06/18/2019 RADHA RANDOLPH MD Ot I71.4 ABDOMINAL AORTIC ANEURYSM, 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 06/18/2019 RADHA RANDOLPH MD Ot L97.518 NON- PRS CHRONIC ULCER OTH PRT RIGHT FOOT 06/18/2019 RADHA RANDOLPH MD Ot L97.528 NON- PRS CHRONIC ULCER OTH PRT LEFT FOOT 06/18/2019 RADHA RANDOLPH MD Ot N18.5 CHRONIC KIDNEY DISEASE, STAGE 5 06/18/2019 RADHA RANDOLPH MD, Ot T65.222A TOXIC EFFECT OF TOBACCO CIGARETTES, SELF 06/22/2019 RADHA RANDOLPH MD Ot E11.22 TYPE 2 DIABETES MELLITUS W DIABETIC STAFF HOME THERAPY RN 06/22/2019 RADHA RANDOLPH MD Ot E11.52 TYPE 2 DIABETES W DIABETIC PERIPHERAL AN 06/22/2019 RADHA RANDOLPH MD Ot E11.621 TYPE 2 DIABETES MELLITUS WITH FOOT ULCER 06/22/2019 RADHA RANDOLPH MD Ot 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, CIGARETTES, W OTH D 06/22/2019 RADHA RANDOLPH MD Ot I12.0 HYP CHR KIDNEY DISEASE W STAGE 5 CHR KID 06/22/2019 RADHA RANDOLPH MD Ot I48.91 UNSPECIFIED ATRIAL FIBRILLATION 06/22/2019 RADHA RANDOLPH MD Ot 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 06/22/2019 RADHA RANDOLPH MD Ot L89.610 PRESSURE ULCER OF RIGHT HEEL, UNSTAGEABL 06/22/2019 RADHA RANDOLPH MD Ot L89.620 PRESSURE ULCER OF LEFT HEEL, UNSTAGEABLE 06/22/2019 RADHA RANDOLPH MD Ot N18.5 CHRONIC KIDNEY DISEASE, STAGE 5 06/22/2019 RADHA RANDOLPH MD Ot R60.0 LOCALIZED EDEMA 06/22/2019 RADHA RANDOLPH MD Ot S91.301A UNSPECIFIED OPEN WOUND, RIGHT FOOT, INIT 06/22/2019 RADHA RANDOLPH MD Ot S91.302A UNSPECIFIED OPEN WOUND, LEFT FOOT, INITI 06/22/2019 RADHA RANDOLPH MD Ot T65.222A TOXIC EFFECT OF TOBACCO CIGARETTES, SELF 06/24/2019 RADHA RANDOLPH MD Ot E11.22 TYPE 2 DIABETES MELLITUS W DIABETIC STAFF HOME THERAPY RN 06/24/2019 RADHA RANDOLPH MD, Ot E11.52 TYPE 2 DIABETES W DIABETIC PERIPHERAL AN 06/24/2019 RADHA RANDOLPH MD, Ot E11.621 TYPE 2 DIABETES MELLITUS WITH FOOT ULCER 06/24/2019 RADHA RANDOLPH MD, Ot 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, CIGARETTES, W OTH D 06/24/2019 RADHA RANDOLPH MD Ot I12.0 HYP CHR KIDNEY DISEASE W STAGE 5 CHR KID 06/24/2019 RADHA RANDOLPH MD, Ot I48.91 UNSPECIFIED ATRIAL FIBRILLATION 06/24/2019 RADHA RANDOLPH MD Ot 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 06/24/2019 RADHA RANDOLPH MD Ot L89.610 PRESSURE ULCER OF RIGHT HEEL, UNSTAGEABL 06/24/2019 RADHA RANDOLPH MD, Ot L89.620 PRESSURE ULCER OF LEFT HEEL, UNSTAGEABLE 06/24/2019 RADHA RANDOLPH MD Ot N18.5 CHRONIC KIDNEY DISEASE, STAGE 5 06/24/2019 RADHA RANDOLPH MD Ot R60.0 LOCALIZED EDEMA 06/24/2019 RADHA RANDOLPH MD Ot S91.301A UNSPECIFIED OPEN WOUND, RIGHT FOOT, INIT 06/24/2019 RADHA RANDOLPH MD, Ot S91.302A UNSPECIFIED OPEN WOUND, LEFT FOOT, INITI 06/24/2019 RADHA RANDOLPH MD Ot T65.222A TOXIC EFFECT OF TOBACCO CIGARETTES, SELF 06/25/2019 RADHA RANDOLPH MD, Ot E11.22 TYPE 2 DIABETES MELLITUS W DIABETIC STAFF HOME THERAPY RN 06/25/2019 RADHA RANDOLPH MD, Ot E11.621 TYPE 2 DIABETES MELLITUS WITH FOOT ULCER 06/25/2019 RADHA RANDOLPH MD, Ot 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, CIGARETTES, W OTH D 06/25/2019 RADHA RANDOLPH MD Ot I48.91 UNSPECIFIED ATRIAL FIBRILLATION 06/25/2019 RADHA RANDOLPH MD Ot I70.235 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 06/25/2019 RADHA RANDOLPH MD Ot I70.245 ATHSCL [place] ARTERIES OF LEFT LEG W ULC 06/25/2019 RADHA RANDOLPH MD Ot I71.4 ABDOMINAL AORTIC ANEURYSM, 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 06/25/2019 RADHA RANDOLPH MD Ot L89.610 PRESSURE ULCER OF RIGHT HEEL, UNSTAGEABL 06/25/2019 RADHA RANDOLPH MD, Ot L89.620 PRESSURE ULCER OF LEFT HEEL, UNSTAGEABLE 06/25/2019 RADHA RANDOLPH MD Ot L97.518 NON- PRS CHRONIC ULCER OTH PRT RIGHT FOOT 06/25/2019 RADHA RANDOLPH MD, Ot L97.528 NON- PRS CHRONIC ULCER OTH PRT LEFT FOOT 06/25/2019 RADHA RANDOLPH MD, Ot N18.5 CHRONIC KIDNEY DISEASE, STAGE 5 06/25/2019 RADHA RANDOLPH MD Ot R60.0 LOCALIZED EDEMA 06/25/2019 RADHA RANDOLPH MD, Ot S91.301A UNSPECIFIED OPEN WOUND, RIGHT FOOT, INIT 06/25/2019 RADHA RANDOLPH MD, Ot S91.302A UNSPECIFIED OPEN WOUND, LEFT FOOT, INITI 06/25/2019 RADHA RANDOLPH MD, Ot T65.222A TOXIC EFFECT OF TOBACCO CIGARETTES, SELF 07/02/2019 RADHA RANDOLPH MD Ot E11.22 TYPE 2 DIABETES MELLITUS W DIABETIC STAFF HOME THERAPY RN 07/02/2019 RADHA RANDOLPH MD Ot E11.621 TYPE 2 DIABETES MELLITUS WITH FOOT ULCER 07/02/2019 RADHA RANDOLPH MD Ot 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, CIGARETTES, W OTH D 07/02/2019 RADHA RANDOLPH MD Ot I12.0 HYP CHR KIDNEY DISEASE W STAGE 5 CHR KID 07/02/2019 RADHA RANDOLPH MD Ot I48.91 UNSPECIFIED ATRIAL FIBRILLATION 07/02/2019 RADHA RANDOLPH MD Ot I70.235 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 07/02/2019 RADHA RANDOLPH MD Ot I70.245 ATHSCL [place] ARTERIES OF LEFT LEG W ULC 07/02/2019 RADHA RANDOLPH MD Ot I71.4 ABDOMINAL AORTIC ANEURYSM, 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 07/02/2019 RADHA RANDOLPH MD, Ot L89.610 PRESSURE ULCER OF RIGHT HEEL, UNSTAGEABL 07/02/2019 RADHA RANDOLPH MD, Ot L89.620 PRESSURE ULCER OF LEFT HEEL, UNSTAGEABLE 07/02/2019 RADHA RANDOLPH MD, Ot N18.5 CHRONIC KIDNEY DISEASE, STAGE 5 07/02/2019 RADHA RANDOLPH MD Ot R60.0 LOCALIZED EDEMA 07/02/2019 RADHA RANDOLPH MD, Ot S91.301A UNSPECIFIED OPEN WOUND, RIGHT FOOT, INIT 07/02/2019 RADHA RANDOLPH MD, Ot S91.302A UNSPECIFIED OPEN WOUND, LEFT FOOT, INITI 07/02/2019 RADHA RANDOLPH MD, Ot T65.222A TOXIC EFFECT OF TOBACCO CIGARETTES, SELF 07/17/2019 RADHA RANDOLPH MD, Ot E11.22 TYPE 2 DIABETES MELLITUS W DIABETIC STAFF HOME THERAPY RN 07/17/2019 RADHA RANDOLPH MD, Ot E11.621 TYPE 2 DIABETES MELLITUS WITH FOOT ULCER 07/17/2019 RADHA RANDOLPH MD Ot 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, CIGARETTES, W OTH D 07/17/2019 RADHA RANDOLPH MD Ot I12.0 HYP CHR KIDNEY DISEASE W STAGE 5 CHR KID 07/17/2019 RADHA RANDOLPH MD, Ot I48.91 UNSPECIFIED ATRIAL FIBRILLATION 07/17/2019 RADHA RANDOLPH MD, Ot I70.235 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 07/17/2019 RADHA RANDOLPH MD Ot I70.245 ATHSCL [place] ARTERIES OF LEFT LEG W ULC 07/17/2019 RADHA RANDOLPH MD Ot I71.4 ABDOMINAL AORTIC ANEURYSM, 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 07/17/2019 RADHA RANDOLPH MD Ot L89.610 PRESSURE ULCER OF RIGHT HEEL, UNSTAGEABL 07/17/2019 RADHA RANDOLPH MD Ot L89.620 PRESSURE ULCER OF LEFT HEEL, UNSTAGEABLE 07/17/2019 RADHA RANDOLPH MD Ot L97.518 NON- PRS CHRONIC ULCER OTH PRT RIGHT FOOT 07/17/2019 RADHA RANDOLPH MD, Ot L97.528 NON- PRS CHRONIC ULCER OTH PRT LEFT FOOT 07/17/2019 RADHA RANDOLPH MD Ot N18.5 CHRONIC KIDNEY DISEASE, STAGE 5 07/17/2019 RADHA RANDOLPH MD Ot R60.0 LOCALIZED EDEMA 07/17/2019 RADHA RANDOLPH MD, Ot T65.222A TOXIC EFFECT OF TOBACCO CIGARETTES, SELF 08/02/2019 ASIF SALEEM MD Ot E11.22 TYPE 2 DIABETES MELLITUS W DIABETIC STAFF HOME THERAPY RN 08/02/2019 ASIF SALEEM MD Ot E11.52 TYPE 2 DIABETES W DIABETIC PERIPHERAL AN 08/02/2019 ASIF SALEEM MD, Ot E11.621 TYPE 2 DIABETES MELLITUS WITH FOOT ULCER 08/02/2019 ASIF SALEEM MD Ot I48.91 UNSPECIFIED ATRIAL FIBRILLATION 08/02/2019 ASIF SALEEM MD Ot I70.235 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 08/02/2019 ASIF SALEEM MD Ot I70.245 ATHSCL [place] ARTERIES OF LEFT LEG W ULC 08/02/2019 ASIF SALEEM MD Ot I71 .4 ABDOMINAL AORTIC ANEURYSM, 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 08/02/2019 HARPER BARROSO, ASIF Joyner Ot L97.512 NON-PRS CHRONIC ULCER OTH PRT RIGHT FOOT 08/02/2019 ASIF SALEEM MD Ot L97.522 NON-PRS CHRONIC ULCER OTH PRT LEFT FOOT 08/02/2019 HARPER BARROSO, ASIF Joyner Ot N18 .5 CHRONIC KIDNEY DISEASE, STAGE 5 08/13/2019 ASIF SALEEM MD Ot E11.22 TYPE 2 DIABETES MELLITUS W DIABETIC STAFF HOME THERAPY RN 08/13/2019 HARPER BARROSO, ASIF Joyner Ot E11.621 TYPE 2 DIABETES MELLITUS WITH FOOT ULCER 08/13/2019 ASIF SALEEM MD Ot I48.91 UNSPECIFIED ATRIAL FIBRILLATION 08/13/2019 ASIF SALEEM MD Ot I70.235 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 08/13/2019 ASIF SALEEM MD Ot I70.245 ATHSCL [place] ARTERIES OF LEFT LEG W C 08/13/2019 ASIF SALEEM MD Ot I71 .4 ABDOMINAL AORTIC ANEURYSM, 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 08/13/2019 ASIF SALEEM MD Ot L97.512 NON-PRS CHRONIC ULCER OTH PRT RIGHT FOOT 08/13/2019 ASIF SALEEM MD Ot L97.522 NON-PRS CHRONIC ULCER OTH PRT LEFT FOOT 08/13/2019 ASIF SALEEM MD Ot N18 .5 CHRONIC KIDNEY DISEASE, STAGE 5 08/27/2019 ASIF SALEEM MD Ot E11.22 TYPE 2 DIABETES MELLITUS W DIABETIC STAFF HOME THERAPY RN 08/27/2019 HARPER BARROSO, ASIF Joyner Ot E11.621 TYPE 2 DIABETES MELLITUS WITH FOOT ULCER 08/27/2019 ASIF SALEEM MD Ot I48.91 UNSPECIFIED ATRIAL FIBRILLATION 08/27/2019 ASIF SALEEM MD Ot I70.235 ATHSCL [place]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 08/27/2019 ASIF SALEEM MD Ot I70.245 ATHSCL [place] ARTERIES OF LEFT LEG W C 08/27/2019 ASIF SALEEM MD Ot I71 .4 ABDOMINAL AORTIC ANEURYSM, 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 08/27/2019 ASIF SALEEM MD Ot L97.512 NON-PRS CHRONIC ULCER OTH PRT RIGHT FOOT 08/27/2019 ASIF SALEEM MD Ot L97.522 NON-PRS CHRONIC ULCER OTH PRT LEFT FOOT 08/27/2019 ASIF SALEEM MD Ot N18 .5 CHRONIC KIDNEY DISEASE, STAGE 5 08/31/2019 HARPER BARROSO, ASIF Joyner Ot E11.22 TYPE 2 DIABETES MELLITUS W DIABETIC STAFF HOME THERAPY RN 08/31/2019 HARPER BARROSO, ASIF Joyner Ot E11.621 TYPE 2 DIABETES MELLITUS WITH FOOT ULCER 08/31/2019 ASIF SALEEM MD Ot I48.91 UNSPECIFIED ATRIAL FIBRILLATION 08/31/2019 ASIF SALEEM MD Ot I70.235 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 08/31/2019 ASIF SALEEM MD Ot I70.245 ATHSCL [place] ARTERIES OF LEFT LEG W C 08/31/2019 ASIF SALEEM MD Ot I71 .4 ABDOMINAL AORTIC ANEURYSM, 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 08/31/2019 ASIF SALEEM MD Ot L97.512 NON-PRS CHRONIC ULCER OTH PRT RIGHT FOOT 08/31/2019 ASIF SALEEM MD Ot L97.522 NON-PRS CHRONIC ULCER OTH PRT LEFT FOOT 08/31/2019 ASIF SALEEM MD Ot N18 .5 CHRONIC KIDNEY DISEASE, STAGE 5 09/03/2019 HARPER BARROSO, ASIF Joyner Ot E11.22 TYPE 2 DIABETES MELLITUS W DIABETIC STAFF HOME THERAPY RN 09/03/2019 HARPER BARROSO, ASIF Joyner Ot E11.621 TYPE 2 DIABETES MELLITUS WITH FOOT ULCER 09/03/2019 ASIF SALEEM MD Ot I48.91 UNSPECIFIED ATRIAL FIBRILLATION 09/03/2019 ASIF SALEEM MD Ot I70.235 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 09/03/2019 ASIF SALEEM MD Ot I70.245 ATHSCL [place] ARTERIES OF LEFT LEG W C 09/03/2019 ASIF SALEEM MD Ot I71 .4 ABDOMINAL AORTIC ANEURYSM, 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 09/03/2019 ASIF SALEEM MD Ot L97.512 NON-PRS CHRONIC ULCER OTH PRT RIGHT FOOT 09/03/2019 ASIF SALEEM MD Ot L97.522 NON-PRS CHRONIC ULCER OTH PRT LEFT FOOT 09/03/2019 ASIF SALEEM MD Ot N18 .5 CHRONIC KIDNEY DISEASE, STAGE 5 09/24/2019 SONDRA MALONEY MD Ot R10.13 EPIGASTRIC PAIN 09/24/2019 SONDRA MALONEY MD Ot R11.10 VOMITING, UNSPECIFIED 09/24/2019 SONDRA MALONEY MD Ot R14.0 ABDOMINAL DISTENSION (GASEOUS) 09/24/2019 ЕЛЕНА DO, DYLAN B Ot F17.2 10 NICOTINE DEPENDENCE, CIGARETTES, UNCOMPL 09/24/2019 [facility], DYLAN B Ot F32.9 MAJOR DEPRESSIVE DISORDER, SINGLE EPISOD 09/24/2019 [facility], DYLAN B Ot I10 ESSENTIAL (PRIMARY) HYPERTENSION 09/24/2019 [facility], DYLAN B Ot N28.9 DISORDER OF KIDNEY AND URETER, UNSPECIFI 09/24/2019 [facility], DYLAN B Ot R10.1 3 EPIGASTRIC PAIN 09/24/2019 [facility], DYLAN B Ot R11.2 NAUSEA WITH VOMITING, UNSPECIFIED 09/24/2019 [facility], DYLAN B Ot R19.7 DIARRHEA, UNSPECIFIED 09/24/2019 [facility], DYLAN B Ot Z53.9 PROCEDURE AND TREATMENT NOT CARRIED OUT, 09/24/2019 [facility], DYLAN B Ot Z79.8 99 OTHER SHELTER (CURRENT) DRUG THERAPY 09/24/2019 [facility], DYLAN B Ot Z88.0 ALLERGY STATUS TO PENICILLIN 09/24/2019 [facility], DYLAN B Ot Z88.1 ALLERGY STATUS TO OTHER ANTIBIOTIC AGENT 09/24/2019 [facility], DYLAN B Ot Z88.2 ALLERGY STATUS TO SULFONAMIDES STATUS 09/24/2019 ASIF SALEEM MD Ot E11.22 TYPE 2 DIABETES MELLITUS W DIABETIC STAFF HOME THERAPY RN 09/24/2019 ASIF SALEEM MD Ot E11.52 TYPE 2 DIABETES W DIABETIC PERIPHERAL AN 09/24/2019 ASIF SALEEM MD Ot E11.621 TYPE 2 DIABETES MELLITUS WITH FOOT ULCER 09/24/2019 ASIF SALEEM MD Ot F17.219 NICOTINE DEPENDENCE, CIGARETTES, W UNSP 09/24/2019 ASIF SALEEM MD Ot I10 ESSENTIAL (PRIMARY) HYPERTENSION 09/24/2019 ASIF SALEEM MD Ot I70 .0 ATHEROSCLEROSIS OF AORTA 09/24/2019 ASIF SALEEM MD Ot I70.235 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 09/24/2019 ASIF SALEEM MD Ot I70.245 ATHSCL [place] ARTERIES OF LEFT LEG W ULC 09/24/2019 ASIF SALEEM MD Ot L97.512 NON-PRS CHRONIC ULCER OTH PRT RIGHT FOOT 09/24/2019 ASIF SALEEM MD Ot L97.522 NON-PRS CHRONIC ULCER OTH PRT LEFT FOOT 09/24/2019 ASIF SALEEM MD Ot N18 .5 CHRONIC KIDNEY DISEASE, STAGE 5 09/24/2019 ASIF SALEEM MD, Ot T65.222A TOXIC EFFECT OF TOBACCO CIGARETTES, SELF 09/24/2019 ASIF SALEEM MD Ot E11.22 TYPE 2 DIABETES MELLITUS W DIABETIC STAFF HOME THERAPY RN 09/24/2019 ASIF SALEEM MD Ot E11.621 TYPE 2 DIABETES MELLITUS WITH FOOT ULCER 09/24/2019 AISF SALEEM MD, Ot 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 9 HYPERTENSIVE CHRONIC KIDNEY DISEASE W ST 09/24/2019 RAUL BONNER MD Ot I73. 9 PERIPHERAL VASCULAR DISEASE, UNSPECIFIED 09/24/2019 RAUL BONNER MD, Ot I74. 3 EMBOLISM AND THROMBOSIS OF ARTERIES OF T 09/24/2019 RAUL BONNER MD, Ot L97.512 NON-PRS CHRONIC ULCER OTH PRT RIGHT FOOT 09/24/2019 RAUL BONNER MD, Ot L97.522 NON-PRS CHRONIC ULCER OTH PRT LEFT FOOT 09/24/2019 RAUL BONNER MD, Ot N18. 5 CHRONIC KIDNEY DISEASE, STAGE 5 09/24/2019 RAUL BONNER MD, Ot T65.222A TOXIC EFFECT OF TOBACCO CIGARETTES, SELF 09/24/2019 RAUL BONNER MD, Ot Z72. 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 09/24/2019 ASIF SALEEM MD Ot I70.245 ATHSCL [place] ARTERIES OF LEFT LEG W ULC 09/24/2019 ASIF SALEEM MD, Ot L97.512 NON-PRS CHRONIC ULCER OTH PRT RIGHT FOOT 09/24/2019 ASIF SALEEM MD Ot L97.522 NON-PRS CHRONIC ULCER OTH PRT LEFT FOOT 09/24/2019 ASIF SALEEM MD Ot N18 .5 CHRONIC KIDNEY DISEASE, STAGE 5 09/24/2019 ASIF SALEEM MD, Ot T65.222A TOXIC EFFECT OF TOBACCO CIGARETTES, SELF 09/24/2019 ASIF SALEEM MD Ot E11.22 TYPE 2 DIABETES MELLITUS W DIABETIC STAFF HOME THERAPY RN 09/24/2019 ASIF SALEEM MD Ot E11.52 TYPE 2 DIABETES W DIABETIC PERIPHERAL AN 09/24/2019 ASIF SALEEM MD Ot E11.621 TYPE 2 DIABETES MELLITUS WITH FOOT ULCER 09/24/2019 ASIF SALEEM MD Ot 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, CIGARETTES, W OTH D 09/24/2019 ASIF SALEEM MD Ot I12 .0 HYP CHR KIDNEY DISEASE W STAGE 5 CHR KID 09/24/2019 ASIF SALEEM MD Ot 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 09/24/2019 ASIF SALEEM MD Ot I71 .4 ABDOMINAL AORTIC ANEURYSM, 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 09/24/2019 ASIF SALEEM MD Ot L97.512 NON-PRS CHRONIC ULCER OTH PRT RIGHT FOOT 09/24/2019 ASIF SALEEM MD Ot L97.522 NON-PRS CHRONIC ULCER OTH PRT LEFT FOOT 09/24/2019 ASIF SALEEM MD, Ot N18 .5 CHRONIC KIDNEY DISEASE, STAGE 5 09/24/2019 ASIF SALEEM MD Ot T65.222A TOXIC EFFECT OF TOBACCO CIGARETTES, SELF 09/24/2019 ASIF SALEEM MD Ot E11.22 TYPE 2 DIABETES MELLITUS W DIABETIC STAFF HOME THERAPY RN 09/24/2019 ASIF SALEEM MD Ot E11.621 TYPE 2 DIABETES MELLITUS WITH FOOT ULCER 09/24/2019 ASIF SALEEM MD Ot 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, CIGARETTES, W OTH D 09/24/2019 ASIF SALEEM MD Ot I12 .0 HYP CHR KIDNEY DISEASE W STAGE 5 CHR KID 09/24/2019 ASIF SALEEM MD Ot I70.235 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 09/24/2019 ASIF SALEEM MD Ot I70.245 ATHSCL [place] ARTERIES OF LEFT LEG W ULC 09/24/2019 ASIF SALEEM MD Ot L97.512 NON-PRS CHRONIC ULCER OTH PRT RIGHT FOOT 09/24/2019 ASIF SALEEM MD Ot L97.522 NON-PRS CHRONIC ULCER OTH PRT LEFT FOOT 09/24/2019 ASIF SALEEM MD Ot N18 .5 CHRONIC KIDNEY DISEASE, STAGE 5 09/24/2019 ASIF SALEEM MD Ot E11.22 TYPE 2 DIABETES MELLITUS W DIABETIC STAFF HOME THERAPY RN 09/24/2019 ASIF SALEEM MD Ot E11.52 TYPE 2 DIABETES W DIABETIC PERIPHERAL AN 09/24/2019 ASIF SALEEM MD Ot E11.621 TYPE 2 DIABETES MELLITUS WITH FOOT ULCER 09/24/2019 ASIF SALEEM MD Ot 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, CIGARETTES, W OTH D 09/24/2019 ASIF SALEEM MD Ot I12 .0 HYP CHR KIDNEY DISEASE W STAGE 5 CHR KID 09/24/2019 ASIF SALEEM MD Ot I48.91 UNSPECIFIED ATRIAL FIBRILLATION 09/24/2019 ASIF SALEEM MD Ot 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 09/24/2019 ASIF SALEEM MD Ot I71 .4 ABDOMINAL AORTIC ANEURYSM, 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 09/24/2019 ASIF SALEEM MD Ot L97.512 NON-PRS CHRONIC ULCER OTH PRT RIGHT FOOT 09/24/2019 ASIF SALEEM MD Ot L97.522 NON-PRS CHRONIC ULCER OTH PRT LEFT FOOT 09/24/2019 ASIF SALEEM MD Ot N18 .5 CHRONIC KIDNEY DISEASE, STAGE 5 09/24/2019 ASIF SALEEM MD Ot T65.222A TOXIC EFFECT OF TOBACCO CIGARETTES, SELF 09/24/2019 ASIF SALEEM MD Ot E11.22 TYPE 2 DIABETES MELLITUS W DIABETIC STAFF HOME THERAPY RN 09/24/2019 ASIF SALEEM MD Ot E11.52 TYPE 2 DIABETES W DIABETIC PERIPHERAL AN 09/24/2019 ASIF SALEEM MD Ot E11.621 TYPE 2 DIABETES MELLITUS WITH FOOT ULCER 09/24/2019 ASIF SALEEM MD Ot 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, CIGARETTES, W OTH D 09/24/2019 ASIF SALEEM MD Ot I12 .0 HYP CHR KIDNEY DISEASE W STAGE 5 CHR KID 09/24/2019 ASIF SALEEM MD Ot I48.91 UNSPECIFIED ATRIAL FIBRILLATION 09/24/2019 ASIF SALEEM MD Ot 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 09/24/2019 ASIF SALEEM MD Ot I71 .4 ABDOMINAL AORTIC ANEURYSM, 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 09/24/2019 ASIF SALEEM MD Ot L97.512 NON-PRS CHRONIC ULCER OTH PRT RIGHT FOOT 09/24/2019 ASIF SALEEM MD Ot L97.522 NON-PRS CHRONIC ULCER OTH PRT LEFT FOOT 09/24/2019 ASIF SALEEM MD Ot N18 .5 CHRONIC KIDNEY DISEASE, STAGE 5 09/24/2019 ASIF SALEEM MD Ot T65.222A TOXIC EFFECT OF TOBACCO CIGARETTES, SELF 09/24/2019 RADHA RANDOLPH MD Ot E11.22 TYPE 2 DIABETES MELLITUS W DIABETIC STAFF HOME THERAPY RN 09/24/2019 RADHA RANDOLPH MD, Ot E11.52 TYPE 2 DIABETES W DIABETIC PERIPHERAL AN 09/24/2019 RADHA RANDOLPH MD, Ot E11.622 TYPE 2 DIABETES MELLITUS WITH OTHER SKIN 09/24/2019 RADHA RANDOLPH MD, Ot 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, CIGARETTES, W OTH D 09/24/2019 RADHA RANDOLPH MD Ot I12.0 HYP CHR KIDNEY DISEASE W STAGE 5 CHR KID 09/24/2019 RADHA RANDOLPH MD, Ot I48.91 UNSPECIFIED ATRIAL FIBRILLATION 09/24/2019 RADHA RANDOLPH MD Ot 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 09/24/2019 RADHA RANDOLPH MD, Ot I71.4 ABDOMINAL AORTIC ANEURYSM, 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 09/24/2019 RADHA RANDOLPH MD Ot L97.518 NON- PRS CHRONIC ULCER OTH PRT RIGHT FOOT 09/24/2019 RADHA RANDOLPH MD, Ot L97.528 NON- PRS CHRONIC ULCER OTH PRT LEFT FOOT 09/24/2019 RADHA RANDOLPH MD Ot N18.5 CHRONIC KIDNEY DISEASE, STAGE 5 09/24/2019 RADHA RANDOLPH MD, Ot T65.222A TOXIC EFFECT OF TOBACCO CIGARETTES, SELF 09/24/2019 RADHA RANDOLPH MD Ot E11.22 TYPE 2 DIABETES MELLITUS W DIABETIC STAFF HOME THERAPY RN 09/24/2019 RADHA RANDOLPH MD, Ot E11.52 TYPE 2 DIABETES W DIABETIC PERIPHERAL AN 09/24/2019 RADHA RANDOLPH MD, Ot E11.621 TYPE 2 DIABETES MELLITUS WITH FOOT ULCER 09/24/2019 RADHA RANDOLPH MD, Ot 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, CIGARETTES, W OTH D 09/24/2019 RADHA RANDOLPH MD Ot I12.0 HYP CHR KIDNEY DISEASE W STAGE 5 CHR KID 09/24/2019 RADHA RANDOLPH MD, Ot I48.91 UNSPECIFIED ATRIAL FIBRILLATION 09/24/2019 RADHA RANDOLPH MD Ot 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 09/24/2019 RADHA RANDOLPH MD Ot L89.610 PRESSURE ULCER OF RIGHT HEEL, UNSTAGEABL 09/24/2019 RADHA RANDOLPH MD Ot L89.620 PRESSURE ULCER OF LEFT HEEL, UNSTAGEABLE 09/24/2019 RADHA RANDOLPH MD Ot N18.5 CHRONIC KIDNEY DISEASE, STAGE 5 09/24/2019 RADHA RANDOLPH MD Ot R60.0 LOCALIZED EDEMA 09/24/2019 RADHA RANDOLPH MD Ot S91.301A UNSPECIFIED OPEN WOUND, RIGHT FOOT, INIT 09/24/2019 RADHA RANDOLPH MD, Ot S91.302A UNSPECIFIED OPEN WOUND, LEFT FOOT, INITI 09/24/2019 RADHA RANDOLPH MD Ot T65.222A TOXIC EFFECT OF TOBACCO CIGARETTES, SELF 09/24/2019 RADHA RANDOLPH MD Ot E11.22 TYPE 2 DIABETES MELLITUS W DIABETIC STAFF HOME THERAPY RN 09/24/2019 RADHA RANDOLPH MD Ot E11.621 TYPE 2 DIABETES MELLITUS WITH FOOT ULCER 09/24/2019 RADHA RANDOLPH MD, Ot 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, CIGARETTES, W OTH D 09/24/2019 RADHA RANDOLPH MD Ot I48.91 UNSPECIFIED ATRIAL FIBRILLATION 09/24/2019 RADHA RANDOLPH MD Ot I70.235 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 09/24/2019 RADHA RANDOLPH MD Ot I70.245 ATHSCL [place] ARTERIES OF LEFT LEG W ULC 09/24/2019 RADHA RANDOLPH MD Ot I71.4 ABDOMINAL AORTIC ANEURYSM, 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 09/24/2019 RADHA RANDOLPH MD Ot L89.610 PRESSURE ULCER OF RIGHT HEEL, UNSTAGEABL 09/24/2019 RADHA RANDOLPH MD Ot L89.620 PRESSURE ULCER OF LEFT HEEL, UNSTAGEABLE 09/24/2019 RADHA RANDOLPH MD Ot L97.518 NON- PRS CHRONIC ULCER OTH PRT RIGHT FOOT 09/24/2019 RADHA RANDOLPH MD Ot L97.528 NON- PRS CHRONIC ULCER OTH PRT LEFT FOOT 09/24/2019 RADHA RANDOLPH MD Ot N18.5 CHRONIC KIDNEY DISEASE, STAGE 5 09/24/2019 RADHA RANDOLPH MD Ot R60.0 LOCALIZED EDEMA 09/24/2019 RADHA RANDOLPH MD Ot S91.301A UNSPECIFIED OPEN WOUND, RIGHT FOOT, INIT 09/24/2019 RADHA RANDOLPH MD, Ot S91.302A UNSPECIFIED OPEN WOUND, LEFT FOOT, INITI 09/24/2019 RADHA RANDOLPH MD Ot T65.222A TOXIC EFFECT OF TOBACCO CIGARETTES, SELF 09/24/2019 RADHA RANDOLPH MD Ot E11.22 TYPE 2 DIABETES MELLITUS W DIABETIC STAFF HOME THERAPY RN 09/24/2019 RADHA RANDOLPH MD Ot E11.621 TYPE 2 DIABETES MELLITUS WITH FOOT ULCER 09/24/2019 RADHA RANDOLPH MD Ot 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, CIGARETTES, W OTH D 09/24/2019 RADHA RANDOLPH MD Ot I12.0 HYP CHR KIDNEY DISEASE W STAGE 5 CHR KID 09/24/2019 RADHA RANDOLPH MD Ot I48.91 UNSPECIFIED ATRIAL FIBRILLATION 09/24/2019 RADHA RANDOLPH MD Ot I70.235 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 09/24/2019 RADHA RANDOLPH MD Ot I70.245 ATHSCL [place] ARTERIES OF LEFT LEG W ULC 09/24/2019 RADHA RANDOLPH MD Ot I71.4 ABDOMINAL AORTIC ANEURYSM, 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 09/24/2019 RADHA RANDOLPH MD Ot L89.610 PRESSURE ULCER OF RIGHT HEEL, UNSTAGEABL 09/24/2019 RADHA RANDOLPH MD Ot L89.620 PRESSURE ULCER OF LEFT HEEL, UNSTAGEABLE 09/24/2019 RADHA RANDOLPH MD Ot N18.5 CHRONIC KIDNEY DISEASE, STAGE 5 09/24/2019 RADHA RANDOLPH MD Ot R60.0 LOCALIZED EDEMA 09/24/2019 RADHA RANDOLPH MD Ot S91.301A UNSPECIFIED OPEN WOUND, RIGHT FOOT, INIT 09/24/2019 RADHA RANDOLPH MD Ot S91.302A UNSPECIFIED OPEN WOUND, LEFT FOOT, INITI 09/24/2019 RADHA RANDOLPH MD Ot T65.222A TOXIC EFFECT OF TOBACCO CIGARETTES, SELF 09/24/2019 RADHA RANDOLPH MD Ot E11.22 TYPE 2 DIABETES MELLITUS W DIABETIC STAFF HOME THERAPY RN 09/24/2019 RADHA RANDOLPH MD Ot E11.621 TYPE 2 DIABETES MELLITUS WITH FOOT ULCER 09/24/2019 RADHA RANDOLPH MD Ot 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, CIGARETTES, W OTH D 09/24/2019 RADHA RANDOLPH MD Ot I12.0 HYP CHR KIDNEY DISEASE W STAGE 5 CHR KID 09/24/2019 RADHA RANDOLPH MD Ot I48.91 UNSPECIFIED ATRIAL FIBRILLATION 09/24/2019 RADHA RANDOLPH MD Ot I70.235 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 09/24/2019 RADHA RANDOLPH MD Ot I70.245 ATHSCL [place] ARTERIES OF LEFT LEG W ULC 09/24/2019 RADHA RANDOLPH MD Ot I71.4 ABDOMINAL AORTIC ANEURYSM, 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 09/24/2019 RADHA RANODLPH MD Ot L89.610 PRESSURE ULCER OF RIGHT HEEL, UNSTAGEABL 09/24/2019 RADHA RANDOLPH MD, Ot L89.620 PRESSURE ULCER OF LEFT HEEL, UNSTAGEABLE 09/24/2019 RADHA RANDOLPH MD Ot L97.518 NON- PRS CHRONIC ULCER OTH PRT RIGHT FOOT 09/24/2019 RADHA RANDOLPH MD Ot L97.528 NON- PRS CHRONIC ULCER OTH PRT LEFT FOOT 09/24/2019 RADHA RANDOLPH MD Ot N18.5 CHRONIC KIDNEY DISEASE, STAGE 5 09/24/2019 RADHA RANDOLPH MD Ot R60.0 LOCALIZED EDEMA 09/24/2019 RADHA RANDOLPH MD Ot T65.222A TOXIC EFFECT OF TOBACCO CIGARETTES, SELF 09/24/2019 ASIF SALEEM MD Ot E11.22 TYPE 2 DIABETES MELLITUS W DIABETIC STAFF HOME THERAPY RN 09/24/2019 ASIF SALEEM MD Ot E11.52 TYPE 2 DIABETES W DIABETIC PERIPHERAL AN 09/24/2019 ASIF SALEEM MD Ot E11.621 TYPE 2 DIABETES MELLITUS WITH FOOT ULCER 09/24/2019 ASIF SALEEM MD Ot I48.91 UNSPECIFIED ATRIAL FIBRILLATION 09/24/2019 ASIF SALEEM MD Ot I70.235 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 09/24/2019 ASIF SALEEM MD Ot I70.245 ATHSCL [place] ARTERIES OF LEFT LEG W C 09/24/2019 ASIF SALEEM MD Ot I71 .4 ABDOMINAL AORTIC ANEURYSM, 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 09/24/2019 ASIF SALEEM MD Ot L97.512 NON-PRS CHRONIC ULCER OTH PRT RIGHT FOOT 09/24/2019 ASIF SALEEM MD Ot L97.522 NON-PRS CHRONIC ULCER OTH PRT LEFT FOOT 09/24/2019 ASIF SALEEM MD Ot N18 .5 CHRONIC KIDNEY DISEASE, STAGE 5 09/24/2019 ASIF SALEEM MD Ot E11.22 TYPE 2 DIABETES MELLITUS W DIABETIC STAFF HOME THERAPY RN 09/24/2019 ASIF SALEEM MD Ot E11.621 TYPE 2 DIABETES MELLITUS WITH FOOT ULCER 09/24/2019 ASIF SALEEM MD Ot I48.91 UNSPECIFIED ATRIAL FIBRILLATION 09/24/2019 ASIF SALEEM MD Ot I70.235 ATHSCL [place]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 09/24/2019 ASIF SALEEM MD Ot I70.245 ATHSCL [place] ARTERIES OF LEFT LEG W C 09/24/2019 ASIF SALEEM MD Ot I71 .4 ABDOMINAL AORTIC ANEURYSM, 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 09/24/2019 ASIF SALEEM MD Ot L97.512 NON-PRS CHRONIC ULCER OTH PRT RIGHT FOOT 09/24/2019 ASIF SALEEM MD Ot L97.522 NON-PRS CHRONIC ULCER OTH PRT LEFT FOOT 09/24/2019 HARPER BARROSO, ASIF Joyner Ot N18 .5 CHRONIC KIDNEY DISEASE, STAGE 5 09/24/2019 ASIF SALEEM MD Ot E11.22 TYPE 2 DIABETES MELLITUS W DIABETIC STAFF HOME THERAPY RN 09/24/2019 HARPER BARROSO, ASIF Joyner Ot E11.621 TYPE 2 DIABETES MELLITUS WITH FOOT ULCER 09/24/2019 ASIF SALEEM MD Ot I48.91 UNSPECIFIED ATRIAL FIBRILLATION 09/24/2019 ASIF SALEEM MD Ot I70.235 ATHSCL [place]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 09/24/2019 ASIF SALEEM MD Ot I70.245 ATHSCL [place] ARTERIES OF LEFT LEG W [facility] 09/24/2019 ASIF SALEEM MD Ot I71 .4 ABDOMINAL AORTIC ANEURYSM, 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 09/24/2019 ASIF SALEEM MD Ot L97.512 NON-PRS CHRONIC ULCER OTH PRT RIGHT FOOT 09/24/2019 ASIF SALEEM MD Ot L97.522 NON-PRS CHRONIC ULCER OTH PRT LEFT FOOT 09/24/2019 ASIF SALEEM MD Ot N18 .5 CHRONIC KIDNEY DISEASE, STAGE 5 09/24/2019 HARPER BARROSO, ASIF Joyner Ot E11.22 TYPE 2 DIABETES MELLITUS W DIABETIC STAFF HOME THERAPY RN 09/24/2019 HARPER BARROSO, ASIF Joyner Ot E11.621 TYPE 2 DIABETES MELLITUS WITH FOOT ULCER 09/24/2019 ASIF SALEEM MD Ot I48.91 UNSPECIFIED ATRIAL FIBRILLATION 09/24/2019 ASIF SALEEM MD Ot I70.235 ATHSCL [place]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 09/24/2019 ASIF SALEEM MD Ot I71 .4 ABDOMINAL AORTIC ANEURYSM, 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 09/24/2019 ASIF SALEEM MD Ot L97.512 NON-PRS CHRONIC ULCER OTH PRT RIGHT FOOT 09/24/2019 ASIF SALEEM MD, Ot N18 .5 CHRONIC KIDNEY DISEASE, STAGE 5 09/25/2019 ASIF SALEEM MD, Ot E11.22 TYPE 2 DIABETES MELLITUS W DIABETIC STAFF HOME THERAPY RN 09/25/2019 ASIF SALEEM MD, Ot E11.621 TYPE 2 DIABETES MELLITUS WITH FOOT ULCER 09/25/2019 ASIF SALEEM MD, Ot I48.91 UNSPECIFIED ATRIAL FIBRILLATION 09/25/2019 ASIF SALEEM MD, Ot I70.235 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 09/25/2019 ASIF SALEEM MD, Ot I71 .4 ABDOMINAL AORTIC ANEURYSM, 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 09/25/2019 ASIF SALEEM MD, Ot L97.512 NON-PRS CHRONIC ULCER OTH PRT RIGHT FOOT 09/25/2019 ASIF SALEEM MD, Ot N18 .5 CHRONIC KIDNEY DISEASE, STAGE 5 Procedures Code Description Performed By Per formed On [id number] ME ASURE OF CARDIAC SAMPL PRESSURE, L H 04/12/2019 [id number] FL UOROSCOPY OF MULT COR ART USING L OSM 04/12/2019 [id number] FL UOROSCOPY OF AORTA, BI LE ART USING L 04/12/2019 [id number] EX CISION OF ESOPHAGOGASTRIC JUNCTION, EN 04/27/2019 [id number] EX CISION OF STOMACH, ENDO, DIAGN 04/27/2019 [id number] EX CISION OF STOMACH, PYLORUS, ENDO, DIAG 04/27/2019 [id number] EX CISION OF ASCENDING COLON, ENDO, DIAGN 04/27/2019 [id number] EX CISION OF TRANSVERSE COLON, ENDO, DIAG 04/27/2019 [id number] EX CISION OF DESCENDING COLON, ENDO, DIAG 04/27/2019 [id number] IN SPECTION OF UPPER INTESTINAL TRACT, EN [...] 7-25 CREATININE 2.27 mg/dL 0.60-0.93 eGFR NON-AFR. PERUVIAN 21 mL/min/1.73m2 > OR = 60 eGFR [...] 7-25 CREATININE 3.00 mg/dL 0.60-0.93 eGFR NON-AFR. PERUVIAN 15 mL/min/1.73m2 > OR = 60 eGFR [...] complete blood count (he mogram) panel - 04/12/19 05:10 Blood leukocytes [...] pa abril - 04/22/19 11:59 WRISTBAND NUMBER [id number] NRG ABO+Rh group OP NRG Blood group [...] culture - 04/22/19 12:10 Bacterial urine culture [id number] NRG COLONY COUNT >100,000/ML NRG FTX;REPORTABLE SUSCEPTIBILITY [...] CELLS LEUKO REDUCED AS1 T RANSFUSED 05/03/19 3527 NR Blood type T Indirect antibody screen pa abril - 05/03/19 05:23 WRISTBAND NUMBER [id number] NRG ABO+Rh group OP NRG Blood group [...] - 05/07/19 03:45 Magnesium 1.9 mg/dL 1.6-2.4 A1C - 05/25/19 11:21 HEMOGLOBIN A1c 4.9 % of total Hgb <5.7 CMP - 09/30/19 09:07 GLUCOSE 105 mg/dL 65-99 UREA NITROGEN (BUN) 26 mg/dL 7-25 CREATININE 2.97 mg/dL 0.60-0.93 eGFR NON-AFR. PERUVIAN 15 mL/min/1.73m2 > OR = 60 eGFR 17 mL/min/1.73m2 > OR = 60 BUN/CREATININE RATIO 9 (calc) 6-22 SODIUM 138 mmol/L 135-146 POTASSIUM 3.7 mmol/L 3.5-5.3 CHLORIDE 103 mmol/L 98-110 CARBON DIOXIDE 25 mmol/L 20-32 CALCIUM 9.4 mg/dL 8.6-10.4 PROTEIN, TOTAL 6.6 g/dL 6.1-8.1 ALBUMIN 3.6 g/dL 3.6-5.1 GLOBULIN 3.0 g/dL (calc) 1.9-3.7 ALBUMIN/GLOBULIN RATIO 1.2 (calc) 1.0-2. 5 BILIRUBIN, TOTAL 0.5 mg/dL 0.2-1.2 ALKALINE PHOSPHATASE 77 U/L 37-153 AST 11 U/L 10-35 ALT 5 U/L 6-29 CBC - 09/30/19 09:07 WHITE BLOOD CELL COUNT 7.6 Thousand/uL 3 .8-10.8 RED BLOOD CELL COUNT 4.29 Million/uL 3.8 0-5.10 HEMOGLOBIN 11.2 g/dL 11.7-15.5 HEMATOCRIT 36.5 % 35.0-45.0 MCV 85.1 fL 80.0-100.0 MCH 26.1 pg 27.0-33.0 MCHC 30.7 g/dL 32.0-36.0 RDW 14.2 % 11.0-15.0 PLATELET COUNT 331 Thousand/uL 140-400 MPV 11.4 fL 7.5-12.5 ABSOLUTE NEUTROPHILS 4970 cells/uL 1500- 7800 ABSOLUTE LYMPHOCYTES 1429 cells/uL 850-3 900 ABSOLUTE MONOCYTES 585 cells/uL 200-950 ABSOLUTE EOSINOPHILS 517 cells/uL 15-500 ABSOLUTE BASOPHILS 99 cells/uL 0-200 NEUTROPHILS 65.4 % NRG LYMPHOCYTES 18.8 % NRG MONOCYTES 7.7 % NRG EOSINOPHILS 6.8 % NRG BASOPHILS 1.3 % NRG A1C - 09/30/19 09:07 HEMOGLOBIN A1c 5.6 % of total Hgb <5.7 Encounters ACCT No. Visit Date/Time Discharge Status Pt. Type Provider Facility Loc./Unit Complaint [id number] 07/20/2019 13:15:00 07/20/2019 23:59: 59 CLS Outpatient PAWAN MALONEYJ Jareth [facility] [id number] 09/30/2019 08:30:00 Document Registration [id number] 05/25/2019 11:15:00 Document Registration [id number] 03/03/2019 09:45:00 Document Registration [id number] 12/24/2018 14:45:00 Document Registration [id number] 12/11/2018 08:30:00 Document Registration [id number] 11/10/2018 08:45:00 Document Registration [id number] 11/05/2018 09:20:00 Document Registration [id number] 09/23/2019 09:43:00 23:59:59 CLS Outpatient ASIF SALEEM MD [id number] 08/26/2019 09:56:00 23:59:59 CLS Outpatient ASIF SALEEM MD [facility] [id number] 08/12/2019 11:27:00 23:59:59 CLS Outpatient ASIF SALEEM MD [facility] [id number] 07/27/2019 09:00:00 23:59:59 CLS Outpatient ASIF SALEEM MD [facility] [id number] 07/15/2019 10:11:00 23:59:59 CLS Outpatient RADHA RANDOLPH MD [facility] [id number] 07/01/2019 10:09:00 23:59:59 CLS Outpatient RADHA RANDOLPH MD [facility] [id number] 06/24/2019 10:19:00 23:59:59 CLS Outpatient RADHA RANDOLPH MD [facility] [id number] 06/18/2019 13:17:00 23:59:59 CLS Outpatient RADHA RANDOLPH MD [facility] [id number] 06/04/2019 21:00:00 23:59:59 CLS Preadmit OSEI VALENZUELA APRN [facility] SLEEP SLEEP DISORDER,HYPERSOMNIA,SNORING [id number] 06/03/2019 12:31:00 23:59:59 CLS Outpatient RADHA RANDOLPH MD [facility] [id number] 06/01/2019 08:45:00 23:59:59 CLS Preadmit OSEI VALENZUELA APRN Via [facility] RAD DYSPNEA,COPD,TO BACCO DEPENDENCE SYNDROME [id number] 05/13/2019 12:45:00 23:59:59 CLS Outpatient ASIF SALEEM MD [facility] [id number] 05/02/2019 14:49:00 13:40:00 DIS Inpatient YASEMIN KENNEDY DO, V [facility] CSD GI BLEED; GENERALIZED E ELMA [id number] 04/29/2019 09:44:00 23:59:59 CLS Outpatient ASIF SALEEM MD [facility] [id number] 04/22/2019 13:26:00 10:50:00 DIS Inpatient YASEMIN KENNEDY DO, V ia [facility] 4TH SEVERE SEPSIS/ANEMIA/UT I [id number] 04/22/2019 15:16:00 23:59:59 CLS Outpatient ASIF SALEEM MD [facility] [id number] 04/15/2019 12:11:00 23:59:59 CLS Outpatient ASIF SALEEM MD [facility] [id number] 04/14/2019 09:30:00 23:59:59 CLS Preadmit ASIF SALEEM MD Via [facility] RAD EMBOLISM AND THROMBOSIS OF ARTERIES OF LOWER EXT. [id number] 04/11/2019 11:35:00 10:30:00 DIS Inpatient RAUL BONNER MD Via [facility] 4TH ISCHEMIC FOOT [id number] 04/08/2019 09:59:00 23:59:59 CLS Outpatient ASIF SALEEM MD [facility] [id number] 04/02/2019 10:25:00 23:59:59 CLS Outpatient RAUL BONNER MD Via [facility] CARD CKD,HTN,PVD [id number] 04/01/2019 10:30:00 23:59:59 CLS Outpatient ASIF SALEEM MD [facility] RAD EMBOLISM AND THROMBOSIS OF ARTERIES OF LOWER EXT [id number] 04/01/2019 08:06:00 23:59:59 CLS Outpatient ASIF SALEEM MD [facility]OUND[facility] [id number] 02/27/2019 16:22:00 19:00:00 DIS Emergency AMADO JOLLEY MD [facility] ER FS SWOLLEN FT, PAIN IN FT [id number] 02/23/2019 06:53:00 23:59:59 CLS Outpatient DYLAN CHRISTIANSEN DO Via [facility] ENDO ABD PAIN/N V [id number] 02/23/2019 09:29:00 13:45:00 DIS Emergency LISA BARROSO, EMELY Pack [facility] ER HIGH BP [id number] 02/16/2019 05:35:00 12:01:00 DIS Outpatient DYLAN CHRISTIANSEN DO Via [facility] PREOP COLONOSCOPY/EGD [id number] 12/24/2018 09:09:00 23:59:59 CLS Outpatient HAIDER BARROSO, SONDRA [place] [facility] RAD FS R10.13
--- NOTE | 2019-10-19 11:10 | NUR ---
1111- 4 MG VERSED ADMINISTERED 1112- 60MG SUCC ADMINISTERED 1113- FIRST ATTEMPT AT INTUBATION SUCCESSFUL BY Aniya BARAJAS APRN. 23 @ THE GUM, 7.5 ETT. POSITIVE COLOR CHANGE, BILATERAL BREATH SOUNDS AUSCULTATED 1116- LEVOPHED DRIP STARTED AT 1 MCG/KG/MIN. PT WEIGHT ESTIMATED AT 45KG 1121- 18FR PARTIDA PLACED 1123- LEVOPHED DRIP INCREASED TO 1.5MCG/KG/MIN 1125- SPUTUM CULTURE SENT TO LAB 1128- TIME OUT FOR CENTRAL LINE PLACEMENT 1129- 3MG VERSED AND 50MCG FENTANYL ADMINISTERED 1135- CENTRAL LINE PLACED BY FRUIT CUTTER 1143- COVID SWAB COMPLETED 1149- TYPE AND SCREEN SENT TO LAB, LAB CALLED FOR EMERGENT BLOOD TRANSFUSION 1151- RESP SWAB SENT 1153- PTS HEART RATE DROPPING FROM 118 TO 68, PTS PULSE WEAK. 1157- 1 MG ATROPINE AND 1 MG EPI ADMINISTERED 1158- CHEST COMPRESSIONS STARTED 1158- 1 MG EPI ADMINISTERED 1159- 1 MG ATROPINE,1 GRAM CALCIUM CHLORIDE ADMINISTERED 1200- PULSE CHECK, PEA, COMPRESSIONS RESUMED 1201- EPI 1 MG, ATROPINE 1 MG, 1 MG MAG STARTED 1202- PULSE CHECK, PEA, COMPRESSIONS RESUMED, NO AUSCULTATED HEART SOUNDS 1204- 1 MG EPI, PULSECHECK, PEA, COMPRESSIONS RESUMED 1205- 2 AMPS OF BICARB ADMINISTERED 1206- FIRST UNIT OF BLOOD INITIATED 1207- I MG EPI ADMINISTERED, NO PULSE, PEA 1209- PULSE CHECL, PEA, COMPLRESSIONS RESUMED, 1 MG EPI ADMINISTERED 1210- PTS UPDATED ON PTS STATUS. WANTS ALL RESUSCITATIVE EFFORTS CEASED. 1211- PT REGAINED PULSE 1213- PORTABLE CHEST XRAY COMPLETED 1215- BLOOD UNIT #2 STARTED ON RAPID TRANSFUSER 1215- FIRST UNIT OF BLOOD COMPLETE 1215- NEW BAG OF LEVOPHED HUNG AT THIS, INFUSING @ 1.5MCG/KG/MIN 1216- BLOOD UNIT #3 STARTED ON RAPID TRANSFUSER 1220- SECOND UNIT OF BLOOD TRANSFUSED 1226- ABD RIGID 1228- THIRD UNIT OF BLOOD TRANSFUSED 1234- AT PTS BEDSIDE, CEASE IN ALL RESUSCITATIVE EFFORTS 1312- MIDWEST NOTIFIED OF PTS 1325- SALINE DROPS PLACED IN PTS EYES AND ICE APPLIED TO THE BODY PER SALVO REQUEST 1352- MTN DECLINED PT FOR ORGAN DONATION
[2019-10-19 11:26] VITALS: BP 67/50
[2019-10-19] MEDS ORDERED: NS IV 1000 ML 1,000 ML IV SCH (11:31)
--- NOTE | 2019-10-19 11:42 | ED General ---
General Chief Complaint: Cough/Cold/Flu Symptoms Stated Complaint: SOB,COUGH Source of Information: Old Records (ALL PMH IS FROM OLD RECORDS) Exam Limitations: Other (PT IS SEMI OBTUNDED ON ARRIVAL AND UNABLE TO ANSWER QUESTIONS. ) (REMA SANTIAGO DO) History of Present Illness Date Seen by Provider: October 19, 2019 Time Seen by Provider: 10:55 Initial Comments PT ARRIVES VIA POV FROM [facility] REPORTS THAT SHE HAS BEEN SHORT OF BREATH SINCE EARLIER THIS MORNING NO OTHER INFORMATION WAS OBTAINABLE ON ARRIVAL, AND PT IS SEMI-OBTUNDED AND IS UNABLE TO TALK ON ARRIVAL PT IS DYSPNEIC, EXTREMELY LETHARGIC AND SLUMPED OVER THE SIDE OF THE BED WITH SOME MOVING OF THE PATIENT, APPLYING MONITORING DEVICES, ETC. PT IS SOMEWHAT RESTLESS AND AGITATED, BUT STILL NOT TALKING OR FOLLOWING COMMANDS. PT HAS A BLANK STARE, AND DOES NOT MAKE EYE CONTACT OR ACKNOWLEDGE THAT ANYONE IS IN THE ROOM LATER REPORTS THAT "SHE HASN'T BEEN GOOD FOR AWHILE" "SHE LOST 3 TOES" AND STATES THAT "LATELY SHE WON'T EAT, SHE CAN'T GO TO THE BATHROOM" --IS UNCLEAR HOW LONG PT HAS BEEN IN THIS CONDITION. 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 PT ALSO HAD CRITICAL ISCHEMIA OF LOWER EXTREMITY, RESULTING IN AMPUTATION OF RIGHT TOES, WITH HISTORY OF SEVERE PERIPHERAL VASCULAR DISEASE SHE HAD ACUTE BLOOD LOSS ANEMIA AND REQUIRED A TRANSFUSION AT THAT TIME HER ANTICOAGULATION MEDICATIONS WERE DISCONTINUED. PT HAS LONGSTANDING CHF, STAGE 4 KIDNEY DISEASE, CAD, HTN, CHRONIC ATRIAL FIBRILLATION, BUERGER'S DISEASE PCP: DR. MALONEY, [facility] (REMA SANTIAGO DO) Allergies and Home Medications Allergies Coded Allergies: Penicillins (Verified Allergy, Severe, ANAPHYLAXIS, 02/16/19) levofloxacin (Verified Allergy, Severe, DIARRHIA, SWELLING, WEAKNESS, 02/16/19) sulfamethoxazole (Verified Allergy, Severe, WHEEZING/SWELLING, 02/16/19) trimethoprim (Verified Allergy, Severe, WHEEZING/SWELLING, 02/16/19) Tetracyclines (Verified Allergy, Mild, GI UPSET, 02/16/19) Sulfa (Sulfonamide Antibiotics) (Verified Allergy, Unknown, 02/16/19) pseudoephedrine (Verified Allergy, Unknown, 02/16/19) Home Medications Amlodipine Besylate 10 Mg Tablet, 10 MG PO DAILY, (Reported) Atorvastatin Calcium 80 Mg Tablet, 80 MG PO HS, (Reported) Clonidine 1 Each Patch.tdwk, 0.1 MG TD We, (Reported) Metoprolol Succinate 25 Mg Tab.er.24h, 50 MG PO DAILY, (Reported) LAST FILLED #60 03-03-19 TAKES 2 (25MG) TABLETS [place] 3 Polyunsat Fatty Acids 1,000 Mg Cap, 1,000 MG PO DAILY, (Reported) Pantoprazole Sodium 40 Mg Tablet.dr, 40 MG PO BID, (Reported) Sucralfate 1 Gm Tablet, 1 GM PO ACHS Prescribed by: ELBA PEREZ on 05/07/19 1154 Patient Home Medication List Home Medication List Reviewed: Yes (MIRA BARAJAS APRN) Review of Systems Review of Systems Constitutional: other (UNABLE TO OBTAIN FROM PT) (REMA SANTIAGO DO) Past Kggqbla-Fzkdfh-Xcpmdg Hx Past Med/Social Hx: Reviewed and Corrections made (REMA SANTIAGO DO) Patient Social History Alcohol Beverage of Choice: Beer Type Used: Cigarettes 2nd Hand Smoke Exposure: Yes Recent Hopitalizations: No (MIRA BARAJAS APRN) Immunizations Up To Date PED Vaccines UTD: No Date of Pneumonia Vaccine: Mar 05, 2016 Date of Influenza Vaccine: Mar 14, 2019 (MIRA BARAJAS APRN) Seasonal Allergies Seasonal Allergies: Yes (MIRA BARAJAS APRN) Past Medical History Surgeries: Yes (EGD/Colonoscopy) Tubal Ligation Respiratory: No Currently Using CPAP: No Currently Using BIPAP: No Cardiac: Yes Hypertension Neurological: No Dementia Female Reproductive Disorders: Denies Sexually Transmitted Disease: No HIV/AIDS: No Genitourinary: Yes (CKD Stage 4) Renal Failure Gastrointestinal: Yes (Recent scope and gastritis) Gastrointestinal Bleed, Chronic Constipation, Chronic Diarrhea, Irritable Bowel Musculoskeletal: Yes Arthritis, Chronic Back Pain Endocrine: No HEENT: Yes (READING GLASSES, DENTURES, blurred vision) Loss of Vision: Bilateral Hearing Impairment: Denies Cancer: No Did You Recieve Any Treatments: No Psychosocial: Yes (SITUATIONAL-RELATED TO MOTHERS ) Depression Integumentary: Yes (foot wounds due to Buerger's Disease (dark blackened tips of toes)) Blood Disorders: Yes (Anemia r/t GI blood loss, Renal Failure stage 4) Adverse Reaction/Blood Tranf: No (N/A) (MIRA BARAJAS APRN) Surgeries: Yes (RIGHT TOE AMPUTATIONS) Amputation, Orthopedic Cardiac: Yes (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; BUERGER'S DISEASE) Aneurysm, Atrial Fibrillation, Coronary Artery Disease, High Cholesterol, Hypertension, Peripheral Vascular Gastrointestinal: Yes Gastrointestinal Bleed, Ulcer Musculoskeletal: Yes (RIGHT TOE AMPUTATIONS) Amputee Blood Disorders: Yes (ANEMIA-DUE TO GI BLEED; ) (REMA SANTIAGO DO) Family Medical History CAD Over 55 Years Old, Diabetes, Hypertension (MIRA BARAJAS APRN) Physical Exam Vital Signs Vital Signs - First Documented 10/19/19 10/19/19 10:55 11:26 Temp 37.7 Pulse 134 Resp 40 B/P (MAP) 97/73 (81) Pulse Ox 96 O2 Delivery Room Air FiO2 100 (REMA SANTIAGO DO) Vital Signs Capillary Refill : (MIRA BARAJAS APRN) Height, Weight, BMI Height: '" Weight: lbs. oz. kg; 23.88 BMI Method: (MIRA BARAJAS APRN) General Appearance: Chronically ill, Severe Distress, Thin Respiratory: Accessory Muscle Use, Respiratory Distress Cardiovascular: Tachycardia Gastrointestinal: Other (ABDOMEN DISTENDED AND FIRM, WITH LARGE PALPABLE ABDOMINAL ANEURYSM) Extremity: No Pedal Edema, Other (3 TOES ON RIGHT FOOT MISSING WITH TIPS OF OTHER TOES NECROTIC. ) Neurologic/Psychiatric: Other (PT SEMI-OBTUNDED, SOMEWHAT RESTLESS, WITH BLANK STARE/DOES NOT ACKNOWLEDGE THAT ANYONE IS IN THE ROOM. NOT TALKING OR FOLLOWING COMMANDS. ) (REMA SANTIAGO DO) Focused Exam Lactate Level 10/19/19 11:35: Lactic Acid Level 8.99*H (REMA SANTIAGO DO) Lactic Acid Level (REMA SANTIAGO DO) Procedures/Interventions Lumen: triple Central Line Procedure: betadine prep, sterile drapes applied, sterile dressing applied Position: internal jugular (R) Anesthesia: Lidocaine Volume Anesthetic (ccs): 5 Post Position: sutured, good blood return, position confirmed w/ CXR (MIRA BARAJAS APRN) Date of ETT Placement: October 19, 2019 Time of ETT Placement: 1113 Tube Size: 7.50 Medications: Succinylcholine, Versed Positive End Tide CO2: Yes Breath Sounds after Intubation: bilateral-equal Intubation Complications: no complications (MIRA BARAJAS APRN) Progress/Results/Core Measures Suspected Sepsis SIRS Temperature: Pulse: 120 Respiratory Rate: 18 Laboratory Tests 10/19/19 11:35: White Blood Count 4.6 Blood Pressure 67 /50 Mean: 10/19/19 11:35: Lactic Acid Level 8.99*H Laboratory Tests 10/19/19 11:35: Creatinine 1.61H, INR Comment 2.2H, Platelet Count 130, Total Bilirubin 0.4 (MIRA BARAJAS APRN) Results/Orders Lab Results Laboratory Tests Test 10/20/19 07:01 Range/Units Lab Scanned Report Transfusion Reaction Form [id number] (REMA SANTIAGO DO) My Orders Orders - REMA SANTIAGO DO Furosemide Injection (Lasix Injection) (10/19/19 10:55) Methylprednisolone Sod Succ (Solu-Medrol (10/19/19 10:56) Fentanyl Injection (Sublimaze Injection (10/19/19 11:01) Midazolam Injection (Versed Injection) (10/19/19 11:01) Succinylcholine Injection (Succinylcholi (10/19/19 11:01) (REMA SANTIAGO DO) Medications Given in ED (REMA SANTIAGO DO) Vital Signs/I&O (REMA SANTIAGO DO) Vital Signs/I&O Capillary Refill : (MIRA BARAJAS APRN) Progress Note : Progress Note PPE DONNED ON ARRIVAL AND COVID-19 TESTING PERFORMED ON PT (REMA SANTIAGO DO) ECG Initial ECG Impression Date: October 19, 2019 Initial ECG Impression Time: 10:57 Initial ECG Rate: 142 Initial ECG Rhythm: S.Tach Initial ECG Impression: Nonspecific Changes (REMA SANTIAGO DO) Critical Care Note Critical Care Start Time: 11:00 Stop Time: 12:34 Total Time (minutes) 90 Date of : October 19, 2019 Time of : 12:34 Progress SEE NURSING NOTES FOR DETAILS PT PRESENTED IN SEMI-OBTUNDED STATE, IN SEVERE RESPIRATORY DISTRESS, SEVERELY HYPOTENSIVE AND TACHYCARDIC IN 140'S, O2 SATS 100% ON ROOM AIR PT WAS IMMEDIATELY INTUBATED AND CENTRAL LINE PLACED PT GIVEN LASIX, AND SOLU-MEDROL GIVEN IV FLUIDS AND 3 UNITS OF BLOOD STARTED ON LEVOPHED 1157--PT NOTED TO BE PULSELESS/IN PEA--COMPRESSIONS AND ACLS PROTOCOLS INITIATED PT GIVEN EPINEPHRINE X 5, ATROPINE X 3, BICARB, MAGNESIUM, CALCIUM PT REMAINED PULSELESS AND NO AUDIBLE HEART SOUNDS, AND IN PEA 1210--NURSING STAFF SPOKE WITH AND INFORMED HIM OF HER CONDITION AND HE ADVISES TO STOP RESUSCITATION. 1211--PT NOW WITH PULSE--FINISHED GIVING BLOOD, WILL NOT GIVE ANY ADDITIONAL RESUSCITATIVE MEDICATIONS OR ANY CPR. CONDITION GRADUALLY DETERIORATED, WITH MULTIPLE EPISODES OF V-TACH, AND GRADUAL SLOWING OF PULSE 1232-- AT BEDSIDE 1234--PT NOW IN [place], PT PRONOUNCED. (REMA SANTIAGO DO) Departure Communication (Admissions) 1308--SPOKE WITH DR. DURAN, EDUCATION GENERAL MANAGER FOR [facility] [place] SHE WILL INFORM DR. MALONEY, WHO IS PT'S PCP (REMA SANTIAGO DO) Impression Primary Impression: ACUTE RESPIRATORY FAILURE WITH CARDIOPULMONARY ARREST Additional Impressions: Severe anemia SUSPECTED RUPTURED ABDOMINAL AORTIC ANEURYSM Acidosis CHF (congestive heart failure) Hypomagnesemia Hypokalemia Cardiogenic shock Hypovolemic shock Disposition: 20 Condition: Departure-Patient Inst. Referrals: SONDRA MALONEY MD (PCP/Family) Primary Care Physician MIRA BARAJAS APRN October 19, 2019 11:41 REMA SANTIAGO DO October 19, 2019 13:31
[2019-10-19 11:43] LABS: ABG BASE EXCESS -22.3 MMOL/L (-2.5-2.5); ABG OXYGEN SATURATION 100 % (94-100); ABG PCO2 26 MMHG (35-45); ABG PO2 382 MMHG (79-93); ABG TCO2 7.1 MMOL/L (21.0-31.0)
[2019-10-19 11:44] LABS: BASOPHILS % (AUTO) 0 % (0-10); EOSINOPHILS % (AUTO) 0 % (0-10); LYMPHOCYTES % (AUTO) 22 % (12-44); MEAN CORPUSCULAR HEMOGLOBIN 26 PG (25-34); MEAN CORPUSCULAR HGB CONC 30 G/DL (32-36); MEAN CORPUSCULAR VOLUME 87 FL (80-99); MEAN PLATELET VOLUME 11.1 FL (7.4-10.4); MONOCYTES # (AUTO) 0.4 X 10^3 (0.0-1.0); MONOCYTES % (AUTO) 8 % (0-12); NEUTROPHILS # (AUTO) 3.2 X 10^3 (1.8-7.8); NEUTROPHILS % (AUTO) 69 % (42-75); PLATELET COUNT 130 10^3/uL (130-400); RED CELL DISTRIBUTION WIDTH 14.9 % (10.0-14.5); WHITE BLOOD COUNT 4.6 10^3/uL (4.3-11.0)
[2019-10-19] MEDS ORDERED: NS IV 500 ML 500 ML ONE (11:44)
[2019-10-19] MEDS ORDERED: methylPREDNISolone 125 MG (Solu-MEDROL) VIAL IVP ONE (11:45)
[2019-10-19] MEDS ORDERED: NOREPINEPHRINE 4 MG/250 ML 250 ML IV SCH (11:45)
[2019-10-19] MEDS ORDERED: FUROSEMIDE 40 MG/4 ML INJ (LASIX) IVP ONE (11:45)
[2019-10-19] MEDS ORDERED: CEFEPIME INJECTION 2,000 MG in WATER (STERILE) FOR INJECTION 20 ML IV ONE (11:45)
[2019-10-19 11:46] LABS: HEMOGLOBIN 4.5 G/DL (11.5-16.0)
[2019-10-19 11:47] LABS: ABG PH 7.02 (7.37-7.43); HEMATOCRIT 15 % (35-52)
[2019-10-19 11:48] LABS: ALLENS TEST YES-POS; INSPIRED O2 100; PATIENT TEMP 37.7; VENTILATOR YES
[2019-10-19 11:53] LABS: ALBUMIN 1.7 GM/DL (3.2-4.5); CHLORIDE 113 MMOL/L (98-107); POTASSIUM 3.1 MMOL/L (3.6-5.0); SODIUM 134 MMOL/L (135-145)
[2019-10-19 11:56] LABS: GLUCOSE 387 MG/DL (70-105); TOTAL PROTEIN 3.3 GM/DL (6.4-8.2)
[2019-10-19 11:57] LABS: CALCIUM 5.6 MG/DL (8.5-10.1)
[2019-10-19 11:58] LABS: BILIRUBIN,TOTAL 0.4 MG/DL (0.1-1.0)
[2019-10-19 11:59] LABS: ALKALINE PHOSPHATASE 34 U/L (40-136)
[2019-10-19 12:00] LABS: CREATININE SERUM 1.61 MG/DL (0.60-1.30); GFR ESTIMATED 31
[2019-10-19 12:01] LABS: BUN/CREATININE RATIO 11
[2019-10-19 12:02] LABS: ALANINE AMINOTRANSFERASE < 6 U/L (0-55)
[2019-10-19 12:03] LABS: MAGNESIUM 1.5 MG/DL (1.6-2.4)
[2019-10-19 12:04] LABS: CREATINE KINASE 32 U/L (29-168)
[2019-10-19 12:09] LABS: FIBRIN DEGRADATION PRODUCTS 2.43 UG/ML (0.00-0.49); INR 2.2 (0.8-1.4); PROTHROMBIN TIME PATIENT 25.1 SEC (12.2-14.7)
[2019-10-19 12:11] LABS: CREATINE KINASE MB 1.2 NG/ML (<6.6)
[2019-10-19 12:34] VITALS: BP 0/0
[2019-10-19 12:39] LABS: CARBON DIOXIDE 7 MMOL/L (21-32)
[2019-10-19 12:46] LABS: ERYTHROCYTE SEDIMENTATION RATE 15 MM/HR (0-30)
--- NOTE | 2019-10-19 13:05 | Diagnostic Imaging Report ---
Portable supine AP chest at 12:16. Indication: Emergency Room code The heart is enlarged and the heart does seem less prominent than noted on the prior exam of 05/05/2019. The lungs are clear. There is no evidence for failure, pneumonia or for pleural effusion. The mediastinum is not widened. The osseous structures are intact. In the interval since the prior exam the patient has been intubated. ET tube tip overlies the distal trachea approximately 2 cm cephalad to the meme. It could be retracted 1 cm. There is also an NG line in place with the tip overlying the lateral aspect of the gastric fundus. A central venous catheter has also been inserted on the right with the tip overlying the midportion of superior vena cava. Impression: 1. There is cardiomegaly, there is no evidence for acute cardiopulmonary abnormality. 2. The supportive tubes and lines seen in good position with the exception of the ET tube. The ET tube tip could be retracted 1 cm. Called to [place] at 1:04 p.m. by cvb. Dictated by: Dictated on workstation # [id number]
[2019-10-22 12:13] LABS: PARAINFLU 1 PCR Not Detected (Not Detected); PARAINFLU 2 PCR Not Detected (Not Detected)
== END 2019-10-19 17:05 | disposition expired ==
LOC: EDUNIT# 11:00 → ER 11:00
DX: I46.9 Cardiac arrest, cause unspecified (principal); J96.00 Acute respiratory failure, unspecified whether with hypoxia or hypercapnia; I13.0 Hypertensive heart and chronic kidney disease with heart failure and stage 1 through stage 4 chronic kidney disease, or unspecified chronic kidney disease; I50.9 Heart failure, unspecified; N18.4 Chronic kidney disease, stage 4 (severe); D64.9 Anemia, unspecified; E87.2 Acidosis; E83.42 Hypomagnesemia; E87.6 Hypokalemia; R57.0 Cardiogenic shock; R57.1 Hypovolemic shock; E78.00 Pure hypercholesterolemia, unspecified; I25.10 Atherosclerotic heart disease of native coronary artery without angina pectoris; F32.9 Major depressive disorder, single episode, unspecified; Z88.0 Allergy status to penicillin; Z88.1 Allergy status to other antibiotic agents; Z88.2 Allergy status to sulfonamides; Z88.8 Allergy status to other drugs, medicaments and biological substances; Z77.22 Contact with and (suspected) exposure to environmental tobacco smoke (acute) (chronic); Z89.421 Acquired absence of other right toe(s); Z82.49 Family history of ischemic heart disease and other diseases of the circulatory system
CPT/HCPCS: 31500; 36415; 36430; 36600; 51702; 71045; 80053; 82550; 82553; 82805; 83605; 83615; 83735; 83874; 83880; 84145; 84484; 85025; 85379; 85610; 85652; 85730; 86141; 86850; 86900; 86901; 86920; 87040; 87070; 87205; 87631; 87635; 87798; 93005; 93041; 94799; 99291; 99292